=== PATIENT | male | born 1930 | race Caucasian/White ===

== ENCOUNTER 2017-07-27 12:38 | Inpatient (IN) | payer MEDICARE, OTHER ==
[~2017-07-27] VITALS: Ht 175.3 cm; Wt 81.2 kg
[~2017-07-27 12:38] MED LIST: ALLEGRA ALLERG180 MG PO; AMARYL2 MG PO; ASPIR-LOW81 MG PO; CITRATE OF MAG296 ML PO; COLACE100 MG PO; IBUPROFEN 600600 M1 PO; LYRICA 50 MG50 MG; LYRICA 50 MG50 MG PO; METFORMIN HCL500 MG PO; NORCO 5-325 TA1 EACH PO; NORVASC10 MG PO; PROSCAR 5MG TABL5 MG; RAMIPRIL10 MG PO; RELISTOR12 MG/0.2 IM; SYNTHROID75 MCG PO; TRAMADOL 50 MG50 MG PO; UROXATRAL10 MG PO
[2017-07-27 12:51] VITALS: BP 132/86
[2017-07-27 13:29] LABS: ABSOLUTE BASOPHILS 0.1 thou/uL (0.0-0.2); ABSOLUTE EOSINOPHILS 0.2 thou/uL (0.0-0.7); ABSOLUTE LYMPHOCYTES 5.7 thou/uL (0.8-5.3); ABSOLUTE MONOCYTES 1.5 thou/uL (0.0-1.2); ABSOLUTE NEUTROPHILS 7.5 thou/uL (1.6-8.1); BASOPHILS 0.4 %; EOSINOPHILS 1.5 %; HEMATOCRIT 38.7 % (42.0-52.0); HEMOGLOBIN 12.4 gm/dL (14.0-18.0); LYMPHOCYTES 37.9 %; MCH 29.1 pg (26.0-34.0); MCHC 32.1 g/dL (28.0-37.0); MCV 90.7 fL (80.0-100.0); MONOCYTES 10.2 %; NUCLEATED RBCS 0 /100WBC; PLATELET COUNT* 251 thou/uL (150-400); RBC 4.27 mil/uL (4.50-6.00); RDW-CV 17.1 % (10.5-14.5); WBC 15.1 thou/uL (4.0-11.0)
--- NOTE | 2017-07-27 13:30 | NUR ---
PT WITH DENUDED AREA TO RIGHT BUTTOCK. BARRIER CREAM APPLIED. SKIN TEARS TO R DORSAL FOOT AND R 3RD TOE. FOOT REDDENED
[2017-07-27 13:34] LABS: ANION GAP 8 mmol/L (7-16); BUN 33 mg/dL (7-18); CALCIUM 9.2 mg/dL (8.5-10.1); CHLORIDE 109 mmol/L (98-107); CO2 26 mmol/L (21-32); CREATININE 1.5 mg/dL (0.6-1.3); GLUCOSE 176 mg/dL (70-99); POTASSIUM 4.2 mmol/L (3.5-5.1); SODIUM 143 mmol/L (136-145)
[2017-07-27 13:41] LABS: ALKALINE PHOSPHATASE 141 U/L (46-116); LIPASE 74 U/L (73-393); SGOT 16 U/L (15-37); SGPT 24 U/L (30-65); TOTAL BILIRUBIN 0.3 mg/dL (<0.1-1.0); TOTAL PROTEIN 6.7 g/dL (6.4-8.2); TROPONIN-I LEVEL <0.06 ng/mL (<0.06)
--- NOTE | 2017-07-27 14:28 | NUR ---
PT SITTING UP IN BED EATING LUNCH. FAMILY AT BS
--- NOTE | 2017-07-27 15:23 | EKG ---
[place] [address] ELECTROCARDIOGRAM REPORT Name: DARIEL CARNEY Room: [facility]#: [id number] Admission: 07/27/17 Attend Phys: Discharge: Date of : 34 Report #: [id number] THIS REPORT FOR: //name// 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
[2017-07-27 15:55] LABS: URINE BILIRUBIN NEGATIVE (Negative); URINE BLOOD 3+ (Negative); URINE CLARITY CLOUDY; URINE COLOR YELLOW; URINE GLUCOSE-RANDOM 3+ (Negative); URINE KETONES NEGATIVE (Negative); URINE LEUKOCYTES-REFLEX 1+ (Negative); URINE NITRITE-REFLEX NEGATIVE (Negative); URINE PROTEIN 2+ (Negative); URINE SPECIFIC GRAVITY 1.025 (1.005-1.030); URINE UROBILINOGEN 0.2 E.U./dl (0.2-1.0)
[2017-07-27 16:02] LABS: URINE WBC-REFLEX >25 Many /HPF (0-5)
[2017-07-27 16:04] LABS: SQUAMOUS 0-3 Few /LPF (0-3); URINE RBC 3-10 Few /HPF (0-2)
[2017-07-27 16:05] LABS: BACTERIA-REFLEX 1-9 Few /HPF (None Seen); CRYSTALS None Seen /LPF (None Seen); HYALINE CASTS 0-3 Few /LPF (None Seen); MUCUS None Seen strn/LPF (None Seen); WBC CLUMPS Few (None Seen)
[2017-07-27] MEDS ORDERED: CARVEDILOL12.5 MG PO (16:10)
[2017-07-27] MEDS ORDERED: JANUVIA100 MG PO (16:11)
[2017-07-27] MEDS ORDERED: IBUPROFEN200 M1 PO (16:11)
[2017-07-27] MEDS ORDERED: JARDIANCE25 MG PO (16:11)
[2017-07-27] MEDS ORDERED: METFORMIN HCL500 MG PO (16:12)
[2017-07-27] MEDS ORDERED: OMEGA-31000 M1 PO (16:13)
[2017-07-27] MEDS ORDERED: CENTRUM SILVER1 EAC2 PO (16:13)
[2017-07-27] MEDS ORDERED: SIMETHICON CHEW80 M1 PO (16:14)
[2017-07-27 17:00] VITALS: BP 127/74
--- NOTE | 2017-07-27 17:00 | NUR ---
REPORT TO BK DENTON ON . PT TAKEN TO FLOOR VIA CART
[2017-07-27 17:38] VITALS: BP 134/87
[2017-07-27 20:00] VITALS: BP 152/82
--- NOTE | 2017-07-27 20:01 | NUR ---
PATIENT ADMITTED TO ROOM 305 FROM ER AT 1715. ADMISSION HISTORY AND ASSESSMENT COMPLETED CHARTED. PATIENT NOTED TO HAVE RIGHT FOOT AND TOE WOUND, PICTURE OBTAINED AND DRESSING APPLIED. NOTED TO HAVE ? PRESSURE ULCER TO SACRUM AND ? PRESSURE ULCER TO RIGHT AND LEFT BUTTOCK. INCONTINENT OF URINE AND STOOL, FADIA-CARE COMPLETED AND BARRIER CREAM APPLIED. IV VANCOMYCIN INFUSING. FAMILY AT BEDSIDE. FALL PRECAUTIONS IN PLACE. HOURLY ROUNDING COMPLETED. CALL LIGHT WITHIN REACH. WILL CONTINUE WITH PLAN OF CARE.
[2017-07-28] VITALS: BP 110/70
[2017-07-28 05:26] LABS: HEMATOCRIT 33.3 % (42.0-52.0); HEMOGLOBIN 10.9 gm/dL (14.0-18.0); MCH 29.1 pg (26.0-34.0); MCHC 32.6 g/dL (28.0-37.0); MCV 89.2 fL (80.0-100.0); RBC 3.74 mil/uL (4.50-6.00); RDW-CV 16.6 % (10.5-14.5); WBC 16.2 thou/uL (4.0-11.0)
--- NOTE | 2017-07-28 05:49 | NUR ---
PT INCONTINET BOWEL AND BLADDER SEVERAL TIMES OVERNIGHT, PT UNAWARE IF HE HAS GONE-FREQUENT CHECKS AND INCONTINENCE CARE GIVEN. UP WITH 2 PERSON ASSIST AND WALKER TO BSC X2 OVERNIGHT. L FA IVF SL, ABX GIVEN ORDERED. PT TURNED AND REPOSITIONED Q2 HOURS AND PRN PT WOULD ALLOW AND REQUESTS. FAMILY MEMBER HERE UNTIL 0200 ATTENTIVE TO NEEDS. HS ACCUCHECK 190, PO MEDS GIVEN, REFUSING INSULIN PER . SPOKE WITH SEVERAL MINUTES AT HS REGARDING MEDICATIONS AND CARES. REFUSING LOVENOX, EDUCATION GIVEN. R FOOT DRSG BECAME SOILED AND FOOT CLEANSED WITH WOUND CLEANSER AND REDRESSED. FADIA CARE AND BARRIER CREAM TO BUTTOCK WOUNDS, WOUND CARE TO SEE PT TODAY. AM LABS DRAWN. OCC CONGESTED COUGH HEARD, OCC PROD PT STATES. CALL LITE IN EASY REACH, BED ALARM ON FOR SAFETY.
[2017-07-28 06:04] LABS: CALCIUM 8.7 mg/dL (8.5-10.1); CREATININE 1.4 mg/dL (0.6-1.3); MAGNESIUM 2.1 mg/dL (1.8-2.4); POTASSIUM 4.5 mmol/L (3.5-5.1)
[2017-07-28 07:35] VITALS: BP 161/74
--- NOTE | 2017-07-28 12:30 | NUR ---
WOUND CARE NOTE: MULTIPLE CONSULTS RECEIVED FOR WOUNDS. PATIENT PRESENTS WITH PARTIAL THICKNESS TISSUE LOSS TO THE MEDIAL ASPECT OF THE RIGHT FOOT, NEAR THE 1ST METATARSAL HEAD AND TO THE DORSAL ASPECT OF THE 2ND TOE ON THE RIGHT FOOT. BOTH APPEAR TO BE AN ABRASION. MEDIAL RIGHT FOOT: 0.8X1.4X0.1. DRY, PALE, YELLOW WOUND BED. FADIA-WOUND INTACT. RIGHT 2ND TOE: 1.5X0.8X0.1. DRY, PALE, YELLOW WOUND BED. FADIA-WOUND INTACT. CLEANSED BOTH WOUNDS WITH WOUND CLEANSER, PATTED DRY. APPLIED VASELINE GAUZE AND SECURED WITH ROLL GAUZE. PATIENT HAS MULTPLE SMALL OPENINGS TO HIS SACROCOCCYGEAL AREA. BELIEVE THESE ALL TO BE STAGE 2 PRESSURE ULCERS, POSSIBLY STAGE 3. RIGHT BUTTOCK/SACRUM: 1X1.5X0.1 LEFT BUTTOCK/SACRUM: 2.8X3X0.2 COCCYX: 0.7X0.5X0.1 WOUND BEDS ARE MOIST, RED. FADIA-WOUND MACERATED. APPLIED BARRIER OINTMENT AT THIS TIME. PATIENT HAS MULTIPLE EPISODES OF INCONTINENCE, BOTH STOOL AND URINE. THIS COMPLICATES THE DRESSING SELECTION I FEAR THEY WOULD NOT STICK DUE TO THE MOISTURE. SPOKE WITH PATIENT'S , SHE STATES THAT HE WEARS DEPENDS AT HOME AND DOES NOT CHANGE THEM FREQUENTLY HE SHOULD. HE IS ALMOST CONSTANTLY STOOLING OR WET AND HE GETS FRUSTRATED WHEN HE HAS TO CHANGE THEM A LOT. SHE STATES HE ALSO SITS FREQUENTLY. EDUCATED THE IMPORTANCE TO NOT HAVE THE WET BRIEF ON, COMMUNICATES UNDERSTANDING. EDUCATED ON DRESSING SELECTION FOR FEET. RECOMMEND Z-GUARD BARRIER CREAM TO SACROCOCCYGEAL AREA BID AND PRN INCONTINENCE-HOPE TO PROVIDE A BARRIER FROM THE URINE/STOOL AND THE WOUNDS WAFFLE CUSHION WHEN IN BED TIGHT BLOOD GLUCOSE CONTROL TURN Q2 HOURS-KEEP OFF WOUNDS
--- NOTE | 2017-07-28 13:17 | NUR ---
MET WITH PT.,,DAUGHTER AND SON IN LAW. PT.ANSWERED MOST OF THE QUESTIONS. HE SAID HIS RIGHT FOOT WAS RED AND SWOLLEN AND WAS AFRAID HE MIGHT HAVE PNEUMONIA. PT.LIVES AT HOME WITH HIS . SHE SAID SHE DOES EVERYTHING AT HOME, COOKS,CLEANS, HELPS TAKE CARE OF HIM. PT.SAID HE USES A WALKER AT HOME. HE PLANS TO GO HOME WITH HOME HEALTH AT DISCHARGE. HE WAS RECENTLY RELEASED FROM [facility] AND WANTS TO USE THEM AGAIN. HE NEEDS SOME ASSIST WITH BATHING. HE IS INCONTINENT OF BOWEL AND BLADDER FREQUENTLY BUT CAN CHANGE HIS OWN DEPENDS. THEY ARE TRYING TO FIND OUT WHY HE IS INCONTINENT. HE ALSO HAS A DECUB ON HIS SACCRUM. HE DOESNT DRIVE DUE TO HIS NEUROPATHY . HIS DRIVES. CM WILL FOLLOW FOR DISCHARGE PLANNING. NOTIFIED [facility] HOME THAT PT.WOULD LIKE TO USE THEM AT DISCHARGE. DISCHARGE DATE UNKNOWN AT THIS TIME.
[2017-07-28 14:50] LABS: % SATURATION 15 % (20-39); IRON 35 ug/dL (50-175)
[2017-07-28 17:11] VITALS: BP 172/88
--- NOTE | 2017-07-28 18:45 | NUR ---
PATIENT HAS BEEN A/O X 4, FORGETFUL AT TIMES. HAS DENIED PAIN THIS SHIFT. SEEN BY WOUND CARE, GI, AND ID THIS SHIFT. DRESSING TO RIGHT FOOT CHANGED WITH BEHAVIORIST THIS AM. BARRIER CREAM APPLIED SACROCOCCYGEAL REGION AFTER EACH INCONTINENT EPISODE. UP TO CHAIR THIS SHIFT, WAFFLE CUSHION IN PLACE. PATIENT HAD SHOWER THIS SHIFT. PATIENT CONTINUES ON IV ANTIBIOTICS. SEEN BY PT/OT THIS SHIFT. HAS HAD MULTIPLE FAMILY MEMBERS AT BEDSIDE THIS SHIFT. HOURLY ROUNDING COMPLETED. FALL PRECAUTIONS IN PLACE. CALL LIGHT WITHIN REACH. WILL CONTINUE WITH PLAN OF CARE.
[2017-07-28 20:15] VITALS: BP 161/80
--- NOTE | 2017-07-29 01:03 | NUR ---
PT COMPLAINED OF NEEDING TO URINATE. PT TRIED TO URINATE AND WAS UNABLE, BLADDER SCANNER READ 688ML. DR NOTIFIED, ORDER TO STRAIGHT CATH RECIEVED. WENT TO STRAIGHT CATH PT, PT WAS INCONTINENT, BLADDER SCAN REDONE READING 468, PT TRIED VOIDING AGAIN AND WAS UNABLE. STRAIGHT CATH PERFORMED, 800 ML OUT.
--- NOTE | 2017-07-29 05:37 | NUR ---
PT SLEPT ON AND OFF THIS SHIFT. ASSESSMENT DOCUMENTED. MEDS GIVEN PER E-JUN. IV PATENT, ABX INFUSING. PT HAD FAMILY AND A RECEIVABLE CLERK THAT WORKS FOR THE FAMILY STAYED THROUGH SHIFT. PT INCONTINENT OF BOWEL AND BLADDER THROUGH SHIFT. PT AMBULATED TO BATHROOM A COUPLE TIMES THIS SHIFT. PTS SON, KRISTA CARNEY ASKED IF DR. HAYDEN AND CASE MANAGEMENT WOULD TALK TO PATENT AND SPOUCE ABOUT PLACEMENT. CALLED TO ASK ABOUT PATIENT, STATED SHE WOULD BRING PTS ALFUZOSIN SINCE PT WAS NOT WANTING TO TAKE TAMSULOSIN. WILL CONTINUE WITH PLAN OF CARE.
[2017-07-29 08:00] VITALS: BP 171/86
[2017-07-29 10:45] LABS: ABSOLUTE BASOPHILS 0.1 thou/uL (0.0-0.2); ABSOLUTE EOSINOPHILS 0.2 thou/uL (0.0-0.7); ABSOLUTE LYMPHOCYTES 5.1 thou/uL (0.8-5.3); ABSOLUTE MONOCYTES 1.5 thou/uL (0.0-1.2); ABSOLUTE NEUTROPHILS 6.6 thou/uL (1.6-8.1); BASOPHILS 0.7 %; EOSINOPHILS 1.5 %; HEMATOCRIT 34.6 % (42.0-52.0); HEMOGLOBIN 11.3 gm/dL (14.0-18.0); LYMPHOCYTES 37.8 %; MCH 29.5 pg (26.0-34.0); MCHC 32.7 g/dL (28.0-37.0); MCV 90.2 fL (80.0-100.0); MPV 9.7 fl. (7.2-11.1); NUCLEATED RBCS 0 /100WBC; PLATELET COUNT* 204 thou/uL (150-400); RBC 3.84 mil/uL (4.50-6.00); RDW-CV 16.7 % (10.5-14.5); WBC 13.4 thou/uL (4.0-11.0)
[2017-07-29 10:52] LABS: CALCIUM 8.8 mg/dL (8.5-10.1); CREATININE 1.5 mg/dL (0.6-1.3); POTASSIUM 3.9 mmol/L (3.5-5.1)
--- NOTE | 2017-07-29 12:25 | CON ---
[address] [address] CONSULTATION Name: DARIEL CARNEY Room: [address] IN M.R.#: [id number] Admission: 07/27/17 Attend Phys: Pam Santos MD Discharge: Date of : 32 Report #: [id number] THIS REPORT FOR: //name// CC: Isauro Santos DATE OF SERVICE: 07/28/2017 ATTENDING PHYSICIAN: Dr. Santos. REASON FOR EVALUATION: Right foot skin and soft tissue infection with cellulitis, also has some superficial posterior perineal ulcers and perhaps bronchitis. HISTORY OF PRESENT ILLNESS: Chart reviewed, patient examined. This is an 87-year-old gentleman with diabetes mellitus type 2, spinal stenosis, who may well have early dementia as well, who apparently has been ill for the last few days, noted redness associated with his foot, primarily a superficial abrasive lesion involving the dorsal aspect of the right great toe. It had progressed quite rapidly over the course of 12 hours, becoming red, swollen. He does recall some degree of pain. It is not clear if he had fevers or chills. In addition to that, had noted some cough associated with some congestion. He was evaluated by his primary care physician. There is question of early pneumonitis. Due to the above, he was instructed to be admitted. Cultures of the blood were taken. Urinalysis did show marked pyuria. Urine culture in progress. He is empirically started on combination therapy with azithromycin, ceftriaxone and vancomycin. ALLERGIES: None known. MEDICATIONS: Include, famotidine, azithromycin, linagliptin, multivitamin, fish oil, tamsulosin, levothyroxine, vancomycin, pregabalin, lisinopril, ceftriaxone, enoxaparin, carvedilol, metformin, ibuprofen. PAST MEDICAL HISTORY: Above noted diabetes mellitus type 2, complicated by some peripheral neuropathy. Does have a spinal stenosis and recent incontinence, cataracts, may have some early dementia. SOCIAL HISTORY: Nonsmoker. Occasional ethanol. FAMILY HISTORY: Noncontributory. REVIEW OF SYSTEMS: Denies significant gastrointestinal-related complaints other than frequent soft stools, apparently has good appetite, although has had a [place] [address] CONSULTATION Name: ROMMELDARIEL Yunier Room: [address] IN [facility]#: [id number] Admission: 07/27/17 Attend Phys: Pam Santos MD Discharge: Date of : 32 Report #: [id number] PHYSICAL EXAMINATION: GENERAL: He is pleasant and cooperative, appropriate, does have some mild degree of encephalopathy. VITAL SIGNS: T-max 100.4, more recently 98.3. Pulse 66, respirations 18, blood pressure 161/74. SKIN: Warm, dry, no rashes. HEENT: Unremarkable. LUNGS: Clear to auscultation. HEART: Regular. I do not appreciate murmur. ABDOMEN: Soft, nontender, nondistended. EXTREMITIES: Right lower extremity superficial ulcer involving the dorsal aspect of great toe. There is a second wound over the dorsal aspect of the second toe. There is mild degree of inflammation at this point. GENITOURINARY: Deferred. RECTAL: Deferred. LABORATORY DATA: Blood cultures sterile thus far. Electrolytes: Sodium 142, potassium 4.5, chloride 111, bicarbonate is 21, BUN and creatinine 32 and 1.4. Estimated GFR 48. CBC: White count of 16.2, H and H 10.9 and 33.3, platelets of 216. X-ray of the right foot shows no acute osseous findings or bone destruction. Urinalysis greater than 25 white cells, 1-9 bacteria. Lactic acid 1.6. Chest x-ray, no acute process. Liver function tests: Alkaline phosphatase of 141, otherwise unremarkable. Albumin 3.0, total protein 6.7. ASSESSMENT: Distal right lower extremity inflammatory process. Certainly given the rapidity, it sounds as if cellulitic, it should be responding to treatment. PLAN: Continue the IV antibiotics for at least another day. at this point, he is not evidently hypoxemic. We will plan to transition to antibiotics to cover lower respiratory tract infection as well. Continue wound care as prescribed. He may need a neuro evaluation, possible complications related to spinal stenosis. I would not expect that to resolve without intervention. We will discuss with hospitalist. <ELECTRONICALLY SIGNED> By: Roberto Garrison MD 07/29/17 1225 [id number] Garrison MD /nt
--- NOTE | 2017-07-29 15:05 | NUR ---
FAMILY DECIDING IF THEY WANT TESTING FOR PT.S MEMORY ISSUES. DR'S ADJUSTING MEDS TO SEE IF THEY WILL HELP WITH BOWEL INCONTINENCE. SAID THEY WANT TO WAIT ANOTEHR DAY BEFORE DISCUSSING SNF. CM WILL FOLLOW.
[2017-07-29 17:16] VITALS: BP 141/79
--- NOTE | 2017-07-29 19:46 | NUR ---
ASSUMED CARE THIS AM. PATIENT AND REQUIRE EXT. EDUCATION AND REAFFIRMATION FROM STAFF FREQUENTLY THROUGHOUT THE DAY. SON REQUESTING THAT DOCTOR AND CASE MANAGEMENT CONVINCE TO HAVE PATIENT TRANSFER TO ASSIST LIVING VS. LTC., PREFERS THAT PATIENT RETURN TO HOME. DENIES DISCOMFORT, EXT ASSIST OF FTWO STAFF WITH GAIT BELT AND WALKER FOR TRANSFERS/AMBULATION TO/FROM TOILET IN PT. ROOM. DRESSINGS C/D/I TO FOOT, UP TO CHAIR FOR MEALS, CALL LIGHT IN REACH, CONT POC.
[2017-07-29 20:05] VITALS: BP 155/75
[2017-07-30] VITALS: BP 141/81; BP 83/42
--- NOTE | 2017-07-30 05:19 | NUR ---
FAMILY HERE UNTIL LATE LAST NIGHT, MANY CONCERNS AND QUESTIONS REGARDING PATIENT. PT AND FAMILY PLEASANT. PT ALERT AND ORIENTED, FORGETFULNESS, INCONTINENT OF BOWEL AND BLADDER, FLUIDS AND ANTIBIOTICS INFUSED, PT BLADDER SCANNED LAST NIGHT AND 970 RESULTED, PHYSICIAN CALLED AND NOTIFIED, ELLIS ORDERED AND INSERTED. FAMILY CONCERNED ABOUT COUGH, DISCUSSED WITH PHYSICIAN AND NO NEW ORDERS RECEIVED BUT TO HAVE FAMILY DISCUSS WITH DOCTOR TODAY. PT TURNED AND REPOSITIONED FREQUENTLY. BARRIED CREAM APPLIED WITH ALL INCONTINENT EPISODES. WOUNDS HEALING ON BUTTOCKS AND SACRUM. DRESSINGS REMAIN C/D/I ON LEGS. CALL LIGHT IN REACH, BED ALARM ON FOR SAFETY, WILL CONTINUE TO MONITOR
[2017-07-30 07:45] VITALS: BP 147/82
[2017-07-30 14:59] VITALS: BP 147/82
[2017-07-30] MEDS ORDERED: COLESTID1 GM PO (15:06)
[2017-07-30] MEDS ORDERED: GLUCOTROL5 MG PO (15:07)
[2017-07-30] MEDS ORDERED: CEFUROXIME250 MG PO (15:46)
[2017-07-30] MEDS ORDERED: MINOCIN100 MG PO (15:47)
[2017-07-30] MEDS ORDERED: FLOMAX0.4 MG PO (16:05)
--- NOTE | 2017-07-30 16:30 | NUR ---
PATIENT DISCHARGED TO INPATIENT REHAB. REPORT GIVEN ROCIO. COPY OF ORDERS GIVEN TO ROCIO. IV IN PLACE. PATIENT BELONGINGS MOVED TO ROOM 333. PATIENT LEFT FOR CT AND IS GOING TO ROOM [address] COMPLETED.
[2017-07-30] MEDS ORDERED: CENTRUM SILVER1 EAC2 PO (17:36)
--- NOTE | 2017-08-04 17:26 | CON ---
[address] [address] CONSULTATION Name: DARIEL CARNEY Room: [address] IN M.R.#: [id number] Admission: 07/27/17 Attend Phys: Pam Santos MD Discharge: 07/30/17 Date of : 32 Report #: [id number] THIS REPORT FOR: //name// CC: Isauro Santos DATE OF SERVICE: 07/28/2017 HISTORY OF PRESENT ILLNESS: This is an 87-year-old male patient who was evaluated by me for memory disturbances. The history is not very clear. I talked to the patient's family and I talked to the nurses looking after this patient. This patient had some memory problems, but he was functioning reasonably well. Then, he was given some medication for his incontinence. He became confused and then, he had what looks like an infection in his feet and sacrococcygeal pressure ulcer. He was running some temperature. He became even more confused and subsequently, he has become better. There is nothing which made this memory problem better or worse. It came spontaneously without any trauma. They were moderately severe, but they are better now. REVIEW OF SYSTEMS: Pretty extensive in this patient, looks like he has cellulitis of the foot. He has decubitus ulcer. He had a prior fracture of L2. He has history of diabetes. In fact, he has neuropathy involving both lower extremities. He had previous cataract surgery. He has a history of spinal stenosis. He has a history of hypertension, hypothyroidism, diabetes and looks like he also has some chronic kidney disease. He has not been able to drive because of his neuropathy. Neuropathy has been secondary to diabetes. I carried out his 14-point review of system and this was his relevant 14-point review of system. PAST MEDICAL HISTORY: Positive for neuropathy and some memory disturbances. FAMILY HISTORY: Negative for any early age strokes. SOCIAL HISTORY: He drinks alcohol only on special occasions. PHYSICAL EXAMINATION: Indicate that he is alert. He is responsive. He knows what month it is. He did not get the date exactly right. He knows what hospital he is in and he knew the president. His cranial nerve examination 2-12 is unremarkable. His strength, sensation, reflexes and tones are symmetrical, but on both sides, he is not able to appreciate the position sense and his sensation is impaired. His reflexes could not be elicited in the lower extremities. He has no cerebellar sign. I could not look at the fundus well as pulses are difficult to feel in the lower extremities. He does not have any pronounced edema. He is a reasonably well-developed individual. His hearing and vision looks adequate. His cardiac examination was mostly unremarkable. No respiratory difficulty or rhonchi was noted. Blood pressure was 161/74, pulse [facility] [address] [place] [address] CONSULTATION Name: DARIEL CARNEY Room: [address] IN [facility]#: [id number] Admission: 07/27/17 Attend Phys: Pam Santos MD Discharge: 07/30/17 Date of : 32 Report #: [id number] is 66, temperature is 98.3, respiration is 18. LABORATORY DATA: Indicate a white count of 16.2. His GFR is 48. He does not have any imaging study of the brain. He is a moderately built individual who does not have any thyroid mass or carotid bruit. IMPRESSION: 1. It would appear the patient probably has encephalopathy from which he is becoming better. 2. He was going to see me for memory disturbances and it is possible he is getting minimum cognitive impairment or early dementia. That will require some workup, but only when the patient is stabilized. 3. Neuropathy, which is probably secondary to diabetes, but again, we will require the workup as an outpatient since it is a longstanding problem. RECOMMENDATION: I had a long talk with the patient's family. I discussed with them that if he is having memory problem, we need to do the further testing starting with mini mental status and maybe formal neuropsychological testing. The best thing to do for those testing is an as outpatient once the patient stabilizes because presently the test may not be accurate. They understood that. I did recommend doing some blood workup, an MRI of the brain and an EEG. The patient has incontinence. They are scared because the patient may not be able to have the test done. I told them that we can try CT, but ultimately they are not sure they want to have any tests done at all. I asked them to think about it and if they want to proceed with this testing, then they can let the nurse know and I will be happy to arrange those testing. I did discuss the patient with Dr. May and talked to the nurses looking after this patient. More than 50 minutes of time was spent taking care of this patient today and majority of that time was spent counseling the family and coordinating his care. Thank you very much for this referral. <ELECTRONICALLY SIGNED> By: Mtat Good MD 08/04/17 1726 1424 [id number] Good MD /nt
--- NOTE | 2017-08-10 15:01 | CON ---
[address] [address] CONSULTATION Name: DARIEL CARNEY Room: [address] IN M.R.#: [id number] Admission: 07/27/17 Attend Phys: Pam Santos MD Discharge: 07/30/17 Date of : 32 Report #: [id number] THIS REPORT FOR: //name// CC: Isauro Santos DICTATED BY: Chacha Victor [facility] DATE OF SERVICE: 07/28/2017 Please note at the time of this dictation, the patient was seen and physically examined by myself. REASON FOR CONSULTATION: Incontinent of stool and very loose, numerous times a day. HISTORY OF PRESENT ILLNESS: This is an 87-year-old male who presented to the emergency room mainly for redness and infection in the right foot that has been ongoing for a while. He has also been noted to have a decubitus ulcer, which is getting worse on his buttocks. He also recently saw his PCP for getting antibiotics for worsening of his infections and his mentioned that she has concerns that over the last 6 months he is becoming more and more incontinent of urine and stool and noticing that he is progressively weaker. In talking with the patient, he has never had a colonoscopy nor does he wish to have a colonoscopy at this time. He states if he goes to the bathroom, he may sit on the toilet for 45 minutes to an hour because he is unable to get up that he is constantly going to the bathroom and cleaning himself up. However, since he has been here in the hospital, the nursing staff has noted that every time they go to move him around that he has been incontinent of stool and he has been unaware of soiling in his bed. , in talking to her, he has numerous bowel movements, probably 10 plus if not more daily, some are formed and some are very loose. Denies any evidence of any bright red blood or any melena is noted and there is some concern for weight loss as well. The patient denies any fever, chills, or any abdominal pain at this time. Family is also concerned that because of his decubitus ulcer and his incontinent stool is making that worse on his buttocks. When his metformin dose was decreased from 2000 mg to 1000 mg, his stooling decreased. ALLERGIES: No known drug allergies. MEDICATIONS: From home, Synthroid, carvedilol, Jardiance, Januvia, ibuprofen, metformin, omega-3, simethicone, ramipril, Mariposa, Uroxatral, Lyrica, and Centrum. PAST MEDICAL HISTORY: Hypertension, neuropathy in his feet for the past [address] [place] [address] CONSULTATION Name: DARIEL CARNEY Room: [address] IN M.R.#: [id number] Admission: 07/27/17 Attend Phys: Pam Santso MD Discharge: 07/30/17 Date of : 34 Report #: [id number] years, spinal stenosis in his lower back as well as a compression fracture, type 2 diabetes, and hypothyroidism. PAST SURGICAL HISTORY: Cataracts, tip of his right toe removed secondary to infection. FAMILY HISTORY: Positive for colon cancer in his son at age 58 and daughter breast cancer. SOCIAL HISTORY: He is . Alcohol, 1-2 glasses of wine on special occasions. Denies any tobacco use and no illegal drug use. REVIEW OF SYSTEMS: Twelve-point review of systems is essentially negative except what is mentioned in the HPI. PHYSICAL EXAMINATION: VITAL SIGNS: Temperature 36.8, pulse 66, respirations 18, and blood pressure 161/74. HEART: Regular rate and rhythm. LUNGS: Clear, slightly diminished. ABDOMEN: Soft, positive bowel sounds in all 4 quadrants with no masses or tenderness noted. EXTREMITIES: Stage II decubitus ulcer noted in the gluteal cleft. LABS: Hemoglobin on admission was 12.4, he is 10.9; white count was 15.1, he is 16.2 now; hematocrit 33.3, and platelets 216. Sodium 142, potassium 4.5, chloride 111, CO2 of 21, BUN is 32, creatinine is 1.4, GFR is 48 and glucose is 185. Total bili is 0.3, alk phos 141, ALT 24, AST is 16. The patient is positive significantly for a urinary tract infection as well. IMPRESSION: 1. Stool and urine incontinence. 2. Loose bowels. 3. Decubitus ulcer at the gluteal cleft. 4. Anemia. 5. Leukocytosis. 6. Bronchitis and urinary tract infection. 7. Spinal stenosis. 8. 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 9. Family history, son colon cancer and daughter breast cancer. PLAN: 1. Stop his metformin completely and see if there is any improvement in his bowels. 2. We will add Colestid 2 grams b.i.d., again reiterated that this needs to be taken an hour before medications or 4 hours after other medications to prevent [facility] [address] [place] [address] CONSULTATION Name: DARIEL CARNEY Room: [address] IN M.R.#: [id number] Admission: 07/27/17 Attend Phys: Pam Santos MD Discharge: 07/30/17 Date of : 32 Report #: [id number] binding issues. 3. Consider nerve conduction studies regarding his spinal stenosis as being a cause for his incontinence, worsening. 4. Labs, ferritin, B12, iron and TIBC to check for his anemia. 5. Greater than 45 minutes was spent with the patient and family in consultation on one-on-one time. Thank you for allowing us to participate in this patient's care. Please do not hesitate to call with any questions in regard to this consult. <ELECTRONICALLY SIGNED> By: Merlyn Patel MD 08/10/17 1501 1409 [id number] Patel MD /nt
--- NOTE | 2017-08-11 13:30 | CON ---
[address] [address] CONSULTATION Name: DARIEL CARNEY Room: [address] IN M.R.#: [id number] Admission: 07/27/17 Attend Phys: Pam Santos MD Discharge: 07/30/17 Date of : 32 Report #: [id number] THIS REPORT FOR: //name// CC: Isauro Santos REASON FOR CONSULTATION: Evaluation and recommendations regarding post-acute rehabilitation in an 87-year-old male who presented to [facility] with right foot and ankle swelling for at least 2 weeks. Coccyx pressure ulcer, persistent cough, congestion and fecal incontinence with ongoing debility, sounds like his previous level of function has been modified independent in the home setting where he has 2-3 steps to enter from the garage. He has been using a front-wheeled walker for the last 2 years. He was previously ambulating without any issues. He now has minimum to maximum assistance with physical therapy needs and minimum to moderate assistance with occupational therapy needs. He also has ongoing wound care as well as multiple medical comorbidities including diabetes, spinal stenosis, peripheral neuropathy. Currently, he is undergoing IV antibiotics and he is being followed closely. He has also been diagnosed with urinary tract infection. Laboratories, x-rays and medications have been reviewed and are available in the EMR and MAR. PAST MEDICAL HISTORY: Hypertension, bilateral peripheral neuropathy, cataracts with implants, spinal stenosis, non-insulin dependent diabetic, left leg weakness and pain. SOCIAL HISTORY: No tobacco or illicit drug use. He does use alcohol 1-2 glasses of wine on special occasions. FAMILY HISTORY: Diabetes and heart disease. REVIEW OF SYSTEMS: A 14-point review of systems is done and is negative except as mentioned in the HPI. PHYSICAL EXAMINATION: GENERAL: Alert and oriented, in no apparent distress. VITAL SIGNS: Reviewed and are stable. HEENT: Head atraumatic, normocephalic. Pupils equal, round, reactive. ABDOMEN: Soft, nontender, nondistended. NEUROLOGIC: Cranial nerves 2-12 are grossly intact with no focal neuro deficits, 5/5 strength, moving all extremities. SKIN: Warm and dry. PSYCHIATRIC: Normal mood and affect. ASSESSMENT: 1. Wound issues including coccyx pressure ulcer stage 2, [place] [address] CONSULTATION Name: DARIEL CARNEY Room: [address] IN [facility]#: [id number] Admission: 07/27/17 Attend Phys: Pam Santos MD Discharge: 07/30/17 Date of : 32 Report #: [id number] right foot and ankle on IV antibiotics. 2. Pneumonitis versus acute bronchitis and urinary tract infection. 3. Ongoing debility with changes in activities of daily living. 4. Documented peripheral neuropathy with a history of diabetes. 5. Hypothyroid, spinal stenosis, essential hypertension. 6. Urinary and fecal incontinence. PLAN: 1. Recommended acute inpatient rehabilitation to facilitate safe discharge to the home setting. 2. PT and OT will also do a cognitive screening based on his age and multiple recent changes. 3. Continue with antibiotics. 4. Continue with internal medicine support. 5. Wound care. <ELECTRONICALLY SIGNED> By: Elinor Mojica DO 08/11/17 1330 1408 [id number] Mojica DO /nt
== END 2017-07-30 16:31 | DRG 871 ==
LOC: M.ERS 12:38 → M.3W 15:20 → M.TBA-ER 15:20 → M.3W 17:00
PROVIDERS: Nurse Practitioner Adult Health; Physician Assistant; ADMIT Internal Medicine
DX: A41.9 Sepsis, unspecified organism (principal); J18.9 Pneumonia, unspecified organism; L03.115 Cellulitis of right lower limb; N39.0 Urinary tract infection, site not specified; E11.42 Type 2 diabetes mellitus with diabetic polyneuropathy; E03.9 Hypothyroidism, unspecified; D64.9 Anemia, unspecified; D72.829 Elevated white blood cell count, unspecified; M48.00 Spinal stenosis, site unspecified; J20.9 Acute bronchitis, unspecified; L89.302 Pressure ulcer of unspecified buttock, stage 2; E11.65 Type 2 diabetes mellitus with hyperglycemia; I12.9 Hypertensive chronic kidney disease with stage 1 through stage 4 chronic kidney disease, or unspecified chronic kidney disease; N18.2 Chronic kidney disease, stage 2 (mild); L89.152 Pressure ulcer of sacral region, stage 2; E11.22 Type 2 diabetes mellitus with diabetic chronic kidney disease; R33.9 Retention of urine, unspecified; Z98.49 Cataract extraction status, unspecified eye; Z80.0 Family history of malignant neoplasm of digestive organs; Z80.3 Family history of malignant neoplasm of breast; Z83.3 Family history of diabetes mellitus; Z82.49 Family history of ischemic heart disease and other diseases of the circulatory system

== ENCOUNTER 2017-07-30 14:36 | Inpatient (IN) | payer MEDICARE, OTHER ==
[~2017-07-30] VITALS: Ht 177.8 cm; Wt 84.4 kg
[~2017-07-30 14:36] MED LIST changes: +CARVEDILOL12.5 MG PO; +CENTRUM SILVER1 EAC2 PO; +IBUPROFEN200 M1 PO; +JANUVIA100 MG PO; +JARDIANCE25 MG PO; +OMEGA-31000 M1 PO; +SIMETHICON CHEW80 M1 PO
[2017-07-30] MEDS ORDERED: COLESTID1 GM PO (15:06)
[2017-07-30] MEDS ORDERED: GLUCOTROL5 MG PO (15:07)
[2017-07-30] MEDS ORDERED: CEFUROXIME250 MG PO (15:46)
[2017-07-30] MEDS ORDERED: MINOCIN100 MG PO (15:47)
[2017-07-30] MEDS ORDERED: FLOMAX0.4 MG PO (16:05)
[2017-07-30 17:30] VITALS: BP 159/82
[2017-07-30] MEDS ORDERED: CENTRUM SILVER1 EAC2 PO (17:36)
[2017-07-30 20:37] VITALS: BP 149/58
[2017-07-31 07:30] VITALS: BP 121/80
[2017-07-31 09:06] LABS: MCHC 32.5 g/dL (28.0-37.0); MCV 89.3 fL (80.0-100.0); MPV 9.9 fl. (7.2-11.1); RBC 4.14 mil/uL (4.50-6.00); RDW-CV 16.4 % (10.5-14.5); WBC 15.3 thou/uL (4.0-11.0)
[2017-07-31 09:10] LABS: CALCIUM 9.1 mg/dL (8.5-10.1); CREATININE 1.3 mg/dL (0.6-1.3)
[2017-07-31 20:46] VITALS: BP 175/92
[2017-08-01 08:00] VITALS: BP 148/80
[2017-08-01 20:47] VITALS: BP 178/88
[2017-08-02 08:00] VITALS: BP 123/62
[2017-08-02 19:30] VITALS: BP 122/70
[2017-08-03 08:00] VITALS: BP 154/89
[2017-08-03 20:05] VITALS: BP 135/77
[2017-08-04 08:21] VITALS: BP 185/89
[2017-08-04 20:00] VITALS: BP 165/81
[2017-08-05 08:00] VITALS: BP 154/77
[2017-08-05 14:38] LABS: ABSOLUTE BASOPHILS 0.1 thou/uL (0.0-0.2); ABSOLUTE EOSINOPHILS 0.2 thou/uL (0.0-0.7); ABSOLUTE LYMPHOCYTES 6.6 thou/uL (0.8-5.3); ABSOLUTE MONOCYTES 1.3 thou/uL (0.0-1.2); BASOPHILS 0.9 %; EOSINOPHILS 1.9 %; HEMATOCRIT 35.1 % (42.0-52.0); HEMOGLOBIN 11.4 gm/dL (14.0-18.0); MCH 29.2 pg (26.0-34.0); MCHC 32.4 g/dL (28.0-37.0); MCV 90.3 fL (80.0-100.0); MONOCYTES 9.8 %; NUCLEATED RBCS 0 /100WBC; PLATELET COUNT* 244 thou/uL (150-400); POLYS 37.4 %; RBC 3.89 mil/uL (4.50-6.00); RDW-CV 16.7 % (10.5-14.5); WBC 13.3 thou/uL (4.0-11.0)
[2017-08-05 14:49] LABS: ALBUMIN 2.6 g/dL (3.4-5.0); CALCIUM 8.9 mg/dL (8.5-10.1); CREATININE 1.4 mg/dL (0.6-1.3); MAGNESIUM 2.3 mg/dL (1.8-2.4); POTASSIUM 4.3 mmol/L (3.5-5.1); TOTAL BILIRUBIN 0.2 mg/dL (<0.1-1.0); TOTAL PROTEIN 6.2 g/dL (6.4-8.2)
[2017-08-05 16:48] LABS: URINE BILIRUBIN NEGATIVE (Negative); URINE BLOOD 2+ (Negative); URINE CLARITY CLEAR; URINE COLOR YELLOW; URINE GLUCOSE-RANDOM 3+ (Negative); URINE KETONES NEGATIVE (Negative); URINE LEUKOCYTES-REFLEX NEGATIVE (Negative); URINE NITRITE-REFLEX NEGATIVE (Negative); URINE PROTEIN TRACE (Negative); URINE SPECIFIC GRAVITY 1.015 (1.005-1.030); URINE UROBILINOGEN 0.2 E.U./dl (0.2-1.0)
[2017-08-05 16:55] LABS: SQUAMOUS NONE SEEN /LPF (0-3); URINE RBC 3-10 Few /HPF (0-2); URINE WBC-REFLEX 0-5 Rare /HPF (0-5)
[2017-08-05 16:56] LABS: BACTERIA-REFLEX None Seen /HPF (None Seen); CASTS None Seen /LPF (None Seen); CRYSTALS None Seen /LPF (None Seen); MUCUS None Seen strn/LPF (None Seen)
[2017-08-05 20:12] VITALS: BP 184/85
[2017-08-06 08:00] VITALS: BP 159/72
[2017-08-06 08:03] VITALS: BP 159/72
[2017-08-06 20:32] VITALS: BP 156/75
[2017-08-07 08:00] VITALS: BP 145/87
[2017-08-07 16:13] LABS: ABSOLUTE BASOPHILS 0.1 thou/uL (0.0-0.2); ABSOLUTE EOSINOPHILS 0.4 thou/uL (0.0-0.7); ABSOLUTE LYMPHOCYTES 7.7 thou/uL (0.8-5.3); ABSOLUTE MONOCYTES 1.4 thou/uL (0.0-1.2); ABSOLUTE NEUTROPHILS 6.5 thou/uL (1.6-8.1); BASOPHILS 0.5 %; EOSINOPHILS 2.3 %; HEMATOCRIT 34.9 % (42.0-52.0); HEMOGLOBIN 11.3 gm/dL (14.0-18.0); LYMPHOCYTES 48.1 %; MCH 29.2 pg (26.0-34.0); MCHC 32.3 g/dL (28.0-37.0); MCV 90.3 fL (80.0-100.0); MONOCYTES 8.5 %; MPV 9.6 fl. (7.2-11.1); NUCLEATED RBCS 0 /100WBC; PLATELET COUNT* 240 thou/uL (150-400); POLYS 40.6 %; RBC 3.86 mil/uL (4.50-6.00); RDW-CV 16.7 % (10.5-14.5)
[2017-08-07 16:20] LABS: CALCIUM 8.7 mg/dL (8.5-10.1); CREATININE 1.4 mg/dL (0.6-1.3); POTASSIUM 4.3 mmol/L (3.5-5.1)
[2017-08-07 20:33] VITALS: BP 122/59
[2017-08-08 07:38] VITALS: BP 169/74
[2017-08-08 20:31] VITALS: BP 117/70
[2017-08-09 07:28] VITALS: BP 166/81
[2017-08-09 20:28] VITALS: BP 129/65
[2017-08-10 08:00] VITALS: BP 153/76
[2017-08-10 09:15] VITALS: BP 98/72
[2017-08-10 19:59] VITALS: BP 143/76
[2017-08-11 08:00] VITALS: BP 134/77
[2017-08-11 21:06] VITALS: BP 125/75
[2017-08-12 08:11] VITALS: BP 177/83
[2017-08-12 08:20] VITALS: BP 177/83
[2017-08-12 20:37] VITALS: BP 165/92
[2017-08-13 07:43] VITALS: BP 146/72
[2017-08-13 11:38] VITALS: BP 146/72
[2017-08-13 15:19] LABS: URINE BILIRUBIN NEGATIVE (Negative); URINE BLOOD 1+ (Negative); URINE CLARITY CLEAR; URINE COLOR YELLOW; URINE GLUCOSE-RANDOM 3+ (Negative); URINE KETONES NEGATIVE (Negative); URINE LEUKOCYTES NEGATIVE (Negative); URINE NITRITE NEGATIVE (Negative); URINE PROTEIN 1+ (Negative); URINE UROBILINOGEN 0.2 E.U./dl (0.2-1.0)
[2017-08-13 15:53] LABS: SQUAMOUS 0-3 Few /LPF (0-3); URINE RBC >20 Many /HPF (0-2); URINE WBC 6-15 Few /HPF (0-5)
[2017-08-13 15:54] LABS: BACTERIA None Seen /HPF (None Seen); CASTS None Seen /LPF (None Seen); CRYSTALS None Seen /LPF (None Seen); MUCUS 0-3 Light strn/LPF (None Seen)
[2017-08-13 20:49] VITALS: BP 122/67
[2017-08-14 08:12] VITALS: BP 109/84
[2017-08-14] MEDS ORDERED: PROSCAR 5MG TABL5 MG PO (09:25)
[2017-08-14] MEDS ORDERED: COREG6.25 MG PO (09:28)
[2017-08-14 11:34] VITALS: BP 146/72
[2017-08-14 14:53] VITALS: BP 146/72
--- NOTE | 2017-08-18 20:30 | H ---
[place] [address] HISTORY AND PHYSICAL Name: DARIEL CARNEY Room: [address] IN M.R.#: [id number] Admission: 07/30/17 Attend Phys: Elinor Mojica DO Discharge: 08/14/17 Date of : 32 Report #: [id number] THIS REPORT FOR: //name// CC: Isauro Mojica HISTORY OF PRESENT ILLNESS: This is an 87-year-old male admitted to inpatient rehabilitation to facilitate safe discharge home, status post acute hospitalization at [facility] for acute bronchitis, cellulitis of the right foot compression fracture of L2, history of alternating constipation with loose bowels, decubitus sacral ulcer stage 2, urinary tract infection and he is currently on antibiotics. He has had alterations and has activities of daily living from a previous level of function of modified independent to current level of [id number] assistance of 1-2 depending on therapy, activity and time of day. He has needed physical and occupational therapy and is undergoing a cognitive evaluation as well. There have been no significant changes since the preadmission screening. Estimated length of stay is 5-7 days with discharge disposition to the home setting with supportive family. He lives in a house that is accessible. He does have family that can help with supervision and assistance as needed PAST MEDICAL HISTORY: Hypertension, bilateral lower extremity neuropathy, bilateral cataract, spinal stenosis, non-insulin dependent diabetes, left leg weakness and pain, and a recent cellulitis. SOCIAL HISTORY: Unchanged from previous. FAMILY HISTORY: Unchanged from previous. MEDICATIONS: Reviewed and are available in the MAR. ALLERGIES: No known drug allergies. REVIEW OF SYSTEMS: A 14-point review of systems is done and is negative except as mentioned in HPI, specifically no fever, chest pain, shortness of breath, abdominal pain or distention. PHYSICAL EXAMINATION: GENERAL: Alert, oriented, in no apparent distress. VITAL SIGNS: Reviewed and are stable. HEENT: Atraumatic, normocephalic. Pupils equal, round, reactive. ABDOMEN: Soft, nontender, nondistended. NEUROLOGIC: Cranial nerves 2-12 are grossly intact with no focal neuro deficits, 5/5 strength in the bilateral upper and lower extremities. SKIN: Warm and dry. Sacral ulcer is stable and lower extremity wounds are stable as well. PSYCHIATRIC: Normal [place] [address] HISTORY AND PHYSICAL Name: DARIEL CARNEY Room: [address]#: [id number] Admission: 07/30/17 Attend Phys: Elinor Mojica DO Discharge: 08/14/17 Date of : 32 Report #: [id number] ASSESSMENT: 1. Debility with alterations in activities of daily living from previous level of function of modified independence. 2. Multiple medical comorbidities requiring acute medical care. 3. Ongoing IV antibiotics. 4. Ongoing bowel program. PLAN: 1. Admission to inpatient rehabilitation. 2. PT, OT, speech, language, case management, nursing and HIMS to make evaluations and recommendations. 3. We will give him a regular diet as he and his family do his own carbon control. 4. Routine labs after admission. 5. Plan of care is pending and we will team him weekly. <ELECTRONICALLY SIGNED> By: Elinor Mojica DO 08/18/17 2030 1449 1513Knelda Mojica DO /nt
--- NOTE | 2017-08-18 20:30 | PLAN ---
[address] [address] REHAB UNIT PLAN OF CARE Name: DARIEL CARNEY Room: [address] IN ..#: [id number] Admission: 07/30/17 Attend Phys: Elinor Mojica DO Discharge: 08/14/17 Date of : 32 Report #: [id number] THIS REPORT FOR: //name// CC: Isauro Mojica DATE OF SERVICE: 07/31/2017 OVERALL PLAN OF CARE This is an 87-year-old male admitted to inpatient rehabilitation to facilitate safe discharge home status post acute hospitalization for multiple medical comorbidities including acute bronchitis, cellulitis, compression fracture, constipation alternating with loose stools, recent urinary tract infection and lower extremity wound as well as a sacral wound. His previous level of function was modified independent with the use of a front-wheeled walker for the last 2 years. His current level of function is minimum to moderate assistance depending on therapy, activity and time of day. Estimated length of stay is 5-7 days with discharge disposition to the home setting where he has supportive family. MEDICAL PROGNOSIS: Good. REHABILITATION PROGNOSIS: Good. Physical therapy will see the patient 60-90 minutes per day, 5 days per week, working on upper and lower body strength, balance, coordination, navigation. Occupational therapy will work with the patient 60-90 minutes per day, 5 days per week, working on upper and lower body strength, balance, coordination, navigation, bathing, dressing and toileting. This is an overall plan of care, may change from time to time, we will team him weekly and make changes to the plan of care as needed. <ELECTRONICALLY SIGNED> By: Elinor Mojica DO 08/18/17 2030 1451 [id number] Mojica DO /nt
--- NOTE | 2017-09-16 12:42 | D ---
[address] [address] DISCHARGE SUMMARY Name: DARIEL CARNEY Room: [address] IN M.R.#: [id number] Admission: 07/30/17 Attend Phys: Elinor Mojica DO Discharge: 08/14/17 Date of : 32 Report #: [id number] THIS REPORT FOR: //name// CC: Isauro Mojica DATE OF SERVICE: 08/14/2017 DISCHARGE DIAGNOSES: Debility and cellulitis. DISCHARGE DISPOSITION: To the home setting with home health PT, OT, nursing and speech language pathology. The patient progressed well with his activities of daily living and overall function. Family training was completed. MEDICATIONS: Reviewed and reconciled by myself and are available in the MAR. DISCHARGE PHYSICAL EXAMINATION: GENERAL: Alert, oriented, in no apparent distress. VITAL SIGNS: Reviewed and are stable. HEENT: Head atraumatic, normocephalic. Pupils equal, round, reactive. ABDOMEN: Soft, nontender, nondistended. NEUROLOGIC: Cranial nerves 2-12 are grossly intact. No focal neuro deficits, 5/5 strength in the bilateral upper and lower extremities. SKIN: Warm and dry. No rashes or lesions noted. <ELECTRONICALLY SIGNED> By: Elinor Mojica DO 09/16/17 1242 1516 [id number] Mojica DO /nt
== END 2017-08-14 13:30 | disposition home health service (06) | DRG 947 ==
LOC: M.REH 14:36
PROVIDERS: Internal Medicine; Physician Assistant; ADMIT Physical Medicine & Rehabilitation
DX: R53.81 Other malaise (principal); A41.9 Sepsis, unspecified organism; L03.115 Cellulitis of right lower limb; N39.0 Urinary tract infection, site not specified; N17.9 Acute kidney failure, unspecified; L89.152 Pressure ulcer of sacral region, stage 2; I12.9 Hypertensive chronic kidney disease with stage 1 through stage 4 chronic kidney disease, or unspecified chronic kidney disease; E11.42 Type 2 diabetes mellitus with diabetic polyneuropathy; E03.9 Hypothyroidism, unspecified; I77.1 Stricture of artery; R31.0 Gross hematuria; K59.00 Constipation, unspecified; J20.9 Acute bronchitis, unspecified; E11.22 Type 2 diabetes mellitus with diabetic chronic kidney disease; M48.062 Spinal stenosis, lumbar region with neurogenic claudication; N40.1 Benign prostatic hyperplasia with lower urinary tract symptoms; R15.9 Full incontinence of feces; R32 Unspecified urinary incontinence; N18.3 Chronic kidney disease, stage 3 (moderate); R33.9 Retention of urine, unspecified; Z96.1 Presence of intraocular lens; Z98.42 Cataract extraction status, left eye; Z98.41 Cataract extraction status, right eye; Z79.899 Other long term (current) drug therapy

== ENCOUNTER 2017-11-07 10:16 | Inpatient (IN) | payer MEDICARE, OTHER ==
[~2017-11-07] VITALS: Ht 175.3 cm; Wt 88.0 kg
[~2017-11-07 10:16] MED LIST changes: +CEFUROXIME250 MG PO; +COLESTID1 GM PO; +COREG6.25 MG PO; +FLOMAX0.4 MG PO; +GLUCOTROL5 MG PO; +MINOCIN100 MG PO; +PROSCAR 5MG TABL5 MG PO
[2017-11-07 10:18] VITALS: BP 83/46
[2017-11-07] MEDS ORDERED: GLUCOTROL5 MG PO (10:26)
[2017-11-07] MEDS ORDERED: MACROBID 100 M100 MG PO (10:27)
[2017-11-07] MEDS ORDERED: PROSCAR 5MG TABL5 MG PO (10:27)
[2017-11-07] MEDS ORDERED: SYNTHROID75 MCG PO (10:28)
[2017-11-07 11:20] LABS: HEMATOCRIT 28.4 % (42.0-52.0); HEMOGLOBIN 8.9 gm/dL (14.0-18.0); MCH 26.8 pg (26.0-34.0); MCHC 31.5 g/dL (28.0-37.0); MCV 85.2 fL (80.0-100.0); MPV 9.9 fl. (7.2-11.1); NUCLEATED RBCS 0 /100WBC; PLATELET COUNT* 194 thou/uL (150-400); RBC 3.33 mil/uL (4.50-6.00); RDW-CV 16.6 % (10.5-14.5)
[2017-11-07 11:33] LABS: CALCIUM 8.1 mg/dL (8.5-10.1); CREATININE 3.3 mg/dL (0.6-1.3); POTASSIUM 3.7 mmol/L (3.5-5.1)
[2017-11-07 11:37] LABS: ALBUMIN 2.4 g/dL (3.4-5.0); MAGNESIUM 2.4 mg/dL (1.8-2.4); TOTAL BILIRUBIN 0.4 mg/dL (<0.1-1.0); TOTAL PROTEIN 5.8 g/dL (6.4-8.2)
[2017-11-07 11:37] LABS: BE -9.9 mmol/L (-2 to +3); HCO3 13.8 mmol/L (22.0-26.0); PCO2 24.1 mmHg (35.0-45.0); PO2 88.5 mmHg (75.0-100.0); pH 7.376 (7.340-7.450)
[2017-11-07 12:10] LABS: URINE BILIRUBIN NEGATIVE (Negative); URINE BLOOD 3+ (Negative); URINE CLARITY CLOUDY; URINE COLOR YELLOW; URINE GLUCOSE-RANDOM 2+ (Negative); URINE KETONES TRACE (Negative); URINE NITRITE-REFLEX NEGATIVE (Negative); URINE PROTEIN 2+ (Negative); URINE SPECIFIC GRAVITY 1.025 (1.005-1.030); URINE UROBILINOGEN 0.2 E.U./dl (0.2-1.0)
[2017-11-07 12:11] LABS: URINE LEUKOCYTES-REFLEX 3+ (Negative)
[2017-11-07 12:19] LABS: ABSOLUTE EOSINOPHILS 0.2 thou/uL (0.0-0.7); ABSOLUTE LYMPHOCYTES 3.7 thou/uL (0.8-5.3); ABSOLUTE MONOCYTES 5.1 thou/uL (0.0-1.2)
[2017-11-07 12:20] LABS: CLUMPED PLTS RARE; PLATELET ESTIMATE ADEQUATE; POLYCHROMASIA 1+
[2017-11-07 12:30] LABS: BACTERIA-REFLEX >30 Many /HPF (None Seen); CASTS None Seen /LPF (None Seen); CRYSTALS None Seen /LPF (None Seen); SQUAMOUS NONE SEEN /LPF (0-3); URINE RBC 3-10 Few /HPF (0-2); URINE WBC-REFLEX >25 Many /HPF (0-5)
[2017-11-07 14:07] VITALS: BP 112/64
[2017-11-07 14:55] VITALS: BP 99/65
[2017-11-07 18:34] LABS: ABSOLUTE BASOPHILS 0.1 thou/uL (0.0-0.2); ABSOLUTE EOSINOPHILS 0.1 thou/uL (0.0-0.7); ABSOLUTE LYMPHOCYTES 2.8 thou/uL (0.8-5.3); ABSOLUTE MONOCYTES 1.4 thou/uL (0.0-1.2); ABSOLUTE NEUTROPHILS 14.1 thou/uL (1.6-8.1); BASOPHILS 0.4 %; EOSINOPHILS 0.3 %; HEMATOCRIT 33.9 % (42.0-52.0); HEMOGLOBIN 10.7 gm/dL (14.0-18.0); MCHC 31.4 g/dL (28.0-37.0); MCV 85.9 fL (80.0-100.0); MONOCYTES 7.5 %; NUCLEATED RBCS 0 /100WBC; PLATELET COUNT* 195 thou/uL (150-400); POLYS 76.8 %; RBC 3.95 mil/uL (4.50-6.00); RDW-CV 16.8 % (10.5-14.5); WBC 18.4 thou/uL (4.0-11.0)
[2017-11-07 18:41] LABS: CALCIUM 8.5 mg/dL (8.5-10.1); POTASSIUM 4.4 mmol/L (3.5-5.1)
[2017-11-07 19:30] VITALS: BP 108/63
[2017-11-07 20:33] LABS: BE -11.7 mmol/L (-2 to +3); PO2 68.6 mmHg (75.0-100.0); pH 7.408 (7.340-7.450)
[2017-11-07 20:37] LABS: HCO3 10.9 mmol/L (22.0-26.0); PCO2 17.7 mmHg (35.0-45.0)
[2017-11-08] VITALS (17 sets, daily range): BP systolic 90–144; BP diastolic 51–74
[2017-11-08 04:05] LABS: HEMATOCRIT 30.3 % (42.0-52.0); HEMOGLOBIN 9.4 gm/dL (14.0-18.0); MCH 26.5 pg (26.0-34.0); MCHC 30.9 g/dL (28.0-37.0); MPV 10.1 fl. (7.2-11.1); RBC 3.53 mil/uL (4.50-6.00); RDW-CV 16.6 % (10.5-14.5); WBC 15.9 thou/uL (4.0-11.0)
[2017-11-08 04:11] LABS: CREATININE 3.2 mg/dL (0.6-1.3); POTASSIUM 4.8 mmol/L (3.5-5.1)
[2017-11-08 08:22] LABS: BE -13.1 mmol/L (-2 to +3); PCO2 20.6 mmHg (35.0-45.0); pH 7.342 (7.340-7.450)
[2017-11-08 08:25] LABS: HCO3 10.9 mmol/L (22.0-26.0)
[2017-11-08 08:39] LABS: MAGNESIUM 2.4 mg/dL (1.8-2.4); PHOSPHORUS* 5.7 mg/dL (2.5-4.9)
[2017-11-09 03:47] LABS: HEMATOCRIT 30.2 % (42.0-52.0); HEMOGLOBIN 9.4 gm/dL (14.0-18.0); MCHC 31.1 g/dL (28.0-37.0); MCV 83.7 fL (80.0-100.0); MPV 10.7 fl. (7.2-11.1); NUCLEATED RBCS 0 /100WBC; PLATELET COUNT* 198 thou/uL (150-400); RBC 3.61 mil/uL (4.50-6.00); RDW-CV 16.6 % (10.5-14.5); WBC 25.9 thou/uL (4.0-11.0)
[2017-11-09 04:06] LABS: CALCIUM 8.1 mg/dL (8.5-10.1); CREATININE 2.8 mg/dL (0.6-1.3); MAGNESIUM 2.4 mg/dL (1.8-2.4)
[2017-11-09 04:07] LABS: POTASSIUM 3.5 mmol/L (3.5-5.1)
[2017-11-09 05:43] LABS: ABSOLUTE LYMPHOCYTES 2.1 thou/uL (0.8-5.3); ABSOLUTE NEUTROPHILS 22.8 thou/uL (1.6-8.1); ANISOCYTOSIS 1+; PLATELET ESTIMATE ADEQUATE; POIKILOCYTOSIS 1+
[2017-11-09 07:30] VITALS: BP 151/82
[2017-11-09 08:30] VITALS: BP 154/80
--- NOTE | 2017-11-09 09:14 | CON ---
[address] [address] CONSULTATION Name: DARIEL CARNEY Room: [address] IN M.R.#: [id number] Admission: 11/07/17 Attend Phys: Phani Salcedo Discharge: Date of : 32 Report #: [id number] THIS REPORT FOR: //name// CC: Isauro May DATE OF SERVICE: 11/08/2017 REQUESTING PHYSICIAN: Edward May DO. REASON FOR CONSULTATION: Respiratory failure, urinary tract infection with sepsis. DISCUSSION: The patient is a very pleasant nonsmoking 87-year-old man who presented to the Emergency Department yesterday with increasing weakness. He was having more hypotension at home. He had been started on nitrofurantoin prior to coming in the ER for urinary tract infection. He was seen in the ED, noted to have acute renal failure. Arterial blood gases revealed a metabolic acidosis. He was oxygenating well. Cultures and urine culture were sent. After he was admitted, noted overall to have increased respirations. During this time, he had been receiving a large amount of fluid. He was more tachypneic, though his O2 saturations remained greater than 90. Subsequently, he was transferred to the Intensive Care Unit. Nursing and RT noted during some of this time, he did sound more congested, some intermittent wheezing and crackles. He was placed on BiPAP, which was kept on overnight. He has been oxygenating well. He has not required any pressors. Orr catheter was replaced after it was also noted that he had a large amount of retained urine with a lot of sludge and debris in his bladder. Apparently, it looked very thick fluid and sludge was noted yesterday evening in the Orr catheter and bag that has improved this morning. At the time I saw him this morning, he is feeling much better, and the BiPAP was taken off during my exam. He was able to get some sleep. Denies any shortness of breath. Though he may have had some cough, perhaps some mild vomiting yesterday, that is all resolved. Generally feeling fairly good this morning. Denies any pain. He is on room air. Remainder of my interview and exam, his O2 saturations remained in the 90s. He was given Levaquin and vancomycin initially when seen in the Emergency Department. At this time, it does appear that at least 1/2 of the blood cultures sent yesterday are growing gram-negative rods. Urine culture is pending. PAST MEDICAL HISTORY: Remarkable for issues with fecal incontinence, spinal stenosis, diabetes mellitus, recurrent urinary tract infections, cataracts. Known to have large prostate gland. HOME MEDICATIONS: At the time of admission yesterday, [place] [id number] CONSULTATION Name: DARIEL CARNEY Room: [address] IN .R.#: [id number] Admission: 11/07/17 Attend Phys: Phani Salcedo Discharge: Date of : 32 Report #: [id number] levothyroxine, Lyrica, Januvia, omega 3 fish oil, glipizide, Flomax, Coreg, nitrofurantoin which has just been started, ramipril, Mariposa, Jardiance, Colestid, multivitamins and Proscar. ALLERGIES: No known drug allergies. SOCIAL HISTORY: He is . Lifelong nonsmoker. He is retired. He did serve 22 years in the [employer]. 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 FAMILY HISTORY: Positive for breast and colon cancer. REVIEW OF SYSTEMS: A 12-point ROS was done. Note positives above. Currently, his is not here to provide any additional history. Apparently had been getting weaker at home. He did have an appetite, falling off recently. He is not having any nausea, vomiting this morning. He has had issues with diarrhea and attempts to control that. Both Dr. May with his prior hospitalizations and GI and his family doctor worked on that. No syncopal episodes. Did have some increased lower extremity weakness prior to coming back in the hospital. He has had a Orr catheter. Denies any abdominal pain. He denies shortness of breath. PHYSICAL EXAMINATION: GENERAL APPEARANCE: Elderly man who looks stated age, if not younger. He is sitting up in bed, alert, conversant. He is in no acute distress. He is on room air and able to speak in full sentences. HEENT: Head is normocephalic. Sclerae nonicteric. Mucous membranes are moist this morning. NECK: Negative for adenopathy. No JVD is noted. HEART: Regular. No murmur or gallop is heard. LUNGS: Sounds are clear with good air exchange. No wheezing or crackles are heard. ABDOMEN: Soft, without hepatosplenomegaly. No guarding. Orr catheter in place. LOWER EXTREMITIES: Negative for any significant edema. SKIN: Warm and dry. NEUROLOGIC: He is alert and oriented x 3 this morning. LABORATORY AND X-RAY FINDINGS: Chest x-rays done yesterday as well as this morning are clear of infiltrates. No acute findings are noted. On admission yesterday morning, he had a BUN of 77, creatinine of 3.3, potassium 3.7, serum bicarbonate was 18. White blood cell count at that time was 22,000, with a left shift. Also, increased monocytes. Hemoglobin 8.9, hematocrit 28.4. This morning, white count 15,900, hemoglobin 9.4, hematocrit of 30.3, platelets 175,000. No differential was done. Prealbumin 12.5. UA showed trace ketones, positive for blood, many bacteria, white blood cells. [place] [address] CONSULTATION Name: DARIEL CARNEY Room: [address] IN [facility]#: [id number] Admission: 11/07/17 Attend Phys: Phani Salcedo Discharge: Date of : 32 Report #: [id number] yesterday morning had a pH of 7.38, pCO2 of 24, pO2 of 89, bicarbonate of 14, with saturation 96%. That was on room air. Blood gases done last night on the BiPAP, pH 7.41, pCO2 of 18, pO2 of 69, bicarbonate was 11, with a saturation of 93%. This morning on his chemistry, BUN 79, creatinine of 3.2, serum bicarbonate of 15, sodium 135, with a potassium of 4.8. One out of two blood cultures positive for gram-negative rods. Urine culture is pending. Chest x-rays done yesterday as well as this morning are negative for any acute findings. They were portable studies. Ultrasound of his kidneys yesterday did show large amount of debris within the urinary bladder. Also appeared to have 730 mL estimate of urine in his bladder, despite having urinary catheter in place. IMPRESSION: 1. Acute respiratory failure, improved. He was oxygenating adequately. However, with his profound metabolic acidosis as well as the large amount of fluid he received as part of his sepsis fluid bolus, he did have increased work of breathing. It is improved this morning. Currently, he is able to compensate. Fortunately, he does not appear that he has developed any acute pulmonary edema. 2. Urinary tract infection with bacteremia. Appears to be gram-negative antonio. Identification and sensitivity are pending. 3. Anemia. 4. History of diabetes, which will contribute immunosuppressive. 5. Leukocytosis, better. 6. Acute kidney injury, superimposed on chronic kidney disease. Hopefully, will improve if his volume status improves as well as the sepsis. RECOMMENDATIONS: 1. Leave off BiPAP at this time. Return to BiPAP p.r.n. increased work of breathing. 2. He has already been dosed with vancomycin and Levaquin. Further adjustments per culture results. 3. Should be able to decrease his steroid dose as his sepsis is improving. <ELECTRONICALLY SIGNED> By: Mingo Delgado MD 11/09/17 0914 0828 [id number] Sheridan MD /nt
[2017-11-09 17:10] VITALS: BP 149/80
[2017-11-09 20:00] VITALS: BP 158/70
[2017-11-10 04:35] LABS: ABSOLUTE LYMPHOCYTES 1.7 thou/uL (0.8-5.3); ABSOLUTE MONOCYTES 0.6 thou/uL (0.0-1.2); ABSOLUTE NEUTROPHILS 15.8 thou/uL (1.6-8.1); BASOPHILS 0.1 %; HEMATOCRIT 28.8 % (42.0-52.0); HEMOGLOBIN 9.2 gm/dL (14.0-18.0); LYMPHOCYTES 9.4 %; MCH 26.6 pg (26.0-34.0); MCV 82.9 fL (80.0-100.0); MONOCYTES 3.4 %; MPV 10.8 fl. (7.2-11.1); NUCLEATED RBCS 0 /100WBC; PLATELET COUNT* 197 thou/uL (150-400); POLYS 87.1 %; RBC 3.47 mil/uL (4.50-6.00); RDW-CV 16.6 % (10.5-14.5); WBC 18.1 thou/uL (4.0-11.0)
[2017-11-10 04:58] LABS: CALCIUM 7.9 mg/dL (8.5-10.1); CREATININE 2.2 mg/dL (0.6-1.3)
[2017-11-10 07:40] VITALS: BP 155/80
[2017-11-10 09:10] LABS: IgA 139 mg/dL (61-437); IgG 831 mg/dL (700-1600); IgM 54 mg/dL (15-143)
[2017-11-10 14:16] LABS: KAPPA FREE LIGHT CHAINS 30.7 mg/L (3.3-19.4); LAMBDA FREE LIGHT CHAINS 24.9 mg/L (5.7-26.3)
[2017-11-10 16:04] VITALS: BP 167/80
[2017-11-10 23:40] VITALS: BP 170/85
[2017-11-11 05:03] LABS: CALCIUM 7.9 mg/dL (8.5-10.1); CREATININE 1.6 mg/dL (0.6-1.3); POTASSIUM 4.5 mmol/L (3.5-5.1)
[2017-11-11 07:55] VITALS: BP 131/74
[2017-11-11 16:41] VITALS: BP 105/56
[2017-11-12 05:17] LABS: CALCIUM 7.7 mg/dL (8.5-10.1); CREATININE 1.4 mg/dL (0.6-1.3); POTASSIUM 3.9 mmol/L (3.5-5.1)
[2017-11-12 08:00] VITALS: BP 168/89
--- NOTE | 2017-11-12 08:40 | CON ---
[address] [address] CONSULTATION Name: DARIEL CARNEY Room: [address] IN M.R.#: [id number] Admission: 11/07/17 Attend Phys: Phani Salcedo Discharge: Date of : 32 Report #: [id number] THIS REPORT FOR: //name// CC: Isauro May DATE OF SERVICE: 11/08/2017 CONSULTING PHYSICIAN: Dr. May REASON FOR NEPHROLOGY CONSULTATION: Acute kidney injury on chronic kidney disease stage 3. REASON FOR ADMISSION: Weakness as reported by the patient's . HISTORY OF PRESENT ILLNESS: This is an 87-year-old male who has a past medical history of benign prostatic hypertrophy, has a chronic Orr, which was placed in July of this year while he was hospitalized here at [place], history of diabetes mellitus type 2, history of hypertension, history of chronic kidney disease stage 3 with baseline creatinine of 1.3-1.5 who lives at home with his , was brought in by his yesterday because the patient started having chills on Thursday and then was feeling weak all throughout this last week. In the ER, he was found to have UTI and started on treatment for that along with IV fluids. His creatinine was found to be 3.3, which is elevated from his baseline and he also had metabolic acidosis. He did become tachypneic yesterday because of his metabolic acidosis and he required BiPAP, but then that also got better. His renal ultrasound showed 730 mL of urine in his bladder and his catheter was changed and milky urine came out and his urine output has been good since then. He has had about 2 liters of urine output overnight. His creatinine is slightly better today at 3.2. The patient is awake, alert and oriented, but is not very aware of all his medical conditions. At home in addition to the medications, the patient also takes ramipril, ibuprofen and Jardiance. REVIEW OF SYSTEMS: The patient was feeling weak and was having chills and was having extreme lower extremity weakness all throughout this week and was having fevers at home and other review of systems was done and they were negative. ALLERGIES: No known drug allergies. PAST MEDICAL AND SURGICAL HISTORY: Include hypertension, the patient has a history of neuropathy, bilateral cataracts and he has had surgery for that, diabetes type 2, chronic kidney disease stage 3, baseline creatinine of 1.3-1.5, history of benign prostatic hypertrophy, has a chronic Orr since July and gets changed every month and he follows with Urology, Dr. Flores [place] [address] CONSULTATION Name: DARIEL CARNEY Room: [address] IN M.R.#: [id number] Admission: 11/07/17 Attend Phys: Phani Salcedo Discharge: Date of : 32 Report #: [id number] FAMILY HISTORY: No history of any kidney disease in the family. SOCIAL HISTORY: Lives at home with his and does not smoke or drink alcohol or use illicit drugs. HOME MEDICATIONS: Which include levothyroxine, ibuprofen, pregabalin, sitagliptin, omega 3 fatty acid, ____, tamsulosin, carvedilol, glipizide, nitrofurantoin, ramipril, fexofenadine, Jardiance, colestipol, multivitamin and finasteride. PHYSICAL EXAMINATION: VITAL SIGNS: Blood pressure is 108/63 reported, temperature 35.6, pulse is 64, respiratory rate is 18 and pulse ox was 100% and he is on room air. GENERAL: He is awake and alert and he is oriented to time, place and person. HEAD, EYES, EARS, NOSE AND THROAT: Mucous membranes are dry. NECK: There is no JVD. CHEST: Clear to auscultation bilaterally and there were no crackles heard. No wheezing heard. CARDIOVASCULAR: S1, S2 normal. No murmurs heard. ABDOMEN: Soft, obese, nondistended and nontender. Bowel sounds are diminished. EXTREMITIES: There is no lower extremity edema, symmetrical extremities. NEUROLOGICAL FUNCTION: Gross neurological function seems to be intact. PSYCHIATRIC: Mood and affect seem to be normal. GENITOURINARY: He has a Orr in place draining clear urine now. LABORATORY DATA: From today, WBC is 15.9, hemoglobin is 9.4 and platelet count is 175. His bicarbonate is 15, potassium is 4.8, creatinine is 3.2, BUN is 79 and other labs were reviewed. IMAGING: Renal ultrasound and chest x-ray were reviewed. ASSESSMENT AND PLAN: 1. Acute kidney injury on chronic kidney disease stage 3 because of MARIAH inhibitor, dehydration, hypotension, NSAID and urinary retention: The patient was retaining about 730 mL of urine and also has evidence of UTI and dehydration, was also taking NSAIDs and ramipril at home. Avoid all MARIAH inhibitors, ARBs and NSAIDs and continue to give him IV fluids. I have changed his IV fluids to bicarbonate drip, D5 water with 3 amps of sodium bicarbonate to run at 100 mL an hour. His urine output has been good and there is no acute need for dialysis and kidney function is slowly getting better. Likely has chronic kidney disease stage 3 because of diabetes and hypertension. Try to keep his mean arterial pressure more than 65. Renal ultrasound showed mild left pelviectasis and bladder was distended with 730 mL of urine after which Orr catheter was placed. 2. Hypotension: This is because of infection and cultures are still pending. The patient is getting treated for the UTI. Blood pressures are better and [facility] [address] [place] [address] CONSULTATION Name: DARIEL CARNEY Room: [address] IN [facility].#: [id number] Admission: 11/07/17 Attend Phys: Phani Salcedo Discharge: Date of : 32 Report #: [id number] continue with IV fluids as well. 3. We will also check serum immunofixation studies and serum globulins on the light chain ratio to evaluate further his chronic kidney disease. 4. Anion gap and non-anion gap metabolic acidosis: Bicarbonate drip as above. This is because of renal insufficiency. 5. Retention of urine. The patient has history of retention of urine, has history of BPH, this time was also having a UTI. Urology has been consulted for urinary retention. 6. Follow vancomycin level daily and if vancomycin level is more than 20, then hold vancomycin. Thank you for this consultation. I will continue to follow along with you. I spent more than 45 minutes in the patient's critical care, in reviewing the patient's orders his medications, placing orders, discussion with the family, examining the patient, discussion with nurse and we will continue to follow along with you. <ELECTRONICALLY SIGNED> By: Ana Mooney MD 11/12/17 0840 0849 [id number] Mooney MD /nt
[2017-11-12 16:23] VITALS: BP 150/86
[2017-11-13 00:15] VITALS: BP 158/82
[2017-11-13 08:00] VITALS: BP 155/70
[2017-11-13] MEDS ORDERED: ALBUTEROL2.5 MG/31 INH (12:00)
[2017-11-13] MEDS ORDERED: IPRAT-ALBUT 0.5-3 ML INH (12:05)
[2017-11-13] MEDS ORDERED: HUMALOG100 UNIT/1 SUBQ (12:22)
[2017-11-13] MEDS ORDERED: LANTUS SUBQ (12:24)
[2017-11-13] MEDS ORDERED: ATIVAN0.5 MG PO (12:27)
[2017-11-13] MEDS ORDERED: ACETAMINOPHEN500 M1 PO (12:35)
[2017-11-13] MEDS ORDERED: ULTRAM 50MG TAB50 MG PO (12:36)
[2017-11-13] MEDS ORDERED: BACTRIM DS TAB1 EACH PO (12:40)
[2017-11-13 12:42] VITALS: BP 155/70
--- NOTE | 2017-11-19 19:09 | CON ---
[address] [address] CONSULTATION Name: DARIEL RENTERIA Room: [address] IN M.R.#: [id number] Admission: 11/07/17 Attend Phys: Phani Salcedo Discharge: 11/13/17 Date of : 32 Report #: [id number] THIS REPORT FOR: //name// CC: Isauro May DATE OF SERVICE: 11/08/2017 CONSULTATION: Infectious diseases. HISTORY OF PRESENT ILLNESS: Mr Renteria is an 87-year-old gentleman who presents via ambulance to the ER complaining of weakness for about 1 week. He was noted to have evidence of urinary tract infection and sepsis. Infectious Disease consultation was requested to assist with antibiotic management. The patient has a chronic Orr catheter for prostatic obstruction. The patient believes this is changed by home health once a month, but is not sure when the last change was done. He thinks he has not felt well for about a month, but particularly in the last 7 days he became progressively weak to the point where it was difficult to ambulate. He also has numbness in his feet, but he does have diabetic neuropathy. In this setting, the patient comes to the hospital. Workup demonstrates gram-negative rods in one of the blood cultures as well as pyuria. PAST MEDICAL HISTORY: The patient has a history of diabetes with hypertension. He is on Januvia, glipizide and Jardiance for that. He has a history of chronic low back pain, hypothyroidism, prostatic hypertrophy with bladder outlet obstruction , peripheral artery disease and gout. ALLERGIES: The patient has no drug allergies. MEDICATION RECONCILIATION: Current medications include Levaquin 750 mg IV q. 48h., methylprednisolone 40 mg q. 8 hours, vancomycin 500 mg q. 24 hours., colestipol 3 grams b.i.d., insulin glucagon p.r.n., lorazepam 0.25 mg q. 4 IV p.r.n., pregabalin 100 mg at bedtime, albuterol 2.5 by aerosol, ipratropium 3 mL aerosol q.i.d., tramadol 50 mg q. 4 p.r.n., Tylenol 1000 mg t.i.d., carvedilol 3.125 b.i.d., finasteride 5 mg daily, tamsulosin 0.4 mg daily, glipizide 2.5 mg b.i.d., fish oil 2000 mg daily, linagliptin 5 mg daily, levothyroxine 75 mcg daily, loratadine 10 mg daily. FAMILY HISTORY: Noncontributory. SOCIAL HISTORY: The patient is , lives with his of 60 years. 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 He denies use of tobacco, alcohol or drugs. REVIEW OF SYSTEMS: At this time, the patient says he feels a bit weaker, [place] [address] CONSULTATION Name: DARIEL RENTERIA Room: [address] IN [facility].#: [id number] Admission: 11/07/17 Attend Phys: Phani Salcedo Discharge: 11/13/17 Date of : 34 Report #: [id number] otherwise pretty much back to normal. Denies any pain. No headache, sinus congestion, sore throat, trouble swallowing. No cough, chest pain, shortness of breath. No angina, syncope, palpitations. No nausea, vomiting, diarrhea, constipation. He has a Orr catheter without any complaints. He has weaknesses and numbness in his extremities particularly lower extremity. PHYSICAL EXAMINATION: GENERAL: The patient appears his stated age, pleasant, conversant, comfortable, not in any distress. He clearly has memory deficits, but was able to carry on pleasant conversation and has insight but refers questions on his past history to his . SKIN: Shows no rash, lesion or exanthem. ENT: Negative. NECK: Supple. HEART: Sounds S1 and S2. LUNGS: Clear. ABDOMEN: Belly soft and not tender. GENITALIA: Show swelling of the penis. He has hypospadias from chronic catheter trauma. A Orr catheter is present with clear urine. EXTREMITIES: Unremarkable. LABORATORY DATA: White count was 22,000 in the ER down to 15.9 today, hemoglobin 9.4, hematocrit 30% and platelet 178,000. The electrolytes are normal. BUN 79, creatinine is 3.2 and it was 1.3 in July when he was admitted. Blood gas on room air shows pH 7.34, pCO2 of 20.6, pO2 of 73. The CRP is elevated at 211. Vancomycin trough level was 6. Prealbumin is 12.5. Urinalysis showed greater than 25 white cells per high powered field with positive nitrite, leukocyte esterase and bacteria. The urine culture is pending. 1/2 blood cultures has gram-negative antonio. Sonogram of the bladder showed that in spite of the catheter there was 750 mL of urine with sediment. IMPRESSION: The patient has urosepsis with gram negatives probably related to debris plugging the catheter. He has hypothermia and leukocytosis as well as renal insufficiency, probably from obstruction. PLAN: I would like to discontinue the vancomycin and Levaquin started by the ER. We will treat the patient with cefepime 2 g x 1, then 500 mg IV q. 12 hours. We may need to increase the dose if the creatinine improves. I hope we will have results of microbiology in the next 24-48 hours, which might allow us to pick more specific therapy. I hesitate to depend on Levaquin for empiric therapy of gram-negative sepsis because of widespread resistance in the community Urology will assist with bladder management. [place] [address] CONSULTATION Name: DARIEL RENTERIA Room: [address]#: [id number] Admission: 11/07/17 Attend Phys: Phani Salcedo Discharge: 11/13/17 Date of : 34 Report #: [id number] candidate for a suprapubic catheter if he has repeated trouble with Orr catheter in the penis. <ELECTRONICALLY SIGNED> By: Jack Anglin MD 11/19/17 [id number] Anglin MD /nt
== END 2017-11-13 16:37 | DRG 698 ==
LOC: M.ERS 10:16 → M.TBA-ER 12:33 → M.3W 12:33 → M.ICU 12:33 → M.ORTHSURG 12:33 → M.ICU 20:56 → M.3W 11-09 11:37
PROVIDERS: Internal Medicine; Internal Medicine Pulmonary Disease; Personal Emergency Response Attendant; ADMIT Internal Medicine
PROC: 5A09357 Assistance with Respiratory Ventilation, Less than 24 Consecutive Hours, Continuous Positive Airway Pressure (ICD-10-PCS; principal; 2017-11-08)
DX: T83.098A Other mechanical complication of other urinary catheter, initial encounter (principal); A41.9 Sepsis, unspecified organism; J96.00 Acute respiratory failure, unspecified whether with hypoxia or hypercapnia; N39.0 Urinary tract infection, site not specified; N17.9 Acute kidney failure, unspecified; I12.9 Hypertensive chronic kidney disease with stage 1 through stage 4 chronic kidney disease, or unspecified chronic kidney disease; N18.3 Chronic kidney disease, stage 3 (moderate); E11.22 Type 2 diabetes mellitus with diabetic chronic kidney disease; N13.9 Obstructive and reflux uropathy, unspecified; R33.9 Retention of urine, unspecified; Y83.8 Other surgical procedures as the cause of abnormal reaction of the patient, or of later complication, without mention of misadventure at the time of the procedure; N40.1 Benign prostatic hyperplasia with lower urinary tract symptoms; E03.9 Hypothyroidism, unspecified; B96.20 Unspecified Escherichia coli [E. coli] as the cause of diseases classified elsewhere; Z96.1 Presence of intraocular lens; E86.0 Dehydration; E11.40 Type 2 diabetes mellitus with diabetic neuropathy, unspecified; Z98.41 Cataract extraction status, right eye; Z98.42 Cataract extraction status, left eye; Z79.84 Long term (current) use of oral hypoglycemic drugs; Z79.899 Other long term (current) drug therapy; Y92.89 Other specified places as the place of occurrence of the external cause

== ENCOUNTER 2017-11-13 13:30 | Inpatient (IN) | payer MEDICARE, OTHER ==
[~2017-11-13] VITALS: Ht 75 cm; Wt 89.8 kg
--- NOTE | ~2017-11-13 | H ---
[address] [address] HISTORY AND PHYSICAL Name: DARIEL CARNEY Room: [address]#: [id number] Admission: 11/13/17 Attend Phys: Elinor Mojica DO Discharge: 11/18/17 Date of : 32 Report #: [id number] THIS REPORT FOR: //name// For History and Physical please refer to the handwritten note in the patient's medical record. By: [address] [place], [place] [address]cal Records Staff STEPHANIE /WINNIE
--- NOTE | ~2017-11-13 | EKG ---
[place] [address] ELECTROCARDIOGRAM REPORT Name: DARIEL CARNEY Room: [address] ADM IN M.R.#: [id number] Admission: 11/13/17 Attend Phys: Elinor Mojica DO Discharge: Date of : 32 Report #: [id number] THIS REPORT FOR: //name// [facility] Test Date: 2017-11-17 Test Time: 23:04:11 Pat Name: DARIEL CARNEY Department: Room: [address] Gender: M Authorization Coordinator: LUISA : 1930 Requested By: Elinor Mojica Order Number: [id number] Reading MD: Measurements Intervals [place] Rate: 145 P: -66 KS: 67 QRS: 71 QRSD: 125 T: 41 QT: 327 QTc: 508 Interpretive Statements Wide-QRS tachycardia Ventricular premature complex IVCD, consider atypical RBBB Compared to ECG 07/27/2017 13:34:42 Ventricular premature complex(es) now present Sinus rhythm no longer present Atrial premature complex(es) no longer present [email or web address] By: 2304 [id number] Epiphany Epiphany, [place] /EPI
--- NOTE | ~2017-11-13 | EKG ---
[place] [address] ELECTROCARDIOGRAM REPORT Name: DARIEL CARNEY Room: [address] ADM IN M.R.#: [id number] Admission: 11/13/17 Attend Phys: Elinor Mojica DO Discharge: Date of : 32 Report #: [id number] THIS REPORT FOR: //name// [facility] Test Date: 2017-11-17 Test Time: 23:14:12 Pat Name: DARIEL CARNEY Department: Room: [address] Gender: M Features Reporter: LUISA : 1930 Requested By: Elinor Mojica Order Number: [id number] Reading MD: Measurements Intervals [place] Rate: 143 P: 116 MS: 108 QRS: 82 QRSD: 93 T: QT: 281 QTc: 434 Interpretive Statements Supraventricular tachycardia Ventricular premature complex Consider right ventricular hypertrophy Artifact in lead(s) I,aVF,V1,V2,V3,V4,V5,V6 and baseline wander in lead(s) II,aVR Compared to ECG 07/27/2017 13:34:42 Ventricular premature complex(es) now present Sinus rhythm no longer present Atrial premature complex(es) no longer present [email or web address] By: [id number] 2314 Epiphany EpiphanyMD /ZOYA
[~2017-11-13 13:30] MED LIST changes: +ACETAMINOPHEN500 M1 PO; +ALBUTEROL2.5 MG/31 INH; +ATIVAN0.5 MG PO; +BACTRIM DS TAB1 EACH PO; +HUMALOG100 UNIT/1 SUBQ; +IPRAT-ALBUT 0.5-3 ML INH; +LANTUS SUBQ; +MACROBID 100 M100 MG PO; +ULTRAM 50MG TAB50 MG PO
[2017-11-13 16:00] VITALS: BP 165/83
--- NOTE | 2017-11-13 18:53 | NUR ---
PT. ARRIVED AT 1640 PER BED. ALERT ORIENTED, PLEASANT COOPERATIVE. HX OF DEBILITY. ABLE TO ANSWER MOST OF ASSESSMENT QUESTIONS AND ANSWERED THE ONES THAT PT. DIDNT. PT. EXPERIENCING CHRONIC BACK PAIN DUE TO HX OF SPINAL STENOSIS. PT. HASNT BEEN AMBULATORY FOR THE TIME HES BEEN IN HOSPITAL 11/07/17. CAN ASSIST WITH TURNS. HAS AN AREA ON L BUTTOCK SEE PICTURE AND ALSO SCAB RT. KNEE. APPETITE FAIR DOES HAVE EDEMA PRESENT BLES ELLIS PATENT WITH LEONA URINE TO DD BAG HX OF RETENTION. ORIENTED TO ROOM REHAB ROUTINE AND CALL LIGHT USE.
[2017-11-13 20:00] VITALS: BP 160/80
--- NOTE | 2017-11-13 23:56 | NUR ---
ASSUMED CARE AT 1930. PATIENT RESTING IN BED. ELLIS DRAINING LT YELLOW URINE. SON HERE UNTIL AROUND 2100, AND HER FRIENDS CAME AT 2100 AND STAYED UNTIL AROUND 2215. PATIENT TAKES PILLS WHOLE ONE AT A TIME WITH WATER WITHOUT DIFF. NEEDS ASSIST WITH TURNS, BUT IS ABLE TO PULL HIMSELF TO THE SIDE AND ATTEMPTS TO MOVE HIMSELF UP IN BED. HAS OPEN AREA TO LT BUTTOCK, ZINC MOISURE BARRIER APPLIED AFTER SKIN CARE. INCONTINENT OF LIQUID STOOL. HAD TO DELAY THE GIVING OF COLESTID UNTIL MIDNIGHT BECAUSE THE OTHER MEDICINES WERE DELIVERED LATE. AWARE AND AGREES. ALSO HELD PM INSULIN PER REQUEST DUE TO BLOOD SUBAR OF 102 AND POOR APPETITE. TOOK HS SNACK OF VANILLA ICE CREAM. BILAT HEELS OK, ELEVATED ON PILLOWS TO OFFLOAD. NO OPEN AREAS NOTED. HAS SCAB TO KNEE, GILSON. ELLIS CARE GIVEN AT HS, DRAINS LEONA URINE. HOURLY ROUNDS CONTINUE. BED ALARM ON. CALL LITE IN REACH.
[2017-11-14 04:15] LABS: HEMATOCRIT 28.6 % (42.0-52.0); HEMOGLOBIN 9.1 gm/dL (14.0-18.0); MCH 26.7 pg (26.0-34.0); MCHC 31.7 g/dL (28.0-37.0); MCV 84.3 fL (80.0-100.0); MPV 9.9 fl. (7.2-11.1); RBC 3.4 mil/uL (4.50-6.00); RDW-CV 17.1 % (10.5-14.5); WBC 17.9 thou/uL (4.0-11.0)
[2017-11-14 04:37] LABS: CREATININE 1.5 mg/dL (0.6-1.3)
--- NOTE | 2017-11-14 04:53 | NUR ---
VENOUS SAMPLE OF GLUCOSE WAS 48. PATIENT ALERT, ORIENTED AND AWAKENED EASILY. GIVEN 4 OZ OF VANILLA ICE CREAM. TOLERATED WELL. WILL RECHECK BLOOD SUGAR IN A WHILE.
--- NOTE | 2017-11-14 05:37 | NUR ---
FINGERSTICK GLUCOSE NOW 86. REMAINS ASYMPTOMATIC. WILL CONTINUE TO MONITOR.
--- NOTE | 2017-11-14 05:46 | NUR ---
SLEPT MUCH OF THE NIGHT. AWAKENED FOR TURNS. VENOUS GLUCOSE LOW PER LAB DRAW, CORRRECTED WITH ICE CREAM. SEE RESULTS. LATEST FINGERSTICK BLOOD SUGAR WAS 86. PATIENT DID NOT HAVE ANY INSULIN OR DIABETIC MEDS LAST NIGHT AFTER HE ARRIVED ON THIS FLOOR. DID HAVE ICE CREAM FOR HS SNACK. WILL CONTINUE TO MONITOR.
[2017-11-14 08:11] VITALS: BP 161/98
--- NOTE | 2017-11-14 16:27 | NUR ---
ASSUMMED CARE OF PT AT 0730, PT ALERT AND ORIENTED, PT TRANSFERS WITH MAX ASSIST OF 2, GB WALKER, TRANSFERS WELL WITH 2 ONE TIME AND WITH THE NEXT TRANSFERS HE IS HEAVY TRANSFER OF 2, THE DIFFICULTY OF THE TRANSFERS CHANGES WITH EACH TRANSFER AND IT DOES NOT SEEM TO BE DEPEND ON IF HE IS TIRED OR HAS RESTED PRIOR TO THE TRANSFER. PT REPOSITIONED IN CHAIR FREQUENTLY, WAFFLE CUSHION IN PLACE, PARTICIPATED IN ALL THERAPIES, CONCERNED THAT PT IS TAKING SULFA WAS TOLD HER SHOULD NEVER TAKE SULFA, SHE IS REQUESTING THAT DR CONSTANTINO BE CONSULTED TO ADDRESS THE APPROPRIATE ANTIBIOTIC, ALSO REQUESTING TEDS FOR EDEMA IN LEGS, MESSAGE SENT TO PHYSICIAN, NO FURTHER ORDERS AT THIS TIME. OINTMENT APPLIED TO BUTTOCKS SEVERAL TIMES THIS SHIFT, PT HAD MUCOUSY BM X 1 ON COMMODE, INCONTINENT OF SMALL AMOUNT OF BM, ELLIS PATENT AND DRAINING DARK LEONA URINE, SCHEDULED INSULIN DC'D PER ORDER DUE TO LOW BLOOD GLUCOSE THIS AM, EXPLAINED TO THAT SLIDING SCALE STILL ORDERED, REFUSED TO LET SLIDING SCALE INSULIN BE GIVEN AT NOON FOR BS OF 196. HOURLY ROUNDING COMPLETED, ASSESSMENT COMPLETE, WILL CONTINUE TO MONITOR.
[2017-11-14 20:01] VITALS: BP 163/95
--- NOTE | 2017-11-14 23:04 | NUR ---
ASSUMED CARE AT 1930. PATIENT RESTING IN RECLINER UNTIL AROUND 2199 DESPITE EDUCATION THAT HE NEEDED TO CHANGE POSITIONS TO ALLOW SKIN HEALING. LEFT AROUND 1999, SON HERE FROM ABOUT 2100 TO 2200. STATED THAT SHE IS REFUSING TO ALLOW PATIENT TO HAVE ANY INSULIN INCLUDING SLIDING SCALE (NOT NEEDED TONIGHT) AND REFUSING ANY BREATHING TREATMENTS. BLOOD SUGAR AT 2036 WAS 138. UP WITH TWO FOR SAFETY, MINIMAL LIFTING NEEDED, GAIT BELT, AND WALKER. DID HAVE SOME TROUBLE MOVING BACKWARDS WITH LEFT LEG TO GET INTO BED. NEEDS CUEING TO STAND TALL AND FOR SAFETY. INCONTINENT OF SOFT BROWN STOOL. SKIN CARE GIVEN, CATHETER CARE GIVEN, ZINC MOISTURE BARRIER APPLIED. NEW BOTTLE OF CLEANSER GIVEN TO PATIENT. OPEN AREA TO LT BUTTOCK UNCHANGED. ELLIS DRAINING LEONA URINE. STATLOCK MISSING, NEW ONE REAPPLIED. [facility] OBTAINED FOR APPLICATION TOMORROW MORNING. ID CONSULT, PER REQUEST, CALLED TO DR. CONSTANTINO'S EXCHANGE. TAKES PILLS WHOLE ONE AT A TIME. DRINKING WATER WITH PILLS. ONCE IN BED, REFUSED TO LIE ON SIDE, DESPITE EDUCATION ABOUT SKIN HEALING, BECAUSE HE WANTED TO WATCH TV. PATIENT WAS ABLE TO PULL HIMSELF UP IN BED WITH ASSIST OF BED BEING IN SLIGHT TRENDELENBERG POSITION. HOURLY ROUNDS CONTINUE, BED ALARM ON. CALL LITE IN REACH.
--- NOTE | 2017-11-15 06:03 | NUR ---
SLEPT ALL NIGHT. REFUSED ASSIST WITH TURNS AT TIMES, PREFERRING TO LIE ON BACK DESPITE EDUCATION ABOUT WOUND HEALING. ELLIS DRAINING LEONA URINE. CATHETER STATLOCK INTACT. DECLINED HS SNACK LAST NOC. VENOUS BLOOD SUGAR RESULTED AT 0555 (DRAWN EARLIER) AT 61. AM MEDS GIVEN, MORE ALERT THAN YESTERDAY MORNING. EATING VANILLA ICE CREAM AT PRESENT. DID NOT RECEIVE ANY INSULIN LAST NOC, IT WAS NOT INDICATED PER SLIDING SCALE. HOURLY ROUNDS CONTINUE. BED ALARM ON. CALL LITE IN REACH.
[2017-11-15 08:18] VITALS: BP 150/83
--- NOTE | 2017-11-15 16:50 | NUR ---
ASSUMMED CARE OF PT AT 0730, PT ALERT, TRANSFERS WITH ASSIST OF 2 ,GB WALKER CUEING, PT NEEDS ENCOURAGEMENT TO DO MUCH HE CAN, PT WASHED FACE AND HANDS, BRUSHED TEETH BUT HAD NO INTEREST IN DOING MORE SO REMAINDER OF BATH GIVEN TO PT, PT ASISTED VERY LITTLE WITH PUTTING CLOTHES ON, BUT LATER NOTED THAT PT HAD TAKEN OFF HIS SHIRT BY HIMSELF BECAUSE HE WAS HOT, PT TAKING FOOD AND FLUIDS WELL, NANCY HOSE APPLIED TO BILATERAL LEGS BUT PT INSISTED THEY BE REMOVED AFTER 1 HOUR HE COULD NOT TOLERATE THEM, PT'S UPSET THE TEDS DID NOT REMAIN ON PT, LEGS HAVE SLIGHT, EDEMA ELEVATED WHEN IN RECLINER, PT REPOSTIONED EVERY 2 HOURS, OINTMENT APPLIED TO BUTTOCKS WITH BRIEF CHANGE, INCONTINENT OF LARGE AMOUNT OF LOOSE BROWN STOOL, LARGE STOOL ON COMMODE X 1 ALSO, ELLIS PATENT AND DRAINING LARGE AMOUNT OF URINE, PT STATES HAS MINIMAL BACK PAIN, MEDICATED PER ORDER, DOES NOT WANT ANY SLIDING SCALE INSULIN GIVEN, EDUCATED HER ON IMPORTANCE OF BLOOD SUGAR CONTROL BUT SHE FEELS IT CAN BE CONTROLLED WITH HIS FOOD CHOICES, WILL INFORM PHYSICIAN ON ROUNDS IN AM, HOURLY ROUNDING COMPLETED, ASSESSMENT COMPLETE, WILL CONTINUE TO MONITOR.
[2017-11-15 19:30] VITALS: BP 147/72
--- NOTE | 2017-11-15 23:44 | NUR ---
ASSUMED CARE AT 1930. PATIENT RESTING IN RECLINER UNTIL AROUND 2199 DESPITE EDUCATION THAT HE NEEDED TO BE OFF HIS BUTTOCKS TO ALLOW WOUND HEALING. LEFT AROUND 1999, SON CAME A LITTLE LATER AND LEFT AROUND 2199. UP WITH TWO, STEADYING ASSIST, ASSIST WITH MOVING LT LEG AT TIMES, GAIT BELT, WALKER. PATIENT DOES PULL SELF UP IN BED USING HOB AND SIDE RAIL HANDLES. INCONTINENT OF STOOL, TOTAL SKIN CARE PERFORMED BY NURSING AND ZINC MOISTURE BARRIER APPLIED. BRIEF WHILE IN CLOTHING, BRIEF REMOVED AT HS TO ALLOW WOUND HEALING. ELLIS DRAINING LEONA URINE, STATLOCK IN PLACE. LEGS ELEVATED WHILE IN RECLINER AND WHILE IN BED. TAKES PILLS WHOLE ONE AT A TIME WITH WATER. C/O FEELING LIKE HE HAD A TEMP. HAD PATIENT TCDB, EXPECTORATED PHLEGM. TEMP TAKEN AFTER COUGHING, 99.1. HAD SCHEDULED APAP AT HS. REFUSED NANCY HOSE. REFUSED ALL INSULINS, BLOOD SUGAR WAS 237 AT HS. ICE CREAM GIVEN HS SNACK. TO BED WITH TWO ASSIST, GAIT BELT WALKER. POSITIONED ON SIDE. PATIENT VERBALIZES NEED TO LIE ON SIDE AND MORE COMPLIANT WITH IT TONIGHT. HOURLY ROUNDS CONTINUE. BED ALARM ON. CALL LITE IN REACH. WATCHING TV.
--- NOTE | 2017-11-16 05:35 | NUR ---
SLEPT WELL THROUGH THE NIGHT. ASSISTED WITH TURNS. ATE ICE CREAM ABOUT 0300. ELLIS DRAINING LEONA URINE. NO C/O PAIN. HOURLY ROUNDS CONTINUE. BED ALARM ON. CALL LITE IN REACH.
[2017-11-16 07:35] VITALS: BP 156/76
--- NOTE | 2017-11-16 13:49 | NUR ---
Nutrition: Consult recevied for "pt and family request RD." had many questions about DM, as well as protein supplements. Pt admitted to Rehab w/ debility. H/o DM, HTN, pressure lcers, UTI. Wt: 198#. Regular diet ordered. +BM. BG 156, alb 2, prealb 14.2. eating 100%. stated that htey got him off of insulin (which he had been on for steroid use 2/2 infection) by controlling BG with diet. has been ordering meals for pt and his BG is being controlled. Pt also has pressure ulcers on bottom. Pt likes Arginaid tid. buys it at home. RD provided several packets of Arginaid to pt to take home. RD ordered Chu packets t.i.d. for wound healing. Mild risk. Will follow weekly.
--- NOTE | 2017-11-16 15:49 | NUR ---
ASSUMED CARE AT 0730. ALERT ORIENTED PLEASANT COOPERATIVE. HX OF DEBILITY UROSEPSIS. SITTING UP IN RECLINER AT BEDSIDE WHEN NOT PARTICIPATING IN THERAPIES. TAKES MEDS WITHOUT DIFFICULTY WITH WATER. NEEDS SET UP FOR MEALS.
--- NOTE | 2017-11-16 15:56 | NUR ---
SW met with pt and pt to complete initial assessment, introduce self, and SW role on rehab unit. Pt lives at home with his and has private duty care services; pt looking into receiving more services and through he [facility] benefits to assist financially with care in the home. [facility] pm to establish care and begin process of approval for in home services. SW to discuss with rehab team. Pt has preference for [facility] as he has history with them. Pt has needed DME. SW to continue to follow to assist with safe dc planning.
--- NOTE | 2017-11-16 16:45 | NUR ---
PT. HAS PARTICIPATED IN THERAPIES THROUGHOUT THE DAY. PT. SITTING UP IN RECLINER C/O BACK PAIN AND CHILLING TEMP 97.5 PT. TRANSFERRED INTO BED. HOB ELEVATED. REASSURANCE GIVEN ENCOURAGED TO DEEP BREATHE AND COUGH. HE HAS BEEN ACTING LIKE BACK SPASMS HE HAS HX OF CHRONIC SPINAL STENOSIS AND BACK PAIN.
--- NOTE | 2017-11-16 17:31 | NUR ---
PT. WAS TURNED TO LEFT SIDE BY STAFF AND HIS FAMILY PER HIS REQUEST BP WAS 175/88 P 70 ENCOURAGED TO TAKE DEEP BREATH LET IT OUT SLOWLY. ULTRAM 50 MG. PO GIVEN FOR BACK PAIN AND PT. AND FAMILY DECIDED TO TAKE BREATHING TX WHICH NURSE RECOMMENDED. PT. HAS BEEN COUGHING AND C/O NAUSEA COUGHING UP PHLEGM. HOB ELEVATED FAMILY AT BEDSIDE. DR. NIXON NOTIFIED OF PTS. STATUS AND FAMILY CONCERNS.
--- NOTE | 2017-11-16 18:58 | NUR ---
PT. SLEPT BRIEFLY AFTER EPISODE AT BEDSIDE. REFUSED SUPPER OFFERED SUPPLEMENT OR SNACK BUT DECLINED DIDNT GIVE SUPPER GLIPIZIDE. ELLIS PATENT WITH LEONA URINE TO DD BAG. CONTINUE TO MONITOR CLOSELY. HOB ELEVATED.
[2017-11-16 19:30] VITALS: BP 123/62
--- NOTE | 2017-11-16 22:48 | NUR ---
ASSUMED CARE AT 1920. PT ALERT AND ORIENTED. PLEASANT. WAS SITTING UP IN BED COMFORTABLY DENYING ANY PAIN. AT BEDSIDE. PT TOOK PILLS WHOLE WITHOUT ISSUES. ATE CRACKERS AND PEANUT BUTTER AND HALF CHEESEBURGER. AT 0 NURSING ASSISTED WITH LAYING PT BACK IN BED AND TO TURN ONTO SIDE. PT STARTED TO SHAKE, BREATHE HEAVILY, WHEEZING AND WAS C/O BACK SPASMS. TRAMADOL GIVEN. FAMILY REQUESTED NEB TX AND SO THIS WAS GIVEN. FEELS THAT PT OVER DID THERAPIES TODAY AND SO HE IS HAVING THESE BACK SPASMS. WANTS PT TO TAKE TRAMADOL THROUGHOUT THE NIGHT FOR PAIN. RECHECK AFTER 1 HR, PT RESTING COMFORTABLY WITH NO FURTHER SHAKING. BACK SPASMS LESSENED. WILL CONTINUE TO MONITOR.
[2017-11-17] VITALS (7 sets, daily range): BP systolic 93–215; BP diastolic 48–138
--- NOTE | 2017-11-17 01:03 | NUR ---
AT 1999 PT NOTED TO HAVE BLOODY DISCHARGE AND HEMATURIA. SAID THAT THIS MOST LIKELY DUE TO LELIS CATHETER BEING PULLED EARLIER. URINE NOW LEONA COLORED AND NO FURTHER BLEEDING NOTED. PT TACHYCARDIC RUNNING 100-107 HR. DENIES ANY CHEST PAIN, COLON, DIZZINESS. OFF AND ON WILL BE SWEATING AND THEN COLD. OCCASIONALLY COUGHING UP PHLEGM. SPOKE WITH DR HAYDEN EARLIER AND INFORMED OF ABOVE. AND FAMILY INFORMED OF NEW ORDERS. PT REFUSED TO BE TURNED AT THIS TIME. RESTING EYES CLOSED.
[2017-11-17 03:48] LABS: HEMATOCRIT 29.4 % (42.0-52.0); HEMOGLOBIN 9.2 gm/dL (14.0-18.0); MCH 26.2 pg (26.0-34.0); MCHC 31.4 g/dL (28.0-37.0); MCV 83.4 fL (80.0-100.0); MPV 9.8 fl. (7.2-11.1); NUCLEATED RBCS 0 /100WBC; PLATELET COUNT* 173 thou/uL (150-400); RBC 3.53 mil/uL (4.50-6.00); RDW-CV 16.9 % (10.5-14.5)
[2017-11-17 03:55] LABS: WBC 30.4 thou/uL (4.0-11.0)
[2017-11-17 04:00] LABS: CALCIUM 8.2 mg/dL (8.5-10.1); CREATININE 2.2 mg/dL (0.6-1.3); MAGNESIUM 1.9 mg/dL (1.8-2.4); PHOSPHORUS* 3.2 mg/dL (2.5-4.9); POTASSIUM 4.6 mmol/L (3.5-5.1)
[2017-11-17 04:31] LABS: URINE BILIRUBIN NEGATIVE (Negative); URINE BLOOD 3+ (Negative); URINE CLARITY CLEAR; URINE COLOR YELLOW; URINE GLUCOSE-RANDOM 3+ (Negative); URINE KETONES NEGATIVE (Negative); URINE LEUKOCYTES-REFLEX NEGATIVE (Negative); URINE NITRITE-REFLEX NEGATIVE (Negative); URINE PROTEIN TRACE (Negative); URINE UROBILINOGEN 0.2 E.U./dl (0.2-1.0)
[2017-11-17 05:09] LABS: ABSOLUTE LYMPHOCYTES 1.2 thou/uL (0.8-5.3); ABSOLUTE NEUTROPHILS 26.1 thou/uL (1.6-8.1); LARGE PLATELETS OCCASIONAL; PLATELET ESTIMATE ADEQUATE
[2017-11-17 05:10] LABS: ANISOCYTOSIS 1+; HYPOCHROMASIA 1+
[2017-11-17 05:23] LABS: BACTERIA-REFLEX 1-9 Few /HPF (None Seen); MUCUS 0-3 Light strn/LPF (None Seen); SQUAMOUS 0-3 Few /LPF (0-3); URINE WBC-REFLEX 0-5 Rare /HPF (0-5)
[2017-11-17 05:24] LABS: CASTS None Seen /LPF (None Seen); CRYSTALS None Seen /LPF (None Seen)
--- NOTE | 2017-11-17 07:00 | NUR ---
PT SLEPT OFF AND ON REMAINDER OF NIGHT. NO FURTHER "EPISODES" SHAKINESS. TRAMADOL WAS GIVEN FOR SLIGHT BACK PAIN. ELLIS CATHETER DD LEONA URINE. PAGED DR NIXON AT 0640 REGARDING LABWORK AND VITALS. ADDITIONAL ORDERS GIVEN. O2 2L NC APPLIED THIS AM DUE TO SATS 88-91%. PT RESTING QUIETLY. DAUGHTER AT BEDSIDE.
[2017-11-17 07:12] LABS: BE -2.8 mmol/L (-2 to +3); HCO3 20.3 mmol/L (22.0-26.0); PCO2 29.2 mmHg (35.0-45.0); pH 7.459 (7.340-7.450)
[2017-11-17 07:18] LABS: PO2 49.6 mmHg (75.0-100.0)
--- NOTE | 2017-11-17 14:50 | NUR ---
SW met with pt and pt and other family and friends visiting pt. SW follow up regarding pt possible PCP appt on Thursday and that team discussed pt could reschedule appt. Pt family plan to speak with Dr Mojica regarding the decision. Pt and pt family did not have any other questions or comments to present to team in team conference tomorrow except curious about when pt may be ready to dc home. SW to continue to follow to assist with safe dc planning.
--- NOTE | 2017-11-17 17:07 | NUR ---
LISA DENTON HAS REVIEWED AND AGREES WITH STUDENT NURSES CHARTING THROUGHOUT SHIFT.
--- NOTE | 2017-11-17 18:21 | NUR ---
ALERT AND ORIENTED X4, VERY DROWZY THROUGHOUT SHIFT. IV IS PATENT AND SALINE LOCKED. PAIN BEING MANAGED WITH PO MEDICATION AND LIDOCAINE PATCH. DENIES NAUSEA. UP WITH MAX ASSIST OF 2-3 WITH WALKER AND GAIT BELT. ELLIS IN PLACE AND DRAINING. FAMILY AT BEDSIDE. ATTENDED AFTERNOON THERAPIES AND REFUSED MORNING THERAPIES. VSS ON ROOM AIR. HOURLY ROUNDS HAVE BEEN MAINTAINED THROUGHOUT SHIFT. CALL LIGHT IS WITHIN REACH. NURSING WILL CONTINUE TO MONITOR.
--- NOTE | 2017-11-18 00:17 | NUR ---
ASSUMED CARES AT 1920. PT ALERT AND ORIENTED, UP IN RECLINER. MAX ASSIST X 2 PERSON GAIT BELT AND WALKER BACK TO BED. PT RESTING QUIETLY WITH DAUGHTER AT BEDSIDE. AT 2215 PT STARTED HAVING SEVERE BACK SPASMS. PT WAS BREATHING HEAVILY WITH TREMORS AND WAS EXTREMELY TENSED UP. TRAMADOL GIVEN WITH LITTLE RELIEF. BP: 215/138, HR:140, R:24, T: 98.6. O2 SAT 94% ON 2L NC. SPOKE WITH AND ASKED IF ATIVAN CAN BE GIVEN. REFUSED ATIVAN. SHE ASKED THAT DOCTOR BE CALLED. PT FINALLY DID START TO CALM DOWN ON HIS OWN AND BP CAME DOWN BUT STILL TACHY 130'S. NOT MUCH TREMORS BUT STILL C/O BACK SPASMS. PAGED DR FRANCO, ORDER FOR FLEXERIL AND VOLTAREN GEL. FINALLY IN AGREEMENT TO GIVE FLEXERIL AT 2400. PT SITTING UP IN BED MUCH CALMER. WILL CONTINUE TO MONITOR.
[2017-11-18 03:28] VITALS: BP 103/55
[2017-11-18 06:55] LABS: ABSOLUTE BASOPHILS 0.2 thou/uL (0.0-0.2); ABSOLUTE MONOCYTES 2.9 thou/uL (0.0-1.2); ABSOLUTE NEUTROPHILS 33.4 thou/uL (1.6-8.1); BASOPHILS 0.6 %; HEMOGLOBIN 8.2 gm/dL (14.0-18.0); LYMPHOCYTES 7.6 %; MCH 26.2 pg (26.0-34.0); MCHC 31.5 g/dL (28.0-37.0); MCV 83.2 fL (80.0-100.0); MONOCYTES 7.3 %; MPV 10.3 fl. (7.2-11.1); NUCLEATED RBCS 0 /100WBC; PLATELET COUNT* 148 thou/uL (150-400); POLYS 84.5 %; RBC 3.13 mil/uL (4.50-6.00); RDW-CV 17.2 % (10.5-14.5); WBC 39.5 thou/uL (4.0-11.0)
[2017-11-18 07:02] LABS: CALCIUM 8.1 mg/dL (8.5-10.1); CREATININE 2.6 mg/dL (0.6-1.3); POTASSIUM 4.8 mmol/L (3.5-5.1)
[2017-11-18 08:24] LABS: URINE POTASSIUM-RANDOM 56.1 mmol/L
--- NOTE | 2017-11-18 09:43 | NUR ---
DURING AM REPORT QUILL PICKING MACHINE OPERATOR REPORTED PT HAD A BLOOD PRESSURE OF 65/36 AND HE WAS DIFFICULT TO AROUSE. DR NIXON PRESENT ON REHAB, NEW ORDERS RECEIVED TO START A FLUID BOLUS AND READMIT PT TO TELEMETRY. IV FLUID STARTED AND AM DOSE OF CEFEPIME GIVEN. PT'S AND DAUGHTER AT THE BEDSIDE AND THEY HAVE BEEN UPDATED ON PLAN OF CARE.
--- NOTE | 2017-11-18 09:56 | NUR ---
REPORT GIVEN TO THE ACCEPTING NURSE. REPEAT BP WAS 94/49 AND PT IS EASILY AROUSED. PT DISCHARGED TO TELEMETRY UNIT FOR FURTHER CARE.
[2017-11-18 11:49] LABS: SMEAR FOR EOSINOPHILS Rare per HPF
--- NOTE | 2017-11-21 20:22 | CON ---
[address] [address] CONSULTATION Name: DARIEL RENTERIA Room: [address] IN M.R.#: [id number] Admission: 11/13/17 Attend Phys: Elinor Mojica, Discharge: 11/18/17 Date of : 32 Report #: [id number] THIS REPORT FOR: //name// CC: Isauro Mojica DATE OF SERVICE: 11/17/2017 CONSULTATION: Infectious diseases. HISTORY OF PRESENT ILLNESS: Dariel Renteria is an 87-year-old gentleman who was admitted to acute care on 11/07 with obstructed Orr catheter and urosepsis. The patient grew E. coli from blood in urine. The organism was resistant to ampicillin, Cipro, Levaquin, and tobramycin. The blood isolate was also resistant to Zosyn, although the urine isolate was found to be susceptible. The patient was treated with cefepime for 7 days and then transferred to rehab on 11/13 on Bactrim, to which the organism was susceptible. When the [place] [address]. His creatinine was down to 1.4. Today, the patient was found to have a creatinine of 2.2 [place] [address] with a shift to the left. The patient denies any symptoms. Infectious disease consultation was requested to assist with evaluation. PAST MEDICAL HISTORY, FAMILY HISTORY, SOCIAL HISTORY: Well described in my previous consultation note of 11/07. 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 He has history of diabetes, hypertension, spinal stenosis, compression fractures, and hypothyroidism. MEDICATION RECONCILIATION: The patient's current medication regimen consists of cefepime 1 gram daily, Lidoderm patch, metronidazole 500 mg p.o. t.i.d., guaifenesin 1200 mg b.i.d., vitamin C daily, fish oil 2000 mg daily, linagliptin 5 mg daily, tamsulosin 0.4 mg daily, finasteride 5 mg daily, loratadine 10 mg daily, carvedilol 3.125 mg b.i.d., levothyroxine 0.075 mg daily, Tylenol 1000 mg t.i.d. p.r.n., pregabalin 1000 mg at bedtime, docusate 100 mg b.i.d., lorazepam 0.25 mg q. 4 hours p.r.n., colestipol 5 grams p.o. daily, tramadol 50 mg q. 4 hours p.r.n., DuoNeb 3 mL inhalation q.i.d., albuterol 2.5 mg p.r.n., zolpidem 5 to 10 mg at bedtime p.r.n., bisacodyl 10 mg daily per rectum, magnesium hydroxide 10 mL p.o. daily, magnesium aluminum hydroxide with simethicone (Mylanta) 1530 mL q. 4 hours p.r.n., glipizide 2.5 mg b.i.d. REVIEW OF SYSTEMS: Really unremarkable. The patient is unaware of fevers, chills, sweats. The patient is not complaining of any weakness or lack of strength. He feels his mental status is doing well. The patient denies any headache, sinus congestion, confusion, sore throat, trouble swallowing. The patient denies cough, chest pain or shortness of breath. The patient denies angina, syncope, palpitations. The patient denies nausea, vomiting, diarrhea, [facility] [address] [place] [address] CONSULTATION Name: DARIEL RENTERIA Room: [address]#: [id number] Admission: 11/13/17 Attend Phys: Elinor Mojica, DO Discharge: 11/18/17 Date of : 32 Report #: [id number] constipation. The patient denies any pain from his catheter. He is not sure when the catheter was last changed. The patient denies any pain in his extremities. He does have back pain. PHYSICAL EXAMINATION: GENERAL: The patient appears his stated age, alert, oriented, comfortable, not in any distress. VITAL SIGNS: Normal. Maximum measured temperature was 99.4. Blood pressure 101/47. SKIN: Shows a small fairly benign appearing decubitus ulcer on the left butt cheek approximately 3 x 1 x 0.3 cm. The skin is irritated, but is not really cellulitic. ENT: Negative. CARDIOVASCULAR: Heart sounds normal. LUNGS: Clear. ABDOMEN: Belly soft, not tender. GENITALIA: Normal with Orr catheter of the penis. The urine in the tubing appears clear. EXTREMITIES: Unremarkable. LABORATORY [place]: [place] [address] with 22% bands, hemoglobin 9.2. Electrolytes are normal. BUN 41, creatinine 2.2, up from 1.4. Lactate is slightly elevated at 2.2. CRP is very high at 89. IMAGING DATA: The chest x-ray is clear. Blood and urine cultures are pending. ASSESSMENT AND PLAN: In summary, this is a patient who seems to be deteriorating in rehabilitation. He has a white count elevation and rising creatinine. There is no obvious source of infection. He does have a Orr catheter, which is always at risk. There is a small wound. This does not appear to be something that would cause sepsis. Most likely, this is recurrence of his urinary tract infection. For now, we will await results of cultures. We will continue the cefepime and Flagyl as has been started by Dr. May. We will want to follow the abnormal parameters and see if they normalize with antibiotic therapy. We want to do aggressive offloading. If wound care has not been seeing the patient, we may want to consult them. The patient may benefit from an offloading mattress as he tries reestablish his strength. <ELECTRONICALLY SIGNED> By: Jack Anglin MD 11/21/172021 [id number] [id number] Anglin MD /nt
--- NOTE | 2017-12-23 14:10 | D ---
[facility] [address] [place] [address] DISCHARGE SUMMARY Name: DARIEL CARNEY Room: [address] IN M.R.#: [id number] Admission: 11/13/17 Attend Phys: Elinor Mojica DO Discharge: 11/18/17 Date of : 32 Report #: [id number] THIS REPORT FOR: //name// CC: Isauro Mojica DATE OF SERVICE: 11/18/2017 DISCHARGE DIAGNOSIS: Debility. DISCHARGE DISPOSITION: To acute medical floor for further workup and evaluation. MEDICATIONS: Reviewed and reconciled. Due to the acuity of his discharge, physical examination was not completed. <ELECTRONICALLY SIGNED> By: Elinor Mojica DO 12/23/17 1410 1230 [id number] Mojica DO /nt
== END 2017-11-18 09:58 | disposition short-term general hospital (02) | DRG 947 ==
LOC: M.REH 13:30
PROVIDERS: Internal Medicine; Internal Medicine Infectious Disease; ADMIT Physical Medicine & Rehabilitation
DX: R53.81 Other malaise (principal); A41.9 Sepsis, unspecified organism; N17.9 Acute kidney failure, unspecified; N39.0 Urinary tract infection, site not specified; E11.65 Type 2 diabetes mellitus with hyperglycemia; E11.22 Type 2 diabetes mellitus with diabetic chronic kidney disease; N18.3 Chronic kidney disease, stage 3 (moderate); I12.9 Hypertensive chronic kidney disease with stage 1 through stage 4 chronic kidney disease, or unspecified chronic kidney disease; R33.8 Other retention of urine; B96.20 Unspecified Escherichia coli [E. coli] as the cause of diseases classified elsewhere; M48.00 Spinal stenosis, site unspecified

== ENCOUNTER 2017-11-18 07:32 | Inpatient (IN) | payer MEDICARE, OTHER ==
[~2017-11-18] VITALS: Ht 175.3 cm; Wt 90.7 kg
[2017-11-18] VITALS (32 sets, daily range): BP systolic 83–137; BP diastolic 47–76
--- NOTE | 2017-11-18 11:17 | EKG ---
[place] [address] ELECTROCARDIOGRAM REPORT Name: DARIEL CARNEY Room: [address] ADM IN [facility].#: [id number] Admission: 11/18/17 Attend Phys: Eric Powell MD Discharge: Date of : 32 Report #: [id number] THIS REPORT FOR: //name// [facility] Test Date: 2017-11-18 Test Time: 03:21:21 Pat Name: DARIEL CARNEY Department: Room: [address] Gender: M Collision Mechanic: SJEFF : 1930 Requested By: Elinor Mojica Order Number: [id number] Brigitte MD: Isauro Fiore Measurements Intervals [place] Rate: 128 P: 25 [place]: 148 QRS: 58 QRSD: 83 T: 2 QT: 326 QTc: 476 Interpretive Statements Sinus tachycardia PAC's Borderline T abnormalities, inferior leads Baseline wander in lead(s) II,III,aVF,V1,V3 Electronically Signed On 11-18-2017 11:17:15 CDT by Isauro Fiore [email or web address] <ELECTRONICALLY SIGNED> By: Isauro Fiore MD, [facility] 11/18/17 1117 [id number] Isauro Fiore MD, [facility] /EPI
[2017-11-18 14:20] LABS: HEMATOCRIT 30.6 % (42.0-52.0); HEMOGLOBIN 9.6 gm/dL (14.0-18.0); MCH 26.1 pg (26.0-34.0); MCHC 31.4 g/dL (28.0-37.0); MCV 83.4 fL (80.0-100.0); MPV 10.4 fl. (7.2-11.1); NUCLEATED RBCS 0 /100WBC; PLATELET COUNT* 141 thou/uL (150-400); RBC 3.67 mil/uL (4.50-6.00); RDW-CV 17.9 % (10.5-14.5)
[2017-11-18 14:21] LABS: WBC 22.8 thou/uL (4.0-11.0)
[2017-11-18 14:30] LABS: CALCIUM 8.6 mg/dL (8.5-10.1); CREATININE 2.5 mg/dL (0.6-1.3); MAGNESIUM 2.1 mg/dL (1.8-2.4)
[2017-11-18 14:42] LABS: ABSOLUTE LYMPHOCYTES 0.7 thou/uL (0.8-5.3); ABSOLUTE MONOCYTES 0.5 thou/uL (0.0-1.2); ABSOLUTE NEUTROPHILS 21.7 thou/uL (1.6-8.1)
[2017-11-18 14:44] LABS: ANISOCYTOSIS 2+; POIKILOCYTOSIS Occasional
[2017-11-18 14:45] LABS: PLATELET ESTIMATE DECREASED
[2017-11-18 14:46] LABS: HYPOCHROMASIA Occasional
[2017-11-18 19:50] LABS: HCO3 17.5 mmol/L (22.0-26.0); PCO2 26.8 mmHg (35.0-45.0); PO2 80.9 mmHg (75.0-100.0); pH 7.432 (7.340-7.450)
[2017-11-18 20:25] LABS: HEMATOCRIT 23.9 % (42.0-52.0); MCH 26.2 pg (26.0-34.0); MCHC 31.5 g/dL (28.0-37.0); MCV 83.1 fL (80.0-100.0); MPV 10.7 fl. (7.2-11.1); RBC 2.87 mil/uL (4.50-6.00); RDW-CV 17.3 % (10.5-14.5); WBC 36.6 thou/uL (4.0-11.0)
[2017-11-18 20:30] LABS: CALCIUM 7.5 mg/dL (8.5-10.1); CREATININE 2.6 mg/dL (0.6-1.3); POTASSIUM 4.6 mmol/L (3.5-5.1)
[2017-11-18 20:41] LABS: ALBUMIN 1.7 g/dL (3.4-5.0); TOTAL BILIRUBIN 0.5 mg/dL (<0.1-1.0); TOTAL PROTEIN 4.9 g/dL (6.4-8.2)
[2017-11-18 20:52] LABS: HEMOGLOBIN 7.5 gm/dL (14.0-18.0)
[2017-11-19] VITALS (39 sets, daily range): BP systolic 105–181; BP diastolic 65–122
[2017-11-19 03:57] LABS: HEMATOCRIT 24.2 % (42.0-52.0); HEMOGLOBIN 7.6 gm/dL (14.0-18.0); MCH 26.2 pg (26.0-34.0); MCHC 31.4 g/dL (28.0-37.0); MCV 83.5 fL (80.0-100.0); MPV 10.6 fl. (7.2-11.1); RBC 2.9 mil/uL (4.50-6.00); RDW-CV 17.3 % (10.5-14.5); WBC 32.8 thou/uL (4.0-11.0)
[2017-11-19 04:44] LABS: CALCIUM 7.6 mg/dL (8.5-10.1); CREATININE 2.5 mg/dL (0.6-1.3); MAGNESIUM 2.1 mg/dL (1.8-2.4); POTASSIUM 4.6 mmol/L (3.5-5.1)
[2017-11-19 05:11] LABS: URINE BILIRUBIN NEGATIVE (Negative); URINE BLOOD 3+ (Negative); URINE CLARITY SL CLOUDY; URINE COLOR BROWN; URINE GLUCOSE-RANDOM 2+ (Negative); URINE KETONES 1+ (Negative); URINE LEUKOCYTES 1+ (Negative); URINE NITRITE NEGATIVE (Negative); URINE PROTEIN 2+ (Negative); URINE UROBILINOGEN 0.2 E.U./dl (0.2-1.0)
[2017-11-19 05:16] LABS: BACTERIA 1-9 Few /HPF (None Seen); MUCUS 0-3 Light strn/LPF (None Seen); SQUAMOUS 0-3 Few /LPF (0-3); URINE RBC >20 Many /HPF (0-2); URINE WBC 6-15 Few /HPF (0-5)
[2017-11-19 05:17] LABS: CASTS None Seen /LPF (None Seen); CRYSTALS None Seen /LPF (None Seen)
[2017-11-19 05:19] LABS: CALCIUM 7.6 mg/dL (8.5-10.1); CREATININE 2.5 mg/dL (0.6-1.3); MAGNESIUM 2.1 mg/dL (1.8-2.4); POTASSIUM 4.6 mmol/L (3.5-5.1)
[2017-11-19 05:34] LABS: ALBUMIN 1.8 g/dL (3.4-5.0); PHOSPHORUS* 3.8 mg/dL (2.5-4.9)
[2017-11-19 09:51] LABS: URINE BILIRUBIN NEGATIVE (Negative); URINE BLOOD 3+ (Negative); URINE CLARITY SL CLOUDY; URINE COLOR YELLOW; URINE GLUCOSE-RANDOM 2+ (Negative); URINE KETONES TRACE (Negative); URINE LEUKOCYTES-REFLEX TRACE (Negative); URINE NITRITE-REFLEX NEGATIVE (Negative); URINE PROTEIN TRACE (Negative); URINE UROBILINOGEN 0.2 E.U./dl (0.2-1.0)
[2017-11-19 09:59] LABS: AMORPHOUS URATES Many /LPF (None Seen); BACTERIA-REFLEX None Seen /HPF (None Seen); FINE GRANULAR CASTS 0-3 Few /LPF (None Seen); HYALINE CASTS 0-3 Few /LPF (None Seen); SQUAMOUS 0-3 Few /LPF (0-3); URINE RBC >20 Many /HPF (0-2); URINE WBC-REFLEX 0-5 Rare /HPF (0-5)
[2017-11-19 13:21] LABS: HEMATOCRIT 24.6 % (42.0-52.0); HEMOGLOBIN 7.7 gm/dL (14.0-18.0)
[2017-11-19 20:36] LABS: HEMATOCRIT 24.1 % (42.0-52.0); HEMOGLOBIN 7.6 gm/dL (14.0-18.0)
[2017-11-20] VITALS (11 sets, daily range): BP systolic 148–185; BP diastolic 74–113
[2017-11-20 04:42] LABS: HEMATOCRIT 22.9 % (42.0-52.0); HEMOGLOBIN 7.2 gm/dL (14.0-18.0); MCHC 31.4 g/dL (28.0-37.0); MCV 82.6 fL (80.0-100.0); MPV 10.9 fl. (7.2-11.1); RBC 2.77 mil/uL (4.50-6.00); RDW-CV 17.6 % (10.5-14.5)
[2017-11-20 04:58] LABS: CALCIUM 8.2 mg/dL (8.5-10.1); CREATININE 1.8 mg/dL (0.6-1.3); MAGNESIUM 2.2 mg/dL (1.8-2.4); POTASSIUM 4.1 mmol/L (3.5-5.1)
[2017-11-20 05:05] LABS: WBC 15.5 thou/uL (4.0-11.0)
[2017-11-20 15:30] LABS: URINE BILIRUBIN NEGATIVE (Negative); URINE BLOOD TRACE (Negative); URINE CLARITY CLEAR; URINE COLOR YELLOW; URINE GLUCOSE-RANDOM 2+ (Negative); URINE KETONES NEGATIVE (Negative); URINE LEUKOCYTES-REFLEX NEGATIVE (Negative); URINE NITRITE-REFLEX NEGATIVE (Negative); URINE PROTEIN 1+ (Negative); URINE UROBILINOGEN 0.2 E.U./dl (0.2-1.0)
[2017-11-21 08:00] VITALS: BP 159/76
[2017-11-21 10:45] LABS: CALCIUM 8.5 mg/dL (8.5-10.1); CREATININE 1.5 mg/dL (0.6-1.3); POTASSIUM 4.6 mmol/L (3.5-5.1)
[2017-11-22 05:10] LABS: ABSOLUTE BASOPHILS 0.1 thou/uL (0.0-0.2); ABSOLUTE EOSINOPHILS 0.1 thou/uL (0.0-0.7); ABSOLUTE LYMPHOCYTES 5.1 thou/uL (0.8-5.3); ABSOLUTE NEUTROPHILS 5.2 thou/uL (1.6-8.1); BASOPHILS 0.6 %; EOSINOPHILS 1.2 %; HEMATOCRIT 23.3 % (42.0-52.0); HEMOGLOBIN 7.3 gm/dL (14.0-18.0); MCH 26.1 pg (26.0-34.0); MCHC 31.2 g/dL (28.0-37.0); MCV 83.8 fL (80.0-100.0); MONOCYTES 8.8 %; MPV 10.2 fl. (7.2-11.1); NUCLEATED RBCS 0 /100WBC; PLATELET COUNT* 179 thou/uL (150-400); POLYS 45.4 %; RBC 2.79 mil/uL (4.50-6.00); RDW-CV 17.6 % (10.5-14.5); WBC 11.6 thou/uL (4.0-11.0)
[2017-11-22 05:32] LABS: ALBUMIN 1.7 g/dL (3.4-5.0); CALCIUM 8.6 mg/dL (8.5-10.1); CREATININE 1.3 mg/dL (0.6-1.3); POTASSIUM 3.9 mmol/L (3.5-5.1); TOTAL BILIRUBIN 0.4 mg/dL (<0.1-1.0); TOTAL PROTEIN 5.1 g/dL (6.4-8.2)
[2017-11-22 08:00] VITALS: BP 144/70
[2017-11-22 17:08] VITALS: BP 162/81
[2017-11-22 19:03] VITALS: BP 186/93
[2017-11-22 19:45] VITALS: BP 148/88
[2017-11-22 20:24] LABS: URINE BILIRUBIN NEGATIVE (Negative); URINE BLOOD 2+ (Negative); URINE CLARITY CLEAR; URINE COLOR YELLOW; URINE GLUCOSE-RANDOM 2+ (Negative); URINE KETONES TRACE (Negative); URINE LEUKOCYTES-REFLEX 1+ (Negative); URINE NITRITE-REFLEX NEGATIVE (Negative); URINE PROTEIN 1+ (Negative); URINE UROBILINOGEN 0.2 E.U./dl (0.2-1.0)
[2017-11-22 20:39] LABS: BACTERIA-REFLEX 1-9 Few /HPF (None Seen); CASTS None Seen /LPF (None Seen); SQUAMOUS NONE SEEN /LPF (0-3); URINE WBC-REFLEX >25 Many /HPF (0-5)
[2017-11-22 20:40] LABS: CRYSTALS None Seen /LPF (None Seen)
[2017-11-23] VITALS: BP 136/72
[2017-11-23 04:00] VITALS: BP 131/86
[2017-11-23 05:18] LABS: ABSOLUTE BASOPHILS 0.1 thou/uL (0.0-0.2); ABSOLUTE EOSINOPHILS 0.1 thou/uL (0.0-0.7); ABSOLUTE LYMPHOCYTES 5.6 thou/uL (0.8-5.3); ABSOLUTE MONOCYTES 1.3 thou/uL (0.0-1.2); BASOPHILS 0.7 %; EOSINOPHILS 0.6 %; HEMOGLOBIN 7.8 gm/dL (14.0-18.0); LYMPHOCYTES 36.8 %; MCH 26.1 pg (26.0-34.0); MCHC 31.3 g/dL (28.0-37.0); MCV 83.3 fL (80.0-100.0); MONOCYTES 8.8 %; NUCLEATED RBCS 0 /100WBC; PLATELET COUNT* 192 thou/uL (150-400); POLYS 53.1 %; RDW-CV 17.7 % (10.5-14.5); WBC 15.1 thou/uL (4.0-11.0)
[2017-11-23 05:35] LABS: CREATININE 1.4 mg/dL (0.6-1.3); POTASSIUM 3.7 mmol/L (3.5-5.1)
[2017-11-23 08:00] VITALS: BP 148/88
[2017-11-23 23:40] VITALS: BP 159/88
[2017-11-24 06:57] LABS: CALCIUM 8.7 mg/dL (8.5-10.1); CREATININE 1.3 mg/dL (0.6-1.3); POTASSIUM 3.7 mmol/L (3.5-5.1)
[2017-11-24 08:00] VITALS: BP 146/86
[2017-11-24 17:37] VITALS: BP 179/92
[2017-11-25 00:15] VITALS: BP 155/88
[2017-11-25 08:00] VITALS: BP 155/82
[2017-11-25 10:49] LABS: ABSOLUTE BASOPHILS 0.1 thou/uL (0.0-0.2); ABSOLUTE EOSINOPHILS 0.1 thou/uL (0.0-0.7); ABSOLUTE LYMPHOCYTES 4.2 thou/uL (0.8-5.3); ABSOLUTE MONOCYTES 1.1 thou/uL (0.0-1.2); ABSOLUTE NEUTROPHILS 3.7 thou/uL (1.6-8.1); BASOPHILS 0.8 %; EOSINOPHILS 0.9 %; HEMATOCRIT 23.9 % (42.0-52.0); HEMOGLOBIN 7.6 gm/dL (14.0-18.0); LYMPHOCYTES 45.6 %; MCH 26.4 pg (26.0-34.0); MCHC 31.8 g/dL (28.0-37.0); MCV 82.9 fL (80.0-100.0); MONOCYTES 12.3 %; MPV 9.3 fl. (7.2-11.1); NUCLEATED RBCS 0 /100WBC; PLATELET COUNT* 207 thou/uL (150-400); POLYS 40.4 %; RBC 2.88 mil/uL (4.50-6.00); RDW-CV 18.2 % (10.5-14.5); WBC 9.2 thou/uL (4.0-11.0)
--- NOTE | 2017-11-25 15:52 | CON ---
[address] [address] CONSULTATION Name: DARIEL CARNEY Room: [address] IN .R.#: [id number] Admission: 11/18/17 Attend Phys: Eric Powell MD Discharge: Date of : 32 Report #: [id number] THIS REPORT FOR: //name// CC: Isauro Powell DATE OF SERVICE: 11/18/2017 Nephrology Consultation CONSULTING PHYSICIAN: Eric Powell MD HISTORY OF PRESENT ILLNESS: An 87-year-old gentleman with recent hospital stay for E. coli sepsis and urinary retention with enlarged prostate. He was sent home with Bactrim and comes in with a rising serum creatinine and low blood pressures. He has a creatinine up to 2.5. Today's creatinine was around 1.4 to 1.6 when he was discharged and that appears to be his baseline. He has received fluid boluses, but blood pressure is still running bit on the low side. He did receive some morphine earlier and now is somnolent. His is present at the bedside and helps provide some of the history. REVIEW OF SYSTEMS: Constitutional, psych, heme, eyes, ENT, respiratory, cardiac, GI, , and endocrine, all negative except as documented above. PAST MEDICAL HISTORY: Noninsulin dependent diabetes type 2, history of urinary retention, history of L2 compression fracture and spinal stenosis, history of chronic kidney disease stage 3, history of hypertension, neuropathy, cataracts. FAMILY HISTORY: Nonpertinent for this 87-year-old gentleman. SOCIAL HISTORY: No tobacco. MEDICATIONS: Reviewed. PHYSICAL EXAMINATION: VITAL SIGNS: Blood pressure is 97/54, pulse 84, temperature 36.5. GENERAL: No acute distress, somnolent. EYES: Closed. EARS: Externally normal. CARDIOVASCULAR: Regular rate. LUNGS: Diminished breath sounds. ABDOMEN: Soft. LYMPHATICS: No pitting edema. NEUROLOGIC: Somnolent. LABORATORY DATA: White cell count 23, hemoglobin 9.6, platelets [place] [address] CONSULTATION Name: DARIEL CARNEY Room: [address] IN [facility]#: [id number] Admission: 11/18/17 Attend Phys: Eric Powell MD Discharge: Date of : 32 Report #: [id number] 136, potassium 5, chloride 104, bicarbonate 20, BUN 37, creatinine 2.5, glucose 166, calcium 8.6, magnesium 2.1. ASSESSMENT: 1. Acute kidney injury with creatinine of 2.5. Ultrasound showed kidneys to be okay. Urinalysis is noted. Serum immunofixation, free light chain assay from prior admission was okay. This is likely acute kidney injury in the setting of sepsis and volume depletion. 2. History of urinary retention with Orr catheter in place. 3. Chronic kidney disease stage 3, baseline creatinine probably around 1.4 to 1.6. 4. Hypoalbuminemia. 5. Anemia. 6. Proteinuria with a previous urine protein creatinine ratio of 0.6. 7. History of hypertension, now with hypotension. PLAN: 1. Avoid Bactrim. This has been stopped. 2. Kidney ultrasound showed the Orr catheter may be malpositioned. I will speak with nursing about ensuring this is properly positioned. 3. We will order IV fluids. 4. Renally dose Ultram. 5. He may need transfer to ICU for possible vasopressor. 6. Check labs again in a.m. Thank you for requesting my opinion in the care and management of this patient. <ELECTRONICALLY SIGNED> By: Melissa Dawson MD 11/25/17 1552 [id number] [id number] Dawson MD /nt
[2017-11-25 18:56] VITALS: BP 143/76
[2017-11-25 20:10] VITALS: BP 171/87
[2017-11-26 00:31] VITALS: BP 174/84
[2017-11-26 08:00] VITALS: BP 171/92
[2017-11-26 16:31] VITALS: BP 160/88
[2017-11-26 19:55] VITALS: BP 171/88
[2017-11-27 10:25] VITALS: BP 118/41
[2017-11-27 16:35] VITALS: BP 148/75
[2017-11-28] VITALS: BP 146/77
[2017-11-28 08:05] VITALS: BP 153/84
[2017-11-28] MEDS ORDERED: LIDOPATCH1 EACH TOP (08:39)
[2017-11-28 11:45] VITALS: BP 153/84
[2017-11-28] MEDS ORDERED: PROTONIX40 M1 PO (11:59)
[2017-11-29] VITALS: BP 149/73
[2017-11-29 07:30] VITALS: BP 166/89
[2017-11-29 16:48] VITALS: BP 150/71
[2017-11-30 00:28] VITALS: BP 144/72
[2017-11-30 08:05] VITALS: BP 146/69
[2017-11-30] MEDS ORDERED: CORTISPORIN OTI10 M2 IRRIG (11:19)
[2017-11-30] MEDS ORDERED: XARELTO20 MG PO (11:21)
[2017-11-30 16:00] VITALS: BP 164/81
[2017-11-30 20:35] VITALS: BP 150/82
[2017-12-01 07:55] VITALS: BP 172/88
[2017-12-01 14:36] VITALS: BP 153/84
--- NOTE | 2017-12-13 08:16 | CON ---
[address] [address] CONSULTATION Name: DARIEL CARNEY Room: [address] IN .R.#: [id number] Admission: 11/18/17 Attend Phys: Eric Powell MD Discharge: 12/01/17 Date of : 32 Report #: [id number] THIS REPORT FOR: //name// CC: Isauro Powell DATE OF SERVICE: 11/21/2017 REASON FOR CONSULTATION: Evaluation and recommendations regarding post-acute rehabilitation in an 87-year-old male known to this service who was discharged acutely from rehab to medical unit after E. coli sepsis and septic urinary tract infection. He does have history of urinary retention with enlarged prostate status post Orr placement. He has been followed by urology at this time. He had worsening back pain and radiculopathy as known stenosis. He also had decreased intake with hypotensive episodes. PAST MEDICAL HISTORY: Unchanged from previous. ALLERGIES: No known drug allergies. PAST MEDICAL HISTORY: Reviewed and unchanged from previous consultation and history and physical. FAMILY HISTORY: Reviewed. SOCIAL HISTORY: No tobacco, alcohol or illicit drug use. REVIEW OF SYSTEMS: A 14-point review of systems is done and is negative except as mentioned in HPI. Specifically, no fever, chest pain, shortness of breath, abdominal pain or distention. PHYSICAL EXAMINATION: VITAL SIGNS: Reviewed. GENERAL: Alert. Resting quietly. HEENT: Head: Atraumatic, normocephalic. Pupils equal, round, and reactive. ABDOMEN: Soft. LUNGS: Symmetric expansion. EXTREMITIES: No clubbing, cyanosis or edema. SKIN: Warm and dry. PSYCHIATRIC: Normal mood and affect. NEUROLOGIC: 5/5 strengths in the bilateral upper and lower extremities. ASSESSMENT: 1. Worsening severe sepsis. 2. Worsening back pain, intractable. 3. Acute tubular necrosis on chronic kidney disease stage 3. [place] [id number] CONSULTATION Name: DARIEL CARNEY Room: [address]#: [id number] Admission: 11/18/17 Attend Phys: Eric Powell MD Discharge: 12/01/17 Date of : 32 Report #: [id number] 4. Known spinal stenosis with peripheral neuropathy. 5. Diabetes. 6. Debility with alterations in activities of daily living. 7. Moderate protein calorie malnutrition. PLAN: I had a long conversation with both the patient and his at the bedside. I discussed ongoing rehabilitation at this point is likely not a sustainable goal. I discussed in detail consideration for palliative care and hospice care. The patient and his were both interested in discussing more. I did offer to do a family meeting on Wednesday 11/22 to discuss with the family and asked for both Mik and his to discuss this in privacy today, as there are no visitors currently at the bedside. I will follow along with the patient and will update primary care and internal medicine physicians during this hospitalization. <ELECTRONICALLY SIGNED> By: Elinor Mojica DO 12/13/17 0816 1137 [id number] Aaron Mojica DO /nt
== END 2017-12-01 14:44 | disposition home health service (06) | DRG 871 ==
LOC: M.2W 07:32 → M.ICU 10:05 → M.2W 10:05 → M.3W 10:05 → M.2W 10:08 → M.ICU 18:57 → M.3W 11-20 17:43
PROVIDERS: Internal Medicine; Internal Medicine Infectious Disease; Internal Medicine Nephrology; Urology; ADMIT Internal Medicine
PROC: 02HV33Z Insertion of Infusion Device into Superior Vena Cava, Percutaneous Approach (ICD-10-PCS; principal; 2017-11-18)
DX: A41.51 Sepsis due to Escherichia coli [E. coli] (principal); N17.0 Acute kidney failure with tubular necrosis; E44.0 Moderate protein-calorie malnutrition; L03.115 Cellulitis of right lower limb; N39.0 Urinary tract infection, site not specified; I82.622 Acute embolism and thrombosis of deep veins of left upper extremity; R65.20 Severe sepsis without septic shock; N40.1 Benign prostatic hyperplasia with lower urinary tract symptoms; R33.8 Other retention of urine; I12.9 Hypertensive chronic kidney disease with stage 1 through stage 4 chronic kidney disease, or unspecified chronic kidney disease; M48.061 Spinal stenosis, lumbar region without neurogenic claudication; K59.00 Constipation, unspecified; E86.0 Dehydration; E11.65 Type 2 diabetes mellitus with hyperglycemia; N41.9 Inflammatory disease of prostate, unspecified; N13.9 Obstructive and reflux uropathy, unspecified; J20.9 Acute bronchitis, unspecified; E11.42 Type 2 diabetes mellitus with diabetic polyneuropathy; E11.22 Type 2 diabetes mellitus with diabetic chronic kidney disease; D64.9 Anemia, unspecified; N18.3 Chronic kidney disease, stage 3 (moderate); Z98.42 Cataract extraction status, left eye; Z98.41 Cataract extraction status, right eye; Z68.29 Body mass index [BMI] 29.0-29.9, adult; Z79.4 Long term (current) use of insulin; Z79.899 Other long term (current) drug therapy

== ENCOUNTER 2017-12-03 21:31 | Inpatient (IN) | payer MEDICARE, OTHER ==
[~2017-12-03] VITALS: Ht 175.3 cm; Wt 78.7 kg
[~2017-12-03 21:31] MED LIST changes: +CORTISPORIN OTI10 M2 IRRIG; +LIDOPATCH1 EACH TOP; +PROTONIX40 M1 PO; +XARELTO20 MG PO
[2017-12-03 21:38] VITALS: BP 117/60
[2017-12-03 22:11] LABS: ABSOLUTE EOSINOPHILS 0.1 thou/uL (0.0-0.7); ABSOLUTE LYMPHOCYTES 6.3 thou/uL (0.8-5.3); ABSOLUTE MONOCYTES 1.6 thou/uL (0.0-1.2); ABSOLUTE NEUTROPHILS 4.7 thou/uL (1.6-8.1); BASOPHILS 0.2 %; HEMATOCRIT 24.7 % (42.0-52.0); HEMOGLOBIN 7.6 gm/dL (14.0-18.0); LYMPHOCYTES 49.1 %; MCHC 30.8 g/dL (28.0-37.0); MCV 81.2 fL (80.0-100.0); MONOCYTES 12.6 %; MPV 9.1 fl. (7.2-11.1); NUCLEATED RBCS 0 /100WBC; PLATELET COUNT* 354 thou/uL (150-400); POLYS 37.1 %; RBC 3.04 mil/uL (4.50-6.00); RDW-CV 17.9 % (10.5-14.5); WBC 12.8 thou/uL (4.0-11.0)
[2017-12-03 22:16] LABS: ANION GAP 6 mmol/L (7-16); BUN 39 mg/dL (7-18); CHLORIDE 108 mmol/L (98-107); CO2 25 mmol/L (21-32); CREATININE 1.5 mg/dL (0.6-1.3); GLUCOSE 223 mg/dL (70-99); SODIUM 139 mmol/L (136-145)
[2017-12-03 22:18] LABS: APTT 33.1 Seconds (25.0-31.3); INR 1.4; PROTIME 13.7 Seconds (9.20-11.50)
[2017-12-03 22:23] LABS: ALBUMIN 2.3 g/dL (3.4-5.0); ALKALINE PHOSPHATASE 130 U/L (46-116); SGOT 15 U/L (15-37); SGPT 15 U/L (30-65); TOTAL BILIRUBIN 0.3 mg/dL (<0.1-1.0); TOTAL PROTEIN 5.9 g/dL (6.4-8.2); TROPONIN-I LEVEL <0.06 ng/mL (<0.06)
[2017-12-03 22:52] LABS: URINE BILIRUBIN NEGATIVE (Negative); URINE BLOOD NEGATIVE (Negative); URINE CLARITY CLEAR; URINE COLOR YELLOW; URINE GLUCOSE-RANDOM 3+ (Negative); URINE KETONES NEGATIVE (Negative); URINE LEUKOCYTES-REFLEX NEGATIVE (Negative); URINE NITRITE-REFLEX NEGATIVE (Negative); URINE PROTEIN NEGATIVE (Negative); URINE UROBILINOGEN 0.2 E.U./dl (0.2-1.0)
[2017-12-04] VITALS (12 sets, daily range): BP systolic 101–149; BP diastolic 54–96
--- NOTE | 2017-12-04 00:50 | NUR ---
PT'S SPOUSE HAS CONVEYED HER WISHES DPOA THAT PT IS NOT TO RECEIVE IV FLUIDS, AND NO BLOOD TRANSFUSION. INFORMATION FORWARDED TO CASH CONTROL SPECIALIST BAILEE.
--- NOTE | 2017-12-04 01:45 | NUR ---
ADMITTED TO ICU BED 5, SEE ASSESSMENT. PT IS A/0X4 AND ABLE TO MAKE OWN DECISIONS. AND DAUGHTER AT BEDSIDE. DOES NOT SEEM OPEN TO EDUCATION PERTAINING TO THE FACT THAT DPOA ONLY TAKES AFFECT WHEN PT IS UNABLE TO MAKE OWN DECISIONS. PT ORIENTED TO ROOM AND PLAN OF CARE EXPLAINED. CALL LIGHT WITHIN REACH.
--- NOTE | 2017-12-04 03:00 | NUR ---
INCONTINENT OF MULTIPLE LIQUID MAROON COLORED BM'S. FLEXISEAL PLACED DUE TO BILATERAL BUTTOCKS WOUNDS, PRESENT ON ADMIT AND PHOTOS TAKEN FOR RECORD. EXPLAINED FLEXISEAL RATIONALE TO PT, VERBALIZED UNDERSTANDING AND CONSENT.
[2017-12-04 05:54] LABS: HEMATOCRIT 21.5 % (42.0-52.0); MCHC 30.5 g/dL (28.0-37.0); MCV 81.8 fL (80.0-100.0); MPV 8.6 fl. (7.2-11.1); RBC 2.63 mil/uL (4.50-6.00); RDW-CV 17.8 % (10.5-14.5); WBC 12.4 thou/uL (4.0-11.0)
[2017-12-04 06:12] LABS: HEMOGLOBIN 6.6 gm/dL (14.0-18.0)
--- NOTE | 2017-12-04 06:48 | NUR ---
PT IS ALERT AND ORIENTED X4. DROP IN HGB RESULT OF RECTAL BLEEDING EXPLAINED TO PT, VERBALIZED UNDERSTANDING. EXPLAINED TO PT DR MAIER ORDER FOR ONE UNIT PRBC'S, QUESTIONS ANSWERED AND PT SIGNED CONSENT. TRANSFUSION STARTED AT THIS TIME.
--- NOTE | 2017-12-04 10:37 | NUR ---
Nutrition: RD familiar with pt. He has been on Rehab unit. He was on [facility] previously. His buys Arginaid for him, for wound healing. H/o: DM II, pressure ulcers on buttocks, CKD III. RX: glipizide, linagliptin, MVI. Labs: BG 200s, BUN 39, cr 1.5, alb 2.3, prealb 15.1, Hgb 6.6. GI bleed likely d/t blood thinner RX at home. Wt: 173#. Low protein stores likely d/t GIB. High BG. GOALS: tight BG control for wound healing, continue MVI, good po intake once diet advances today. Mild nutrition risk at this time. Will continue to follow per protocol.
--- NOTE | 2017-12-04 11:09 | EKG ---
[place] [address] ELECTROCARDIOGRAM REPORT Name: DARIEL CARNEY Room: [address] ADM IN .R.#: [id number] Admission: 12/03/17 Attend Phys: Phani Salcedo Discharge: Date of : 32 Report #: [id number] THIS REPORT FOR: //name// [facility] ED Test Date: 2017-12-03 Test Time: 22:01:16 Pat Name: DARIEL CARNEY Department: Room: [facility] Gender: M Wire Fence Erector: DIETER : 1930 Requested By: Emi Grimes Order Number: [id number] MD: Isauro Fiore Measurements Intervals [place] Rate: 95 P: 63 AL: 169 QRS: 57 QRSD: 88 T: 31 QT: 390 QTc: 491 Interpretive Statements Sinus rhythm nonspecific st changes Borderline prolonged QT interval Baseline wander in lead(s) V4 Compared to ECG 11/18/2017 03:21:21 Sinus tachycardia no longer present Electronically Signed On 12-04-2017 11:08:43 CDT by Isauro Fiore [email or web address] <ELECTRONICALLY SIGNED> By: Isauro Fiore MD, FAC 12/04/17 1108 00 00 Isauro Fiore MD, [facility] /EPI
[2017-12-04 11:57] LABS: HEMATOCRIT 24.6 % (42.0-52.0); HEMOGLOBIN 7.7 gm/dL (14.0-18.0); MCH 25.9 pg (26.0-34.0); MCHC 31.3 g/dL (28.0-37.0); MCV 82.9 fL (80.0-100.0); MPV 9.3 fl. (7.2-11.1); NUCLEATED RBCS 0 /100WBC; PLATELET COUNT* 292 thou/uL (150-400); RBC 2.96 mil/uL (4.50-6.00); RDW-CV 17.4 % (10.5-14.5); WBC 11.2 thou/uL (4.0-11.0)
[2017-12-04 12:49] LABS: ABSOLUTE EOSINOPHILS 0.2 thou/uL (0.0-0.7); ABSOLUTE LYMPHOCYTES 4.7 thou/uL (0.8-5.3); ABSOLUTE MONOCYTES 1.6 thou/uL (0.0-1.2); ABSOLUTE NEUTROPHILS 4.7 thou/uL (1.6-8.1); ANISOCYTOSIS 2+; PLATELET ESTIMATE ADEQUATE
--- NOTE | 2017-12-04 14:45 | NUR ---
WOUND CARE NOTE: CONSULT RECEIVED FOR BILATERAL BUTTOCK WOUNDS. PATIENT KNOWN TO ME FROM PREVIOUS HOSPITAL STAY. LEFT SIDE OF HIS SACRUM WITH A HEALING STAGE 2 PRESSURE ULCER. WOUND BED IS MOIST, PINK. FADIA-WOUND IS PINK. WOUND IS HEALING, MEASURES 2X1.5X0.1. RIGHT SIDE OF BUTTOCK: BELIEVE TO BE AN ABRASION. WOUND MEASURES 0.5X0.5X0.1 WOUND BED IS MOIST, RED. CLEANSED BOTH WOUNDS WITH WOUND CLEANSER, PATTED DRY. SKIN PREPPED. APPLIED OPTIFOAM AG AND SECURED WITH TEGADERM. PATIENT TOLERATED DRESSING CHANGE WELL. EDUCATED PATIENT AND ON IMPORTANCE OF KEEPING OFF THE WOUNDS. APPLIED WEDGES UNDER PATIENT AND TURNED TO LEFT SIDE. PATIENT ATTEMPTED TO SCOOT OFF, REINFORCED THE NEED TO STAY OFF OF HIS BOTTOM TO HELP HEAL THE WOUNDS. COMMUNICATED UNDERSTANDING AND STAYED ON LEFT SIDE. RECOMMEND TURN Q2 HOURS-KEEP OFF WOUND WAFFLE CUSHION WHEN IN CHAIR ENCOURAGE GOOD NUTRTION/HYDRATION
--- NOTE | 2017-12-04 15:31 | NUR ---
PT KNOWN TO [facility] FROM PREVIOUS ADMISSIONS. PT LIVES AT HOME WITH HIS , HE HAS [facility]. HE HAS A HOSPITAL BED, MATTRESS, LIFT, AND BEDSIDE COMMODE FROM [facility]. SPOKE WITH IN ROOM. SHE SAID THINGS HAD BEEN GOING OK AT HOME THE FEW DAYS THEY WERE HOME. SHE HAS SOME PARACHUTE/COMBATANT DIVER OFFICER THAT COMES IN THRU OUT THE DAY TO HELP HER OUT, SHE SAID HER FAMILY IS ALSO HELPING. SHE SAID [facility] HAS BEEN WONDERFUL AND SHE WANTS THEM TO CONTINUE AT DISCHARGE. SHE IS HOPING PT CAN GO HOME TOMORROW, 'HE HAS BEEN HERE FOR SO LONG, HE JUST NEEDS TO GET HOME.' ASKING IF SHE COULD TAKE THE [facility] HOME WITH HER, DAMARI JI WOUND CARE NURSE TOLD HER NO. GAVE THE NAME AND PHONE NUMBER OF [facility], SHE SAID SHE WOULD GIVE THEM A CALL. ASKED ME THE SAME QUESTIONS SEVERAL TIMES WHEN WE WERE TALKING, THE NURSE WOULD WALK IN AND SHE WOULD ASK HIM THE SAME QUESTION SHE HAD JUST ASKED ME. ASKED IF THERE WAS ANYTHING ELSE SHE NEEDED FROM ME, SHE SAID NO. [facility] CANTU WILL CONTINUE TO FOLLOW.
--- NOTE | 2017-12-05 04:38 | NUR ---
ASSUMED PATIENT CARE AT 1900. PATIENT ALERT AND ORIENTED TIMES FOUR, CAN BE FORGETFUL. MINOR COMPLAINTS OF DISCOMFORT, REPOSITIONED SEVERAL TIMES. PATIENT ABLE TO GET REST. SPOUSE CAME BY TO SEE AND INDICATED THAT THEY WOULD NEED SOME OTHER ORM OF TRANSPORTATION TO GET HOME THE PATIENT "HE CAN'T WALK SO WE WILL NEED AN AMBULANCE TO GET HOME" CASE MANAGEMENT NOTIFIED. SPOUSE ALSO REQUESTED THAT LABWORK BE DONE IN THE AM BEFORE HE GOES HOME. ELLIS CATHETER IN PLACE AND PATENT TO FLUSHES AND DRAINAGE. NO CONCERNS NO OTHER CONCERNS NOTED BY PATIENT.
[2017-12-05 07:12] LABS: ABSOLUTE EOSINOPHILS 0.1 thou/uL (0.0-0.7); ABSOLUTE LYMPHOCYTES 5.8 thou/uL (0.8-5.3); ABSOLUTE MONOCYTES 1.4 thou/uL (0.0-1.2); ABSOLUTE NEUTROPHILS 3.4 thou/uL (1.6-8.1); BASOPHILS 0.4 %; EOSINOPHILS 1.2 %; HEMATOCRIT 24.1 % (42.0-52.0); HEMOGLOBIN 7.6 gm/dL (14.0-18.0); LYMPHOCYTES 53.8 %; MCH 25.8 pg (26.0-34.0); MCHC 31.4 g/dL (28.0-37.0); MCV 82.1 fL (80.0-100.0); MPV 8.6 fl. (7.2-11.1); NUCLEATED RBCS 0 /100WBC; PLATELET COUNT* 324 thou/uL (150-400); POLYS 31.6 %; RBC 2.93 mil/uL (4.50-6.00); RDW-CV 17.4 % (10.5-14.5); WBC 10.8 thou/uL (4.0-11.0)
[2017-12-05 07:18] LABS: CALCIUM 8.5 mg/dL (8.5-10.1); CREATININE 1.2 mg/dL (0.6-1.3); POTASSIUM 3.9 mmol/L (3.5-5.1)
--- NOTE | 2017-12-05 13:46 | NUR ---
PT REFUSES BP. PT AND EDUCATED. PT CONTINUES TO REFUSE.
--- NOTE | 2017-12-05 13:48 | NUR ---
PT TRANSFERED TO ROOM 101. REPORT TO MUNIR.
--- NOTE | 2017-12-05 15:50 | NUR ---
PT LEAVING AMA. ASKED FOR AMBULANCE TRANSPORT HOME. OK'D WITH TERENCE/CASE MGMT DIRECTOR. SET UP AMBULANCE. DISCUSSED WITH JOEL/URBAN PLANNING PROFESSOR AND DR TALLEY, HE DID GIVE ORDER TO RESUME HH. CALLED AND FAXED ORDERS TO [facility]. PT IN AGREEMENT AND REQUESTING TO GO HOME.
--- NOTE | 2017-12-05 16:33 | NUR ---
PT LEFT AMA. RECTAL TUBE AND IV ACCESS REMOVED. PT SENT HOME WITH ELLIS CATHETER IN PLACE PER CHRONIC ELLIS PRIOR TO ADMISSION.DR TALLYE NOTIFIED OF PT WISH TO LEAVE AMA. PT, SPOUSE, AND SON EDUCATED ON RISKS OF LEAVING AMA. SON ATTEMPTED TO DISCOURAGE PT FROM LEAVING BUT HIS FATHER AND MOTHER WERE ADAMENT ABOUT GOING HOME. PT, , AND SON VERBALIZED UNDERSTANDING OF RISKS. PT TRANSPORTED PER EMS.
== END 2017-12-05 16:35 | disposition left against medical advice (07) | DRG 374 ==
LOC: M.ERS 21:31 → M.TBA-ER 23:11 → M.ICU 23:11
PROVIDERS: Personal Emergency Response Attendant; ADMIT Internal Medicine
PROC: 30233N1 Transfusion of Nonautologous Red Blood Cells into Peripheral Vein, Percutaneous Approach (ICD-10-PCS; principal; 2017-12-03)
DX: C18.9 Malignant neoplasm of colon, unspecified (principal); N17.0 Acute kidney failure with tubular necrosis; E43 Unspecified severe protein-calorie malnutrition; R65.11 Systemic inflammatory response syndrome (SIRS) of non-infectious origin with acute organ dysfunction; K92.2 Gastrointestinal hemorrhage, unspecified; D62 Acute posthemorrhagic anemia; E11.40 Type 2 diabetes mellitus with diabetic neuropathy, unspecified; N18.3 Chronic kidney disease, stage 3 (moderate); E11.22 Type 2 diabetes mellitus with diabetic chronic kidney disease; I12.9 Hypertensive chronic kidney disease with stage 1 through stage 4 chronic kidney disease, or unspecified chronic kidney disease; Z87.81 Personal history of (healed) traumatic fracture; Z98.42 Cataract extraction status, left eye; Z98.41 Cataract extraction status, right eye; Z79.01 Long term (current) use of anticoagulants; Z79.899 Other long term (current) drug therapy; Z86.718 Personal history of other venous thrombosis and embolism

== ENCOUNTER 2017-12-11 15:35 | Inpatient (IN) | payer MEDICARE, OTHER ==
--- NOTE | ~2017-12-11 | PROC ---
[address] [address] PROCEDURE REPORT Name: DARIEL CARNEY Room: [address] IN M.R.#: [id number] Admission: 12/11/17 Attend Phys: Pam Santos MD Discharge: 12/13/17 Date of : 32 Report #: [id number] THIS REPORT FOR: //name// For GI report, please see the Provation report in Perceptive 7 content. By: [id number] Records Staff STEPHANIE /WINNIE
[2017-12-11 17:45] VITALS: BP 176/83
--- NOTE | 2017-12-11 17:45 | NUR ---
PATIENT ARRIVED TO FLOOR VIA EMS. PATIENT SETTLED TO ROOM. HISTORY, ASSESSMENT AND VITALS COMPLETED AND DOCUMENTED. WOUND TO BUTTOCKS, PICTURE IN CHART. PATIENT DENIES ANY PAIN. IV STARTED TO LEFT AC. ORDERS FOR LABS AND BLOOD TRANSFUSION RECEIVED. FAMILY AT BEDSIDE. WILL CONTINUE TO MONITOR.
[2017-12-11 19:20] LABS: ABSOLUTE BASOPHILS 0.1 thou/uL (0.0-0.2); ABSOLUTE EOSINOPHILS 0.2 thou/uL (0.0-0.7); ABSOLUTE LYMPHOCYTES 7.4 thou/uL (0.8-5.3); ABSOLUTE NEUTROPHILS 6.3 thou/uL (1.6-8.1); BASOPHILS 0.4 %; EOSINOPHILS 1.1 %; LYMPHOCYTES 46.5 %; MCH 25.4 pg (26.0-34.0); MCV 81.8 fL (80.0-100.0); MONOCYTES 12.7 %; MPV 8.6 fl. (7.2-11.1); NUCLEATED RBCS 0 /100WBC; PLATELET COUNT* 350 thou/uL (150-400); POLYS 39.3 %; RBC 2.57 mil/uL (4.50-6.00); RDW-CV 17.6 % (10.5-14.5)
[2017-12-11 19:23] LABS: HEMOGLOBIN 6.5 gm/dL (14.0-18.0)
[2017-12-11 19:26] LABS: CALCIUM 8.2 mg/dL (8.5-10.1); CREATININE 1.2 mg/dL (0.6-1.3); INR 1.1; PROTIME 10.9 Seconds (9.20-11.50)
[2017-12-11 19:31] LABS: ALBUMIN 2.3 g/dL (3.4-5.0); TOTAL BILIRUBIN 0.2 mg/dL (<0.1-1.0); TOTAL PROTEIN 5.9 g/dL (6.4-8.2)
[2017-12-11 20:00] VITALS: BP 134/64
[2017-12-11 21:01] VITALS: BP 109/58; BP 140/68; BP 145/73; BP 149/80
[2017-12-12] VITALS (8 sets, daily range): BP systolic 107–158; BP diastolic 47–87
[2017-12-12 00:34] LABS: HEMATOCRIT 20.7 % (42.0-52.0)
[2017-12-12 00:38] LABS: HEMOGLOBIN 6.4 gm/dL (14.0-18.0)
--- NOTE | 2017-12-12 06:48 | NUR ---
ASSUMED PATIENT CARE AT 1900. FAMILY AT BEDSIDE. CRIT HGB RESULTS. 2 UNITS OF BLOOD GIVEN THROUGH THE NIGHT. PATIENT ALERT AND ORIENTED TIMES FOUR. IV PATENT TO IV FLUIDS. PATIENT AND FAMILY AWARE OF PROCEDURE THAT IS TO BE DONE THIS AM, NO QUESTIONS AT THIS TIME. MINOR COMPLAINTS OF DISCOMFORT NOTED, CONTROLLED WITH ORAL PAIN MEDICATION. OINTMENT REQUESTED BY ACQUIRED FOR BUTTOCKS PRESSURE AREAS. CHRONIC ELLSI CATH IN PLACE AND DRAINING CLR, YELLOW URINE. SPOUSE REQUESTING ABT FLUSH FOR CATH THAT THEY HAD ON PREVIOUS VISIT. SUPERVISOR BOATBUILDERS WOOD AND HOURLY ROUNDING COMPLETED DOCUMENTED.
[2017-12-12 06:59] LABS: HEMATOCRIT 23.3 % (42.0-52.0); HEMOGLOBIN 7.4 gm/dL (14.0-18.0); MCH 26.5 pg (26.0-34.0); MCHC 31.6 g/dL (28.0-37.0); MCV 83.8 fL (80.0-100.0); MPV 8.4 fl. (7.2-11.1); RBC 2.78 mil/uL (4.50-6.00); RDW-CV 17.4 % (10.5-14.5); WBC 16.1 thou/uL (4.0-11.0)
[2017-12-12 07:07] LABS: CALCIUM 8.2 mg/dL (8.5-10.1); CREATININE 1.3 mg/dL (0.6-1.3); POTASSIUM 4.1 mmol/L (3.5-5.1)
--- NOTE | 2017-12-12 10:46 | NUR ---
0730 ASSUMED CARE OF PATIENT. PLEASE SEE DOCUMENTED ASSESSMENT. PT TO RECEIVE THIRD UNIT OF PRBC'S AND ENEMAS X 2 FOR GI PROCEDURE
--- NOTE | 2017-12-12 10:59 | NUR ---
1000 PATIENT TO OR PER BED. ENEMA RETURNS HAVE BEEN MAROON
--- NOTE | 2017-12-12 11:21 | NUR ---
SW attempted to meet with pt and pt family, pt preparing and going to surgery at the time. Pt known to SW/DAVIAN from previous admissions and inpt rehab stays in the past. Pt lives at home with his and private duty in home assistance. Pt has DME: hospital bed, lift, wc, bsc through [facility] and referral/resource for wedges and other supplies. Pt is current with HH services through [facility]. SW to continue to follow to assist with safe dc planning.
--- NOTE | 2017-12-12 13:40 | NUR ---
1330 RECEIVED BACK FROM SURGERY. NO CHANGE IN ASSESSMENT. PLACED PULSE OXIMETRY. TRAY GIVEN. FAMILY PRESENT
--- NOTE | 2017-12-12 17:19 | NUR ---
PATIENT WITH PROGRESS TOWARDS GOALS. TRANSFUSED ANOTHER UNIT OF BLOOD AND WENT TO OR FOR COLONIC STENT AND FLEX SIG. RESUMED DIET. VSS. PLAN IS FOR POSSIBLE DISCHARGE TOMORROW DEPENDING ON FAMILY PLANS ABOUT SURGERY. REPEAT HEMOGLOBIN IS FOR 1800. MULTIPLE VISITORS
[2017-12-12 18:39] LABS: HEMATOCRIT 26.2 % (42.0-52.0); HEMOGLOBIN 8.3 gm/dL (14.0-18.0)
--- NOTE | 2017-12-12 18:55 | NUR ---
HEMOGLOBIN RESULT NOTED
[2017-12-13 03:48] LABS: HEMATOCRIT 25.2 % (42.0-52.0); MCH 26.7 pg (26.0-34.0); MCHC 31.8 g/dL (28.0-37.0); MCV 84.1 fL (80.0-100.0); MPV 8.8 fl. (7.2-11.1); RDW-CV 17.1 % (10.5-14.5); WBC 17.7 thou/uL (4.0-11.0)
[2017-12-13 04:06] LABS: CALCIUM 8.1 mg/dL (8.5-10.1); CREATININE 1.3 mg/dL (0.6-1.3); MAGNESIUM 1.8 mg/dL (1.8-2.4); POTASSIUM 3.9 mmol/L (3.5-5.1); TOTAL BILIRUBIN 0.4 mg/dL (<0.1-1.0); TOTAL PROTEIN 5.3 g/dL (6.4-8.2)
--- NOTE | 2017-12-13 04:58 | NUR ---
PATIENT HAS SLEPT OFF AND ON DURING THE NIGHT, BUT RESTLESS AT TIMES. VSS ON RA. MEDICATIONS GIVEN ORDERED AND CHARTED. PATIENT TURNED EVERY 2 HRS. NO C/O PAIN. IV IN LEFT AC-NS W/20K @ 50ML/HR. DAUGHTER AT BEDSIDE DURING THE NIGHT. FALL PRECAUTIONS IN PLACE AND HOURLY ROUNDS MADE. WILL CONTINUE WITH PLAN OF CARE AND NURSING TO MONITOR.
[2017-12-13 08:30] VITALS: BP 146/79
[2017-12-13 10:05] LABS: URINE BILIRUBIN NEGATIVE (Negative); URINE BLOOD 2+ (Negative); URINE CLARITY CLEAR; URINE COLOR YELLOW; URINE GLUCOSE-RANDOM 2+ (Negative); URINE KETONES NEGATIVE (Negative); URINE LEUKOCYTES-REFLEX NEGATIVE (Negative); URINE NITRITE-REFLEX NEGATIVE (Negative); URINE PROTEIN 1+ (Negative); URINE SPECIFIC GRAVITY 1.025 (1.005-1.030); URINE UROBILINOGEN 0.2 E.U./dl (0.2-1.0)
--- NOTE | 2017-12-13 10:31 | EKG ---
[place] [address] ELECTROCARDIOGRAM REPORT Name: DARIEL CARNEY Room: [address] ADM IN .R.#: [id number] Admission: 12/11/17 Attend Phys: Pam Santos MD Discharge: Date of : 32 Report #: [id number] THIS REPORT FOR: //name// [facility] Test Date: 2017-12-13 Test Time: 10:12:18 Pat Name: DARIEL CARNEY Department: Room: [address] Gender: M Milking System Installer: SARA : 1930 Requested By: Isauro Fiore Order Number: [id number] Brigitte MD: Isauro Fiore Measurements Intervals [place] Rate: 81 P: 0 DE: 195 QRS: 23 QRSD: 92 T: 45 QT: 399 QTc: 464 Interpretive Statements Sinus rhythm Compared to ECG 12/03/2017 22:01:16 ST (T wave) deviation no longer present Electronically Signed On 12-13-2017 10:31:08 CDT by Isauro Fiore [email or web address] <ELECTRONICALLY SIGNED> By: Isauro Fiore MD, [facility] 12/13/17 1031 1012 1012 Isauro Fiore MD, [facility] /EPI
[2017-12-13 10:47] LABS: HYALINE CASTS 0-3 Few /LPF (None Seen); MUCUS 4-6 Moderate strn/LPF (None Seen); SQUAMOUS 0-3 Few /LPF (0-3)
[2017-12-13 10:48] LABS: BACTERIA-REFLEX 1-9 Few /HPF (None Seen); CRYSTALS None Seen /LPF (None Seen); URINE RBC 3-10 Few /HPF (0-2); URINE WBC-REFLEX 0-5 Rare /HPF (0-5)
[2017-12-13 11:56] VITALS: BP 146/79
[2017-12-13] MEDS ORDERED: ASPIRIN325 PO (12:42)
--- NOTE | 2017-12-13 15:31 | NUR ---
SW received calls regarding pt dc home with and arranging [facility] as well as possible Palliative HH PT. SW spoke with pt multiple times to finalize safe dc plan in place. SW spoke with [facility] and referral and orders were provided for [facility] who agreed to begin services on Thursday 12/14. (Pt no longer on services with [facility].) .
--- NOTE | 2017-12-13 16:10 | NUR ---
PATIENT HAD KUB ABD THIS AM, DOPPLER OF LEFT UPPER ARM REGARDING PREVIOUS CLOT, AND CHEST XRAY. ALL RESULTS CALLED TO DR. FRANCO. UA SENT AND CALLED TO DR. FRANCO. PATIENT AND STATED TO DR. FRANCO THEY REALLY WANTED FOR PATIENT TO GO HOME TODAY. OK FOR PATIENT TO DISCHARGE HOME PER DR. FRANCO. DR. POWELL HERE THIS AFTERNOON AND OK FOR PATIENT TO DISCHARGE. DR. FRANCO NOTIFIED THAT GI OK WITH PATIENT TAKING FULL DOSE ASPIRIN DAILY, ORDERS RECEIVED FOR HOME. IV DC'D. ELLIS FLUSHED WITH ABX FLUSH THIS AM ORDERED. SPOKE WITH CM AND ORDERS FOR HOME HEALTH IN PLACE, ORDER FAXED TO HOME HEALTH FOR PATIENT TO HAVE CBC DRAWN TOMORROW. VERBALIZES UNDERSTANDING OF PAPERWORK, NO SCRIPT NOTED. PATIENT AWARE OF NEW OTC ASPIRIN AND FULL DOSE OF CARVEDILOL. PATIENT LEFT VIA EMS WITH ALL BELONGINGS.
--- NOTE | 2017-12-15 21:13 | CON ---
[address] [address] CONSULTATION Name: DARIEL CARNEY Room: [address] IN M.R.#: [id number] Admission: 12/11/17 Attend Phys: Pam Santos MD Discharge: 12/13/17 Date of : 32 Report #: [id number] THIS REPORT FOR: //name// CC: Isauro Santos DATE OF SERVICE: 12/13/2017 TYPE OF REPORT: Cardiology consultation. HISTORY OF THE PRESENT ILLNESS: The patient is an 87-year-old white male who I was asked to see in the hospital today because of high blood pressure. The patient has no history of heart disease. He does have a history of hypertension and he has been followed by my partner, Dr. Wilfred Lubin. He presented in July with bronchitis. He was found to have a compression fracture and cellulitis of the foot. He was transferred to long term. He then presented in October with urinary retention. He was found to have a urinary tract infection. He had a catheter placed. He developed a thrombosis of a PICC line. On evaluation, the patient was found to have a mass in his colon. He has had blood in his stool. The patient was brought to the hospital 2 days ago for a transfusion because of anemia. The patient is scheduled for flexible sigmoidoscopy with a stent in his colon to prevent obstruction from an apple core lesion. Cardiology consultation was requested for preop evaluation. The patient is not very active but denies a history of myocardial infarction, chest pain, shortness of breath, palpitations or syncope. He has been followed by my partner, Dr. Lubin for hypertension. He apparently had a recent echocardiogram was unremarkable, but the patient actually refused a pharmacologic stress test. He did have a treadmill test years ago. PAST MEDICAL HISTORY: Otherwise, significant for no other major surgical procedures. He does have spinal stenosis. He has a history of hypertension and diabetes. MEDICATIONS: Include Synthroid, Lyrica, Januvia, Colestid, glipizide, Flomax, Xarelto, carvedilol and Proscar. FAMILY HISTORY: Negative for heart disease. SOCIAL HISTORY: He is . He and his live in [facility]. No smoking or alcohol abuse. He is retired from the . He also talked college courses. PHYSICAL EXAMINATION: GENERAL: Revealed an elderly, frail-appearing male, sitting in a chair. VITAL SIGNS: He has a blood pressure of 140/80, pulse 80 and [place] [address] CONSULTATION Name: LOGAN CARNEYONY Yunier Room: [address]#: [id number] Admission: 12/11/17 Attend Phys: Pam Santos MD Discharge: 12/13/17 Date of : 32 Report #: [id number] HEENT: He is anicteric. Conjunctivae pink. Mucous membranes moist. NECK: Veins nondistended. No carotid bruits. Neck supple. CHEST: Clear to auscultation. CARDIOVASCULAR: Regular rate and rhythm. ABDOMEN: Soft and nontender. EXTREMITIES: Had no edema. Dorsalis pedis pulse cannot be palpated. SKIN: Cool and dry. PSYCHIATRIC: Mood is appropriate. RADIOLOGICAL DATA: No ECG available. He had a chest x-ray done on November 22 that showed normal heart size and clear lung barron. LABORATORY DATA: Sodium 139, BUN 22 and creatinine 1.3. Liver function studies are normal. Recent TSH 1.3. His white blood cell count 17.7. His hemoglobin 2 days ago was only 6.5 and it is now 8.0. IMPRESSION AND RECOMMENDATIONS: 1. Hypertension. The patient has been on beta sue. 2. Spinal stenosis. 3. Urinary retention. The patient has a catheter in place. 4. History of thrombosis with a peripherally inserted central catheter line. The patient is anticoagulated. 5. Colon obstruction. The patient might require surgery. The patient appears to have no cardiac contraindication to surgery but he will be at risk for cardiac complications because of his advanced age and poor activity status. 6. Anemia with history of gastrointestinal bleeding. 7. Diabetes. <ELECTRONICALLY SIGNED> By: Isauro Fiore MD, FACC 12/15/17 2113 0908 [id number] Fiore MD, FACC /nt
--- NOTE | 2017-12-16 11:09 | PATH ---
[address] [address] PATHOLOGY RPT PROCEDURE Name: DARIEL RENTERIA Room: [address] IN M.R.#: [id number] Admission: 12/11/17 Date of : 32 Discharge: 12/13/17 Report #: [id number] Path Case #: [id number] [facility] Accession Number: [id number] . 01 Material submitted: . PART A: ULCERATIVE SIGMOID MASS DISTAL SIGMOID COLON BIOPSY PART B: UPPER RECTAL PEDUNCULATED POLYP . 01 Clinical history: . None provided . 02 Diagnosis: A. Large intestine, ulcerative sigmoid mass distal sigmoid colon, endoscopic biopsy: - INVASIVE MODERATELY DIFFERENTIATED ADENOCARCINOMA. . B. Polyp, upper rectal pedunculated polyp, endoscopic biopsy: - Tubulovillous adenoma. - Negative for high-grade dysplasia. - Cauterized foci showing unremarkable mucosa as well as focal adenomatous mucosa. (IUV:kishore; 12/15/2017) QMS/12/15/2017 . 02 Comment: This case is co-reviewed with Dr. Mady Miranda, who concurs with my diagnosis. . Focal adenomatous changes are identified with cautery adjacent to the unremarkable mucosa at cauterized margins. Please correlate with intraoperative/endoscopic findings for complete removal of this large polyp. . Findings of this case were discussed with Dr. Duncan at 2:14 p.m. on 12/15/2017. . (IUV:kishore; 12/15/2017) . 02 Electronically signed: . Betty Diggs MD, Pathologist NPI- [id number] . 01 Gross description: . A. Received in formalin labeled "Dariel Renteria, ulcerative sigmoid mass biopsy," and additionally labeled on the requisition as, "ulcerative sigmoid mass distal sigmoid colon biopsy," are eight segments of buckley soft tissue measuring 1.2 x 0.8 x 0.3 cm in aggregate dimensions and ranging from 0.3 to 0.5 cm in maximum dimension. [place] [address] PATHOLOGY RPT PROCEDURE Name: DARIEL RENTERIA Room: [address] IN M.R.#: [id number] Admission: 12/11/17 Date of : 32 Discharge: 12/13/17 Report #: [id number] Path Case #: [id number] entirely in cassette A1. . B. Received in formalin labeled "Dariel Renteria, upper rectal proximal pedunculated polyp," is a polypoid segment of buckley-brown soft tissue measuring 2.3 x 1.8 x 1.5 cm in greatest dimensions. The surgical margin is inked. Sectioning reveals firm to friable, pale buckley to pink-buckley cut surfaces. The specimen is serially sectioned and submitted entirely in cassettes B1 through B3. Unavoidable fragmentation occurred upon sectioning. ([facility]; 12/14/2017) XDC/XDC . 02 Pathologist provided ICD-10: C18.7, D12.8 . 02 CPT . 802376, 091796 Performed at: [address], [place], [place] [id number] MD Ahsan Dial MD Phone: [phone] Performed at: [address] [id number] MD Betty Diggs MD Phone: [phone]
--- NOTE | 2017-12-19 10:30 | CON ---
[address] [address] CONSULTATION Name: DARIEL CARNEY Room: [address] IN M.R.#: [id number] Admission: 12/11/17 Attend Phys: Pam aSntos MD Discharge: 12/13/17 Date of : 32 Report #: [id number] THIS REPORT FOR: //name// CC: Isauro Santos DATE OF SERVICE: 12/11/2017 REFERRING PHYSICIAN: Pam Santos MD REASON FOR CONSULTATION: Abnormal CT scan. IMPRESSION: 1. Symptomatic anemia secondary to chronic gastrointestinal blood loss. 2. Rectosigmoid thickening with associated stricture likely related to undiagnosed colon cancer. 3. Spinal stenosis, which is symptomatic. 4. Left upper extremity deep venous thrombosis due to previous PICC line infection - the patient had gastrointestinal bleeding when on anticoagulation, so he is not a candidate for the same. 5. Recurrent urinary tract infections with catheter changes to be done only by Dr. Randy Flores -the patient due next week for the same. 6. Hypertension. RECOMMENDATIONS: 1. At the present time because of the patient's symptomatic anemia, we will proceed with transfusion of at least 1-2 or even 3 units of packed red cells tonight and tomorrow. 2. We will proceed with flexible sigmoidoscopy with biopsy followed by colonic stent placement to palliate impending colon obstruction. Both he and his do not seem interested in surgical intervention for his cancer, but they may change their minds if he continues to have problems with continued blood loss, transfusions, etc. 3. Depending on how he is doing, he can probably go home on Thursday if doing well. This is the patient's and his 's preference. I have discussed all these plans with the patient as well as all of his family and everyone is in agreement of the same. HISTORY OF PRESENT ILLNESS: The patient is a pleasant 87-year-old Jordanian male who has been admitted on at least three or four occasions this year with issues related to his lower GI tract especially with fecal incontinence. He has had CT scans and has had some problem with rectal bleeding, which suggested there may be some thickening of his rectosigmoid colon with possible apple core lesion within the distal sigmoid colon. He has refused endoscopic evaluation of his lower GI tract on multiple occasions as well as his . [place] [address] CONSULTATION Name: ADRIEL CARNEY Room: [address]#: [id number] Admission: 12/11/17 Attend Phys: Pam Santos MD Discharge: 12/13/17 Date of : 32 Report #: [id number] was hospitalized and had a PICC line placed for some antibiotics and developed a left upper extremity DVT for which he was placed on Xarelto and shortly after going on the same he had symptomatic anemia with associated hematochezia. He continues to have problems with being anemic and in talking with his , we had him get blood work drawn, which revealed his hemoglobin was down to 6.6. He is admitted to the hospital now for transfusion and a flexible sigmoidoscopy with possible stent placement. This has all been addressed with the patient as well as his over the phone as well as multiple family members. He is admitted to the hospital for further evaluation. ALLERGIES: None. MEDICATIONS: Include Synthroid, carvedilol, Jardiance, Januvia, ibuprofen, metformin, omega 3, simethicone, ramipril, Mariposa, Uroxatral, Lyrica and Centrum. PAST MEDICAL HISTORY: Remarkable for hypertension with no history of cardiomyopathy, hyperlipidemia, diabetes, problems with chronic low back pain and spinal stenosis. He has had previous cataract surgeries and tip of his right toe removed secondary to infection. SOCIAL HISTORY: The patient is . He drinks 1-2 glasses of wine on special occasions. He does not smoke. FAMILY HISTORY: Remarkable for colon cancer in his son at age 58 and daughter with breast cancer. PHYSICAL EXAMINATION: GENERAL: Pleasant 87-year-old gentleman who appears in no distress. CARDIOPULMONARY: Revealed a regular rate and rhythm. He does have a systolic ejection murmur compatible with a flow murmur. LUNGS: Clear. ABDOMEN: Soft and not tender. No rebound or guarding noted. DISCUSSION: At the present time, the patient appears to have symptomatic anemia secondary to gastrointestinal blood loss. We will proceed with transfusion and proceed with flexible sigmoidoscopy, possible stent placement tomorrow and make further recommendations thereafter. <ELECTRONICALLY SIGNED> By: Brian Duncan DO 12/19/17 1030 1527 [id number] Duncan DO /nt
== END 2017-12-13 16:17 | disposition home health service (06) | DRG 813 ==
LOC: M.ORTHSURG 15:35
PROVIDERS: Internal Medicine Gastroenterology; ADMIT Internal Medicine
PROC: 30233N1 Transfusion of Nonautologous Red Blood Cells into Peripheral Vein, Percutaneous Approach (ICD-10-PCS; principal; 2017-12-12)
PROC: 0DBN8ZX Excision of Sigmoid Colon, Via Natural or Artificial Opening Endoscopic, Diagnostic (ICD-10-PCS; principal; 2017-12-12)
PROC: 0DBP8ZZ Excision of Rectum, Via Natural or Artificial Opening Endoscopic (ICD-10-PCS; principal; 2017-12-12)
PROC: 0D7P8DZ Dilation of Rectum with Intraluminal Device, Via Natural or Artificial Opening Endoscopic (ICD-10-PCS; 2017-12-12)
DX: D68.32 Hemorrhagic disorder due to extrinsic circulating anticoagulants (principal); K92.2 Gastrointestinal hemorrhage, unspecified; K56.609 Unspecified intestinal obstruction, unspecified as to partial versus complete obstruction; N39.0 Urinary tract infection, site not specified; I10 Essential (primary) hypertension; D72.829 Elevated white blood cell count, unspecified; K64.9 Unspecified hemorrhoids; E11.9 Type 2 diabetes mellitus without complications; K62.1 Rectal polyp; D50.0 Iron deficiency anemia secondary to blood loss (chronic); E11.40 Type 2 diabetes mellitus with diabetic neuropathy, unspecified; M48.00 Spinal stenosis, site unspecified; R33.9 Retention of urine, unspecified; N18.3 Chronic kidney disease, stage 3 (moderate); Z87.81 Personal history of (healed) traumatic fracture; Z98.42 Cataract extraction status, left eye; Z98.41 Cataract extraction status, right eye

== ENCOUNTER 2018-01-02 19:38 | Inpatient (IN) | payer MEDICARE, OTHER ==
[~2018-01-02] VITALS: Ht 175.3 cm; Wt 78.9 kg
--- NOTE | ~2018-01-02 | CON ---
[address] [address] CONSULTATION Name: DARIEL CARNEY Room: [address] IN .R.#: [id number] Admission: 01/02/18 Attend Phys: Twan Steele, Discharge: Date of : 32 Report #: [id number] THIS REPORT FOR: //name// CC: Isauro Steele DATE OF SERVICE: 01/03/2018 REASON FOR CONSULTATION: Rectal bleeding, anemia and fever. HISTORY OF PRESENT ILLNESS: This is an 87-year-old male with recent diagnosis of sigmoid cancer, which was obstructing. The stent has been placed by my partner, Dr. Duncan. Per the patient's 's report, he had one bloody stool yesterday and since he was weak and had fever. This prompted his admission to hospital. The patient has been scheduled for a segmental resection of his sigmoid colon and was supposed to see a surgeon this . Since hospitalization, he also found to be anemic. His baseline hemoglobin was closer to 10 and is 7.5. He also is acidotic and appears to have metabolic acidosis. PAST MEDICAL HISTORY: Significant for diabetes; hypothyroidism; hypertension; cataract surgery; recent diagnosis of colon cancer, which has been obstructive status post placement of a colonic stent; chronic kidney disease; spinal stenosis; urinary retention and cellulitis. ALLERGIES: No known drug allergy. MEDICATIONS: Please refer to hospital MAR. SOCIAL HISTORY: The patient is . Denies tobacco or alcohol use. FAMILY HISTORY: Noncontributory. PHYSICAL EXAMINATION: VITAL SIGNS: Reveals blood pressure of 112/57, respirations 38, pulse 109 and temperature 98.7. LUNGS: Decreased breath sounds at the bases. CARDIOVASCULAR: Regular. ABDOMEN: Soft, nontender and nondistended. Bowel sounds are positive. NEUROLOGICAL: The patient is alert, oriented and able to answer questions. LABORATORY DATA: Labs reveal sodium of 141, potassium 3.7, BUN is , creatinine 1.9 and glucose is 172. Liver function test is within normal limit. Alkaline phosphatase is 162. Total protein 4.9. BNP is 2989. WBC is 49.5 and hemoglobin is 7.6 with [place] [address] [address] CONSULTATION Name: DARIEL CARNEY Room: [address] IN [facility]#: [id number] Admission: 01/02/18 Attend Phys: Twan Steele, Discharge: Date of : 32 Report #: [id number] IMAGING DATA: CT of abdomen and pelvis was obtained, which showed evidence of previously placed stent. There is a question if the stent is partially obstructed due to its location. Chest x-ray: Mild left lower lobe infiltrate, concerning for pneumonia. ASSESSMENT AND PLAN: The patient with a recent diagnosis of colon carcinoma, status post stenting, who presents with weakness, rectal bleeding x 1, anemia, pneumonia and metabolic acidosis and renal failure. We will consult Surgery as the patient's would like a surgeon to see him here in reference to his colon resection. Meanwhile, we will monitor his hemoglobin and if his hemoglobin drops below 7, we will transfuse him with 1 unit of packed red blood cell. His other issues such as metabolic acidosis, pneumonia are being addressed as both Pulmonary and Renal are on board. We will make further recommendation based on the patient's hospital course. The patient's also reports to me that he has been having dysphagia, mainly to solids and pills. If he has difficulty swallowing, we may consider upper endoscopy to further evaluate his upper gastrointestinal. I will wait until he is medically stable prior to performing this. By: 1106 [id number] Patel MD /nt
[~2018-01-02 19:38] MED LIST changes: +ASPIRIN325 PO
[2018-01-02 19:40] VITALS: BP 139/105
[2018-01-02 20:05] LABS: HEMOGLOBIN 9.6 gm/dL (14.0-18.0); MCV 81.3 fL (80.0-100.0); NUCLEATED RBCS 0 /100WBC
[2018-01-02 20:06] LABS: MCH 25.3 pg (26.0-34.0); MCHC 31.1 g/dL (28.0-37.0); MPV 8.6 fl. (7.2-11.1); PLATELET COUNT* 224 thou/uL (150-400); RBC 3.81 mil/uL (4.50-6.00); RDW-CV 17.7 % (10.5-14.5)
--- NOTE | 2018-01-02 20:15 | NUR ---
PATIENT AND FAMILY REFUSED ZOFRAN
[2018-01-02 20:21] LABS: INR 1.2
[2018-01-02 20:26] LABS: ANION GAP 14 mmol/L (7-16); BUN 25 mg/dL (7-18); CALCIUM 8.5 mg/dL (8.5-10.1); CHLORIDE 108 mmol/L (98-107); CO2 19 mmol/L (21-32); CREATININE 1.4 mg/dL (0.6-1.3); GLUCOSE 165 mg/dL (70-99); POTASSIUM 4.5 mmol/L (3.5-5.1); SODIUM 141 mmol/L (136-145)
[2018-01-02 20:28] LABS: URINE BILIRUBIN NEGATIVE (Negative); URINE BLOOD TRACE (Negative); URINE CLARITY CLEAR; URINE COLOR YELLOW; URINE GLUCOSE-RANDOM NEGATIVE (Negative); URINE KETONES NEGATIVE (Negative); URINE PROTEIN 1+ (Negative); URINE SPECIFIC GRAVITY 1.015 (1.005-1.030); URINE UROBILINOGEN 0.2 E.U./dl (0.2-1.0)
[2018-01-02 20:32] LABS: URINE LEUKOCYTES-REFLEX 3+ (Negative); URINE NITRITE-REFLEX POSITIVE (Negative)
[2018-01-02 20:34] LABS: CASTS None Seen /LPF (None Seen); CRYSTALS None Seen /LPF (None Seen); SQUAMOUS NONE SEEN /LPF (0-3); URINE RBC 3-10 Few /HPF (0-2); URINE WBC-REFLEX >25 Many /HPF (0-5)
[2018-01-02 20:38] LABS: ALBUMIN 2.3 g/dL (3.4-5.0); ALKALINE PHOSPHATASE 225 U/L (46-116); NT-PRO BRAIN NAT PEPTIDE 2989 pg/mL (<300); SGOT 32 U/L (15-37); SGPT 24 U/L (30-65); TOTAL BILIRUBIN 0.6 mg/dL (<0.1-1.0); TOTAL PROTEIN 6.4 g/dL (6.4-8.2); TROPONIN-I LEVEL <0.06 ng/mL (<0.06)
[2018-01-02 20:57] LABS: ABSOLUTE LYMPHOCYTES 3.8 thou/uL (0.8-5.3); ABSOLUTE NEUTROPHILS 9.2 thou/uL (1.6-8.1); ANISOCYTOSIS 1+; METAMYELOCYTES 3 %; MYELOCYTES 1 %; PLATELET ESTIMATE ADEQUATE
[2018-01-02 20:58] LABS: HYPOCHROMASIA Occasional; POIKILOCYTOSIS Occasional; POLYCHROMASIA Occasional
--- NOTE | 2018-01-02 21:25 | NUR ---
RT HERE AND PLACING PATIENT ON BIPAP
[2018-01-02 22:26] VITALS: BP 105/58
[2018-01-02 23:00] VITALS: BP 112/57
[2018-01-02 23:20] LABS: MAGNESIUM 1.8 mg/dL (1.8-2.4); PHOSPHORUS* 2.8 mg/dL (2.5-4.9)
[2018-01-03] VITALS (17 sets, daily range): BP systolic 73–113; BP diastolic 38–66
--- NOTE | 2018-01-03 03:41 | NUR ---
ASSUMED CARE OF PATIENT FROM ER AT 2240. PATIENT TACHYPNIC, TACHYCARDIAC AND CONFUSED. AGREEABLE TO TRY BIPAP INITIALLY, THEN REFUSED, CONSTANTLY TRYING TO REMOVE. TAKEN OFF OF BIPAP, REMAINS ON 2L NC. O2 SATS ABOVE 97%. AFEBRILE ON ADMISSION, LATER DEVELOPED FEVER. BLOOD PRESSURE ALSO LOW. APPARENT EKG CHANGES NOTED. DR TALLEY NOTIFIED. ORDERS RECEIVED FOR CARDIO CONSULT. DR WEINBERG CONSULTED. ORDERS RECEIVED FOR DIGOXIN, 500 ML FLUID BOLUS AND TYLENOL. WATCHING TEMP AND BP CLOSELY. FAMILY GIVEN EXTENSIVE EDUCATION ABOUT POC. REFUSES VQ SCAN PATIENT WOULD LIKELY NOT TOLERATE IT. AGREEABLE TO FLUIDS, ABX, AND LABS. CRITICAL VALUES CALLED TO DR TALLEY. NOT PROGRESSING TOWARDS POC GOALS.
[2018-01-03 04:24] LABS: HEMATOCRIT 25.5 % (42.0-52.0); MCH 24.4 pg (26.0-34.0); MCHC 29.9 g/dL (28.0-37.0); MCV 81.7 fL (80.0-100.0); MPV 9.4 fl. (7.2-11.1); RBC 3.12 mil/uL (4.50-6.00); RDW-CV 17.8 % (10.5-14.5)
[2018-01-03 05:12] LABS: HEMOGLOBIN 7.6 gm/dL (14.0-18.0)
[2018-01-03 05:13] LABS: WBC 49.5 thou/uL (4.0-11.0)
[2018-01-03 05:17] LABS: BE -9.4 mmol/L (-2 to +3); HCO3 12.3 mmol/L (22.0-26.0); PO2 102.2 mmHg (75.0-100.0); pH 7.506 (7.340-7.450)
[2018-01-03 05:20] LABS: PCO2 < 17.0 mmHg (35.0-45.0)
[2018-01-03 06:52] LABS: ALBUMIN 1.7 g/dL (3.4-5.0); CALCIUM 7.7 mg/dL (8.5-10.1); CREATININE 1.9 mg/dL (0.6-1.3); MAGNESIUM 1.6 mg/dL (1.8-2.4); POTASSIUM 3.7 mmol/L (3.5-5.1); TOTAL BILIRUBIN 0.5 mg/dL (<0.1-1.0); TOTAL PROTEIN 4.9 g/dL (6.4-8.2)
[2018-01-03 11:58] LABS: ANION GAP 16 mmol/L (7-16); BUN 37 mg/dL (7-18); CALCIUM 7.8 mg/dL (8.5-10.1); CHLORIDE 111 mmol/L (98-107); CO2 14 mmol/L (21-32); CREATININE 2.1 mg/dL (0.6-1.3); GLUCOSE 290 mg/dL (70-99); POTASSIUM 4.3 mmol/L (3.5-5.1); SODIUM 141 mmol/L (136-145)
[2018-01-03 12:05] LABS: MAGNESIUM 1.8 mg/dL (1.8-2.4); TROPONIN-I LEVEL <0.06 ng/mL (<0.06)
[2018-01-03 14:11] LABS: BE -7.7 mmol/L (-2 to +3); HCO3 13.9 mmol/L (22.0-26.0); PO2 82.5 mmHg (75.0-100.0); pH 7.503 (7.340-7.450)
[2018-01-03 14:12] LABS: PCO2 18.1 mmHg (35.0-45.0)
--- NOTE | 2018-01-03 17:04 | EKG ---
[place] [address] ELECTROCARDIOGRAM REPORT Name: DARIEL CARNEY Room: [address] ADM IN .R.#: [id number] Admission: 01/02/18 Attend Phys: Twan Steele, Discharge: Date of : 32 Report #: [id number] THIS REPORT FOR: //name// [facility] ED Test Date: 2018-01-02 Test Time: 19:43:38 Pat Name: DARIEL CARNEY Department: Room: [facility] Gender: M Park Activities Coordinator: Mildred SANDOVAL : 1930 Requested By: Marcos Richards Order Number: [id number] MD: Wilfred Lubin Measurements Intervals [place] Rate: 157 P: 0 GA: 96 QRS: 63 QRSD: 81 T: 40 QT: 331 QTc: 536 Interpretive Statements Supraventricular tachycardia Low voltage, precordial leads Repolarization abnormality, prob rate related Artifact in lead(s) I,II,III,aVR,aVL,aVF,V1,V2,V4,V5 and baseline wander in lead (s) V6 Compared to ECG 12/13/2017 10:12:18 Low QRS voltage now present Electronically Signed On 01-03-2018 17:04:31 CDT by Wilfred Lubin [email or web address] <ELECTRONICALLY SIGNED> By: Wilfred Lubin MD, [facility] 01/03/18 1704 42 42 Wilfred Lubin MD, FAC /EPI
--- NOTE | 2018-01-03 20:14 | NUR ---
PATIENT FAMILY VERY NEEDY. ALERT NPO FOR NOW HAVING DIFFICULTY WITH SWALLOWING. HAD ONE LG LIQUID BM. FREQUENTLY REPOSITIONED.
--- NOTE | 2018-01-03 23:19 | NUR ---
SPOKE WITH PT DAUGHTER AND REGARDING PT STATUS AND IF THE MELATONIN WORKED. I LET THEM KNOW IT HASN'T AND I HAVE A CALL OUT TO THE MD FOR ADDITIONAL MEDS TO TRY.
--- NOTE | 2018-01-03 23:22 | NUR ---
SPOKE WITH DR. HAYDEN REGARDING THE MELATONIN NOT WORKING. HE WILL PUT IN ORDERS FOR SOME HALDOL. ALSO D/C NS IVF THAT HAD BEEN ORDERED ON ADMIT SINCE PT ON PPN NOW. DISCUSSED WITH DR. HAYDEN REGARDING PT BLOOD GLUCOSE TONIGHT 256 AND NO NEW ORDERS REGARDING.
--- NOTE | 2018-01-03 23:37 | CON ---
[address] [address] CONSULTATION Name: DARIEL CARNEY Room: [address] IN .R.#: [id number] Admission: 01/02/18 Attend Phys: Twan Steele, Discharge: Date of : 32 Report #: [id number] THIS REPORT FOR: //name// CC: Isauro Steele DATE OF SERVICE: 01/03/2018 CONSULTATION: Infectious diseases. HISTORY OF PRESENT ILLNESS: Mr Carney is an 87-year-old white male who comes to the hospital with fever and weakness. He was noted to have temperature of 103.4. Blood cultures show Gram-positive cocci in one set and Gram-negative rods in the other. The patient has been recently diagnosed with colon cancer. He had a sigmoid stent placed to prevent obstruction. The family is considering surgical options. The patient has history of chronic Orr catheter because of prostatic hypertrophy and obstruction. He was hospitalized about a month ago with urosepsis. Other diagnoses include diabetes, hypertension, hypothyroidism, spinal stenosis. MEDICATION RECONCILIATION: Current medications include magnesium, potassium, electrolytes, pantoprazole 40 mg b.i.d., Levaquin every other day, Zosyn 3.375 q. 12 hours, Tylenol. SOCIAL HISTORY: The patient is . Family is supportive. He is retired [employer]. He does not use tobacco, alcohol or drugs. He has been increasingly debilitated over the last year or so with repeated hospitalizations. REVIEW OF SYSTEMS: At this time, the patient says he feels just fine and denies any clinical problems. The patient denies any fever, chills, sweats. Denies any headache, sinus problems. Denies any cough, chest pain, shortness of breath. Denies any nausea, vomiting, diarrhea, constipation. Denies any urinary problems. Denies pain in his extremities. PHYSICAL EXAMINATION: GENERAL: The patient appears elderly debilitated, but awake, alert, comfortable, not in any distress. The patient is awake, alert, oriented, conversant. VITAL SIGNS: Show temperature was measured at 103.4 in the ER, temperature is 98.7 at the time of my examination. SKIN: Shows no rash, lesion or exanthem. Color somewhat sallow. ENT: Negative. NECK: Supple. HEART: Heart sounds S1, [place] [address] CONSULTATION Name: DARIEL CARNEY Room: [address] IN [facility]#: [id number] Admission: 01/02/18 Attend Phys: Twan Steele, Discharge: Date of : 32 Report #: [id number] LUNGS: Clear to anterior auscultation. ABDOMEN: Belly is soft, somewhat distended, I suspect due to constipation. Bowel sounds present. EXTREMITIES: Unremarkable. LABORATORY DATA: The white count here in the ER was 13,000 and today is 49.5 thousand, hemoglobin has gone from 9.6-7.6, hematocrit 25%, platelets 160,000. Electrolytes are normal, BUN 37, creatinine 2.1; it was 1.4 when he was discharged a few weeks ago, glucose 290, alkaline phosphatase is elevated at 225. SGOT, SGPT are normal. BNP is elevated at 2989. The blood cultures x 2 show Gram-negative rods in one and Gram-positive cocci in the other. CT of the chest without contrast was unremarkable. CT of the abdomen showed steatosis and evidence of early tumor. There was increased stool behind the tumor. A report from the pathology lab shows that the biopsy of the sigmoid mass confirmed adenocarcinoma. IMPRESSION: In summary, an 87-year-old gentleman with diabetes, lung disease and known sigmoid cancer. He presents with fever, positive blood cultures, leukocytosis. The patient could very well have another episode of urosepsis associated with his long-term catheterization. There may be enteric sepsis from his colon cancer. There is no obvious source of Gram-positive sepsis. The patient is currently on Zosyn plus Levaquin, which would be appropriate for some new sepsis just after recent hospitalization. I would like to add a single dose of vancomycin for the gram positive in the culture. We will want to repeat blood cultures x 2. We will continue to follow up CBC, BMP and chest x-rays. I appreciate the opportunity of input in the care of this complex gentleman. Dr. Garrison will return tomorrow for additional followup. <ELECTRONICALLY SIGNED> By: Jack Anglin MD 01/03/18 2337 1500 [id number] Anglin MD /nt
[2018-01-04] VITALS (19 sets, daily range): BP systolic 84–148; BP diastolic 49–102
--- NOTE | 2018-01-04 04:29 | NUR ---
PT RESTING COMFORTABLE IN BED. FREQUENTLY FORGETFUL/CONFUSED AT SITUATION. PT AFEBRILE. PT AFIB ON MONITOR. PT CONTINUES WITH PPN. PT TO BE EVALUATED BY PT/OT/ST. PT AM LABS TO BE REVIEWED. PT TOLERATING FREQUENTLY BEING REPOSITIONED. PT CONTINUES ON RA.
[2018-01-04 05:01] LABS: HEMATOCRIT 27.3 % (42.0-52.0); HEMOGLOBIN 8.5 gm/dL (14.0-18.0); MCH 25.2 pg (26.0-34.0); MCHC 31.2 g/dL (28.0-37.0); MCV 80.9 fL (80.0-100.0); MPV 9.9 fl. (7.2-11.1); RBC 3.37 mil/uL (4.50-6.00); RDW-CV 17.6 % (10.5-14.5)
[2018-01-04 05:37] LABS: ALBUMIN 1.8 g/dL (3.4-5.0); ALKALINE PHOSPHATASE 138 U/L (46-116); ANION GAP 16 mmol/L (7-16); BUN 47 mg/dL (7-18); CALCIUM 7.5 mg/dL (8.5-10.1); CHLORIDE 110 mmol/L (98-107); CO2 17 mmol/L (21-32); CREATININE 2.2 mg/dL (0.6-1.3); GLUCOSE 227 mg/dL (70-99); MAGNESIUM 1.9 mg/dL (1.8-2.4); SGOT 32 U/L (15-37); SGPT 23 U/L (30-65); SODIUM 143 mmol/L (136-145); TOTAL BILIRUBIN 0.4 mg/dL (<0.1-1.0); TOTAL PROTEIN 5.1 g/dL (6.4-8.2); TROPONIN-I LEVEL <0.06 ng/mL (<0.06)
[2018-01-04 09:13] LABS: BE -8.8 mmol/L (-2 to +3); PO2 85.9 mmHg (75.0-100.0); pH 7.478 (7.340-7.450)
--- NOTE | 2018-01-04 09:13 | CON ---
[address] [address] CONSULTATION Name: DARIEL CARNEY Room: [address] IN .R.#: [id number] Admission: 01/02/18 Attend Phys: Twan Steele, Discharge: Date of : 32 Report #: [id number] THIS REPORT FOR: //name// CC: Isauro Steele DATE OF SERVICE: 01/03/2018 REFERRING PHYSICIAN: Twan Steele MD Information is taken mostly from the patient's . HISTORY OF PRESENT ILLNESS: The patient is an 87-year-old male who is a lifelong nonsmoker with no history of respiratory disorder. According to the , the patient had developed chills and fever at home. He became confused. His level of consciousness became altered. As a result, he was brought to the Emergency Room. In addition, he began to experience bleeding in his stool. According to the family, the patient was diagnosed about 3 weeks or so ago with a colon carcinoma. He had a stent placed due to the large size of that lesion. He had been seen and evaluated by the GI service. A flexible sigmoidoscopy was completed on 12/12/[address] Rai. There is an ulcerative malignant-appearing stricture at the distal sigmoid colon. Biopsies were obtained. An appointment had been scheduled with a colorectal surgeon. 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 Yesterday, the patient as mentioned above, developed altered mental status, confused, brought to the Emergency Room, had rectal bleeding. The patient is denying shortness of breath, chest pain, nausea, or vomiting. This morning, he is awake and alert. He is oriented to person and place. He is aware of his surroundings, identifies the fact that he is in the hospital. 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 He has had sacral skin breakdown in the past. He has a history of recently diagnosed carcinoma of the sigmoid colon. He has history of compression fractures of his lumbar spine, chronic kidney disease, noninsulin dependent diabetes. 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 Spinal stenosis. REVIEW OF SYSTEMS: System review negative other than what is outlined above. ALLERGIES: [place] [address] CONSULTATION Name: DARIEL CARNEY Room: [address]#: [id number] Admission: 01/02/18 Attend Phys: Twan Steele, Discharge: Date of : 32 Report #: [id number] FAMILY HISTORY: Noncontributory for his age. CURRENT MEDICATIONS: IV Levaquin and IV Zosyn. He has gotten blood transfusion. His anticoagulation therapy has been held at this time. Morphine for pain control. PHYSICAL EXAMINATION: GENERAL APPEARANCE: He is awake, he is alert, he is responsive. He answers questions and is oriented to person and place. VITAL SIGNS: His blood pressure is 112/57, respiratory rate 25, temperature 98.7, pulse rate 90 and regular. HEENT: Head is atraumatic. Eyes: Pupils are round, equal and reactive. Oral cavity is moist. NECK: No adenopathy. CHEST: Crackles in the left lower lung field. He has some crackles in the left base as well. There are no audible wheezes or rhonchi. He has breath sounds that are equal bilaterally. There are no rhonchi or wheezes. CARDIOVASCULAR: Reveals regular rhythm. EXTREMITIES: There is no evidence of edema. He does have decreased sensation from a light touch standpoint. SKIN: Without rash. NEUROLOGIC: He is able to move his extremities, although his lower extremities are sluggishly movable. GENITOURINARY: His bottom was not evaluated. RECTAL: Not performed. LABORATORY DATA: Sodium 141, potassium 3.7, chloride 110, CO2 of 13, BUN of 31, creatinine 1.9. His EGFR is 34. His creatinine is slightly elevated compared to his prior studies. Back in early November, he did have a creatinine at 2.5. Hemoglobin and hematocrit are 7.6 and 25.5, white count initially was 13,000, this morning is 49,500, platelet count is adequate. Immunoglobulin studies from his last hospitalization are in the normal range. Arterial blood gases obtained this morning at about 5 o'clock revealed a pH of 7.5, pCO2 of less than 17, pO2 of 102, bicarbonate of 12 while on 2 liters of O2 nasal cannula. Blood cultures are showing no growth in less than 24 hours. ASSESSMENT: 1. Acute respiratory insufficiency. 2. Altered mental status. 3. Sepsis syndrome. 4. Colorectal carcinoma. 5. Gastrointestinal bleeding secondary to the colorectal carcinoma. 6. Chronic kidney disease superimposed on acute kidney disease. 7. Severe metabolic acidosis. 8[place] [address] CONSULTATION Name: DARIEL CARNEY Room: 006-P [facility] IN M.R.#: [id number] Admission: 01/02/18 Attend Phys: Twan AnshuJerry Ivette, Discharge: Date of : 32 Report #: [id number] 9. Polyneuropathy. RECOMMENDATIONS: Aspiration precautions. Follow up arterial blood gases. We would recommend a renal input if not already consulted. We will go ahead and initiate initial bicarbonate therapy for the time being until Renal can reassess the patient. The patient presents in a septic state with GI bleeding as a result of colorectal carcinoma. He has already been placed on antibiotic therapy. Cultures are remaining negative less than 24 hours. Continue antibiotic coverage and therapy for now. We will initiate aerosol treatments and discontinue BiPAP therapy since the patient is refusing and actually at this time because he is adequately oxygenating, we do not see a need for that at this time. Imperatively, it would be important to go ahead and correct his underlying acid base status. <ELECTRONICALLY SIGNED> By: Mingo Delgado MD 01/04/18 0913 1012 [id number] Delgado MD /nt
--- NOTE | 2018-01-04 10:32 | NUR ---
CALLED UNIT IN AM AND ASKED THAT PT BE PUT IN RECLINER TODAY. CAME IN AROUND 0830 AND ASKED NURSE 2ND TIME TO PUT PT IN RECLINER. PULMONARY AT NURSES STATION AND WENT TO TALK TO PT AND SPOUSE AND SAID HE DID NOT WANT PT IN RECLINER. AFTER AWHILE THIS RN WENT INTO PT'S ROOM AND SPOUSE ASKED TO TALK TO DR. BALL. THIS RN EXPLAINED DR BALL IS NOT PT'S PHYSICIAN TODAY. SPOUSE STATED "I WANT MY TO BE IN A RECLINER. THAT DOCTOR DOESN'T KNOW ANYTHING. HE EVEN SAID HE JUST KNOWS ABOUT HIS LUNGS. HE DOESN' KNOW WHAT'S BEST FOR HIM. IN THE PAST I HAVE SAID NOTHING AND THEN I GO HOME WITH ALL THESE PROBLEMS. HE NEEDS TO GO IN A RECLINER. 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 THIS RN SAID THEY WOULD CALL INTERNAL MEDICINE AND ASK RECOMMENDATIONS REGARDING BED OR CHAIR. STATED "WELL, HE WILL SAY HE NEEDS TO STAY IN BED BECAUSE OF WHAT THE OTHER DOCTOR SAID". THIS RN ASKED , "IF THE DOCTOR RECOMMENDS PT STAY IN BED, WHAT WOULD YOUR RESONSE BE". REPORTED, " I WOULD STILL SAY HE NEEDS TO BE IN A RECLINER" THIS RN ASKED A SECOND TIME," EVEN IF DOCTOR RECOMMENDS PT STAY IN RECLINER, YOUR RESONSE IS THAT YOU WANT HIM IN A RECLINER". STATES, "YES, I WANT HIM IN THE RECLINER EVEN IF THE DOCTOR SAYS HE NEEDS TO STAY IN BED". PT AND OT IN ROOM. THIS RN WORKED WITH THERAPY AND PT PUT IN RECLINER WITH WAFFLE CUSHION. PT HAS BEEN INCONTINENT OF STOOL 3 TIMES. PT CLEANED WITH WOUND CLEANSER AND BARRIER CREAM APPLIED TO COCCYX.
--- NOTE | 2018-01-04 11:20 | NUR ---
SPOKE WITH CHRISTI FROM [facility], WHO WAS HERE TO SEE PT. SHE SAID THAT THE HAS BEEN IN AGREEMENT WITH PT GOING TO SNF THE LAST SEVERAL ADMISSIONS BUT IT IS THE PATIENT WHO HAS BEEN REFUSING TO GO AND THE GOES ALONG WITH WHAT HE SAYS. CHRISTI AND Lindy SPOKE WITH MYLA, OUTSIDE OF PT'S ROOM AND DISCUSSED SNF WITH HER. SHE SAID THAT PT NEEDS TO HAVE SURGERY AND SHE KNOWS THAT SHE CAN'T TAKE CARE OF HIM AFTER THAT, 'HE WILL HAVE TO GO TO SNF THEN.' DISCUSSED WITH HER THE OPTION OF GOING TO SNF AFTER THIS STAY TO BUILD HIS STRENGTH UP PRIOR TO ANY SURGERY, SHE WAS IN AGREEMENT WITH THAT. SHE DID ASK ABOUT INPT REHAB, TOLD HER PT WOULD HAVE TO BE ABLE TO TOLERATE 3 HOURS OF THERAPY, SHE SAID THAT HE COULDN'T DO THAT. GAVE HER LIST OF SKILLED FACILITIES, ENCOURAGED HER TO DISCUSS WITH HER FAMILY AND TO GO TOUR FACILITIES. SHE DOESN'T WANT TO DISCUSS SNF AN OPTION WITH THE PT UNTIL SHE HAS TOURED SOME FACILITIES BUT AT THIS POINT SHE IS SAYING SHE WANTS HIM TO GO TO SNF AT DISCHARGE. CASE ALONDRA WILL CONTINUE TO FOLLOW.
--- NOTE | 2018-01-04 12:33 | NUR ---
BEDSIDE SWALLOW PREFORMED. PT APPEARS TO HAVE DYSPHAGIA. ST CONSULTED. RECEIVED ORDERS FOR NECTAR THICKENED AND MECHANICAL CHOPPED DIET.
--- NOTE | 2018-01-04 13:30 | NUR ---
UROLOGY IRRIGATED CATHETER. DEFLATED BALLOON AND RE-INFLATED. WHEN THIS WAS DONE PT EMPTIED 850ML OR URINE FROM CATHETER. PRIOR TO THIS PT HAD 0ML URINE OUTPUT. PT HAS BEEN REPORTING FEELING "UNCOMFORTABLE" ALL SHIFT. PT CALLING OUT VERY FREQUENTLY FOR REPOSITIONING. PT NOW SLEEPING AND APPEARS COMFORTABLE.
--- NOTE | 2018-01-04 14:12 | NUR ---
ASKED DR TO RESTART HOME MEDICATIONS. RECEIVED CALL BACK AND DR TO SEE PT. AWAITING ORDERS. ST RECOMMENED NECTAR THICKENED LIQUIDS AND A MECHANICAL CHOPPED DIET. SPOUSE ASKING IF PT CAN HAVE A "FEW SIPS" WITHOUT THICKNER. THIS RN STATED NO AND GAVE EDUCATION FOR ASPIRATION AND RE-ITERATED SPEECH'S RECOMMENDATIONS. SPOUSE ASKED 3 TIMES. THIS RN SAID NO 3 TIMES. SPOUSE SAID "OKAY WE WON'T DO ANYTHING NOW, I NEED TO THINK ABOU THIS". SPOUSE CONCERNED ABOUT BLOOD SUGAR GOING UP.
--- NOTE | 2018-01-04 14:54 | NUR ---
RECEIVED ORDER PT OKAY TO GO TO VIDEO SWALLOW WITHOUT RN PER DR JOHNSON.
--- NOTE | 2018-01-04 15:41 | NUR ---
ASKED DR TO RESUME HOME MEDICATIONS. AWAITING ORDERS.
--- NOTE | 2018-01-04 16:19 | NUR ---
REFUSED LANTUS FOR PT. EDUCATION GIVEN TO AND DTR ABOUT LANTUS AND SHORT ACTING INSULIN.
--- NOTE | 2018-01-04 16:38 | NUR ---
RECEIVED CALL FROM SANDRA FROM [facility]. PT ON PALLIATIVE CARE AT HOME. CALLED FOR UPDATE WITH PT. IF WE NEED TO COMMUNICATE INFORMATION HER NUMBER IS [phone]
[2018-01-04 17:09] LABS: HEMOGLOBIN 8.4 g/dL (13.0-17.7)
--- NOTE | 2018-01-04 18:45 | NUR ---
URINE SAMPLE SENT TO LAB
--- NOTE | 2018-01-04 19:31 | NUR ---
PT HAS POOR APPETITE. ATE 5-10% OF MEALS. SPOUSE ORDERING MEALS. PT REPORTS FOOD "TASTES FUNNY". PT ASKED FOR CHOCOLATE PUDDING, PUDDING GIVEN, AFTER 3 BITES PT REPORTED HE DID NOT WANT ANY MORE. PT REPOSITIONED. Z-GUARD OBTAINED AND APPLIED TO COCCYX 4 TIMES THIS SHIFT.
[2018-01-04 20:14] LABS: URINE POTASSIUM-RANDOM 51.1 mmol/L
[2018-01-05] VITALS (26 sets, daily range): BP systolic 114–200; BP diastolic 51–120
[2018-01-05 06:42] LABS: ALBUMIN 1.6 g/dL (3.4-5.0); CALCIUM 7.6 mg/dL (8.5-10.1); CREATININE 1.9 mg/dL (0.6-1.3); POTASSIUM 4.1 mmol/L (3.5-5.1); TOTAL BILIRUBIN 0.4 mg/dL (<0.1-1.0); TOTAL PROTEIN 4.5 g/dL (6.4-8.2)
--- NOTE | 2018-01-05 06:43 | NUR ---
PT PROGRESSING TOWARD GOALS. VSS, O2 SAT REMAINS >92% ON RA. TOLERATING NECTAR THICK LIQUIDS. INCONTINENT OF BM X2. COCCYX WOUND CLEANED, Z-GUARD APPLIED X2. ELLIS DRAINING APPROPRIATELY. PT HAS BEEN TURNED Q2HR THROUGHOUT THE NIGHT. CALL LIGHT WITHIN REACH.
[2018-01-05 06:54] LABS: HEMATOCRIT 25.4 % (42.0-52.0); MCH 25.2 pg (26.0-34.0); MCHC 31.4 g/dL (28.0-37.0); MCV 80.3 fL (80.0-100.0); MPV 9.7 fl. (7.2-11.1); RBC 3.16 mil/uL (4.50-6.00); RDW-CV 17.5 % (10.5-14.5); WBC 23.8 thou/uL (4.0-11.0)
--- NOTE | 2018-01-05 08:00 | NUR ---
3590 ASSUMED CARE OF PATIENT. PLEAASE SEE DOCUMENTED ASSESSMENT. A FIB PERSISTS. BATHED. DENIES PAIN. COUGH PRODUCTIVE OF CLEAR SPUTUM
--- NOTE | 2018-01-05 09:55 | NUR ---
DR GOMEZ TO SEE PATIENT AND DISCUSSED SURGERY AND PLAN OF CARE WITH SPOUSE AND PATIENT
--- NOTE | 2018-01-05 11:38 | NUR ---
UP TO CHAIR. SEEN BY DR JOHNSON WHO SPOKE WITH SPOUSE. IV RESTARTED
--- NOTE | 2018-01-05 13:23 | NUR ---
WOUND CARE NOTE: CONSULT RECEIVED FOR BUTTOCK WOUNDS. PATIENT PRESENTS WITH A STAGE 3 PRESSURE ULCER TO THE RIGHT SIDE OF HIS SACRUM. WOUND MEASURES 0.5X1.5X0.2. FADIA-WOUND IS MACERATED. WOUND BED IS MOIST, RED. PATIENT'S STATED IT LOOKED BETTER WHEN HE FIRST CAME IN. EDUCATED PATIENT AND ON IMPORTANCE OF TURNING AND KEEPING OFF WOUND. ALSO EDUCATED THAT THE STOOL INCONTINENCE IS COMPLICATING THE HEALING PROCESS TOO. PATIENT'S COMMUNICATED UNDERSTANDING. PATIENT ALLOWED HIS RN AND I TO TURN ON LEFT SIDE. ZGUARD PASTE APPLIED TO WOUND AREA. RECOMMEND CONTINUE WITH DEJAN MATTRESS FREQUENT CHECKS FOR INCONTINENCE LIMIT LAYERS OF LINEN UNDER PATIENT WAFFLE CUSHION WHEN IN BED-AT BEDSIDE
--- NOTE | 2018-01-05 15:19 | NUR ---
PATIENT PULLED OUOT IV. PT STATES THAT IT WAS LOOSE. RESTARTED. INSTRUCTED ON LEAVING LINES ALONE. SPOUSE NOT IN ROOM WHEN PT PULLED OUT IV. PROTECTIVE WRAP APPLIED
--- NOTE | 2018-01-05 18:18 | NUR ---
PATIENT PROGRESSING TOWARDS GOALS. INCREASING ORAL INTAKE AND OFF OF PROCALAMINE. DOES NOT LIKE THCK LIQUIDS. UP TO RECLINER AND WORKED WITH PHYSICAL THERAPY. MANY VISITORS. ALL NEW IV'S TODAY. PLAN IS TO WORK TOWARDS SURGERY
[2018-01-06] VITALS (12 sets, daily range): BP systolic 116–158; BP diastolic 65–82
[2018-01-06 05:52] LABS: ALBUMIN 1.8 g/dL (3.4-5.0); CALCIUM 7.9 mg/dL (8.5-10.1); CREATININE 1.8 mg/dL (0.6-1.3); POTASSIUM 3.9 mmol/L (3.5-5.1); TOTAL BILIRUBIN 0.4 mg/dL (<0.1-1.0); TOTAL PROTEIN 4.7 g/dL (6.4-8.2)
[2018-01-06 06:41] LABS: HEMATOCRIT 24.7 % (42.0-52.0); HEMOGLOBIN 7.7 gm/dL (14.0-18.0); MCH 25.2 pg (26.0-34.0); MCHC 31.1 g/dL (28.0-37.0); MCV 81.1 fL (80.0-100.0); MPV 10.2 fl. (7.2-11.1); RBC 3.04 mil/uL (4.50-6.00); RDW-CV 17.9 % (10.5-14.5)
[2018-01-06 06:48] LABS: MAGNESIUM 2.2 mg/dL (1.8-2.4)
--- NOTE | 2018-01-06 07:14 | NUR ---
PT REMAINS STABLE, DENIES SOA AND PAIN. VSS, O2 SAT >95%. TOLERATING NECTAR THICK LIQUID WITH IMPROVED PO INTAKE COMPARED TO 01/04/18 BENCH MACHINE OPERATOR. INCONTINENT OF BM X2. L COCCYX WOUND CLEANED WITH WOUND CLEANSER AND Z-GUARD APPLIED. CALL LIGHT WITHIN REACH.
[2018-01-06 08:30] LABS: HCO3 16.5 mmol/L (22.0-26.0); PO2 85.4 mmHg (75.0-100.0); pH 7.405 (7.340-7.450)
--- NOTE | 2018-01-06 11:36 | CON ---
[address] [address] CONSULTATION Name: DARIEL CARNEY Room: [address] IN ..#: [id number] Admission: 01/02/18 Attend Phys: Twan Steele, Discharge: Date of : 32 Report #: [id number] THIS REPORT FOR: //name// CC: Isauro Steele DATE OF SERVICE: 01/04/2018 REQUESTING PHYSICIAN: Twan Steele MD REASON FOR CONSULTATION: Acute kidney injury. 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 He has been followed by Urologist, Dr. Flores. He also has chronic kidney disease stage 3. He is admitted with fever and chills, was found to be bacteremic with gram-positive cocci in the blood. Also diagnosed with pneumonia and UTI, started on IV fluids and antibiotics. His creatinine on admission was 1.4, today's 2.2. His abdominal and pelvis CT without contrast revealed a large amount of stool throughout the colon. His kidney is were unremarkable. PAST MEDICAL HISTORY: As I mentioned earlier. SOCIAL HISTORY: No current tobacco or alcohol abuse. MEDICATIONS: Reviewed. He is currently on vancomycin IV and Zosyn. REVIEW OF SYSTEMS: Positive for mild weakness, poor appetite, fever and chills. Chills actually resolved now. No nausea, no vomiting, no chest pain. PHYSICAL EXAMINATION: GENERAL: Awake, alert, no acute distress. VITAL SIGNS: Blood pressure 144/102, heart rate is 113, temperature 36.9, maximum temperature 39.7. HEENT: Pupils are round. NECK: Supple. LUNGS: Decreased air movements at the bases. CARDIOVASCULAR: Regular rate. ABDOMEN: Soft. LOWER EXTREMITIES: Trace edema. ASSESSMENT: 1. An 87-year-old gentleman with acute kidney injury due to sepsis. He has positive cocci in his blood. Also has a urinary tract infection, started on IV vancomycin [place] [id number] CONSULTATION Name: DARIEL CARNEY Room: [address] IN [facility]#: [id number] Admission: 01/02/18 Attend Phys: Twan Steele, Discharge: Date of : 32 Report #: [id number] 2. Chronic kidney disease stage 3. 3. Chronic urinary retention. 4. Colon cancer. PLAN: 1. Continue with IV fluids. 2. Swallow evaluation. 3. Following vancomycin level. Discussed with his nurse and his . Thank you very much for asking my assistance in this case. I will follow with you. <ELECTRONICALLY SIGNED> By: Saul Marcos MD 01/06/18 1136 1211 [id number] Bj Marcos MD /nt
--- NOTE | 2018-01-06 16:26 | NUR ---
REFERRAL MADE TO OSTOMY NURSE TO VISIT WITH PT/FAMILY AND MAKE SITE FOR OSTOMY PRIOR TO SCHEDULED SURGERY NEXT WEEK. SPOKE WITH LEVI ALMAZAN/FLOOR SPACE ALLOCATOR, SHE WILL PLAN TO SEE PT TOMORROW OR NEXT DAY.
--- NOTE | 2018-01-06 17:00 | NUR ---
PATIENT UP TO CHAIR TOLERATED WELL. FMALILY AT BEDSIDE PT TAKING NECTAR HICK FLUIDS WELL TRANSFERED TO RM 305. REPORT GIVEN TO PEARL.
--- NOTE | 2018-01-06 17:03 | NUR ---
ASSUMED CARE OF PATIENT AT THIS TIME. REPORT RECEIVED FROM EKATERINA DENTON.
--- NOTE | 2018-01-06 17:14 | EKG ---
[place] [address] ELECTROCARDIOGRAM REPORT Name: DARIEL CARNEY Room: [address] ADM IN M.R.#: [id number] Admission: 01/02/18 Attend Phys: Twan Steele, Discharge: Date of : 32 Report #: [id number] THIS REPORT FOR: //name// [facility] Test Date: 2018-01-03 Test Time: 02:21:05 Pat Name: DARIEL ROMMEL Department: Room: [facility] Gender: M Advertising Assistant Manager: Mildred WEBSTER RN : [id number] Requested By: Twan Steele Order Number: [id number] Brigitte MD: Jack Claudio Measurements Intervals [place] Rate: 115 P: TN: QRS: 68 QRSD: 82 T: 44 QT: 352 QTc: 487 Interpretive Statements sinus tachycardia Borderline low voltage, extremity leads Minor nonspecific [facility] Borderline prolonged QT interval Baseline wander in lead(s) V3 Compared to ECG 01/02/2018 19:43:38 Supraventricular tachycardia no longer present Electronically Signed On 01-06-2018 17:14:34 CDT by Jack Claudio [email or web address] <ELECTRONICALLY SIGNED> By: Jack Claudio MD, [facility] 01/06/18 1714 0 0 Jack Claudio MD, [facility] /EPI
--- NOTE | 2018-01-06 18:28 | NUR ---
PATIENT RESTING IN BED. PATIENT DENIES ANY PAIN. PATIENT HAD GOOD APPETITE FOR DINNER. THICKENED LIQUIDS, LIKE ARGINAID THICKENED. PATIENT HAS ELLIS IN PLACE. PATIENT DENIES ANY NEEDS AT THIS TIME. DAUGHTER AT BEDSIDE. WILL CONTINUE TO MONITOR.
[2018-01-07 00:28] VITALS: BP 150/94
[2018-01-07 04:11] LABS: ABSOLUTE EOSINOPHILS 0.1 thou/uL (0.0-0.7); ABSOLUTE LYMPHOCYTES 7.6 thou/uL (0.8-5.3); ABSOLUTE MONOCYTES 1.1 thou/uL (0.0-1.2); ABSOLUTE NEUTROPHILS 6.2 thou/uL (1.6-8.1); BASOPHILS 0.3 %; EOSINOPHILS 0.8 %; HEMATOCRIT 24.3 % (42.0-52.0); HEMOGLOBIN 7.7 gm/dL (14.0-18.0); LYMPHOCYTES 50.8 %; MCH 25.2 pg (26.0-34.0); MCHC 31.5 g/dL (28.0-37.0); MONOCYTES 7.1 %; MPV 9.9 fl. (7.2-11.1); NUCLEATED RBCS 0 /100WBC; PLATELET COUNT* 135 thou/uL (150-400); RBC 3.04 mil/uL (4.50-6.00); RDW-CV 17.7 % (10.5-14.5)
[2018-01-07 04:13] VITALS: BP 146/80
[2018-01-07 04:25] LABS: ALBUMIN 1.8 g/dL (3.4-5.0); CALCIUM 7.8 mg/dL (8.5-10.1); CREATININE 1.5 mg/dL (0.6-1.3); MAGNESIUM 1.9 mg/dL (1.8-2.4); PHOSPHORUS* 2.2 mg/dL (2.5-4.9); POTASSIUM 3.8 mmol/L (3.5-5.1); TOTAL BILIRUBIN 0.6 mg/dL (<0.1-1.0); TOTAL PROTEIN 5.2 g/dL (6.4-8.2)
[2018-01-07 04:26] LABS: PREALBUMIN 12.5 mg/dL (18.0-35.7)
--- NOTE | 2018-01-07 05:34 | NUR ---
PATIENT SLEPT PART OF THE NIGHT. PATIENT WAS TURNED ABOUT EVERY TWO HOURS. IV ANTIBIOTCS WERE GIVEN ORDERED. PATIENT CONTINUES TO RUN A LOW GRADE TEMP. WILL CONTINUE TO MONITOR.
--- NOTE | 2018-01-07 07:10 | NUR ---
I have reviewed the documentation by LEONA TURNER from to 01/06/18 and I concur with it. CARRINGTON HEDRICK
[2018-01-07 07:55] VITALS: BP 135/79
[2018-01-07 12:00] VITALS: BP 123/60
[2018-01-07 16:42] VITALS: BP 157/87
--- NOTE | 2018-01-07 19:40 | NUR ---
PATIENT RESTING IN BED. FAMILY AT BEDSIDE. GALO WORKIED WITH PHYSICAL THERAPY THIS AFTERNOON AND SAT UP IN RECLINER. LIFT USED TO RETURN PATIENT TO BED. PATIENT HAS EDEMA TO SCROTAL AREA AND LEFT LEG, DR AWARE AND LASIX GIVEN ORDERED. ELLIS CATH IN PLACE AND APPEARED OCCLUDED THIS AFTERNOON, CATHETER FLUSHED WITH BLOOD CLOTS RETURNED. ELLIS IS DRAINING WELL AT THIS TIME. PATIENT DENIES NEED FOR PAIN MEDIATION. PATIENT HAS BEEN INCONTINENT OF STOOL X 5. BARRIER CREAM APPLIED TO BUTTOCK WOUND. PATIENT DENIES ANY NEEDS AT THIS TIME. WILL CONTINUE TO MONITOR.
[2018-01-07 20:10] VITALS: BP 169/94
--- NOTE | 2018-01-07 20:30 | NUR ---
PTS ASKED WE NOT TURN PATIENT Q2H THIS SHIFT SINCE PT DID NOT SLEEP WELL THE NIGHT BEFORE. PTS ALSO ASKED THAT WE LAYER THE Z-GUARD ON THE COCCYX WOUND AND PLACE A FOAM BANDAGE ON IT.
[2018-01-08] VITALS: BP 103/52
[2018-01-08 04:00] VITALS: BP 111/61
[2018-01-08 04:55] LABS: HEMATOCRIT 25.4 % (42.0-52.0); HEMOGLOBIN 7.8 gm/dL (14.0-18.0); MCH 24.9 pg (26.0-34.0); MCHC 30.7 g/dL (28.0-37.0); MCV 81.1 fL (80.0-100.0); NUCLEATED RBCS 0 /100WBC; PLATELET COUNT* 137 thou/uL (150-400); RBC 3.13 mil/uL (4.50-6.00); RDW-CV 18.2 % (10.5-14.5); WBC 21.6 thou/uL (4.0-11.0)
[2018-01-08 05:20] LABS: ALBUMIN 1.8 g/dL (3.4-5.0); CALCIUM 7.8 mg/dL (8.5-10.1); CREATININE 1.8 mg/dL (0.6-1.3); POTASSIUM 3.5 mmol/L (3.5-5.1); TOTAL BILIRUBIN 0.6 mg/dL (<0.1-1.0); TOTAL PROTEIN 5.3 g/dL (6.4-8.2)
--- NOTE | 2018-01-08 06:28 | NUR ---
PT AWAKE ON AND OFF THROUGH NIGHT. ASSESSMENT DOCUMENTED. MEDS GIVEN PER E-JUN. IV PATENT. EDEMA IN SCROTAL AREA, REMAINED ELEVATED. PT UNCOMFORTABLE, BLADDER SCANNER READING GREATER THAN 999ML, ELLIS BALLON DEFLATED AND BLADDER EMPTIED, BALLON REINFLATED. DR NOTIFIED OF SWELLING INCREASE. LUNGS SOUNDING MORE COARSE THROUGH NIGHT, DR NOTIFED. PT CONFUSED THIS AM. WILL CONTINUE WITH PLAN OF CARE.
[2018-01-08 06:39] LABS: ABSOLUTE EOSINOPHILS 0.2 thou/uL (0.0-0.7); ABSOLUTE LYMPHOCYTES 15.3 thou/uL (0.8-5.3); ABSOLUTE MONOCYTES 0.9 thou/uL (0.0-1.2); ABSOLUTE NEUTROPHILS 5.2 thou/uL (1.6-8.1); ATYPICAL LYMPHS 1 %
[2018-01-08 06:40] LABS: ANISOCYTOSIS 1+; PLATELET ESTIMATE ADEQUATE; POLYCHROMASIA 1+
[2018-01-08 07:55] VITALS: BP 97/64
--- NOTE | 2018-01-08 11:01 | NUR ---
OSTOMY NURSE- PREOP VISIT TO PROVIDE TEACHING & JUMA STOMA SITE. ATTEMPTED TO SEE PATIENT YESTERDAY, BUT WAS NOT HERE DUE TO NOT FEELING WELL. MET WITH AND [id number], PATIENT WAS RESTING AND DID NOT WANT HIM DISTURBED. HE HAS ALSO BEEN SOMEWHAT CONFUSED. HAS FAIRLY GOOD UNDERSTANDING OF THE SURGERY, SO REINFORCED AND DISCUSSED MANAGEMENT OF COLOSTOMY, DEMONSTRATING POUCHES AND BRIEFLY REVIEWING POUCH EMPTYING, POUCH CHANGE & DIETARY IMPLICATIONS. ANSWERED SEVERAL QUESTIONS, AND LEFT WRITTEN TEACHING PACKET - WHICH PLANS TO TAKE HOME FOR SAFE KEEPING. NO PRIOR ABDOMINAL SURGERIES, BUT ABDOMEN SOMEWHAT DISTENDED WITH GENERALIZED EDEMA. HE REPORTS CLOTHING WAISTLINE AT LOWER ABDOMEN, SO NOT ABLE TO PLACE BELOW WAISTLINE. MARKED STOMA SITE ON LEFT ABDOMEN JUST ABOVE UMBILICAL LINE - PATIENT AND AGREEABLE. WILL FOLLOW-UP WITH PATIENT POST-OPERATIVE.
[2018-01-08 14:26] LABS: ABSOLUTE EOSINOPHILS 0.1 thou/uL (0.0-0.7); ABSOLUTE LYMPHOCYTES 9.6 thou/uL (0.8-5.3); ABSOLUTE MONOCYTES 1.6 thou/uL (0.0-1.2); ABSOLUTE NEUTROPHILS 8.7 thou/uL (1.6-8.1); BASOPHILS 0.2 %; EOSINOPHILS 0.6 %; HEMATOCRIT 24.7 % (42.0-52.0); HEMOGLOBIN 7.5 gm/dL (14.0-18.0); LYMPHOCYTES 47.7 %; MCH 24.9 pg (26.0-34.0); MCHC 30.3 g/dL (28.0-37.0); MPV 9.7 fl. (7.2-11.1); NUCLEATED RBCS 0 /100WBC; PLATELET COUNT* 126 thou/uL (150-400); POLYS 43.5 %; RBC 3.02 mil/uL (4.50-6.00); RDW-CV 18.2 % (10.5-14.5); WBC 20.1 thou/uL (4.0-11.0)
[2018-01-08 14:43] LABS: ALBUMIN 1.7 g/dL (3.4-5.0); CALCIUM 7.8 mg/dL (8.5-10.1); POTASSIUM 3.1 mmol/L (3.5-5.1); TOTAL BILIRUBIN 0.4 mg/dL (<0.1-1.0)
--- NOTE | 2018-01-08 15:12 | NUR ---
SW met with pt and pt at request of pt to notarize documents. Pt wanted to sign and revoke previous DPOA and sign a newly formatted DPOA to be able to add their dtr Vangie as another DPOA. All documents were signed by pt and signed and notarized by SW. SW to continue to follow to assist with safe dc planning.
--- NOTE | 2018-01-08 16:23 | NUR ---
PATIENT A&OX4, FORGETFUL, LETHARGIC. ROOM AIR, IV RIGHT UPPER ARM SALINE LOCK, ABX. BEDREST, UP WITH MAX ASSISTX3 WITH MALENA LIFT. NO C/O PAIN/N/V. C/O DISCOMFORT, RELIEF WITH REPOSITION. DRESSING TO COCYX CHANGED. BM TODAYX2. ELLIS, DRAINING WELL. SIGNIFICANT EDEMA TO LEFT ARM AND LEG ALONG WITH SCROTUM, PHYSICIAN AWARE. ON 1500ML FLUID RESTRICTION, NECTAR THICKENED LIQUIDS. NO OTHER CONCERNS AT THIS TIME. APPROPRIATE AND COOPORATIVE WITH CARE.
[2018-01-08 20:05] VITALS: BP 128/66
[2018-01-09 04:00] VITALS: BP 113/62
--- NOTE | 2018-01-09 04:48 | NUR ---
Assumed care of patient at 1930. Full assessment performed and documented; hourly rounding completed for patient safety. All VSS. Patient forgetful and lethargic at beginning of shift, but more alert this morning. Patient's scrotum, left leg, and left arm very edematous. Patient turned Q2H throughout the night to relieve pressure. Patient incontinent of stool several times throughout shift. Dressing on coccyx clean, dry, and intact. Orr catheter intact and patent. SR noted on telemetry. O2 saturation 96% on room air. Right AC IVL intact and patent. No c/o pain. 1500 ml fluid restriction enforced. Fall precautions in place; call light within patient's reach. Will continue to monitor.
[2018-01-09 05:32] LABS: ABSOLUTE EOSINOPHILS 0.2 thou/uL (0.0-0.7); ABSOLUTE LYMPHOCYTES 8.7 thou/uL (0.8-5.3); ABSOLUTE MONOCYTES 1.4 thou/uL (0.0-1.2); ABSOLUTE NEUTROPHILS 5.6 thou/uL (1.6-8.1); BASOPHILS 0.3 %; EOSINOPHILS 1.1 %; HEMATOCRIT 22.8 % (42.0-52.0); HEMOGLOBIN 7.2 gm/dL (14.0-18.0); LYMPHOCYTES 54.8 %; MCH 25.3 pg (26.0-34.0); MCHC 31.7 g/dL (28.0-37.0); MCV 79.7 fL (80.0-100.0); MONOCYTES 8.9 %; MPV 9.9 fl. (7.2-11.1); NUCLEATED RBCS 0 /100WBC; PLATELET COUNT* 142 thou/uL (150-400); POLYS 34.9 %; RBC 2.86 mil/uL (4.50-6.00); RDW-CV 18.1 % (10.5-14.5); WBC 15.9 thou/uL (4.0-11.0)
[2018-01-09 05:42] LABS: PREALBUMIN 11.8 mg/dL (18.0-35.7)
[2018-01-09 05:51] LABS: ALBUMIN 1.7 g/dL (3.4-5.0); CALCIUM 7.7 mg/dL (8.5-10.1); CREATININE 1.8 mg/dL (0.6-1.3); POTASSIUM 3.3 mmol/L (3.5-5.1); TOTAL BILIRUBIN 0.4 mg/dL (<0.1-1.0)
[2018-01-09 06:02] LABS: MAGNESIUM 1.8 mg/dL (1.8-2.4); PHOSPHORUS* 3.1 mg/dL (2.5-4.9)
[2018-01-09 07:50] VITALS: BP 100/59
[2018-01-09 12:00] VITALS: BP 130/70
[2018-01-09 15:03] LABS: URINE BILIRUBIN NEGATIVE (Negative); URINE BLOOD NEGATIVE (Negative); URINE CLARITY CLEAR; URINE COLOR YELLOW; URINE GLUCOSE-RANDOM 1+ (Negative); URINE KETONES NEGATIVE (Negative); URINE LEUKOCYTES-REFLEX NEGATIVE (Negative); URINE NITRITE-REFLEX NEGATIVE (Negative); URINE PROTEIN NEGATIVE (Negative); URINE UROBILINOGEN 0.2 E.U./dl (0.2-1.0)
--- NOTE | 2018-01-09 16:07 | NUR ---
PATIENT RESTING IN BED. AT BEDSIDE. PATIENT DENIES PAIN EXCEPT TO BUTTOCKS WITH CHANGES. PATIENT IS INCONTINENT OF BOWELS, MULTIPLE LOOSE BOWEL MOVEMENTS TODAY. PATIENT IS EDEMATOUS TO EXTREMITIES AND SCROTUM. IV LASIX GIVEN X 1 ORDERED, SWELLING HAS IMPROVED SLIGHTLY. PATIENT HAS BEEN TURNED IN BED. PATIENT REFUSED THERAPY TODAY. PATIENT HAS GOOD APPETITE, MAINTAINS FLUID RESTRICTION. BED ALARM ON. WILL CONTINUE TO MONITOR.
[2018-01-09 19:20] VITALS: BP 114/46
[2018-01-10] VITALS: BP 94/44
[2018-01-10 04:00] VITALS: BP 114/53
--- NOTE | 2018-01-10 04:35 | NUR ---
AT ASSESSMET PT AAOX3. RESP REG AND UNALBORED SKIN W/D NO ACUTE DISTRESS NOTED AT THIS TIME. TELEMETRY PACK INTACT WITH ALARMS SET. FAMILY AT BEDSIDE. PT IS NOTED TO HAVE SKIN TEAR ON LEFT HAND AND OPEN AREAS TO BUTTOCKS X2. SCROTUM IS REDDENED AND SWOLLEN. WATER FILLED BLISTERS NOTED ONUPPER LEFT THIGH. FOLWY INTACT AND PATENT DRAINING YELLOW URINE TOBEDSIDE BAG. PT HAD A TEMP OF 100.8 AT BEGINNINGOF SHIFT, TYLENOL GIVEN. INSISTS THAT THE FEVER IS MAKING HIM DELERIOUS HOWEVER THIS WAS SUGGESTED AFTER FEVER HAD RETURNED TO NL AT 98.3. THEN SHE WAS INSISTANT THAT THE ELLIS WAS NOT WORKING AND THIS WAS CAUSING IT. ELLIS IS INTACT AND PATENT, BLADDER SCAN PERFORMED AND 25CC URINE NOTED. INSISTED THAT DR BE CALLED FOR MEDICATION. DR TALLEY NOTIFIED AND NEW ORDER OBTAINED. FAMILY AT THAT POINT DECIDED HE WAS ACTING NORMAL AND REQUESTED TO NOT GIVE MED AT THIS TIME. MEDICATION HELD. HAS REPEATEDLY BEEN SQUEEZING AND POKING SCROTUM AND MESSIGN WITH CATHETER. INSTRUCTED THAT THIS WAS CAUSING HER PAIN AND THAT HE COULD DEVELPP TEARS WHERE SHE IS POKING AND PUSHING AND THAT SHE NEED TO LEAVE CATHER ALONE MANIPULATING IT COULD CREATE ISSUES. PT STATED OK BUT HAD TO BE REENFORCED TO LEAVE ALONE A COUPLE MORE TIMES, VSS AND NO ACUTE CHANGES DURING SHIFT
[2018-01-10 04:44] LABS: ABSOLUTE BASOPHILS 0.1 thou/uL (0.0-0.2); ABSOLUTE EOSINOPHILS 0.1 thou/uL (0.0-0.7); ABSOLUTE LYMPHOCYTES 9.8 thou/uL (0.8-5.3); ABSOLUTE MONOCYTES 1.6 thou/uL (0.0-1.2); ABSOLUTE NEUTROPHILS 4.4 thou/uL (1.6-8.1); BASOPHILS 0.6 %; EOSINOPHILS 0.6 %; HEMATOCRIT 22.9 % (42.0-52.0); HEMOGLOBIN 7.2 gm/dL (14.0-18.0); LYMPHOCYTES 61.6 %; MCH 25.1 pg (26.0-34.0); MCHC 31.4 g/dL (28.0-37.0); MONOCYTES 9.8 %; MPV 9.7 fl. (7.2-11.1); NUCLEATED RBCS 0 /100WBC; PLATELET COUNT* 152 thou/uL (150-400); POLYS 27.4 %; RBC 2.86 mil/uL (4.50-6.00); RDW-CV 18.5 % (10.5-14.5); WBC 15.9 thou/uL (4.0-11.0)
[2018-01-10 05:01] LABS: ALBUMIN 1.7 g/dL (3.4-5.0); CALCIUM 7.8 mg/dL (8.5-10.1); CREATININE 1.8 mg/dL (0.6-1.3); MAGNESIUM 1.7 mg/dL (1.8-2.4); POTASSIUM 3.2 mmol/L (3.5-5.1); TOTAL BILIRUBIN 0.4 mg/dL (<0.1-1.0); TOTAL PROTEIN 5.1 g/dL (6.4-8.2)
[2018-01-10 12:04] VITALS: BP 111/46
--- NOTE | 2018-01-10 12:14 | NUR ---
ASSUMED PT CARE AT 0730, FULL ASSESMENT DONE CHARTED. PT ORIENTED X3, DROWSY, SLEEPING ON AND OFF THIS AM. DID EAT SOME BREAKFAST. VSS, ST/PVC'S ON THE MONITOR. PT HAS HAD MULTIPLE LOOSE STOOLS THIS AM, IS INCONTINANT. WOUND TO BUTTOCK OPEN, CREAM APPLIED, THURSDAY WOUND PICTURES TAKEN. PTS LEFT HAND HAS A SKIN TEAR, THIS WAS CLEANED WITH WOUND CLEANSER, COVER WITH PATROLLEUM KENRICK AND WRAPPED WITH GAUZE. PT TURNED Q2 HRS, BED BATH GIVEN. LE US THIS AM SHOW LARGE DVT, DRS DISCUSSED WITH . VASCULAR CONSULT PLACED. AT BEDSIDE AT THIS TIME. WILL CONTINUE WITH PLAN OF CARE.
[2018-01-10 15:57] VITALS: BP 125/66
[2018-01-10 20:00] VITALS: BP 125/65
[2018-01-10 21:23] LABS: MAGNESIUM 1.8 mg/dL (1.8-2.4); POTASSIUM 3.9 mmol/L (3.5-5.1)
[2018-01-11] VITALS (7 sets, daily range): BP systolic 121–156; BP diastolic 58–79
[2018-01-11 04:45] LABS: ABSOLUTE BASOPHILS 0.1 thou/uL (0.0-0.2); ABSOLUTE EOSINOPHILS 0.1 thou/uL (0.0-0.7); ABSOLUTE LYMPHOCYTES 7.6 thou/uL (0.8-5.3); ABSOLUTE MONOCYTES 1.2 thou/uL (0.0-1.2); ABSOLUTE NEUTROPHILS 3.5 thou/uL (1.6-8.1); BASOPHILS 0.6 %; HEMATOCRIT 21.4 % (42.0-52.0); LYMPHOCYTES 60.8 %; MCH 24.9 pg (26.0-34.0); MCV 80.4 fL (80.0-100.0); MONOCYTES 9.5 %; MPV 9.6 fl. (7.2-11.1); NUCLEATED RBCS 0 /100WBC; PLATELET COUNT* 167 thou/uL (150-400); POLYS 28.1 %; RBC 2.67 mil/uL (4.50-6.00); RDW-CV 18.4 % (10.5-14.5); WBC 12.5 thou/uL (4.0-11.0)
[2018-01-11 05:01] LABS: ALBUMIN 2.5 g/dL (3.4-5.0); CALCIUM 8.1 mg/dL (8.5-10.1); CREATININE 1.7 mg/dL (0.6-1.3); POTASSIUM 3.7 mmol/L (3.5-5.1); TOTAL BILIRUBIN 0.3 mg/dL (<0.1-1.0); TOTAL PROTEIN 5.4 g/dL (6.4-8.2)
[2018-01-11 05:05] LABS: HEMOGLOBIN 6.6 gm/dL (14.0-18.0)
--- NOTE | 2018-01-11 08:35 | NUR ---
PATIENT RESTED WELL THROUGH THE NIGHT WITH FAMILY AT SIDE. PATIENT TURNED AND REPOSITIONED IN BED Q2H. INCONTINENT OF STOOL THROUGH THE NIGHT, FADIA-CARE GIVEN. DENIES PAIN OR NEEDS. BED ALARM ON. WILL MONITOR. REPORT GIVEN TO ONCOMING NURSE.
--- NOTE | 2018-01-11 12:28 | CON ---
[address] [address] CONSULTATION Name: DARIEL CARNEY Room: [address] IN .R.#: [id number] Admission: 01/02/18 Attend Phys: Twan Steele, Discharge: Date of : 32 Report #: [id number] THIS REPORT FOR: //name// CC: Isauro Steele REFERRING PHYSICIAN: Dr. Steele. INDICATION: Tachycardia. HISTORY OF PRESENT ILLNESS: The patient is a very pleasant 87-year-old gentleman well known to myself. He does not have any significant cardiac issues with the exception of hypertension. He was recently diagnosed with colon carcinoma, status post stent placement for obstructing lesion. Surgical consult is ongoing. The patient was admitted with apparent sepsis. In this setting, he has been noted to be mildly hypotensive and tachycardic. He denies chest pain. He is not having shortness of breath. He is presently in the hospital with fevers and chills and acidosis consistent with sepsis. He has sources including bacteremia as well as colon stent. He is on broad spectrum antibiotics. With fluid resuscitation and antibiotics, his vital signs have stabilized. PAST MEDICAL HISTORY: 1. Hypertension. 2. Colon cancer as outlined above. 3. Spinal stenosis. 4. Type 2 diabetes mellitus. 5. Neuropathy. 6. Stage 3 renal insufficiency. 7. Anemia. PAST SURGICAL HISTORY: Gastrointestinal bleeding due to colon cancer. FAMILY HISTORY: Noncontributory. SOCIAL HISTORY: No tobacco or alcohol use. The patient has a who is in attendance. PHYSICAL EXAMINATION: VITAL SIGNS: Stable. Blood pressure 94/48, pulse 87. GENERAL: This is an elderly gentleman who does not appear to be in distress. HEENT: Normocephalic, atraumatic. Extraocular muscles intact. Mucous membranes moist. NECK: Shows no jugular venous distention. CHEST: Reveals clear lung barron anteriorly. CARDIAC: Reveals a regular rhythm, slightly [place]card[place] [address] CONSULTATION Name: DARIEL CARNEY Room: [address] IN [facility]#: [id number] Admission: 01/02/18 Attend Phys: Twan Steele, Discharge: Date of : 32 Report #: [id number] murmur. ABDOMEN: Reveals normal bowel sounds. EXTREMITIES: Show trace edema, left greater than right. SKIN: Warm and dry. LABORATORY DATA: Reviewed. Sodium 141, potassium 4.3, chloride 111, bicarbonate 14, BUN 37, creatinine 2.1, serum glucose 290. LFTs within normal limits with the exception of a mildly elevated alkaline phosphatase. Albumin 1.7. White blood cell count 49.5, hemoglobin 7.6, platelet count 160,000. Chest x-ray shows some atelectasis without pulmonary vascular congestion. IMPRESSION AND RECOMMENDATIONS: 1. Tachycardia related to sepsis. Continue antibiotics and fluid resuscitation. 2. Hypertension. The patient actually hypotensive at present from sepsis. Holding antihypertensive medication at this time. 3. Colon mass with possible surgery in the near future. 4. Gastrointestinal bleeding, being followed by Gastroenterology. Hemoglobin 7.5. Plan is to transfuse with hemoglobin of 7 or less. 5. Chronic renal insufficiency. Stable from a cardiac standpoint, we will follow as needed. <ELECTRONICALLY SIGNED> By: Wilfred Lubin MD, FACC 01/11/18 1228 [id number] Lubin MD, FACC /nt
[2018-01-11 13:26] LABS: HEMATOCRIT 26.5 % (42.0-52.0); HEMOGLOBIN 8.4 gm/dL (14.0-18.0)
--- NOTE | 2018-01-11 13:52 | NUR ---
MOBILE CRANE OPERATOR SPOKE TO PATIENT AND SPOUSE TO DISCUSS DISCHARGE PLANNING NEEDS. PATIENT'S SPOUSE INFORMS THAT THE PLAN IS FOR THE PATIENT TO GO TO INPATIENT REHAB HERE IN THE HOSPITAL AT D/C. CM WILL REMAIN AVIALABLE TO ASSIST AND FOLLOW NEED.
--- NOTE | 2018-01-11 14:25 | CON ---
[address] [address] CONSULTATION Name: DARIEL CARNEY Room: [address] IN .R.#: [id number] Admission: 01/02/18 Attend Phys: Twan Steele, Discharge: Date of : 32 Report #: [id number] THIS REPORT FOR: //name// CC: Isauro Steele DATE OF SERVICE: 01/08/2018 DIAGNOSIS: Distal sigmoid colon. SUBJECTIVE: An 87-year-old male who recently underwent a flex sigmoidoscopy, which showed ulcerated malignant-appearing stricture noted in the distal sigmoid colon. 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 The patient at this point is admitted to the hospital after he had a stent. He had episodes of confusion. He is currently treated with antibiotics due to UTI. His urine culture came back for E. coli. Blood cultures came back positive. I had a lengthy discussion with the daughter about the management including surgery, which I totally agree with. Per the daughter, the patient, before this, was not ambulating. He was bed bound. He had a suprapubic catheter. However, he was more awake and alert. REVIEW OF SYSTEMS: Unable to be obtained. PAST MEDICAL HISTORY: Neuropathy, sacral skin breakdown, recent diagnosis of adenocarcinoma of the sigmoid, compression fracture, chronic kidney disease, diabetes mellitus. He also had DVT in the left upper extremity, he was on anticoagulation. MEDICATIONS: Per admission list. ALLERGIES: No known allergies. SOCIAL HISTORY: No smoking or alcohol abuse. FAMILY HISTORY: Noncontributory. PHYSICAL EXAMINATION: VITAL SIGNS: Temperature is 37.1, pulse is 105, respirations 28, blood pressure is 97/64. GENERAL: The patient was lying in bed. He was sleepy. He was in and out during the discussion today. LUNGS: Decreased breathing sounds bilaterally. ABDOMEN: Soft, nontender, nondistended. EXTREMITIES: +1 edema bilaterally. LABORATORY DATA: WBC 20.1, hemoglobin 7.5, platelets 126. Creatinine is 1.8. [place] [address] CONSULTATION Name: DARIEL CARNEY Room: [address] IN [facility]#: [id number] Admission: 01/02/18 Attend Phys: Twan Steele, Discharge: Date of : 32 Report #: [id number] Ferritin is 15. IMAGING: Chest x-ray showed improvement in the left lung infiltrates. CT abdomen on 01/03/2018 showed a large amount of formed stool throughout the colon. The patient underwent a stent placement for the lesion of the distal sigmoid colon. ASSESSMENT AND PLAN: An 87-year-old male who is bedbound. ECOG performance status of 4, was found to have obstructing ulcerated mass in the sigmoid colon, status post stenting. Per the records, the patient is scheduled for surgery next week, which I totally agree with. In terms of adjuvant treatment even if the patient had nodes positive, I think he had a poor performance status. I believe that any sort of adjuvant chemotherapy will be very challenging in his case. I discussed the side effects of chemotherapy with the daughter and she is in agreement not to proceed with any adjuvant treatment after his surgery. To complete staging, I would like to obtain a CT chest without contrast in a.m. We will follow the patient during hospitalization. <ELECTRONICALLY SIGNED> By: Chi Flynn MD 01/11/18 1425 [id number] 1918Chi Flynn MD /nt
--- NOTE | 2018-01-11 20:13 | NUR ---
ASSUMED PT CARE AT 0730, FULL ASSEMENT DONE CHARTED. PT ORIENTED X3, DOES NOT C/O PAIN UNLESS ON BUTTOCK. PT HAS EXCORIATION TO BUTTOCK IN ADDITION TO LEFT PRESSURE SORE. PT TURED ON Q2 HR SCHEDULE, ZGUARD CREAM APPLIED, PT HAS FREQUENT LOOSE STOOLS. HE SPOKE TO DRS TODAY ABOUT SURGERY PLANS. PT OK WITH COLON RESECETION SURGURY WED AFTER DR GOMEZ SPOKE TO HIM AND HIS , THIS AFTERNOON PT EXPRESSED TO STAFF MEMEBER HE DID NOT WANT TO HAVE THE SURGERY. TELE PSYC WAS CONSULTED, SPOKE WITH PT AND AT LENGTH TO ASSESS PT FOR COMPETENCE. REPORT TO BE FAXED FROM THE DR. PTS SCROTUM STILL SWOLLEN BUT HAS GONE DOWN, LEFT LEG SWOLLEN, NANCY HOSE PLACED ON PT TODAY PER VASCULAR. PTS FAMILY HERE THIS EVENING WITH PT. FALL PRECAUTIONS IN PLACE, REPORT GIVEN TO KULWANT DENTON.
[2018-01-12] VITALS: BP 95/77
[2018-01-12 04:00] VITALS: BP 130/96
--- NOTE | 2018-01-12 04:41 | NUR ---
ASSUMED CARE OF PT AT 1930. ASSESSMENT AND VITALS COMPLETED CHARTED, VSS ON ROOM AIR. PATIENT HAS HAD MULTIPLE INCONTINENT EPISODES OF LOOSE BOWEL. FADIA AND WOUND CARE PROVIDED WITH INCONTINENCE CHECKS, ALONG WITH REPOSITIONING. PATIENT HAS REMAINED NPO SINCE MIDNIGHT FOR IVC FILTER PLACEMENT TODAY. CONSENT IN CHART BUT NOT SIGNED DUE TO PENDING DETERMINATION OF ABILITY TO MAKE INFORMED DECISIONS. FAMILY ACTIVE IN CARE WHILE VISITING. FAMILY LEFT BEDSIDE AT APPROXIMATELY 2300. PATIENTS PAIN RELIEVED WITH PO MEDS AND REPOSITIONING. HOURLY ROUNDING OBSERVED. CALL LIGHT WITHIN REACH.
[2018-01-12 05:47] LABS: HEMATOCRIT 23.8 % (42.0-52.0); HEMOGLOBIN 7.5 gm/dL (14.0-18.0); MCH 25.4 pg (26.0-34.0); MCHC 31.5 g/dL (28.0-37.0); MCV 80.8 fL (80.0-100.0); MPV 9.4 fl. (7.2-11.1); NUCLEATED RBCS 0 /100WBC; PLATELET COUNT* 165 thou/uL (150-400); RBC 2.94 mil/uL (4.50-6.00); RDW-CV 18.2 % (10.5-14.5); WBC 11.8 thou/uL (4.0-11.0)
[2018-01-12 06:00] LABS: CALCIUM 8.3 mg/dL (8.5-10.1); CREATININE 1.4 mg/dL (0.6-1.3); MAGNESIUM 1.9 mg/dL (1.8-2.4); PHOSPHORUS* 2.9 mg/dL (2.5-4.9); POTASSIUM 3.4 mmol/L (3.5-5.1)
[2018-01-12 06:26] LABS: ABSOLUTE EOSINOPHILS 0.1 thou/uL (0.0-0.7); ABSOLUTE MONOCYTES 0.4 thou/uL (0.0-1.2); ABSOLUTE NEUTROPHILS 4.4 thou/uL (1.6-8.1); ATYPICAL LYMPHS 1 %; PLATELET ESTIMATE ADEQUATE
[2018-01-12 06:28] LABS: ANISOCYTOSIS 1+; POIKILOCYTOSIS 1+
[2018-01-12 08:50] VITALS: BP 162/81
[2018-01-12 10:39] VITALS: BP 140/70; BP 142/72; BP 143/65; BP 144/70; BP 145/69
[2018-01-12 13:03] VITALS: BP 162/81
--- NOTE | 2018-01-12 15:16 | NUR ---
PT LEFT FOR IR AT THIS TIME
--- NOTE | 2018-01-12 15:36 | NUR ---
WOUND CARE NOTE: REASSESSMENT OF BUTTOCK WOUND. PATIENT NOW HAS TWO OPENINGSTHE ONE ON THE RIGHT MEASURES 1X0.5X0.1, PARTIAL THICKNESS, PALE MOIST WOUND BED. FADIA-WOUND MACERATED. THE ORIGINAL WOUND TO THE LEFT NOW MEASURES 1X0.5X1. WOUND IS HEALING, BUT FADIA-WOUND IS MACERATED. BELIEVE THE WOUND IS HEALING. BELIEVE THE WOUNDS ARE NOW COMPLICATED BY THE FREQUENT STOOLING THAT THE PATIENT IS HAVING, STATES THEY WERE IN OVER 20 TIMES YESTERDAY CLEANING HIM UP. DURING MY ASSESSMENT PATIENT HAD A SMALL LOOSE STOOL. ASSISTED SHIPSMITH IN CHANGING AND PLACING NEW CHUX. EDUCATED PATIENT AND ON KEEPING OFF BUTTOCKS, ENCOURAGED USING WEDGES FOR APPROPRIATE OFFLOADING. STATED THAT WITH HIS STENOSIS IT IS DIFFICULT FOR HIM TO USE THE WEDGES. PATIENT WAS APPROPRIATELY OFFLOADED USING PILLOWS. APPLIED Z-GUARD PASTE TO BOTH WOUNDS. RECOMMEND CONTINUE WITH CURRENT PLAN OF CARE BELIEVE ONCE PATIENT RECEIVES OSTOMY WOUNDS WILL BE EASIER TO HEAL
[2018-01-12 16:35] LABS: HEMATOCRIT 27.7 % (42.0-52.0); HEMOGLOBIN 8.9 gm/dL (14.0-18.0)
[2018-01-12 20:00] VITALS: BP 153/79
[2018-01-13] VITALS (17 sets, daily range): BP systolic 105–175; BP diastolic 60–95
[2018-01-13 05:04] LABS: ABSOLUTE BASOPHILS 0.1 thou/uL (0.0-0.2); ABSOLUTE EOSINOPHILS 0.1 thou/uL (0.0-0.7); ABSOLUTE LYMPHOCYTES 8.2 thou/uL (0.8-5.3); ABSOLUTE MONOCYTES 1.2 thou/uL (0.0-1.2); ABSOLUTE NEUTROPHILS 3.6 thou/uL (1.6-8.1); BASOPHILS 0.9 %; EOSINOPHILS 0.8 %; HEMATOCRIT 29.1 % (42.0-52.0); HEMOGLOBIN 9.5 gm/dL (14.0-18.0); LYMPHOCYTES 61.5 %; MCH 26.4 pg (26.0-34.0); MCHC 32.5 g/dL (28.0-37.0); MCV 81.3 fL (80.0-100.0); MONOCYTES 9.4 %; MPV 9.5 fl. (7.2-11.1); NUCLEATED RBCS 0 /100WBC; PLATELET COUNT* 196 thou/uL (150-400); POLYS 27.4 %; RBC 3.58 mil/uL (4.50-6.00); WBC 13.2 thou/uL (4.0-11.0)
[2018-01-13 05:40] LABS: CALCIUM 8.5 mg/dL (8.5-10.1); CREATININE 1.3 mg/dL (0.6-1.3); MAGNESIUM 1.9 mg/dL (1.8-2.4); PHOSPHORUS* 2.9 mg/dL (2.5-4.9); TOTAL BILIRUBIN 0.5 mg/dL (<0.1-1.0); TOTAL PROTEIN 5.8 g/dL (6.4-8.2)
--- NOTE | 2018-01-13 06:33 | NUR ---
PT ALERT ORIENTED FORGETFUL. TURN Q 2 HRS. PT ON CLEAR LIQUIDS FOR SURGERY 01/12 THEN NPO AT MA. CONSENTS ON CHART. NEED SIGNED. TELEMETRY SHOWS SR TWO SMALL LIQUID STOOLS. DENIES PAIN.
--- NOTE | 2018-01-13 19:51 | NUR ---
RECEVIED REPORT FROM LUZ DENTON. ASSUMED CARE OF PT AROUND 0730. PT A&O X4, VSS, O2 SAT 94% ON RA. APPEALS MANAGER IN PLACE TRACING SR. AM ASSESSMENT AND VITALS COMPLETED CHARTED. PT WENT TO PACU AROUND 1205 FOR PROCEDURE - RETURNED TO TELE FLOOR AROUND 1715. VSS. POST PROCEDURE VITALS CHARTED. PT DROWSY AND CONFUSED POST SURGERY, BUT EASY TO WAKE AND ORIENT. IV PAIN MEDICATION GIVEN FOR COMPLAINT OF GENERALIZED ABDOMINAL PAIN. ELLIS IN PLACE TO DD, URINE YELLOW. NEW COLOSTOMY INTACT, STOMA BEEFY RED, VERY SCANT SEROSANGUINOUS DRAINAGE IN BAG. SORES TO BUTTOCKS CLEANED AND Z-GUARD APPLIED. PT BEING TURNED Q2HRS FOR COMFORT BUT HAS REFUSED SOME TURNS - EDUCATED ON NEED TO TURN TO FACILITATE WOUND HEALING AND OFF-LOAD PRESSURE. PT COMMUNICATES UNDERSTANDING BUT STILL PREFERS TO BE ON HIS BACK. CAPNO O2 MONITOR IN PLACE. IV'S INTACT AND INFUSING IVF. FAMILY AT BEDSIDE. PT TO TRANSFER TO ICU PER FAMILY REQUEST. REPORT CALLED TO WEI DENTON. PT CURRENTLY RESTING IN BED. CALL LIGHT IS WITHIN REACH, FALL PRECAUTIONS IN PLACE. HOURLY ROUNDING PERFORMED.
--- NOTE | 2018-01-13 20:18 | NUR ---
pt transferred to icu room #2 at 1999. pt's family in waiting room. pt alert to person and situation, vital signs stable.
[2018-01-14] VITALS (15 sets, daily range): BP systolic 86–145; BP diastolic 48–77
[2018-01-14 04:23] LABS: ABSOLUTE BASOPHILS 0.1 thou/uL (0.0-0.2); ABSOLUTE MONOCYTES 1.3 thou/uL (0.0-1.2); ABSOLUTE NEUTROPHILS 5.1 thou/uL (1.6-8.1); BASOPHILS 0.6 %; EOSINOPHILS 0.3 %; HEMATOCRIT 28.3 % (42.0-52.0); HEMOGLOBIN 8.9 gm/dL (14.0-18.0); LYMPHOCYTES 51.5 %; MCH 25.7 pg (26.0-34.0); MCHC 31.4 g/dL (28.0-37.0); MCV 81.7 fL (80.0-100.0); MONOCYTES 9.6 %; NUCLEATED RBCS 0 /100WBC; PLATELET COUNT* 219 thou/uL (150-400); RBC 3.47 mil/uL (4.50-6.00); RDW-CV 18.9 % (10.5-14.5); WBC 13.5 thou/uL (4.0-11.0)
[2018-01-14 05:19] LABS: CALCIUM 8.9 mg/dL (8.5-10.1); CREATININE 1.5 mg/dL (0.6-1.3); POTASSIUM 4.4 mmol/L (3.5-5.1)
--- NOTE | 2018-01-14 11:00 | NUR ---
SPOKE WITH AT BEDSIDE, SHE SAID SHE IS SO PLEASED WITH HOW WELL PT IS DOING TODAY. SHE IS HAPPY THAT HE IS MOVING TO 3W TODAY. PT SITTING UP IN THE CHAIR. SAID SHE DOES HAVE THE SNF LIST THAT I GAVE HER EARLIER, SHE SAID SHE WANTS TO GET OUT AND TOUR FACILITIES, BUT SAID SHE IS JUST TOO TIRED. SHE ASKED ABOUT PT GOING TO REHAB, DISCUSSED WITH HER THAT PT WOULD NEED TO BE ABLE TO TOLERATE 3 HOURS OF THERAPY. CASE ALONDRA WILL CONTINUE TO FOLLOW.
--- NOTE | 2018-01-14 13:29 | NUR ---
PATIENT TRANSFERED TO RM 305 REPORTR GIVEN TO
--- NOTE | 2018-01-14 18:48 | NUR ---
PT VSS THIS SHIFT. PT TRANSFERED FROM ICU THIS AFTERNOON. PT AND FAMILY VERY INVOLVED IN PT CARE. PT TOLERATING CLD NECTAR THICK DIET AT THIS TIME. PT IS A MAX ASSIST OF 2 FOR AMBULATORY NEEDS AT THIS TIME. PT HAS CREAM THAT HE HAS ON HIS BOTTOM FOR WOUND IT WAS PUT ON TWO TIMES THIS SHIFT. PT HAS INDWELLING ELLIS AND NEW COLOSTOMY BAG IN PLACE. PT STOMA LOOKS GOOD AND IS DRAINING SS FLUID. PT OUTPUT APPROPRIATE THIS SHIFT. PT ALERT AND ORIENTED TO SELF AND PLACE AT THIS TIME. LUNGS CTA ON RA BUT LUNG RUSS ARE DIMINISHED PT HAS 4 SI SITES THAT ARE CDI WITH STERISTRIPS IN PLACE. PT ABLE TO TAKE PILLS WITH JELLO THIS SHIFT. PT HAS BEEN SLEEPING THE MAJORITY OF THE SHIFT SINCE HE ARRIVED ON THE UNIT AND HAS BEEN ALLOWED TO SLEEP DUE TO EXHAUSTION FROM BEING IN ICU. PT WAS ON BEDREST AT THE BEGINNING OF THE SHIFT AND PT REFUSED TO WORK WITH PT DUE TO EXHAUSTION THIS SHIFT.
[2018-01-15] VITALS: BP 143/83
[2018-01-15 04:33] LABS: ABSOLUTE BASOPHILS 0.1 thou/uL (0.0-0.2); ABSOLUTE EOSINOPHILS 0.1 thou/uL (0.0-0.7); ABSOLUTE LYMPHOCYTES 7.6 thou/uL (0.8-5.3); ABSOLUTE MONOCYTES 1.4 thou/uL (0.0-1.2); ABSOLUTE NEUTROPHILS 3.7 thou/uL (1.6-8.1); BASOPHILS 0.4 %; EOSINOPHILS 0.4 %; HEMATOCRIT 27.1 % (42.0-52.0); HEMOGLOBIN 8.8 gm/dL (14.0-18.0); LYMPHOCYTES 59.3 %; MCH 26.8 pg (26.0-34.0); MCHC 32.5 g/dL (28.0-37.0); MCV 82.5 fL (80.0-100.0); MONOCYTES 11.1 %; MPV 9.3 fl. (7.2-11.1); NUCLEATED RBCS 0 /100WBC; PLATELET COUNT* 216 thou/uL (150-400); POLYS 28.8 %; RBC 3.29 mil/uL (4.50-6.00); RDW-CV 19.1 % (10.5-14.5); WBC 12.9 thou/uL (4.0-11.0)
[2018-01-15 05:15] LABS: ALBUMIN 2.6 g/dL (3.4-5.0); CALCIUM 7.9 mg/dL (8.5-10.1); CREATININE 1.4 mg/dL (0.6-1.3); MAGNESIUM 1.9 mg/dL (1.8-2.4); POTASSIUM 3.9 mmol/L (3.5-5.1); TOTAL BILIRUBIN 0.3 mg/dL (<0.1-1.0); TOTAL PROTEIN 5.3 g/dL (6.4-8.2)
[2018-01-15 08:00] VITALS: BP 146/74; BP 147/78
[2018-01-15 12:10] VITALS: BP 147/78
[2018-01-15 15:00] VITALS: BP 161/86
--- NOTE | 2018-01-15 17:42 | NUR ---
OSTOMY NURSE- PATIENT NOW 2ND DAY POST-OP FOLLOWING LAPAROSCOPIC SIGMOID COLECTOMY WITH END COLOSTOMY. ABDOMEN MODERATELY DISTENDED, SOFT. TEGADERM AND STERISTRIPS INTACT OVER LAP INCISIONS, NO DRAINAGE OR ERYTHEMA. COLOSTOMY STOMA APPROXIMATELY 1 1/2 INCHES BY 1 3/4 INCHES, BEEFY RED, MOIST, MODERATELY EDEMATOUS, PROTRUDES WELL (APPROXIMATELY 1 INCH). MUCOCUTANEOUS INCISION WELL APPROXIMATED, PERISTOMAL SKIN INTACT EXCEPT FOR SMALL PATCH OF SUPERFICIALLY DENUDED SKIN ALONG LEFT LOWER EDGE OF POUCH BARRIER. AREA CLEANSED, COVERED WITH TEGADERM TO PROTECT. OSTOMY POUCH WITH FLATUS, NO STOOL YET. PATIENT MORE ALERT TODAY, BUT STILL NEEDED FREQUENT REMINDERS TO STAY FOCUSED, WHILE PROVIDING EDUCATION. STRESSED REPEATEDLY TO PATIENT AND HIS THAT HE WILL ULTIMATELY BE RESPONSIBLE FOR ALL COLOSTOMY CARE (EMPTYING POUCH, POUCH CHANGE, ETC.) AND THAT NOW THAT HE IS TAKING FULL LIQUID DIET, HE WILL NEED TO MONITOR POUCH REGULARLY & CALL NURSES TO ASSIST HIM WITH EMPTYING WHEN 1/3 TO 1/2 FULL. WILL LIKELY NEED TO ASSIST INITIALLY AT HOME. DISCHARGE PLANS STILL PENDING. ENROLLED IN [employer] START[employer] PROGRAM. HE IS CURRENTLY USING [facility] BARRIER #[id number] AND POUCH #[id number]. HE HAS INITIAL SUPPLIES AT BEDSIDE, AND TOOK COLOSTOMY TEACHING PACKET HOME LAST WEEK. SHE WANTED TO TAKE SUPPLIES HOME FROM BEDSIDE, BUT ENCOURAGED TO LEAVE FOR USE WHILE IN HOSPITAL - REASSURED THAT HE WILL HAVE [employer] START[employer] PACK AND HOME HEALTH WILL PROVIDE SUPPLIES INITIALLY (AFTER ANTICIPATED SNF STAY). ATTEMPTED TO APPLY ABDOMINAL BINDER, WITH OPENING CUT FOR POUCH, BUT PATIENT INSISTED ON REMOVAL ALMOST IMMEDIATELY. INSTRUCTED PATIENT AND ON IMPORTANCE FOR SPLINT ABDOMEN, ESPECIALLY WITH HIS FREQUENT COUGH ASSOCIATED WITH NON-ADHERENCE TO THICKENED LIQUIDS. ENCOURAGED TO ALLOW PATIENT TO FEED HIMSELF, TO IMPROVE UPPER BODY STRENGTH, ENDURANCE AND COORDINATION. WILL PLAN TO FOLLOW-UP WITH PATIENT ON 01/18 AFTERNOON, UNLESS DISCHARGED BEFORE.
--- NOTE | 2018-01-15 19:55 | NUR ---
PATIENT HAS BEEN A/O THIS SHIFT, FORGETFUL AT TIMES. PATIENT CONTINUES ON DATA CENTER MANAGER TRACING NSR. PATIENT'S IV SALINE LOCKED, IV ANTIBIOTICS CONTIINUE TO INFUSE. PATIENT UP TO CHAIR FOR ABOUT 4 HOURS THIS SHIFT, ASSISTED BACK TO BED WITH MALENA LIFT. WORKED WITH PT/OT THIS SHIFT. PATIENT GIVEN ABDOMINAL BINDER FOR COMFORT, REFUSED AND DID NOT TOLERATE. PATIENT SEEN BY OSTOMY NURSE THIS SHIFT, BAG CHANGED, PASSING GAS BUT NO STOOL NOTED. DIET ADVANCED TO FULL LIQUIDS, TOLERATING, EDUCATION PROVIDED REGARDING THICKENED LIQUIDS. PATIENT TO HAVE REPEAT VIDEO SWALLOW ON THURSDAY. LAP SITES CLEAN, DRY AND INTACT TO ABDOMEN. Z GUARD APPLIED TO BILATERAL BUTTOCKS WOUNDS THIS SHIFT, AND PATIENT TURNED EVERY 2 HOURS. HEELS ELEVATED, NANCY HOSE REMOVED BY OT AND WILL BE PLACED BACK ON BY SILK BRUSHER. ELLIS CATHETER PATENT AND DRAINING, BLADDER SCANNED X 2 THIS SHIFT PER PHYSICIAN REQUEST, SHOWING 41 OR 43 MLS IN BLADDER. AT BEDSIDE THROUGHOUT THE SHIFT. HOURLY ROUNDING COMPLETED. FALL PRECAUTIONS IN PLACE. WILL CONTINUE WITH PLAN OF CARE.
[2018-01-15 20:00] VITALS: BP 128/71
--- NOTE | 2018-01-15 23:52 | NUR ---
PATIENT WAS GIVEN TYLENOL BY DAY SHIFT AT 1844. PT'S RHETTUGHER ARRIVED AND RAN TO NURSES STATION STATING PT WAS IN HORRIBLE PAIN AND NEEDED MEDICATION. THIS WAS AROUND 2014. AT THIS TIME IT WAS TOO SOON FOR PAIN MEDICATION. NIGHT TIME MEDS TAKEN TO PT'S ROOM AND PT WAS OFFERED ONE HYDDROCODONE. DAUGHTER QUICKLY CALLED HER MOTHER TO MAKE SURE IT WAS OK FOR PT TO TAKE THIS; PT'S REFUSED AND WANTED FENTANYL GIVEN. PT'S ALSO DECIDED PT SHOULD HAVE LANTUS 5UNITS AND LISPRO 5UNITS INSTEAD OF WHAT WAS SCHEDULED. PT DID NOT WANT PAIN MEDICATION AT THIS TIME BUT WANTED TO WAIT TO SEE IF HALDOL WORKED. DAUGHTER CONTINUED TO ASK PT IF HE WANTED PAIN MEDS REPEATEDLY AND PT SNAPPED AND YELLED AT DTR SAYING HE DID NOT WANT PAIN MEDS PAIN WAS 2/10 ON PAIN SCALE AND HE WANTED TO SEE IF HALDOL WOULD WORK. HE ALSO ASKED HER TO PLEASE SIT DOWN AND BE QUIET OF WHICH SHE DID NOT DO. DTR CONTINUED TO ASK PT IF HE WANTED TO TURN, EAT OR IF HE WAS IN PAIN. PT ANXIOUS AND ANGRY AT THIS TIME. PT WAS REPOSITIONED FOUR TIMES IN 30 MINUTES. DTR CONTINUOUSLY AT NURSES STATION REQUESTING SOMETHING APPROX EVERY 2-3 MIN. PT'S NEEDS WERE MET AND HE ASKED TO BE LEFT ALONE. PT'S REQUESTS GRANTED AND FOCUS WAS PLACED ON OTHER PATIENTS WAITING TO BE SEEN. SIDERAILS UP PER PT REQUEST AND BED ALARM ON. DAUGHTER PUT SIDERAILS DOWN ON ONE SIDE AND TURNED OFF BED ALARM. DAUGHTER HAD PT SITTING ON SIDE OF BED. DAUGHTER TOLD SHE WAS NOT TO DO THIS PT WOULD FALL. BED ALARM TURNED BACK ON AND SIDERAILS BACK UP. DAUGHTER THEN HAD PT'S BED IN THE AIR SAYING IT WAS EASIER TO SPEAK TO HIM IF THEY WERE ON EYE LEVEL. CALL LIGHT WITHIN REACH. WILL CONTINUE TO MONITOR.
[2018-01-16 01:00] VITALS: BP 144/75
--- NOTE | 2018-01-16 01:30 | NUR ---
DAUGHTER ASKED IF IT MADE PT WORSE WITH HER BEING HERE OVERNIGHT. EXPLAINED TO PT THAT PT WAS CALM THE PREVIOUS NIGHT THAT PERHAPS HE FEELS HE NEEDS TO STAY AWAKE BECAUSE SHE IS THERE. TALKED TO PT AND HE SAID HE WAS COMFORTABLE. ENCOURAGED PT TO TURN OFF TV, CLOSE BLINDS, DIM LIGHTS AND GO TO SLEEP. PT IN AGREEMENT TO THIS. DAUGHTER TOLD PT HE DID NOT HAVE TO CLOSE BLINDS IF HE DID NOT WANT THEM CLOSED. PT SAID TO CLOSE THEM. DTR SAID ITS HIS CHOICE. PT REPEATED AGAIN THAT HE WANTED THEM CLOSED. DTR CONTINUED TO REMIND HIM IT'S HIS CHOICE. PT SAID 'FINE LEAVE THEM OPEN'. HE WAS IN AGREEMENT HE WAS READY FOR SLEEP AND TV WAS TURNED OFF, LIGHTS DIMMED, DOOR CLOSED. CHECKED ON PT HALF AN HR LATER AND PT WAS SLEEPING. WILL CONTINUE TO MONITOR.
[2018-01-16 06:03] LABS: CALCIUM 8.4 mg/dL (8.5-10.1); CREATININE 1.3 mg/dL (0.6-1.3); HEMATOCRIT 27.4 % (42.0-52.0); HEMOGLOBIN 8.6 gm/dL (14.0-18.0); MCH 25.9 pg (26.0-34.0); MCHC 31.4 g/dL (28.0-37.0); MCV 82.4 fL (80.0-100.0); MPV 9.3 fl. (7.2-11.1); NUCLEATED RBCS 0 /100WBC; PLATELET COUNT* 213 thou/uL (150-400); POTASSIUM 3.5 mmol/L (3.5-5.1); RBC 3.33 mil/uL (4.50-6.00); RDW-CV 19.1 % (10.5-14.5); WBC 11.3 thou/uL (4.0-11.0)
[2018-01-16 06:22] LABS: PREALBUMIN 10.5 mg/dL (18.0-35.7)
--- NOTE | 2018-01-16 06:45 | NUR ---
PATIENT SITTING IN SEMI-FOWLERS POSITION WATCHING TV. PT DENIES NEEDS AT THIS TIME. PT TOOK PO PAIN MEDICATIONS IN APPLESAUCE AND TOLERATED WELL. DTR IN RECLINER SLEEPING. CALLED THIS AM FOR REPORT ON 'S NIGHT. SAID SHE WAS PLEASED WITH REPORT AND WAS PLEASED WITH HIS CARE. PT DENIES NEEDS AT THIS TIME. WILL CONTINUE TO MONITOR.
[2018-01-16 07:57] LABS: ABSOLUTE EOSINOPHILS 0.2 thou/uL (0.0-0.7); ABSOLUTE LYMPHOCYTES 6.1 thou/uL (0.8-5.3); ABSOLUTE MONOCYTES 1.4 thou/uL (0.0-1.2); ABSOLUTE NEUTROPHILS 3.6 thou/uL (1.6-8.1)
[2018-01-16 07:58] LABS: ANISOCYTOSIS 1+; HYPOCHROMASIA 1+; PLATELET ESTIMATE ADEQUATE
[2018-01-16 08:00] VITALS: BP 130/82
[2018-01-16 08:00] LABS: MICROCYTES Occasional
[2018-01-16 16:42] VITALS: BP 161/93
--- NOTE | 2018-01-16 18:57 | NUR ---
PATIENT RESTING IN BED. PATIENT UP TO RECLINER WITH MAX ASSIST THIS AFTERNOON. PATIENT HAS DANGLED AT SIDE OF BED MULTIPLE TIMES TODAY. PATIENT HAS BEEN CONFUSED AT TIMES AND RESTLESS. PATIENT HAS HAD COMPLAINTS OF PAIN TO BACK AND BUTTOCKS, TREATED PARTIALLY WITH MEDICATION. PATIENT HAS GOOD APPETITE. PATIENT HAS COLOSTOMY WITH MINIMAL LIQUID BROWN/RED STOOL. PATIENT DENIES ANY NEEDS AT THIS TIME. CALL LIGHT WITHIN REACH. FAMILY AT BEDSIDE. WILL CONTINUE TO MONITOR.
[2018-01-16 20:10] VITALS: BP 173/90
[2018-01-17] VITALS (7 sets, daily range): BP systolic 130–173; BP diastolic 68–91
--- NOTE | 2018-01-17 05:36 | NUR ---
PT SLEPT ON AND OFF THIS SHIFT. ASSESSMENT DOCUMENTED. MEDS GIVEN PER E-JUN. NO IV ACCESS AT THIS TIME, WILL RESTART IV THIS AM. PT REPORTED MILD PAIN, BUT STATED HE DID NOT WANT ANY PAIN MEDICATION. PT REPOSITIONED THROUGH NIGHT. SMALL LIQUID DRAINAGE OUT OF COLOSTOMY. WILL CONTINUE WITH PLAN OF CARE.
--- NOTE | 2018-01-17 19:35 | NUR ---
PATIENT HAS BEEN A/O X 4, SLIGHTLY FORGETFUL AT TIMES THIS SHIFT. PATIENT GIVEN TYLENOL FOR GENERALIZED DISCOMFORT WITH RELIEF. PATIENT CONTINUES ON TRAVEL PT TRACING NSR. PATIENT'S FAMILY REFUSING TRAMADOL FOR PAIN. PATIENT CONTINUES ON NECTAR THICK LIQUIDS, TO HAVE REPEAT VIDEO SWALLOW ON THURSDAY. PATIENT TAKES PILLS WHOLE IN APPLESAUCE. PATIENT UP TO CHAIR THIS SHIFT, MAX ASSIST OF 2 WITH GAITBELT AND WALKER. PATIENT'S KNEES BUCKLE WITH ACTIVITY. PATIENT ASSISTED WITH IS AND FLUTTER MULTIPLE TIMES THIS SHIFT. PATIENT LAP SITES INTACT. ELLIS PATENT AND DRAINING. COLOSTOMY WITH LIQUID STOOL PRESENT. PATIENT REPOSITIONED EVERY 2 HOURS AND HEELS ELEVATED. WEEKLY PICTURES OBTAINED THIS SHIFT OF BILATERAL BUTTOCKS, LEFT HAND SKIN TEAR, AND BLISTERS TO LEFT UPPER THIGH. PATIENT'S NANCY HOSE REMOVED, SKIN INSPECTED, AND LOTION APPLIED. NANCY HOSE REAPPLIED BILATERALLY TO LEGS. PATIENT'S /FAMILY AT BEDSIDE THROUGHOUT THE SHIFT. FALL PRECAUTIONS IN PLACE. HOURLY ROUNDING COMPLETED. CALL LIGHT WITHIN REACH. WILL CONTINUE WITH PLAN OF CARE.
[2018-01-18] VITALS: BP 165/86
--- NOTE | 2018-01-18 04:50 | NUR ---
PT SLEPT PART OF SHIFT. PT CONFUSED AND YELLING OUT FOR ASSISTANCE FOR FIRST COUPLE HOURS OF THIS SHIFT. ASSESSMENT DOCUMENTED. MEDS GIVEN PER E-MAR. IV PATENT. PAIN MEDS GIVEN PER E-MAR FOR PAIN WITH RELIEF. PT REPOSITIONED THROUGH NIGHT. ELLIS DRAINING. COLOSTOMY HAS LIGHT BROWN LIQUID OUTPUT. ASKING FOR PT TO TRY TO WALK PATIENT TODAY. WILL CONTINUE WITH PLAN OF CARE.
[2018-01-18 08:00] VITALS: BP 155/88
[2018-01-18 12:00] VITALS: BP 120/70
--- NOTE | 2018-01-18 15:28 | NUR ---
SW followed up with pt and pt regarding dc plans. Pt was unable to provide SNF preferences at this time stating she did not have time or energy to visit facilities. SW mentioned the possibility of dc soon and the need to plan for dc; pt said that they wanted pt to be considered for inpt rehab still despite the knowledge that pt needs to be able to participate in 3 hours of therapies a day. Pt began to talk about how pt emotionally and mentally would be better to be in inpt rehab but that it is the family's fear that pt would not fair well any way in a SNF. At that point, pt said he did not want to talk and that he was tired and he again did not want to talk about plans. Ostomy care nurse came in to provide teaching and mentioned plan for SNF possibly tomorrow or at least soon and pt expressed some surprise. SW spoke with rehabilitation liaison about pt/family inquiry to be able to discuss for certain the option or non-option with the pt/family. SW received message from pt nurse to discuss with Natividad from [facility] who had called to follow up on pt dc plans. Natividad said that she would follow with family to provide services at dc and expressed that they recommended SNF to the pt/family as well. SW to continue to follow to assist with safe dc planning and SNF placement.
[2018-01-18 16:00] VITALS: BP 169/86
--- NOTE | 2018-01-18 16:09 | NUR ---
OSTOMY NURSE-ABDOMEN REMAINS ROUNDED, SOFT. LAP INCISIONS ALL WELL APPROXIMATED AND HEALING WELL. COLOSTOMY POUCH INTACT WITH MODERATE AMOUNT OF LOOSE BROWN STOOL. COLOSTOMY STOMA REMAINS BEEFY RED, MOIST, EDEMATOUS. MUCOCUTANEOUS INCISION WELL APPROXIMATED. PERISTOMAL SKIN INTACT, EXCEPT FOR SMALL AREA OF MEDICAL ADHESIVE RELATED SKIN INJURY (MARSI) TO PATIENTS LEFT LOWER SIDE OF POUCH, WHICH IS NEARLY EPITHELIALIZED. ATTEMPTED TO ENGAGE PATIENT IN EMPTYING AND CHANGING POUCH, BUT HE HAS MULTIPLE EXCUSES AND DEFERS TO . HE HAS SOME DIFFICULTY FOLLOWING SIMPLE INSTRUCTIONS. ASSISTED WITH EMPTYING AND CHANGING POUCH, BUT BECAME VERY EMOTIONAL. SUPPORT AND REASSURANCE PROVIDED. REINFORCED IMPORTANCE OF ENGAGING IN CARE NOW, TO BE MORE FAMILIAR WHEN HOME. ANTICIPATE DISCHARGE TO SNF SOON, AND THEN EVENTUALLY HOME WITH HOME HEALTH. REASSURED AGAIN THAT HE WILL RECEIVE [facility] SAMPLE PACK, AND HOME HEALTH WILL PROVIDE INITIALLY - NOT TO ORDER WHILE UNDER PART A SERVICES (HOSPITAL, SNF, ) OR CLAIM WILL BE DENIED AND HE WILL BE RESPONSIBLE FOR FULL COST. REINFORCED IN PRINT INFORMATION IN PACKET.
--- NOTE | 2018-01-18 17:14 | NUR ---
SHIFT NOTE - PT PARTICIPATED WITH PT THIS AM. PT OFF UNIT THIS AM FOR VIDEO SWALLOW. PT ABLE TO DRINK THIN LIQUIDS NOW WITH SMALL SIPS (NO STRAWS). AT BEDSIDE FOR MOST OF THIS SHIFT. GENERAL SCIENCE TEACHER CHANGED APPLIANCE THIS AFTERNOON. TOLERATED WELL.
[2018-01-19] VITALS: BP 130/80
[2018-01-19 04:00] VITALS: BP 132/78
--- NOTE | 2018-01-19 06:14 | NUR ---
PATIENT WATCHING TV AT BEGINNING OF SHIFT WITH FAMILY MEMBER. PT SLEPT WELL DURING THIS SHIFT. PT WITH YELLOW URINE IN CATHETER. PT WITH THICK STOOL ALONG WITH LIQUID STOOL IN COLOSTOMY BAG. PT DENIES PAIN ON THIS SHIFT. ULTRAM HELD AT 0200; PT SLEEPING SOUNDLY. PT'S MEDICATION CRUSHED AND PUT IN APPLESAUCE; TOLERATED WELL. PT TURNED Q2H PER PROTOCAL. PT WITH SALINE LOCK IN RT AC; PATENT. PT IN SR, OCCASSIONALLY AFIB. MYLA, PT'S CALLED AT 2119 TO GIVE UPDATE ON PT'S EVENING AND MYLA CALLED THIS AM FOR UPDATE ON THE NIGHT. FREQUENTLY USED ITEMS AND CALL LIGHT WITHIN REACH. SIDERAILS UPX2 AND BED ALARM ON. WILL CONTINUE TO MONITOR.
[2018-01-19 06:41] LABS: HEMATOCRIT 28.2 % (42.0-52.0); HEMOGLOBIN 8.7 gm/dL (14.0-18.0); MCH 25.4 pg (26.0-34.0); MCHC 30.8 g/dL (28.0-37.0); MCV 82.4 fL (80.0-100.0); MPV 9.4 fl. (7.2-11.1); RBC 3.42 mil/uL (4.50-6.00); RDW-CV 19.5 % (10.5-14.5); WBC 12.9 thou/uL (4.0-11.0)
[2018-01-19 06:50] LABS: CALCIUM 8.3 mg/dL (8.5-10.1); CREATININE 1.2 mg/dL (0.6-1.3); MAGNESIUM 1.9 mg/dL (1.8-2.4); PHOSPHORUS* 2.6 mg/dL (2.5-4.9)
[2018-01-19 08:41] VITALS: BP 154/84
--- NOTE | 2018-01-19 10:00 | NUR ---
PT COCCYX CLEANED AND BARRIER CREAM APPLIED. PT TRANSFERRED TO CHAIR MAX ASSIST BY Prosper
--- NOTE | 2018-01-19 11:00 | NUR ---
PT C/O PAIN ON BOTTOM TO O.T. PT THEN DENIED PAIN TO THIS NURSE WHEN ASSESSED AND REFUSED PAIN MED. AND PT TOLD TO LET NURSE KNOW WHEN PT WANTS PAIN MED.
--- NOTE | 2018-01-19 11:37 | NUR ---
Pt and pt family refusing SNF options at this point and pt reportedly telling family that he will not go to SNF and only wants inpt rehab or home. [facility] inpt rehab pending response. SW to continue to follow to assist with safe dc planning and possible SNF placement if needed.
--- NOTE | 2018-01-19 11:39 | NUR ---
PT AGAIN C/O PAIN TO O.T. BUT DENIED TO NURSE AND REFUSED PAIN MED ON ASSESS. PT SITTING UP IN CHAIR WITH WAFFLE CUSHION. CALL LIGHT IN REACH
--- NOTE | 2018-01-19 11:56 | OP ---
[address] [address] OPERATIVE REPORT Name: DARIEL CARNEY Room: [address] IN .R.#: [id number] Admission: 01/02/18 Attend Phys: Twan Steele, Discharge: Date of : 34 Report #: [id number] THIS REPORT FOR: //name// CC: Isauro Steele DATE OF SERVICE: 01/12/2018 PREOPERATIVE DIAGNOSIS: Acute left lower extremity deep venous thrombosis with inability to anticoagulate. POSTOPERATIVE DIAGNOSIS: Acute left lower extremity deep venous thrombosis with inability to anticoagulate. OPERATION: 1. Ultrasound-guided access of the right common femoral vein. 2. Inferior venacavogram. 3. Placement of IVC filter. SURGEON: Santiago Welch DO. BARTENDERS: None. ANESTHESIA: Local anesthetic. ESTIMATED BLOOD LOSS: Less than 10 mL. FLUIDS AND URINE OUTPUT: None. SPECIMENS: None. IMPLANTS: A Bard Dorie inferior vena cava filter. CLINICAL HISTORY: The patient has been diagnosed with an acute left lower extremity DVT. He is suspected of colon cancer and is undergoing major abdominal surgery for a colectomy and intervention and had inability to be anticoagulated. A filter was placed for this reason. DETAILS OF PROCEDURE: After informed consent was obtained, the patient was taken to the angio suite, placed on the angio bed in supine position. His groins were prepped and draped in usual sterile fashion. A full timeout was performed identifying correct patient and procedure. Using ultrasound guidance, the right common femoral vein was identified. The skin and subcutaneous tissues were anesthetized with lidocaine anesthetic. Using an 18-gauge needle, the femoral vein was accessed under ultrasound [address] [address] OPERATIVE REPORT Name: DARIEL CARNEY Room: [address] IN M.R.#: [id number] Admission: 01/02/18 Attend Phys: Twan Steele, Discharge: Date of : 32 Report #: [id number] guidance. His images were preserved. Using Seldinger technique, a Bentson wire was advanced under fluoroscopic guidance into the IVC. A small skin incision was made and the introducer sheath was then passed over the wire into the distal IVC. An inferior venacavogram was then performed through the sheath, which demonstrated patent iliocaval confluence and IVC with no evidence of thrombus. The renal veins were marked. I replaced the wire and then advanced the sheath up to the level of the renal veins and then passed the IVC filter under fluoroscopic guidance to the level just below the renal veins and the filter was deployed in standard fashion. The sheath was then withdrawn slightly and then, a followup cavogram demonstrated good position of the filter below the confluence of the renal veins with no evidence of extravasation of thrombus. Satisfied with the result, the sheath was removed. Manual pressure was held for 5 minutes. Once hemostasis was ensured, sterile dressing was applied. All sponge, sharp instrument counts reported correct x 2. He tolerated the procedure well and was transferred back to his room in stable condition. <ELECTRONICALLY SIGNED> By: Santiago Welch DO 01/19/18 1156 [id number] Welch DO /nt
[2018-01-19 12:00] VITALS: BP 141/72
[2018-01-19 15:00] VITALS: BP 166/78
--- NOTE | 2018-01-19 18:18 | NUR ---
PT C/O BUTTOCKS PAIN, GIVEN TYLENOL PER REQUEST BY . PT REPOSITIONED MULTIPLE TIMES AT REQUEST OF . ELLIS IN PLACE TO DD WITH YELLOW CLEAR URINE. PT DID NOT WANT NANCY HOSE ON BUT MADE COMPROMISE AND WAS ABLE TO KEEP NANCY HOSE ON LLE. PT EDUCATED MANY REPEATEDLY ABOUT DVT'S. AT BEDSIDE, CALL LIGHT IN REACH.
[2018-01-20] VITALS: BP 140/72
[2018-01-20 04:00] VITALS: BP 151/84
--- NOTE | 2018-01-20 05:27 | NUR ---
PATIENT ALERT/ORIENTED AND FORGETFUL AT BEGINNING OF SHIFT. DAUGHTER AT BEDSIDE. PT ASSISTED UP IN CHAIR WITH MALENA LIFT. PT WANTED BACK TO BED WITHIN 10 MINUTES OF SITTING IN RECLINER. PT ABLE TO TAKE MEDICATIONS IN APPLESAUCE. PT TURNED Q2H PER PROTOCAL EXCEPT WHEN REFUSING. PT SR ON BOILER TESTER. PT WITH SALINE LOCK IN RT AC; IV PATENT. PT WITH EDEMA IN LT HAND AND LEFT FOOT. PT WITH ELLIS TO DEPENDENT DRAIN WITH YELLOW URINE. PT HAS COLOSTOMY WITH LIGHT BROWN THICK STOOL. PT DENIES NEEDS AT THIS TIME. FREQUENTLY USED ITEMS AND CALL LIGHT WITHIN REACH. SIDERAILS UPX4 PER FAMILY REQUEST AND BED ALARM ON. WILL CONTINUE TO MONITOR.
[2018-01-20 08:05] VITALS: BP 187/88
[2018-01-20 09:30] LABS: HEMATOCRIT 29.8 % (42.0-52.0); HEMOGLOBIN 9.3 gm/dL (14.0-18.0); MCH 25.7 pg (26.0-34.0); MCHC 31.2 g/dL (28.0-37.0); MCV 82.3 fL (80.0-100.0); MPV 8.9 fl. (7.2-11.1); RBC 3.62 mil/uL (4.50-6.00); RDW-CV 19.7 % (10.5-14.5); WBC 12.1 thou/uL (4.0-11.0)
[2018-01-20 09:46] LABS: CALCIUM 8.7 mg/dL (8.5-10.1); CREATININE 1.1 mg/dL (0.6-1.3); MAGNESIUM 1.8 mg/dL (1.8-2.4); PHOSPHORUS* 2.9 mg/dL (2.5-4.9); POTASSIUM 3.9 mmol/L (3.5-5.1)
--- NOTE | 2018-01-20 10:02 | NUR ---
Pt to dc to [facility] inpt rehab unit today.
[2018-01-20 10:09] VITALS: BP 187/88
[2018-01-20] MEDS ORDERED: ELIQUIS5 MG PO (10:22)
[2018-01-20] MEDS ORDERED: NORCO 5-325 TA1 EACH PO (10:23)
[2018-01-20] MEDS ORDERED: MELATONIN5 M1 PO (10:24)
[2018-01-20] MEDS ORDERED: PROTONIX40 M1 PO (10:26)
[2018-01-20] MEDS ORDERED: TRAZODONE HCL50 MG PO (10:27)
[2018-01-20] MEDS ORDERED: TRAMADOL 50 MG50 MG PO (10:27)
[2018-01-20 10:31] VITALS: BP 187/88
[2018-01-20 11:03] VITALS: BP 187/88
--- NOTE | 2018-01-20 11:10 | NUR ---
PATIENT A&OX4, FORGETFUL AT TIMES. ROOM AIR, IV RIGHT AC SALINE LOCK. UP MAX ASSISTX2 WITH MALENA LIFT. WOUNDS TO COCYX, SKIN TEAR TO LEFT HAND AND LEFT THIGH. NO C/O PIAN/N/V. PATIENT DISCHARGED TO REHAB UNIT THIS MORNING. PATIENT LEFT UNIT AT 1100 VIA BED WITH 2 TRANSPORTERS, ALL BELONGIGNS TAKEN WITH PATIENT. AT BEDSIDE. NOTHING LEFT BEHIND. APPROPRIATE AND COOPORATIVE WITH CARE.
[2018-01-20] MEDS ORDERED: LANTUS100 UNIT/M SUBQ (12:35)
[2018-01-20] MEDS ORDERED: HUMALOG100 UNIT/1 SUBQ (12:36)
--- NOTE | 2018-01-20 16:57 | OP ---
[address] [address] OPERATIVE REPORT Name: DARIEL CARNEY Room: [address] IN M.R.#: [id number] Admission: 01/02/18 Attend Phys: Twan Steele, Discharge: 01/20/18 Date of : 32 Report #: [id number] THIS REPORT FOR: //name// CC: Isauro Evans DATE OF SERVICE: 01/13/2018 PREOPERATIVE DIAGNOSIS: Obstructing sigmoid colon, status post stent placement. POSTOPERATIVE DIAGNOSIS: Obstructing sigmoid colon, status post stent placement with colonic stent that had migrated distally. PROCEDURE: Laparoscopic sigmoid colectomy with laparoscopic Josefa colostomy, rigid sigmoidoscopy, and removal of migrated colonic stent from the rectum. SURGEON: Mohamud Gonzales DO. EVENTS MANAGER: Yao Bryan DO. SECOND CREDIT VERIFIER: Physician fws faculty assistant student, Cee Fu. ANESTHESIA: General endotracheal. ESTIMATED BLOOD LOSS: Less than 30 mL. COMPLICATIONS: None. DESCRIPTION OF PROCEDURE: After obtaining proper consents and discussing risks and complications with the patient and the family, he was taken to the operating room, laid in the supine position, administered general anesthesia. He was then placed in lithotomy position and secured to the bed in the usual fashion. Preoperative antibiotics had been given. SCDs were in place. We then made a small supraumbilical skin incision. This was carried down through the skin into the subcutaneous tissue using electrocautery for hemostasis. Once the fascia was encountered, it was grasped and elevated with [facility] clamps. The peritoneum was then bluntly opened using a hemostat. A finger was placed inside the peritoneal cavity to assure that there were no tim-incisional adhesions. Next, 2-0 Vicryl sutures were placed in a [id number] fashion to secure the Estelle trocar, which was then inserted and insufflation was begun. Once insufflation was complete, full visual inspection of the anterior abdominal organs was performed. This revealed no significant gross abnormalities. Immediately, it appeared that the sigmoid colon was quite dilated and redundant. We did look at the left and right lobes of the liver, [place] [address] OPERATIVE REPORT Name: DARIEL CARNEY Room: [address]#: [id number] Admission: 01/02/18 Attend Phys: Twan Steele, Discharge: 01/20/18 Date of : 32 Report #: [id number] and smooth with no evidence of any metastatic disease. We also inspected the abdominal wall, which all looked completely normal as well. At this point, we elected to place more trocars. A 12 mm trocar was placed in the right lower quadrant. I was then able to elevate the sigmoid colon and we identified tattoos both proximally and distally and then we could see a puckered area in the middle of this, which we suspected was the tumor. I placed two more 5 mm trocars, one suprapubically and one in the right upper quadrant. We were then able to elevate the sigmoid colon. The lateral attachments of the sigmoid colon were taken down along the white line of Toldt using electrocautery. I then scored the medial aspect of the mesentery using electrocautery as well. We then used the LigaSure device to open an avascular window in the mesentery all the way through from medial to lateral. Once we did this and this was in the area of the distal tattoo, we elected to perform a distal resection using Endo-DARRYL 60 mm purple loads. This area was quite soft and there was no evidence of any stent in this area. Once this was done, I took down the mesentery using the LigaSure. We went up above the inferior mesenteric artery and vein, which were taken using the LigaSure device as well. Once there was enough colon proximally resected and there was no evidence of any other disease and we had noted some diverticula in the more distal sigmoid, we elected to then make an incision in the left abdomen where the patient had been previously marked for colostomy. This incision was carried down through the fascia and then through the peritoneum. We then enlarged the incision in order to bring the colon up through this. As we were bringing the colon up through this, I was unable to palpate any stent and once the colon was completely out in the large segment approximately 25 cm long, when we were still unable to palpate the stent, I then resected proximally. We closed the colon using Allis clamps and at this point, we performed digital rectal examination and in doing so, we were able to palpate just at the tip of my finger the stent. I also used a rigid sigmoidoscope to visualize this and then I was able to finally grasp and pull the metallic stent out through the rectum. We then closed the fascia around the colostomy site using interrupted 2-0 Vicryl sutures to prevent any herniation. We then matured the colostomy in a standard fashion using 0 PDS suture to attach it to the fascia and then 2-0 and 3-0 Vicryl suture to alexi the edges of the colostomy. Once this was completed, I then replaced the scope within the peritoneal cavity. We explored the abdomen and copiously irrigated to assure there was no bleeding or any leak. I did check the rectal stump as well while we were doing this and there was no evidence of any more tumor or problems noted. We also prior to removing the stent, I did open the colon specimen and then inspected the area of the tumor just to assure that we had taken out the correct segment of bowel. Following all this, the insufflation was stopped. The air was released. The trocars were removed. The umbilical fascia was closed using the two previously placed 0 Vicryl sutures plus two additional 0 Vicryl sutures. The wounds were injected with 0.5% Marcaine and then closed using 4-0 Monocryl subcuticular stitches. The patient tolerated the procedure well, [place] [address] OPERATIVE REPORT Name: DARIEL CARNEY Room: [address]#: [id number] Admission: 01/02/18 Attend Phys: Twan Steele, Discharge: 01/20/18 Date of : 32 Report #: [id number] room in stable condition. Sponge, needle and instrument counts were all correct x 3. <ELECTRONICALLY SIGNED> By: Mohamud Gonzales DO 01/20/18 1657 1627 [id number] Gonzales DO /nt
--- NOTE | 2018-02-26 14:53 | PATH ---
[address] [address] PATHOLOGY RPT PROCEDURE Name: DARIEL RENTERIA Room: [address] IN .R.#: [id number] Admission: 01/02/18 Date of : 32 Discharge: 01/20/18 Report #: [id number] Path Case #: [id number] [facility] Accession Number: [id number] . 01 Material submitted: . SIGMOID COLON WITH STENT . 01 Clinical history: . Colon cancer . 02 Diagnosis: Sigmoid colon with stent, resection: - Adenocarcinoma, moderately differentiated. - Twenty two lymph nodes negative for carcinoma (0/22). - Diverticulosis. - See comment. (MAP:[facility]; 01/20/2018) . . Surgical Pathology Cancer Case Summary . COLON AND RECTUM: Resection . Procedure ___ Not specified . Tumor Site ___ Sigmoid colon . Tumor Size Greatest dimension (centimeters): 5.3 cm . Macroscopic Tumor Perforation ___ Not identified . Histologic Type ___ Adenocarcinoma . Histologic Grade ___ G2: Moderately differentiated . Tumor Extension ___ Tumor invades through the muscularis propria into pericolorectal tissue . Margins ___ All margins are uninvolved by invasive carcinoma, high-grade dysplasia, intramucosal adenocarcinoma, and adenoma (please see comment regarding stapled resection margin). [place] [address] PATHOLOGY RPT PROCEDURE Name: DARIEL RENTERIA Room: [address] IN .R.#: [id number] Admission: 01/02/18 Date of : 32 Discharge: 01/20/18 Report #: [id number] Path Case #: [id number] . Treatment Effect ___ No known presurgical therapy . Lymphovascular Invasion ___ Not identified . Perineural Invasion ___ Not identified . Tumor Deposits ___ Not identified . Regional Lymph Nodes . Number of Lymph Nodes Involved: 0 . Number of Lymph Nodes Examined: 22 . Primary Tumor (pT) ___ pT3: Tumor invades through the muscularis propria into pericolorectal tissues . Regional Lymph Nodes (pN) ___ pN0: No regional lymph node metastasis . . . . QMS/01/20/2018 . 02 Comment: A small focus of dysplastic cells is present in the lumen of the submitted stapled resection margin. These cells are not communicating with the present colonic mucosa. As a result, this is compatible with a negative margin. The stapled margin in the specimen was grossly uninvolved by tumor, and the mass measured 2.4 cm to the stapled margin. Clinical correlation is recommended. . Co-review: Dr. Dawson . (MAP:[facility]; 01/20/2018) . . . 02 Electronically signed: . Wilfred Hall MD, Pathologist NPI- [id number] [place] [address] PATHOLOGY RPT PROCEDURE Name: DARIEL RENTERIA Room: [address]#: [id number] Admission: 01/02/18 Date of : 32 Discharge: 01/20/18 Report #: [id number] Path Case #: [id number] . 01 Gross description: . The specimen is received in formalin, labeled "Dariel Renteria, sigmoid colon with stent". Received is an unoriented segment of colon measuring 29.8 cm in length and ranges in diameter from 3.2 to 7.8 cm. One margin is stapled closed and the opposite margin is opened. The serosal surface is pale buckley to pink-roach in appearance, with tattooing present near the stapled margin. There is a linear transmural defect measuring 7.8 cm in length near the stapled margin. The attached pericolic fat measures up to 3.9 cm in thickness. The specimen is opened along the antimesenteric line and placed into formalin admixed with a lymph node enhancement solution prior to sectioning. . After overnight fixation, further opening of the specimen reveals a circumferential light buckley to buckley-brown, focally ulcerated mass measuring 5.3 x 4.9 cm, which is 2.4 cm from the stapled margin and 17.2 cm from the opened margin. The mass is causing a 90% occlusion of the colonic lumen. The opposing serosal and fatty surfaces are inked black and the mesenteric margin opposite the mass is inked blue. Sectioning reveals the mass to grossly extend through the muscularis propria into the underlying soft tissue displaying a maximum depth of invasion of 1.4 cm, which is 1.3 cm from the mesenteric margin, and appears to grossly abut the inked fatty surface. The remainder of the colonic mucosa is light buckley in appearance with predominantly flattened mucosa with minimal mucosal folding, as well as a single diverticulum. No additional nodules or lesions are noted grossly. Dissection and palpation of the attached pericolic fat reveals 21 readily identifiable lymph nodes ranging in size from 0.4 to 1.3 cm in maximum dimensions, some of which display the presence of tattoo pigment. . Also received within the specimen container is a wire mesh, consistent with a stent, measuring 9.2 cm in length and ranges in diameter from 2.6 to 3.2 cm. The specimen is submitted representatively as follows: . A1 stapled margin, en face A2 opened margin, en face A3-A4 cross section of mass to show maximum depth of invasion and relationship to mesenteric margin (blue ink), bisected A5-A6 sections of mass to show relationship with inked fatty surface (black ink) A7-A9 additional call center support representative sections of mass A10 diverticulum A11 uninvolved mucosa A12-A13 intact lymph nodes A14-A18 two bisected lymph nodes in each cassette, differentially inked A19-A20 one trisected lymph node in each cassette. . Gross photographs are taken. ([facility]; 01/15/2018) [facility] [address] PATHOLOGY RPT PROCEDURE Name: DARIEL RENTERIA Room: [address] IN M.R.#: [id number] Admission: 01/02/18 Date of : 32 Discharge: 01/20/18 Report #: [id number] Path Case #: [id number] . 02 Pathologist provided ICD-10: C18.7, K57.32 . 02 CPT . 069104 Specimen Comment: [id number] Specimen Comment: Report sent to , , Specimen Comment: and Dr. GOMEZ. Specimen Comment: A duplicate report has been generated due to demographic updates. Performed at: 01 [facility] [address] [facility] [address], [place] [id number] MD Ahsan Dial MD Phone: [phone] Performed at: 02 [facility] [place] [address] [id number] MD Lisa Hernandez MD Phone: [phone]
== END 2018-01-20 11:07 | DRG 853 ==
LOC: M.ERS 19:38 → M.ICU 20:58 → M.TBA-ER 20:58 → M.ICU 22:47 → M.3W 01-06 17:03 → M.2W 01-08 16:55 → M.ICU 01-13 20:18 → M.3W 01-14 12:19
PROVIDERS: Emergency Medicine Emergency Medical Services; Internal Medicine; Internal Medicine Nephrology; Internal Medicine Pulmonary Disease; Surgery; ADMIT Family Medicine
PROC: 30233N1 Transfusion of Nonautologous Red Blood Cells into Peripheral Vein, Percutaneous Approach (ICD-10-PCS; 2018-01-03)
PROC: 06H03DZ Insertion of Intraluminal Device into Inferior Vena Cava, Percutaneous Approach (ICD-10-PCS; principal; 2018-01-12)
PROC: B54BZZZ Ultrasonography of Right Lower Extremity Veins (ICD-10-PCS; 2018-01-12)
PROC: 0DTN4ZZ Resection of Sigmoid Colon, Percutaneous Endoscopic Approach (ICD-10-PCS; 2018-01-13)
PROC: 0DP Gastrointestinal System, Removal (ICD-10-PCS; 2018-01-13)
PROC: 0DSN4ZZ Reposition Sigmoid Colon, Percutaneous Endoscopic Approach (ICD-10-PCS; 2018-01-13)
DX: A41.51 Sepsis due to Escherichia coli [E. coli] (principal); E43 Unspecified severe protein-calorie malnutrition; J69.0 Pneumonitis due to inhalation of food and vomit; C19 Malignant neoplasm of rectosigmoid junction; N39.0 Urinary tract infection, site not specified; I82.402 Acute embolism and thrombosis of unspecified deep veins of left lower extremity; E87.2 Acidosis; I82.622 Acute embolism and thrombosis of deep veins of left upper extremity; N17.9 Acute kidney failure, unspecified; K92.2 Gastrointestinal hemorrhage, unspecified; D62 Acute posthemorrhagic anemia; G93.40 Encephalopathy, unspecified; D68.59 Other primary thrombophilia; J98.11 Atelectasis; N12 Tubulo-interstitial nephritis, not specified as acute or chronic; E11.40 Type 2 diabetes mellitus with diabetic neuropathy, unspecified; I12.9 Hypertensive chronic kidney disease with stage 1 through stage 4 chronic kidney disease, or unspecified chronic kidney disease; N18.3 Chronic kidney disease, stage 3 (moderate); E11.22 Type 2 diabetes mellitus with diabetic chronic kidney disease; Z51.5 Encounter for palliative care; G89.29 Other chronic pain; M48.00 Spinal stenosis, site unspecified; Z66 Do not resuscitate; B96.20 Unspecified Escherichia coli [E. coli] as the cause of diseases classified elsewhere; R33.9 Retention of urine, unspecified; N50.89 Other specified disorders of the male genital organs; L89.90 Pressure ulcer of unspecified site, unspecified stage; E88.09 Other disorders of plasma-protein metabolism, not elsewhere classified; E87.6 Hypokalemia; Z74.01 Bed confinement status; Z79.899 Other long term (current) drug therapy; Z79.82 Long term (current) use of aspirin; Z68.25 Body mass index [BMI] 25.0-25.9, adult

== ENCOUNTER 2018-01-20 09:49 | Inpatient (IN) | payer MEDICARE, OTHER ==
[~2018-01-20] VITALS: Ht 175.3 cm; Wt 86.5 kg
[2018-01-20] MEDS ORDERED: ELIQUIS5 MG PO (10:22)
[2018-01-20] MEDS ORDERED: NORCO 5-325 TA1 EACH PO (10:23)
[2018-01-20] MEDS ORDERED: MELATONIN5 M1 PO (10:24)
[2018-01-20] MEDS ORDERED: PROTONIX40 M1 PO (10:26)
[2018-01-20] MEDS ORDERED: TRAMADOL 50 MG50 MG PO (10:27)
[2018-01-20] MEDS ORDERED: TRAZODONE HCL50 MG PO (10:27)
[2018-01-20 11:05] VITALS: BP 154/73
--- NOTE | 2018-01-20 11:05 | NUR ---
REPORT RECEIVED FROM Paula COLEMAN RN. PATIENT ADMITTED TO ROOM 324 VIA BED FROM [facility] FOR DX OF ENCEPHALOPATHY. PATIENT'S ADMISSION ASSESSMENT, HISTORY, AND VITALS CHARTED. PATIENT DENIES PAIN. ELLIS AND COLOSTOMY PATENT, COLOSTOMY WITH MUSHY BROWN STOOL IN PLACE. LAP SITES INTACT TO ABDOMEN. NOTED TO HAVE BIALTERAL BUTTOCK PRESSURE ULCERS, PICTURES OBTAINED. HEALING BLISTERS NOTED TO LEFT UPPER THIGH AND HEALING SKIN TEAR NOTED TO LEFT HAND. PATIENT WITH EDEMA NOTED TO LEFT LEG FROM PREVIOUS DVT. NANCY HOSE OFF AT PRESENT TIME DUE TO PATIENT REQUEST. PATIENT ORIENTED TO ROOM AND ENVIRONMENT. FALL PRECAUTIONS IN PLACE. CALL LIGHT WITHIN REACH. WILL CONTINUE WITH PLAN OF CARE.
[2018-01-20] MEDS ORDERED: LANTUS100 UNIT/M SUBQ (12:35)
[2018-01-20] MEDS ORDERED: HUMALOG100 UNIT/1 SUBQ (12:36)
--- NOTE | 2018-01-20 14:18 | NUR ---
Pt admitted to in acute rehab from acute care today. Pt and pt family known to this SW and ARU team due to pt previous stay on rehab. Pt and pt family goal for pt to return home with family at a supervision level. Pt is current with [facility]. DAVID and Dr Mojica met with pt and pt to review team conference summary and plan for pt to continue therapies with plan for team to reassess pt length of stay next Saturday 01/27. Pt and pt in agreement with plan. SW to continue to follow to assist with safe dc planning.
[2018-01-20 16:45] VITALS: BP 135/75
--- NOTE | 2018-01-20 18:59 | NUR ---
PATIENT HAS BEEN A/O X 4, SLIGHTLY FORGETFUL AT TIMES, REORIENTS EASILY. PATIENT HAS DENIED PAIN. PATIENT UP TO CHAIR AFTER PHYSICAL THERAPY, ASSISTED TO BED WITH MALENA LIFT THIS EVENING. SEEN BY PT/OT/ST THIS SHIFT AND PATIENT PARTICIPATED. PATIENT TOLERATING DIET, TAKING SIPS OF THIN LIQUIDS INSTRUCTED BY SPEECH THERAPY. PATIENT'S COLOSTOMY INTACT, NURSE PERFORMS CARE. RHONDA CASEY, NURSE MANAGES. PATIENT REPOSITIONED EVERY 2 [address] C[address] PL[address], Z GUARD APPLIED TO BILATERAL BUTTOCKS, WOUNDS APPEAR TO BE HEALING. PATIENT REFUSING NANCY HOSE THIS SHIFT. HEELS ELEVATED. PATIENT TAKING PILLS WHOLE IN APPLESAUCE. AT BEDSIDE, DID STEP OUT DURING THERAPY SESSIONS. FAMILY IN THIS AFTERNOON ONCE THERAPY SESSIONS FINISHED. PATIENT UTILIZING I.S. AND FLUTTER. FALL PRECAUTIONS IN PLACE. HOURLY ROUNDING COMPLETED. CALL LIGHT WITHIN REACH. WILL CONTINUE WITH PLAN OF CARE.
[2018-01-20 20:13] VITALS: BP 168/75
--- NOTE | 2018-01-21 01:37 | NUR ---
ASSUMED CARE @ 1944-01/20-THU.AWAKE IN BED W/ HOB UP.BED ALARM PUT ON @ 1944. ELLIS IN PLACE & PATENT.COLOSTOMY BAG INTACT.REFUSED K PAD @ THIS TIME.HEELS OFF BED @ 1944.WAFFLE CUSHION ON BUTTOCKS. LEFT EARLY @ 1900.HS MEDS GIVEN WHOLE ONE @ A TIME W/ APPLE SAUCE @ 2114.WANTS TV ON ALL NIGHT & LOUD.TX TO BUTTOCKS APPLIED @ 2199.SEE POSITION CHANGE CHARTING BY NCR OPERATOR.ON HOURLY ROUNDS. NCR OPERATOR DOING ODD HOUR ROUNDS.AWAKENED ONLY TO TURN.
[2018-01-21 04:59] LABS: HEMATOCRIT 25.6 % (42.0-52.0); MCH 25.5 pg (26.0-34.0); MCHC 31.3 g/dL (28.0-37.0); MCV 81.5 fL (80.0-100.0); MPV 9.1 fl. (7.2-11.1); RBC 3.15 mil/uL (4.50-6.00); RDW-CV 19.5 % (10.5-14.5)
[2018-01-21 05:04] LABS: CALCIUM 8.7 mg/dL (8.5-10.1); CREATININE 1.1 mg/dL (0.6-1.3); POTASSIUM 4.1 mmol/L (3.5-5.1)
--- NOTE | 2018-01-21 05:21 | NUR ---
OFFERED PAIN MED DURING NIGHT BUT REFUSED BY PATIENT.AIR OUT FROM COLOSTOMY X2.COLOSTOMY BAG EMPTIED 2X.AT 0200 & 0400-REQUESTED ONE PACKAGE SÁNCHEZ CRACKERS & APPLE JUICE EACH TIME & TAKEN ALL.TOOK ALL APPLE JUICE,PEACHES, SÁNCHEZ CRACKERS ,5% TURKEY SANDWICH & 5% CHIPS HS SNACKS.SLEPT GOOD ALL NIGHT & SLEEPING SINCE 2200.AWAKENED ONLY TO TURN.
[2018-01-21 08:00] VITALS: BP 137/69
--- NOTE | 2018-01-21 12:41 | NUR ---
Nutrition: Pt admitted to rehab unit. RD familiar with pt. Wt in SitScape is 80#, in error - should be 84kg. Wt in lbs is 180. Physician indicated severe PCM - defer. Pt has healing wounds. Pt's insists in orange flavored Chu protein packets - RD ordered. BG 194, alb 2.4, prealb 12.5. H/o colorectal cancer, DM, CKD. Low fiber diet ordered. Increased nutrient needs R/T protein AEB labs above, healing wounds. GOALS: tight BG control, Chu b.i.d., >75% of meals consumed. RD will follow carli on Rehab unit.
--- NOTE | 2018-01-21 18:06 | NUR ---
PT IS TOTAL LIFT TO RECLINER PER PT AND MALENA LIFT USED TO PUT PT BACK TO BED. PT TURNED AND REPOSITIONED Q2 HOURS AND PRN AND LARGE WAFFEL CUSHION PLACED IN BED FOR BUTTOX . WAFFEL CUSHION ALSO IN RECLINER. ELLIS CARE GIVEN AND Z CREAM TO BUTTOX. COLOSTOMY INTACT WITH LARGE LOOSE BROWN BM.PT HAS PARTICIPATED WITH THERAPIES. PT IS ALERT BUT FORGETFULL AND PLESANT. PT HAS STAYED IN DINNINGROOM AND PLAYED CARDS WITH AFTER SUPPER TONIGHT.HOURL;Y ROUNDING CONTINUES.
[2018-01-21 20:15] VITALS: BP 155/83
--- NOTE | 2018-01-22 01:27 | NUR ---
ASSUMED CARES AT 1920. PT ALERT AND ORIENTED X 2. PLEASANT BUT EASILY FORGETFUL. NEEDS MUCH REDIRECTING. TAKES PILLS WHOLE IN APPLESAUCE. PT ASKED NUMEROUS TIMES FOR MULTIPLE SNACKS AND SO THESE WERE GIVEN. PT VERY RESTLESS AND DIFFICULT TO SLEEP DESPITE TRAZODONE GIVEN EARLIER. TYLENOL GIVEN JUST NOW FOR BACK PAIN AND TO AID WITH SLEEP. WILL YELL OUT FOR HELP AT TIMES DESPITE CALL LIGHT AT SIDE. PT REEDUCATED ON USE OF CALL LIGHT. WILL CONTINUE TO MONITOR.
--- NOTE | 2018-01-22 03:25 | NUR ---
AT 0200, PT SAT UP ONTO SIDE OF BED AND ATTEMPTED TO GET UP SETTING OFF BED ALARM. PT EDUCATED AGAIN ABOUT NOT GETTING UP AND TO CALL FOR ASSIST. PT C/O BEING "LOCKED IN BED" AND WANTED TO SIT UP FOR FEW MINUTES BEFORE LAYING BACK DOWN. GETS EASILY UNCOMFORTABLE IN BED. ASSISTED WITH REPOSITIONING MULTIPLE TIMES. PT FINALLY ASLEEP AT THIS TIME. CALL LIGHT AT SIDE AND BED ALARM ON. WILL MONITOR.
--- NOTE | 2018-01-22 05:40 | NUR ---
PT SLEPT VERY LITTLE. TRAMADOL GIVEN FOR C/O BACK PAIN. LLE EDEMA. LEGS UP INTO PILLOWS. COLOSTOMY INTACT WITH LARGE AMOUNT SOFT BROWN STOOL. ELLIS CATHETER DD YELLOW URINE. ZGUARD CREAM APPLIED TO BUTTOCKS. PT SLEEPING AT THIS TIME. CALL LIGHT IN REACH AND BED ALARM ON.
[2018-01-22 07:58] VITALS: BP 141/70
--- NOTE | 2018-01-22 17:39 | NUR ---
PT ALERT AND ORIENTED X 2-3. TYLENOL GIVEN FOR GENERALIZED PAIN @ 1404. PARTICIPATION WITH THERAPIES. UP WITH OT FOR SHOWER IN AM. TRANSFER WITH MOD ASSIST X 1-2. TOLERATED DIET WELL. COLOSTOMY IN PLACE WITH SOFT, BROWN STOOL NOTED. ELLIS CATHETER IN PLACE. AT BEDSIDE DURING SHIFT. VS STABLE. ALARM IN PLACE. HOURLY ROUNDS MAINTAINED. CALL LIGHT WITHIN REACH.
[2018-01-22 20:13] VITALS: BP 132/79
--- NOTE | 2018-01-23 01:28 | NUR ---
ASSUMED CARE @ 1939-01/22-THURSDAY.AWAKE IN BED W/ HOB UP WATCHING BALL GAME.LADY FAMILY FRIEND VISITED PATIENT & PRAYED FOR PATIENT.BED ALARM PUT ON @ 1939. WAFFLE CUSHION UNDER BUTTOCKS.REFUSED K PAD @ THIS TIME.COLOSTOMY INTACT. TOOK ALL HS MEDS WHOLE ONE @ A TIME W/ APPLE SAUCE FOLLOWED W/ SIPS OF H20. DAUGHTER VISITED & LEFT @ 2099.GRAND DAUGHTER VISITED & LEFT @ 2299.TOOK ONE PACKAGE SÁNCHEZ CRACKERS W/ PEANUT BUTTER & 50% APPLE JUICE @ 2199 & 2299 W/ RN ASSISTING.Z GUARD OINT.APPLIED TO BUTTOCKS @ 0000.ALREADY SNORING @ 2349. SEE POSITION CHANGE CHARTING BY BUNCHER OPERATOR.ON HOURLY ROUNDS.BUNCHER OPERATOR DOING ODD HOUR ROUNDS.
--- NOTE | 2018-01-23 05:12 | NUR ---
SLEPT GOOD ALL NIGHT & SLEEPING SINCE 2349.COLOSTOMY BAG EMPTIED OF AIR X2.COLOSTOMY BAG EMPTIED X1 W/ MODERATE,LOOSE STOOLS @ 0330.DENIES ANY PAIN DURING NIGHT.TOOK ALL PEACHES,SÁNCHEZ CRACKERS & APPLE JUICE HS SNACKS. CALLED @ 0330-TO CHANGE SHIRT TO HOSP.GOWN & ASSISTED.TO CHANGE ELLIS TUBING W/ BAG @ 0600.
[2018-01-23 07:00] VITALS: BP 173/78
--- NOTE | 2018-01-23 16:35 | NUR ---
PT ALERT AND ORIENTATED BUT CAN BE FORGETFULL. PT OFTEN ASKS FOR ASSIST WITH SMALL TASKS FROM AND IS REMINDED TO TRY FOR SELF. PT HAS BEEN UP TO W/C WITH THERAPY REPORTING NEED OF TOTAL LIFT. PT RESRS IN BED NOW BUT WILL BE UP FOR SUPPER WITH USE OF MALENA LIFT. PRN FOR BACK PAIN GIVEN THIS AM WITH GOOD EFFECT.PT HAS INCREASED BG'S AT LUNCH WITH SC INSULIN COVERAGE GIVEN. PT EATS MEALS WELL WITH GOOD SOFT BROWN STOOL NOTED FROM COLOSTOMY. ELLIS TO DD WITH CLEAR YELLOW URINE PRESENT. PT TURNED OFF BUTTOX IN BED WITH Z-CREAM APPLIED TO OPEN AREAS OF BUTTOX.WAFFEL CUSHION IN CHAIR.PT ALSO REPOSITIONED WHEN IN CHAIR. PT PROGRESSES TOWARDS GOALS ,IS ABLE TO LIFT LEGS FOR REPOSITIONING REQUESTED. HOURLY ROUNDING CONTINUES.
[2018-01-23 20:00] VITALS: BP 159/78
--- NOTE | 2018-01-24 01:36 | NUR ---
ASSUMED CARE @ 1924-01/23-SAT.AWAKE IN BED W/ HOB UP. & DAUGHTER @ BEDSIDE. REFUSED K PAD.COLOSTOMY IN PLACE.EACH LE UP ON A PILLOW ALREADY @ 1924. DAUGHTER RAUL STAYED.PER DAUGHTER -PATIENT COMPLAINS OF ITCHY SCALP @ 2044. NURSE WASHED PT'S HAIR W/ WASHCLOTH @ 2044.LATER RAUL SUGGESTED APPLYING COCONUT OIL TO SCALP & DONE @ 2124.RAUL LEFT @ 2199.AFTER DAUGHTER LEFT, PATIENT BECAME MORE RESTLESS.SHOUTS HELP X4.GEAR TOOTH GRINDING MACHINE OPERATOR LIGHT MANY TIMES TO TURN TV ON,THEN TURN TV OFF & BEING NOT COMFORTABLE.PATIENT CLAIMS."I WANT TO SLEEP BUT I CANNOT SLEEP".PRN MELATONIN 5 MG ORAL GIVEN @ 2313.WANTS PEACHES,SO GIVEN AGAIN 2ND TIME @ 0035 & ATE ALL.SNORING @ 99-01/24-SUN.ON HOURLY ROUNDS.EDEMA-+1 PITTING LEFT LEG,LEFT ANKLE & LEFT FOOT,SCROTUM & PENIS.SEE POSITION CHANGE CHARTING.
--- NOTE | 2018-01-24 05:23 | NUR ---
SNORING @ 0100 & 0300.SLEPT FROM 0100 TO 0400.AWAKE @ 0400 & ASKED FOR SNACKS. ATE ALL SÁNCHEZ CRACKERS ONE PACKAGE W/ PEANUT BUTTER & APPLE JUICE . CALLED @ 0445.COLOSTOMY EMPTIED OF AIR X1.COLOSTOMY EMPTIED X3 W/ MODERATE BM'S X3.TOOK ALL ONE PACKAGE Sánchez crackers w/ PEANUT BUTTER ,PEACHES & APPLE JUICE HS SNACKS.SCANTY BLEEDING FROM URETHRAL MEATUS NOTED @ 0500 FROM PULLING CATHETER W/ RIGHT LEG MOVEMENT.FADIA CARE GIVEN.
[2018-01-24 09:30] VITALS: BP 171/78
--- NOTE | 2018-01-24 16:45 | NUR ---
PT UP TO W/C LATE AM WITH ASSIST OF LIFT AND 2. PT BATHED AND DRESSED,PT ABLE TO WASH FACE AND OVER CHEST WHEN ASKED TO DO SO. COLOSTOMY INTACT WITH SOFT LIGHT BROWN STOOL PRESENT. ELLIS TO DD WITH STAT LOCK CHANGED AND CARE TO PENIS GIVEN. URINE IS CLEAR YELLOW IN LARGE AMOUNT. PT FEEDS SELF AFTER TRAY PREPED AND REQUESTS FREQUENT SNACKS OF GRAMCRACKERS,OR PUDDING. PT IS ALERT BUT CAN BE FORGETFULL AND NEEDS REORIENTATION. HERE AND ASSISTS PT NEEDS.CARE TO BUTTOX AND PICTURE TAKEN THIS AM. OLD SCABS TO LT THIGH RESOLVED AND HEALED. SCAB TO LT HAND DRY AND INTACT. OLD SURGICAL PUNCTURE SITES WITH OPSITE OVER STERISTRIPS INTACT. CALL AND ORDERS PLACED TO HEMATOLOGY PLACED WITH NO RETURN CALL YET.HOURLY ROUNDING CONTINUES.
[2018-01-24 19:45] VITALS: BP 142/66
--- NOTE | 2018-01-25 01:21 | NUR ---
ASSUMED CARE @ 1934-01/24-THURSDAY.AWAKE IN BED W/ HOB UP WATCHING TV.COLOSTOMY IN PLACE.EACH LE UP ON A PILLOW ALREADY @ 1934.BED ALARM PUT ON @ 1934.ALL HS MEDS GIVEN WHOLE ONE @ A TIME W/ APPLE SAUCE @ 2019.C/O RIGHT LEG DISCOMFORT.EXERCISES DONE TO RIGHT LEG,RIGHT ANKLE & RIGHT TOES @ 2329. VERBALIZED WANTING TO SLEEP @ 2329.PRN MELATONIN 5 MG ORAL GIVEN @ 2330. SLEEPING @ 109-01/25-THURSDAY.ON HOURLY ROUNDS.MICA LAYER DOING ODD HOUR ROUNDS. SEE POSITION CHANGE CHARTING BY MICA LAYER Q 2 HOURS-EVEN HOURS.
[2018-01-25 04:27] LABS: CALCIUM 8.2 mg/dL (8.5-10.1); CREATININE 1.2 mg/dL (0.6-1.3); POTASSIUM 3.8 mmol/L (3.5-5.1)
[2018-01-25 04:32] LABS: HEMOGLOBIN 8.2 gm/dL (14.0-18.0); MCH 25.9 pg (26.0-34.0); MCHC 31.6 g/dL (28.0-37.0); MCV 81.9 fL (80.0-100.0); MPV 9.4 fl. (7.2-11.1); NUCLEATED RBCS 0 /100WBC; PLATELET COUNT* 211 thou/uL (150-400); RBC 3.17 mil/uL (4.50-6.00); RDW-CV 20.4 % (10.5-14.5); WBC 14.4 thou/uL (4.0-11.0)
--- NOTE | 2018-01-25 05:40 | NUR ---
STILL SLEEPING @ 0540.COLOSTOMY BAG EMPTIED OF GAS X1.COLOSTOMY EMPTIED OF SMALL AMOUNT STOOLS X1 @ 2200.TOOK ALL PEACHES,APPLE JUICE & ONE PACKAGE SÁNCHEZ CRACKERS W/ PEANUT BUTTER HS SNACKS.GIVEN SÁNCHEZ CRACKERS ONE Package W/ PEANUT BUTTER X3 MORE @ DIFFERENT TIMES DURING NIGHT.VERBAL CUES GIVEN TO TAKE ONLY SIPS LIQUIDS.NO BLEEDING NOTED FROM URETHRAL MEATUS.
[2018-01-25 06:58] LABS: ABSOLUTE EOSINOPHILS 0.3 thou/uL (0.0-0.7); ABSOLUTE LYMPHOCYTES 11.8 thou/uL (0.8-5.3); ABSOLUTE MONOCYTES 0.3 thou/uL (0.0-1.2); ATYPICAL LYMPHS 55 %
[2018-01-25 06:59] LABS: HYPOCHROMASIA 3+
[2018-01-25 07:00] LABS: MICROCYTES 2+
[2018-01-25 07:02] LABS: ANISOCYTOSIS 2+; PLATELET ESTIMATE ADEQUATE; TARGET CELLS Occasional
[2018-01-25 07:03] LABS: SCHISTOCYTES Occasional
[2018-01-25 08:45] VITALS: BP 133/76
--- NOTE | 2018-01-25 14:31 | NUR ---
ASSUMED CARE AT 0730. ALERT ORIENTED PLEASANT COOPERATIVE. HX OF SIGMOID COLECTOMY HAS FUNCTIONAL COLOSTOMY WITH SOFT SEMIFORMED BROWN BM IN POUCH EMPTIED X 2. HAS HAD QUITE A BIT OF GAS IN POUCH. ELLIS PATENT WITH LIGHT LEONA URINE IN DD BAG. CONSULTED DR. COLEMAN UROLOGY TO CHANGE ELLIS # 18 SRI LANKAN INSERTED AT 1250 WITHOUT DIFFICULTY. BUTTOCKS CLEANSED WITH WOUND CLEANSER AND OINTMENT APPLIED TO OPEN AREAS. HAS BEEN PARTICIPATING IN THERAPIES. MEDICATED X 1 WITH TYLENOL FOR C/O BACK PAIN BEFORE THERAPIES. FEEDS SELF AND TAKES MEDS WITH APPLESAUCE WITHOUT DIFFICULTY. TRANSFERS WITH THE MECHANICAL LIFT FROM W/C TO BED.
[2018-01-25 17:15] VITALS: BP 167/76
--- NOTE | 2018-01-25 17:19 | NUR ---
HOURLY ROUNDING COMPLETED. PT. UP IN W/C AND VISITING WITH AFTER 1500.
[2018-01-25 20:08] VITALS: BP 169/84
--- NOTE | 2018-01-26 05:09 | NUR ---
ASSUMED CARES AT 1920. ALERT AND ORIENTED X 2. PLEASANT BUT RESTLESS. CAN BE FORGETFUL AT TIMES. PILLS WHOLE IN APPLESAUCE. COLOSTOMY BAG INTACT WITH SOFT LIQUID STOOL. ELLIS CATHETER DD YELLOW URINE. LEGS UP ONTO PILLOWS. INITIALLY WAS RESTLESS IN BED AND NEEDED REPOSITIONING, ASKING FOR SNACKS. FINALLY ABLE TO SLEEP WELL AFTER 0. NO OTHER ISSUES. CALL LIGHT IN REACH AND BED ALARM ON.
--- NOTE | 2018-01-26 11:02 | NUR ---
SW met with pt in preparation for team conference tomorrow. Pt said she is hopeful for pt progress and she would want pt to be able to continue therapies as long as possible. Pt said she is very pleased with [facility] and also Rene had followed up with pt/pt . SW also discussed pt AD/DPOA and will receive copy of document for pt medical record. SW to continue to follow to assist with safe dc planning.
--- NOTE | 2018-01-26 15:12 | NUR ---
ASSUMED CARE CARE AT 073O. ALERT ORIENTED PLEASANT COOPERATIVE. HX OF SIGMOID COLLECTOMY AND FUNCTIONING COLOSTOMY. PT. IS UP IN W/C AT BEDSIDE WORKING WITH O.T. AND EATING BREAKFAST FEEDS SELF APPETITE GOOD TAKES MEDS WITH APPLESAUCE ONE AT A TIME. PT. IS PARTICIPATING IN THERAPIES TODAY. PT. ELLIS PATENT WITH CLEAR YELLOW URINE TO DD BAG. MEDICATED WITH PO TYLENOL FOR C/O ABDOMINAL DISCOMFORT. AND DAUGHTER IN LAW HAVE BEEN HERE TO VISIT TODAY. TRANSFERS WITH MECHANICAL LIFT DUE TO BACK ISSUES STENOSIS.
[2018-01-26 17:47] VITALS: BP 178/86
[2018-01-26 20:00] VITALS: BP 173/82
--- NOTE | 2018-01-27 05:16 | NUR ---
ASSUMED CARES AT 1920. ALERT AND ORIENTED. PLEASANT. WAS VERY UNCOMFORTABLE IN BED EARLY IN NIGHT. NEEDED MUCH REPOSITIONING. TYLENOL GIVEN AND ALSO OFFERED TRAMADOL FOR BACK PAIN BUT PT REFUSED. TAKES PILLS WHOLE IN PUDDING. SNACKS GIVEN PER REQUEST. THIGH TEDS REMOVED. BLE EDEMA, MORE IN LEFT LEG THAN RIGHT. LEGS UP ONTO PILLOWS. COLOSTOMY INTACT WITH SOFT UNFORMED STOOLS AND GAS. EMPTIED X 2. ELLIS CATHETER DD YELLOW URINE. ZGUARD TO BOTTOM. FINALLY SETTLED DOWN AND SLEPT AFTER 0100. CALL LIGHT IN REACH AND BED ALARM ON.
[2018-01-27 08:00] VITALS: BP 150/70
--- NOTE | 2018-01-27 15:36 | NUR ---
DAVID and Dr Mojica met with pt to review team conference summary. Plan for pt to remain on rehab unit at least another week with plan for pt to continue therapies and for team to reteam next Thursday to reassess pt length of stay. DAVID met with pt Poppy to review team conference summary and planning; pt was emotional about length of time needed for pt to continue rehab and also said she is going to ask Dr Mojica about the possibility for pt to go to his granddtrs wedding a week from Thursday. DAVID to continue to follow to assist with safe dc planning.
--- NOTE | 2018-01-27 15:46 | HEMONC ---
[address] [address] HEMATOLOGY ONCOLOGY NOTE Name: DARIEL CARNEY Room: [address] IN [facility].#: [id number] Admission: 01/20/18 Attend Phys: Elinor Mojica DO Discharge: Date of : 32 Report #: [id number] THIS REPORT FOR: //name// CC: Isauro Mojica DATE OF SERVICE: 01/25/2018 DIAGNOSIS: Invasive adenocarcinoma of the colon. SUBJECTIVE: The patient was admitted to the rehab on 01/21/2018 after he recovered from UTI sepsis, gastrointestinal bleed and a DVT. The patient underwent surgery and he is admitted to rehab for PT and OT. I reviewed his medical records and discussed with the nurse. Pathology is still not available at this point. However, I discussed with the family, including daughter, the patient and the previously due to his poor performance status, most likely the patient is not a candidate of adjuvant chemotherapy. REVIEW OF SYSTEMS: All systems were reviewed. It was negative, except the above. PAST MEDICAL HISTORY: Recent diagnosis of colon cancer, urosepsis, diabetes mellitus and DVT at the left lower extremity, status post IVC filter. PAST SURGICAL HISTORY: As mentioned in the previous consult. ALLERGIES: No known allergies. MEDICATIONS: Per admission list. SOCIAL HISTORY: No smoking, no alcohol abuse, no drug abuse. FAMILY HISTORY: Noncontributory. PHYSICAL EXAMINATION: VITAL SIGNS: Today, temperature is 36.8, pulse 65, respirations 18, blood pressure is 133/73 and SpO2 is 98% on room air. GENERAL: The patient was sitting in a chair, was not in acute distress. LUNGS: Clear to auscultations bilaterally. HEART: Regular rate and rhythm, S1, S2 within normal limits. ABDOMEN: Soft, nontender and nondistended. Bowel sounds positive. LABORATORY DATA: Today, WBC is 14.4, hemoglobin 8.2 and platelets 212,000. Sodium is 142, creatinine 1.2, calcium is 8.2. Previous CEA on 12/12/2017 was 4.[address]. [place] [address] HEMATOLOGY ONCOLOGY NOTE Name: DARIEL CARNEY Room: [address] IN [facility]#: [id number] Admission: 01/20/18 Attend Phys: Elinor Mojica DO Discharge: Date of : 32 Report #: [id number] ASSESSMENT AND PLAN: An 87-year-old male who was diagnosed with adenocarcinoma based on biopsy. The patient underwent surgery; however, pathology is not available at this point. I would like to wait for his pathology. However, I obtained a CT scan of the chest previously, which showed no evidence of metastatic disease in the chest. CT abdomen also did not reveal any liver metastases. We will follow the patient based on his pathology report. <ELECTRONICALLY SIGNED> By: Chi Flynn MD 01/27/18 1546 [id number] Flynn MD /tali
--- NOTE | 2018-01-27 16:37 | NUR ---
AM ASSESSMENT AND VITAL SIGNS COMPLETED DOCUMENTED. PT TRANSFERRED FROM BED TO WHEELCHAIR WITH A MALENA LIFT TODAY. BARIATRIC WAFFLE CUSHION HAS BEEN KEPT UNDER PT AT ALL TIMES PER HIS 'S REQUEST. ZGUARD APPLIED TO COCCYX TWICE THIS SHIFT. PT HAS A VERY GOOD APPETITE AND REQUESTS FREQUENT SNACKS BETWEEN MEALS. MODERATE SOFT BROWN STOOL EMPTIED FROM THE COLOSTOMY, 350 CC'S OF LIGHT YELLOW URINE EMPTIED FROM CATHETER. PRN TRAMADOL GIVEN PRIOR TO THERAPY. FALL PRECAUTIONS, HOURLY ROUNDING AND FREQUENT REPOSITIONING CONTINUE.
[2018-01-27 19:45] VITALS: BP 189/91
--- NOTE | 2018-01-28 00:43 | NUR ---
ASSUMED CARE @ 1914-01/27-THU.FOUND SITTING EDGE OF BED.ASSISTED TO LIE BACK IN BED W/ HOB UP.WAFFLE CUSHION IN BED UNDER BUTTOCKS.ELLIS CATHETER IN PLACE. COLOSTOMY INTACT.BED ALARM PUT ON @ 1914.HEELS OFF BED @ 1914.REFUSED K PAD. HS DOSE DESYREL 50 MG GIVEN EARLY @ 1918.TOOK OFF SHIRT BY SELF.WANTS ONLY HOSP.GOWN ON TOP OF HIS BODY.THIGH HIGH TEDS OFF @ 1949.QUIET & CALM AFTER ONE HOUR OF DESYREL INTAKE @ 2019.HS MEDS TAKEN WHOLE ONE @ A TIME W/ ULISES.PUDDING @ 2099-FOLLOWED W/ SIPS OF H20.ON HOURLY ROUNDS.SEE POSITION CHANGE CHARTING. HALF ASLEEP @ 0000-01/28-THURSDAY.SNORING @ 0040.
--- NOTE | 2018-01-28 05:17 | NUR ---
COLOSTOMY EMPTIED W/ GAS X1.COLOSTOMY EMPTIED W/ STOOLS X2.SLEEPING SINCE 39 & SNORING @ 39.TOOK ALL APPLE JUICE W/ TWO MINI CINNAMON ROLLS HS SNACKS.SLEPT GOOD & SLEEPING/SNORING SINCE 39-01/28-THURSDAY.
[2018-01-28 06:00] VITALS: BP 176/86
--- NOTE | 2018-01-28 06:31 | NUR ---
BP @ 1944-.BP RE-CHECKED @ 599-.COLOSTOMY EMPTIED OF SMALL,SOFT STOOL 3RD TIME @ 0600.
[2018-01-28 08:26] VITALS: BP 189/92
--- NOTE | 2018-01-28 19:01 | NUR ---
PT UP TO W/C PER MALENA LIFT AND IS ABLE TO PUSH SELF TO DINNINGROOM IN W/C WITH ENCOURAGEMENT FROM .. PT ALERT AND GENERALLY ORIENTATED AND ABLE TO VOICE NEEDS. PAIN CONTROLLED WITH USE OF TYLENOL AND TRAMADOL TODAY.ELLIS TO DD WITH CLEAR YELLOW URINE NOTED. COLOSTOMY WITH SOFT FORMED STOOL PRESENT. BILAT NANCY HOSE ON TODAY. PT IS TURNED AND REPOSITIONED WHEN INBED AND REPOSITIONED WHEN IN CHAIR.Z-CREAM TO BUTTOX. PT PROGRESSES TOWARDS GOALS AND HOURLY ROUNDING CONTINUES.
[2018-01-28 20:50] VITALS: BP 167/78
--- NOTE | 2018-01-29 00:28 | NUR ---
ASSUMED CARE @ 1919-01/28-.APPEARS SLEEPING IN BED W/ HOB UP.ELLIS CATHETER-PATENT.COLOSTOMY BAG INTACT.BED ALARM PUT ON @ 1919.DAUGHTER VISITING & LEFT @ 2199.HEELS OFF BED @ 2049.ALL HS MEDS TAKEN WHOLE ONE @ A TIME W/ ULISES.PUDDING @ 2039.WANTS APPLE SAUCE & APPLE JUICE @ 2299 & TAKEN ALL.ON HOURLY ROUNDS.SEE POSITION CHANGE CHARTING.AT 56-[id number]-UELMPDA TURNED OFF TV & READY FOR SLEEP.REFUSED PRN MELATONIN WHEN OFFERED @ 29.
--- NOTE | 2018-01-29 05:34 | NUR ---
SLEEPING ALREADY @ 1919-01/28-.AWAKE FROM 1999 TO 2299.SLEPT SINCE - 01/29-THURSDAY.TOOK ALL ULISES.PUDDING,APPLE JUICE,ALMOND NUTS,CHEESE CUBES, TURKEY CUBES & POPCORN HS SNACKS.COLOSTOMY BAG EMPTIED OF GAS X1.COLOSTOMY BAG EMPTIED OF MOD BM @ 0400.
[2018-01-29 07:56] VITALS: BP 141/66
[2018-01-29 17:30] VITALS: BP 158/83
--- NOTE | 2018-01-29 18:27 | NUR ---
PT IS ALERT AND GENERALLY ORIENTATED, BUT CAN BE FORGETFULL. PT PUSHES SELF TO DINNINGROOM AND BACK TO ROOM TODAY PER W/C USEING ARMS AND FEET.BACK PAIN CONTROLLED TODAY WITH USE OF SCHEDUALED TYLENOL AND TRAMADOL. PT IS REPOSITIONED WHEN UP TO CHAIR. PT DID ASSIST OT WITH EMPTING COLOSTOMY THIS AFTERNOON BY HOLDING GRADUATE UNDER BAG. AND PT REMINDED THEY NEED TO EMPTY COLOSTOMY AND CHANGE BAG NEEDED FOR HOME.ELLIS TO DD WITH CLEAR YELLOW URINE PRESENT. ELLIS CARE AND Z-CREAM APPLIED TO BUTTOX WITH OPEN AREAS APPEAR TO BE HEALING.PT PROGRESSES TOWARDS GOALS AND HOURLY ROUNDING CONTINUES.
[2018-01-29 20:00] VITALS: BP 146/73
--- NOTE | 2018-01-30 05:11 | NUR ---
ASSUMED CARE AT 1930. IN W/C UNTIL AROUND 2199. FAMILY VISITED UNTIL 2144. TRANSFERRED VIA MALENA LIFT, TWO PEOPLE FOR SAFETY. NANCY HOSE REMOVED AT HS. SKIN CARE DONE TO BUTTOCKS AND ZCREAM APPLIED. TAKES PILLS WHOLE IN APPLESAUCE. ASSISTS WITH TURNS BY USING ARMS TO PULL ON SIDE RAILS. TURNED Q2H. RETURNS TO SLEEP IMMEDIATELY AFTER TURNING, AND HAS BEEN OBSERVED SLEEPING WITH SNORING RESPS ALL NIGHT AFTER GOING TO BED. ELLIS DRAINING LEONA URINE. COLOSTOMY HAS SOFT STOOL. DENIES PAIN. HOURLY ROUNDS CONTINUE. BED ALARM ON. CALL LITE IN REACH.
[2018-01-30 08:00] VITALS: BP 132/72
--- NOTE | 2018-01-30 17:55 | NUR ---
SHIFT NOTE - STAYED WITH PT FOR MOST OF THIS SHIFT. PT PARTICIPATED IN ALL THERAPIES TODAY. EMPTYED COLOSTOMY BAG WITH SUPERVISION. MINIMAL INSTRUCTIONS GIVEN. ELLIS TO DD. PT UP IN WC FOR MOST OF SHIFT WITH OFF-LOADING TO SIDE TO SIDE THROUGOUT SHIFT. WILL CONTINUE TO MONITOR.
[2018-01-30 20:30] VITALS: BP 174/88
--- NOTE | 2018-01-31 05:08 | NUR ---
ASSUMED CARES AT 1920. ALERT AND ORIENTED. PLEASANT. DAUGHTER AT BEDSIDE. PT WAS UP IN RECLINER. DENIED ANY NEED FOR PAIN MEDS. TAKES PILLS WHOLE IN APPLESAUCE. ELLIS CATHETER DD YELLOW URINE. COLOSTOMY WITH MODERATE AMOUNT SOFT BROWN STOOL. STAYED UP IN RECLINER UNTIL 0. MAX ASSIST X 2 PERSON WITH MALENA LIFT INTO BED. PT SLEPT WELL WITHOUT ANY ISSUES. CALL LIGHT IN REACH AND BED ALARM ON.
[2018-01-31 08:00] VITALS: BP 166/72
--- NOTE | 2018-01-31 17:07 | NUR ---
OSTOMY NURSE- PATIENT TRANSFERRED FROM ACUTE CARE TO ACUTE INPATIENT REHAB UNIT LAST WEEK. SPOKE TO NURSES EARLIER IN WEEK TO REINFORCE PATIENT AND INVOLVEMENT IN COLOSTOMY CARE AND DETERMINE IF ANY ISSUES (LEAKAGE, ETC.) - WITH NONE NOTED. NURSES ADVISED TO CALL IF QUESTIONS OR ISSUES, OTHERWISE DID NOT PLAN TO FOLLOW-UP. HERE IN HOSPITAL TO SEE ANOTHER PATIENT, SO STOPPED IN TO CHECK ON PATIENT. HE IS UP IN WHEELCHAIR, MUCH MORE ALERT & INTERACTIVE. BARRIER THAT I HAD APPLIED ON 01/[address], APPEARS THAT NURSES MAY HAVE BEEN CHANGING POUCH ONLY IN INTERIM. REINFORCED TO PATIENT, & NURSES THAT BARRIER AND POUCH SHOULD BE CHANGED TWICE A WEEK AND NEEDED. PATIENT AND CHANGED POUCH WITH MINIMAL STANDBY ASSISTANCE. REINFORCED THAT PATIENT SHOULD CALL FOR ASSISTANCE WITH EMPTYING POUCH WHEN 1/3 TO 1/2 FULL, AND CHANGE POUCH WITH ASSISTANCE TWICE A WEEK (INCLUDING REMOVING BARRIER AND CLEANSING SKIN). PATIENT HAS SUPPLIES & INSTRUCTIONS AT BEDSIDE, AND HAD RECEIVED Mine SECURE STARTS KIT AT HOME. WILL NEED HOME HEALTH ON DISCHARGE. COLOSTOMY STOMA LLQ REMAINS PINK, MOIST WITH EDEMA RESOLVING. MUCOCUTANEOUS INCISION WELL APPROXIMATED, HEALING WELL. PERISTOMAL SKIN INTACT, AND SMALL AREA OF MEDICAL ADHESIVE RELATED SKIN INJURY TO LEFT ABDOMEN NOW COMPLETELY HEALED. OSTOMY NURSE WILL FOLLOW-UP PRN, IF PROBLEMS. NURSES TO REINFORCE PATIENT AND INVOLVEMENT IN OSTOMY CARE.
--- NOTE | 2018-01-31 18:53 | NUR ---
SHIFT NOTE - OSTOMY NURSE CHANGED ENTIRE APPLICANCE THIS SHIFT. ELLIS TO DD. LIFT USED FOR TRANSFERS. UP IN WC FOR MOST OF SHIFT. FAMILY AT BEDSIDE. WILL CONTINUE TO MONITOR.
[2018-01-31 19:57] VITALS: BP 179/91
--- NOTE | 2018-02-01 05:29 | NUR ---
SLEPT LATE @ 2255 & SLEEPING GOOD ALL NIGHT.COLOSTOMY EMPTIED 2X W/ LARGE BM'S X2.DID NOT EVEN WAKE UP WHEN TURNED @ 0400.TOOK ALL PEACHES W/ APPLE JUICE HS SNACKS.
--- NOTE | 2018-02-01 05:37 | NUR ---
ASSUMED CARE @ 1947-01/31-THURSDAY.SITS IN W/C @ BEDSIDE WATCHING TV.TOOK ALL HS MEDS W/ ULISES.PUDDING.SON-JB VISITING @ 2099 TO 2144.TRansfered TO BED W/ MALENA LIFT W/ 3 PERSONS ASSISTING @ 2199.Z GUARD CREAM APPLIED TO BUTTOCKS @ 2199.SEE POSITION CHANGE CHARTING Q 2 HOURS-EVEN HOURS.HEELS OFF BED & BED ALARM PUT ON @ 2209.AWAKENED ONLY TO TURN.DID NOT EVEN WAKE UP WHEN TURNED @ 0400.TEMP @ 7-99.2 ORAL.TEMP RE-CHECKED @ 0-97.8 ORAL.
[2018-02-01 08:46] VITALS: BP 162/79
--- NOTE | 2018-02-01 10:19 | CON ---
[address] [address] CONSULTATION Name: DARIEL CARNEY Room: [address] IN [facility]#: [id number] Admission: 01/20/18 Attend Phys: Elinor Mojica DO Discharge: Date of : 32 Report #: [id number] THIS REPORT FOR: //name// CC: Isauro Mojica DATE OF SERVICE: 01/20/2018 REASON FOR CONSULTATION: Evaluation and recommendations regarding post-acute rehabilitation in a male known to this service from multiple previous consultations as well as previous hospitalizations. HISTORY OF PRESENT ILLNESS: The patient is status post acute renal failure, dehydration, urinary tract infection with sepsis. He was admitted on 11/07/2017. Multiple medical comorbidities, left leg weakness and pain. He did undergo surgical evaluation and process. He does have a colostomy at this time. He has been feeling much better and participating with physical and occupational therapies. Both physical and occupational therapy as well as nursing staff feel he has made significant improvement and wanted a second look for the possibility of acute inpatient rehabilitation. He does have multiple medical issues that do need to be followed closely. He also has multiple rehabilitation issues that need to be followed closely. 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 REVIEW OF SYSTEMS: A 14-point is done and is negative except as mentioned in HPI, specifically no fever, chest pain, shortness of breath, abdominal pain or distention. ASSESSMENT: Status post acute hospitalization for sepsis, urinary tract infection, multiple medical comorbidities and alterations in activities of daily living. He is status post surgical intervention for his colon cancer sustaining a colostomy. PLAN: Continue with physical and occupational therapy as well as speech and language pathology. If he continues to look as bright and motivated as he is at this time, recommendations would be to pursue acute inpatient rehabilitation to facilitate safe discharge home. We would put him on a low endurance protocol. We will follow. <ELECTRONICALLY SIGNED> By: Elinor Mojica DO 02/01/18 1019 [id number] Mojica DO /nt
--- NOTE | 2018-02-01 17:50 | NUR ---
ASSUMED CARE OF PATIENT AFTER MORNING REPORT AT APPROX 0720. ALERT AND ORIENTED X4. ASSESSMENT COMPLETED AND CHARTED. VSS ON ROOM AIR. NO COMPLAINTS OF NAUSEA OR SOA. NO COMPLANTS OF PAIN, TRAMADOL GIVEN SCHEDULED ORDERED. PATIENT WORKING WITH THERAPIES TODAY. FREQUENTLY AT THE DESK TODAY WITH MANY QUESTIONS. ELLIS IS LEAKING AT INSERTING, VERY CONCERNING TO PATIENTS . DR BURNETTE OFFICE CALLED AND INFORMED OF LEAKAGE, ORDERED LEVSIN FOR BLADDER SPAPSM BUT THE PATIENTS REFUSED THE MEDICATION. LASIX ORDERED, ALSO REFUSED BY PATIENTS SPOUSE. PATIENTS ELLIS HAD 1000 OUTPUT THROUGHOUT THE DAY. COLOSTOMY HAD APPROX 250 IN MEASURABLE STOOL, SOFT AND BROWN. COLOSTOMY CARE PERFORMED BY NURSE, PATIENTS STATED THAT SHE WAS UNAWARE THAT SHE SHOULD BE LEARNING HOW TO DO THESE CARES SO THAT SHE CAN DO THEM AT HOME WHEN PATIENT DISCHARGES. PATIENT CAME DOWN TO THE DINING ROOM FOR MEALS AND HAD FAMILY VISIT FOR DINNER. HOURLY ROUNDS MAINTAINED, CALL LIGHT IN REACH, NURSING WILL CONTINUE TO MONITOR.
[2018-02-01 20:00] VITALS: BP 173/85
[2018-02-02 04:44] LABS: HEMATOCRIT 26.5 % (42.0-52.0); HEMOGLOBIN 8.2 gm/dL (14.0-18.0); MCH 25.6 pg (26.0-34.0); MCHC 31.1 g/dL (28.0-37.0); MCV 82.3 fL (80.0-100.0); MPV 9.1 fl. (7.2-11.1); NUCLEATED RBCS 0 /100WBC; PLATELET COUNT* 190 thou/uL (150-400); RBC 3.22 mil/uL (4.50-6.00); RDW-CV 19.9 % (10.5-14.5); WBC 12.3 thou/uL (4.0-11.0)
[2018-02-02 05:03] LABS: CALCIUM 8.5 mg/dL (8.5-10.1); CREATININE 1.2 mg/dL (0.6-1.3); POTASSIUM 4.2 mmol/L (3.5-5.1)
--- NOTE | 2018-02-02 06:39 | NUR ---
ASSUMED CARES AT 1920. ALERT AND ORIENTED BUT FORGETFUL. DENIED ANY PAIN. UP INTO TO BED USING MALENA LIFT. PILLS WITH APPLESAUCE. SNACKS GIVEN. BLE EDEMA. THIGH TEDS REMOVED AND LEGS ELEVATED UP ONTO PILLOWS. ELLIS CATHETER DD YELLOW URINE WITH GOOD OUTPUT. PT DID NOT HAVE ANY LEAKAGE ISSUES OVERNIGHT. NO BLADDER SPASMS. CALLED AND SAYS THAT DOES NOT WANT PT TAKING LEVSIN. SHE FEELS THE URINE LEAKAGE IS A "MECHANICAL ISSUE" AND THAT PT SHOULD BE SEEN BY DOCTOR FIRST BEFORE TAKING MEDS. COLOSTOMY BAG HAD BEEN RINSED OUT IN LATE AFTERNOON BY DAYSHIFT RN. SINCE THEN PT HAS NOT HAVE ANY STOOLS OVERNIGHT. VERY SMALL AMOUNT OF WATER NOTED IN BAG AT BEGINNING OF SHIFT AND HAS NOT INCREASED IN AMOUNT SINCE. UNSURE IF THIS CAME FROM WHEN BAG WAS FLUSHED WITH WATER OR FROM STOMA. COLOSTOMY APPLIANCE INTACT AND STOMA IS RED AND MOIST. PT DENIES ANY ABD PAIN/PRESSURE. BOWELS SOUNDS PRESENT AND ABD SOFT. HAD CALLED AND WAS INFORMED OF THIS AND IS VERY CONCERNED. ALSO SAID THAT PT DID NOT EAT MUCH AT SUPPER. PT SLEPT LITTLE OFF AND ON. CALL LIGHT IN REACH AND BED ALARM ON. WILL CONTINUE TO MONITOR.
[2018-02-02 07:20] LABS: ABSOLUTE BASOPHILS 0.1 thou/uL (0.0-0.2); ABSOLUTE LYMPHOCYTES 9.2 thou/uL (0.8-5.3); ABSOLUTE MONOCYTES 0.7 thou/uL (0.0-1.2); ABSOLUTE NEUTROPHILS 2.2 thou/uL (1.6-8.1); ATYPICAL LYMPHS 3 %
[2018-02-02 07:21] LABS: ANISOCYTOSIS 1+; PLATELET ESTIMATE ADEQUATE; POIKILOCYTOSIS 1+
[2018-02-02 08:30] VITALS: BP 150/87
--- NOTE | 2018-02-02 10:09 | NUR ---
PT IS ALERT AND ORIENTATED THIS AM. PT DENIES PAIN OR NAUSEA.PT'S AND NIGHT NURSE REPORT NO BM' AND ARE CONSERNED. PT HAS POSITIVE BOWEL SOUNDS WITH AIR IN COLOSTOMY BAG AND PASSING OF GAS HEARD. 'S OFFICE NOTIFIED WITH CALL RETURNED FROM WHO STATED HE WOULD BE UP TO SEE PT TODAY. ELLIS HAS BEEN LEAKING REPORTED BY NIGHT NURSE AND . BALLOON DEFLATED AND TUBING INSERTED HIGHER WITH BALLOON REINFLATED WITH LARGE AMOUNT OF URINE RETURNED,1350ML CLEAR YELLOW PRESENT. ELLIS HAD BEEN DRAINING LARGE AMOUNT FOR SUPERVISOR EDUCATION WELL. PT NOW WORKING WITH THERAPIES.
--- NOTE | 2018-02-02 18:36 | NUR ---
PT HAS SMALL BROWN LIQUID/LOOSE BM IN COLOSTOMY THIS AFTERNOON AND CONTINUES WITH BOWEL SOUNDS. HAS GIVEN PT PO FLIUDS AND PT HAS HAD LARGE URINARY OUTPUT. HAS BEEN ASKED TO DECREASE PT'S PO INTAKE. NO FURTHER URINARY LEAKING NOTED FROM ELLIS. PT HAS ALSO DRANK PRUNE JUICE THIS AFTERNOON.PT REMAINS UP TO CHAIR AND VISITS WITH .
[2018-02-02 19:40] VITALS: BP 184/84
[2018-02-02 23:07] LABS: HEMOGLOBIN 8.1 g/dL (13.0-17.7)
--- NOTE | 2018-02-03 00:52 | NUR ---
ASSUMED CARE @ 1909-02/02-THURSDAY.SITS IN W/C @ BEDSIDE WATCHING TV. LEFT @ 1916.ELLIS-PATENT.COLOSTOMY IN PLACE W/ SMALL AMOUNT STOOLS IN BAG.TOOK ALL HS MEDS W/ ULISES.PUDDING @ 2042-WHOLE ONE @ A TIME.DAUGHTER MAKAYLA & HER FRIEND VISITED FROM 2099 TO 2129.PASSING GAS PER COLOSTOMY.TRANSFERED TO BED W/ MALENA LIFT W/ 2 PERSONS @ 2129.WAFFLE CUSHION IN BED.HOB UP.HEELS OFF BED & FOOT OF BED ELEVATED DUE TO EDEMA-+1 PITTING LEFT LEG,LEFT ANKLE & LEFT FOOT.BED ALARM PUT ON @ 2199.SEE POSITION CHANGE CHARTING Q 2 HOURS-EVEN HOURS.ON HOURLY ROUNDS.
--- NOTE | 2018-02-03 05:29 | NUR ---
SLEPT LATE @ 2300.AWAKE BRIEFLY @ 0100 & 0200.AWAKENED ONLY TO TURN.BUT GOES RIGHT BACK TO SLEEP.COLOSTOMY BAG EMPTIED ONLY ONCE W/ SMALL,FORMED STOOLS @ 0000-02/03-THU..TOOK TWO PIECES ULISES COOKIES W/ ULISES.CHIPS & H20 ONLY HS SNACKS.
--- NOTE | 2018-02-03 07:26 | NUR ---
BP @ 1940-184/84.BP RE-CHECKED @ 0620-159/73.CATHETER SECUREMENT DEVICE APPLIED @ 0645 TO RIGHT THIGH.
[2018-02-03 08:00] VITALS: BP 145/77
--- NOTE | 2018-02-03 12:56 | NUR ---
WOUND NURSE: ATTEMPTED TO SEE PT FOR FOLLOW UP WOUND ASSESSMENT, BUT HE IS NOT AVAILABLE FOR THIS DUE TO THERAPY SCHEDULE AND UP IN CHAIR. WILL REATTEMPT TO SEE PATIENT TOMORROW.
--- NOTE | 2018-02-03 15:15 | NUR ---
DAVID and Dr Mojica met with pt and pt Poppy to review team conference summary and plan for pt to dc next Thursday. DAVID and Dr Mojica recommended extensive planning for the safest dc home as possible with hired assistance at least 2 people needed at all times during transfers and recommended electrical lift. SW to provide any and all needed resources and referrals. SW to assist with resumption of care of [facility] at time of dc. DAVID to continue to follow to assist with safe dc planning.
--- NOTE | 2018-02-03 15:35 | NUR ---
PT ALERT AND ORIENTATED AND PARTICIPATES WITH THERAPIES. 'S OFFICE NOTIFIED OF VERY SMALL HARD BM'S REPORTED FROM TELEPHONE OPERATOR RECEPTIONIST WITH ORDERS FOR MIRALAX GIVEN. PT HAS HAD MEDIUM FORMED BM THIS AFTERNOON AND COLOSTOMY BAG WAS CHANGED BY WITH STANDBY ASSIST AND PT HOLDING LARGE CUP IN CASE OF ACCIDENT. SNAPED ON BAG EASILY AND WAS GIVEN DIRECTION ON CLOSING UP VELCRO END OF BAG. PT UP TO W/C WITH OT AND NURSING WITH MALENA LIFT.PAIN OF BACK WELL CONTROLLED WITH SCHEDUALED MEDICATIONS. ELLIS DRAINING WELL TODAY WITH NO LEAKAGE NOTED OR REPORTED, CLEAR YELLOW URINE. PT CONTINUES TO PROGRESS TOWARDS GOALS AND HOURLY ROUNDING CONTINUES.
[2018-02-03 20:16] VITALS: BP 145/75
--- NOTE | 2018-02-04 05:24 | NUR ---
ASSUMED PT CARE AT 1930. PT SITTING UP IN BED, WATCHING TELEVISION WITH DAUGHTER. ELLIS PATENT DRAINING YELLOW URINE. COLOSTOMY TO LEFT ABDOMEN, MODERATE AMOUNT OF PASTY STOOL EMPTIED FROM BAG. TOOK MEDS ONE AT A TIME WHOLE WITH CHOCOLATE PUDDING. PT TRANSFERRED TO BED WITH MALENA LIFT AND TWO PERSONS. WAFFLE CUSHION IN BED. HEELS ELEVATED ON PILLOWS AND FOOT OF BED ELEVATED FOR EDEMA TO LLE. PT TURNED Q2, AWAKENED BRIEFLY BUT BACK TO SLEEP EASILY. PT POLITE AND COOPERATIVE WITH CARES. HOURLY ROUNDING IN PROGRESS, WILL CONTINUE TO MONITOR.
[2018-02-04 08:51] VITALS: BP 172/78
--- NOTE | 2018-02-04 15:44 | NUR ---
WOUND NURSE: PATIENT SEEN FOR WOUND ASSESSMENT. MANAGED TO OBTAIN PHOTOGRAPH OF LEFT HAND AND SACRAL WOUNDS. LEFT AND RIGHT SACRUM COVERED WITH THICKENED HYPERKERATOTIC SKIN AND WHICH IS LOOSE AROUND THE EDGES. THERE IS CURRENTLY NO EXPOSED OPEN WOUND IN THIS AREA. RECOMMEND TO CONTINUE TO PROTECT USING Z-[id number]. PATIENT WITH OPEN SKIN TEAR ON THE LEFT HAND MEASURING 1.5 X 1.0 X 0.1 CM. THERE IS RED, NONGRANULATING TISSUE IN THE WOUND BED AND SMALL AMOUNT OF SEROUSANGUINOUS DRAINAGE. THIS WAS CLEANSED WITH WOUND CLEANSER AND COVERED WITH OPTIFOAM AND SECURED WITH SURESITE TRANSPARENT DRESSING. PATIENT WITH FEW THIN DRY SCABS ON THE LEFT UPPER LEG. THERE IS NO ACTIVE DRAINAGE OR PERIWOUND REDNESS. RECOMMEND LEAVING AFFECTED AREA OPEN TO AIR.
--- NOTE | 2018-02-04 18:02 | NUR ---
ASSUMED CARE AT 0730 PATIENT ALERT/ORIENTED, SCHEDULED TRAMADOL GIVEN FOR BACK PAIN WITH GOOD RELIEF, UP WITH MALENA LIFT TO W/C. TO DINING ROOM FOR MEALS, BED/CHAIR ALARMS IN PLACE, CALL LIGHT IN REACH, HOURLY ROUNDING COMPLETED. PARTICIPATED IN ALL THERAPIES TODAY. DID HELP WITH EMPTYING COLOSTOMY THIS SHIFT, BUT DID NOT DO ALL CARES BY SELF.
[2018-02-04 19:43] VITALS: BP 178/75
--- NOTE | 2018-02-05 06:51 | NUR ---
ASSUMED PT CARE AT 1930. PT ALERT AND ORIENTED, POLITE AND COOPERATIVE WITH CARES. SITTING UP WATCHING TELEVISION WITH VISITOR. COLOSTOMY TO LEFT ABDOMEN, MODERATE AMOUNT OF PASTY STOOL EMPTIES FROM BAG. TOOK MEDS WHOLE WITH CHOCOLATE PUDDING. PT TRANSFERRED TO BED WITH MALENA LIFT AND TWO PERSONS. WAFFLE CUSHION IN BED. HEELS ELEVATED ON PILLOWS AND FOOT OF BED ELEVATED FOR EDEMA TO LLE. PT TURNED Q2, AWAKENED BRIEFLY BUT BACK TO SLEEP EASILY. ELLIS DRAINING YELLOW URINE, ONLY 275 OUTPUT THIS SHIFT. (1675 OUT ON DAY SHIFT). IRRIGATED WITH 30 ML STERILE WATER WITH NO RETURN. BLADDER SCAN SHOWED 600ML. PT HAVING NO BLADDER PAIN OR BLADDER SPASMS. DR. HALL CONTACTED, UROLOGY TO CONSULT THIS MORNING. PER DR. HALL CURRENT CATHETER TO BE PULLED AND REPLACED WITH 16 BELARUSIAN CATHETER. WILL CONTINUE TO MONITOR.
[2018-02-05 07:52] VITALS: BP 158/69
--- NOTE | 2018-02-05 11:28 | NUR ---
HERE THIS AM AND HAS CHANGED AND IRRIGATED ELLIS WITH CLEAR YELLOW URINE PRESENT. AND PT HAVE DONE COLOSTOMY CARE OF CHANGING BAG AND CLEANING PT WITH MIN ASSIST OF OT AND GOOD TECHNIQUE THIS AM. PT ALERT AND ORIENTATED AND PARTICIPATES WITH THERAPIES.
--- NOTE | 2018-02-05 16:52 | NUR ---
DAVID called David Christensen at pt/family preference to discuss DME needs for dc planning. David Christensen does not have option to provide electric lift, roho cushion or slideboard. David Christensen suggested [employer] or possibly [employer]. Pt not available today to discuss other options. SW to continue to follow to assist with safe dc planning.
[2018-02-05 20:59] VITALS: BP 159/80
--- NOTE | 2018-02-06 04:51 | NUR ---
PATIENT REMAINS ALERT AND ORIENTED. DENIES PAIN. VSS. SNACK AT HS. WENT TO BED AT 2300. MALENA LIFT USED FOR TRANSFERS. REPOSITIONED EVERY 2 HOURS:PATIENT DOES TRY TO ASSIST WITH TURNING. HEELS ELEVATED. 1-2+PITTING EDEMA LOWER EXTREMITIES. COLOSTOMY EMPTIES. ELLIS IN PLACE WITH YELLOW URINE NOTED. CALLED AROUND 2200 TO CHECK ON PATIENT. BED ALARM SET. CALL LIGHT WITHIN REACH. WILL CONTINUE TO MONITOR.
--- NOTE | 2018-02-06 05:53 | NUR ---
HOURLY ROUNDING COMPLETED
[2018-02-06 07:59] VITALS: BP 146/69
--- NOTE | 2018-02-06 17:51 | NUR ---
ASSUMED CARE AT 0730 PATIENT ALERT/ORIENTED, SCHEDULED TRAMADOL GIVEN THIS AM FOR BACK PAIN RATED AT 3, REFUSED AFTERNOON TRAMADOL, UP WITH MAX OF 2, MALENA LIFT WITH NURSING STAFF, CALL LIGHT IN REACH, HOURLY ROUNDING COMPLETED, BED/CHAIR ALARMS IN PLACE, PARTICIPATED IN ALL THERAPIES TODAY, TO DINING ROOM FOR MEALS. DID PARTICIPATE IN EMPTYING COLOSTOMY THIS AFTERNOON, DID PERFORM APPROXIMATELY 90% OF CARES WITH ENCOURAGEMENT FROM STAFF.
[2018-02-06 20:00] VITALS: BP 169/80
[2018-02-07 04:54] LABS: HEMATOCRIT 25.5 % (42.0-52.0); HEMOGLOBIN 8.3 gm/dL (14.0-18.0); MCH 26.1 pg (26.0-34.0); MCHC 32.3 g/dL (28.0-37.0); MCV 80.8 fL (80.0-100.0); MPV 9.8 fl. (7.2-11.1); RBC 3.16 mil/uL (4.50-6.00); RDW-CV 19.8 % (10.5-14.5); WBC 11.6 thou/uL (4.0-11.0)
[2018-02-07 05:28] LABS: ALBUMIN 2.6 g/dL (3.4-5.0); CALCIUM 8.8 mg/dL (8.5-10.1); CREATININE 1.3 mg/dL (0.6-1.3); MAGNESIUM 1.6 mg/dL (1.8-2.4); POTASSIUM 3.8 mmol/L (3.5-5.1); TOTAL BILIRUBIN 0.3 mg/dL (<0.1-1.0); TOTAL PROTEIN 5.7 g/dL (6.4-8.2)
--- NOTE | 2018-02-07 06:34 | NUR ---
PATIENT HAS SLEPT WELL THROUGHOUT THE NIGHT. VSS ON RA. PATIENT TURNED EVERY 2HRS AND NEEDED. NO C/O PAIN. ELLIS TO DEPENDENT DRAINAGE WITH YELLOW URINE OUTPUT. COLOSTOMY WITH MODERATE AMOUNT OF SOFT BROWN STOOL. PATIENT UP FROM CHAIR TO BED WITH MALENA LIFT WITH 2 PEOPLE. NANCY HOSE REMOVED FROM LEFT LEG DURING THE NIGHT. PATIENT INSTRUCTED TO USE CALL LIGHT WHEN NEEDING ASSISTANCE. FALL PRECAUTIONS IN PLACE AND HOURLY ROUNDS MADE. WILL CONTINUE WITH PLAN OF CARE AND NURSING TO MONITOR.
[2018-02-07 08:23] VITALS: BP 144/75
--- NOTE | 2018-02-07 17:53 | NUR ---
ASSUMED CARE AT 0730 PATIENT ALERT/ORIENTED, NO COMPLAINTS OF PAIN THIS SHIFT, TRAMADOL GIVEN THIS AM ORDERED,REFUSED 1400 DOSE. UP WITH MALENA LIFT, ELLIS CATHETER PATENT DRAINING LIGHT YELLOW URINE, EDEMA NOTED TO BASE OF PENIS AND SCROTUM THIS AM, NO BLOODY DRAINAGE NOTED, WILL CONTINUE TO MONITOR. CALL LIGHT IN REACH, BED/CHAIR ALARMS IN PLACE, HOURLY ROUNDING COMPLETED. DID DO 90% OF COLOSTOMY CARE THIS SHIFT, WAS ABLE TO PROPERLY ATTACH DRAINAGE BAG TO WAFER WITH MINIMAL DIRECTIONS/ENCOURAGMENT. SHE STILL FEELS THAT HE NEEDS ANOTHER WEEK OF THERAPY, THINKS THAT A MALENA WILL NOT WORK IN HOME DUE TO CARPET IN HOURS. SHE WILL SPEAK WITH LAURA TOMORROW
[2018-02-07 20:00] VITALS: BP 183/92
[2018-02-07 20:06] VITALS: BP 183/92
--- NOTE | 2018-02-08 05:32 | NUR ---
USING CALLLIGHT WHEN NEEDING ASSIST. ON SCHEDULED PAIN MEDICATION WHICH IS HELPFUL WITH PAIN. HAS ELLIS CATHETER PATENT WITH CLEAR YELLOW URINE. CALL LIGHT WITHIN REACH. PROGRESSING TOWARD DISCHRGE GOAL.
[2018-02-08 08:30] VITALS: BP 141/66
--- NOTE | 2018-02-08 15:21 | NUR ---
ASSUMED CARE AT 0730. ALERT ORIENTED PLEASANT COOPERATIVE. HX OF COLON RESECTION COLOSTOMY. ELLIS CATHETER PATENT TO DD BAG WITH LEONA URINE. PTS. PENIS IS SWOLLEN BUT NOT PAINFUL REQUESTS. FEEDS SELF AND HAS A GOOD APPETITE TAKES MEDS WITHOUT DIFFICULTY WITH APPLESAUCE. PARTICIPATING IN THERAPIES. TRANSFERS WITH LIFT AND [address] WALTON OFFICE DID RETURN CALL THIS AFTERNOON RE SWELLING OF PENIS REQUESTED I CHECK PT. TO SEE IF HE WAS CIRCUMSIZED WHICH WAS DIFFICULT TO TELL PLACED IN BED AND EDEMA MASSAGE TO PENIS AND FORESKIN WAS ABLE TO BE PULLED DOWN, GOOD OUTPUT LEONA URINE IN DD BAG. EDEMA PRESENT BLES. BUTTOCKS AREAS HEALING. AT BEDSIDE WITH PT.
[2018-02-08 16:00] VITALS: BP 171/83
[2018-02-08 20:00] VITALS: BP 179/80
--- NOTE | 2018-02-09 05:49 | NUR ---
ASSUMED CARE AT 1920. ALERT AND ORIENTED. COOPERATIVE. DENIED ANY PAIN. MAX ASSIST X 2 PERSON. STAND AND PIVOT BUT STILL VERY WEAK. CANNOT STAND FOR VERY LONG. COLOSTOMY BAG INTACT WITH LIQUID STOOL. ELLIS CATHETER DD YELLOW URINE. ZGUARD CREAM APPLIED TO BOTTOM. TURNED EVERY 2 HRS. BLE EDEMA. LEGS UP ONTO PILLOWS. SLEPT SOME OFF AND ON. CALL LIGHT IN REACH AND BED ALARM ON.
[2018-02-09 08:00] VITALS: BP 175/86
--- NOTE | 2018-02-09 13:46 | NUR ---
SW ordered slide transfer board through [facility]; they approved and also have a low air loss mattress to provide for pt at dc. Pt plans to contact [facility] to arrange timing of delivery. SW called and left message with Natividad with [facility] to discuss dc plan. [facility] as [facility]. Pt expressed wanting pt to be able to continue inpt rehab beyond discussed day of dc of Wed; pt to discuss with Dr Mojica as well but SW explained team conference tomorrow and timing recommendation of acute rehab stay to be Wed and SW mentioned possible SNF if needed; pt said she would rather pt not go to SNF. Pt still plans to hire in home assistance/caregivers with Palliative and HH services support at dc. Pt/family participated in family training yesterday. SW to continue to assist with safe dc planning.
--- NOTE | 2018-02-09 16:52 | NUR ---
ASSUMED CARE AT 0730. ALERT ORIENTED PLEASANT COOPERATIVE. HX OF COLON RESECTION WITH COLOSTOMY ALSO ELLIS CATH PATENT TO DD BAG LEONA URINE. NO PENILE SWELLING NOTED FORESKIN IN PROPER PLACE, TRANSFERRING WITH 2 ASSIST SLIDING BOARD FROM BED TO W/C. PARTICIPATING IN THERAPIES THROUGHOUT THE DAY. FEEDS SELF WITH SET UP. TAKES MEDS WHOLE WITH APPLESAUCE WITHOUT DIFFICULTY. APPETITE GOOD. DENIES PAIN OR CONCERNS. ASSISTING WITH CARES. UP IN W/C MOST OF THE DAY TO DR FOR MEALS. PROPELLED SELF TO ROOM IN W/C.
[2018-02-09 20:43] VITALS: BP 135/66
--- NOTE | 2018-02-10 05:37 | NUR ---
ASSUMED CARE AT 1920. ALERT AND ORIENTED. PLEASANT AND COOPERATIVE. DENIED ANY PAIN. MAX ASSIST X 2 PERSON GAIT BELT AND SLIDING BOARD. TAKES PILLS WHOLE WITH APPLESAUCE. BLE EDEMA. COLOSTOMY BAG WITH SOFT/LIQUID STOOL. ELLIS CATHETER DRAINING WELL WITH CLEAR YELLOW URINE. DID HAVE SCANT AMOUNT OF BLOODY DRAINAGE FROM URETHRAL MEATUS ALSO WITH FORESKIN SWELLING. PT DENIES ANY PENIS PAIN. AREA CLEANSED. TURN EVERY 2 HRS. SLEPT OFF AND ON. CALL LIGHT IN REACH AND BED ALARM ON.
[2018-02-10 08:00] VITALS: BP 117/63
[2018-02-10 14:11] LABS: HEMOGLOBIN 9.3 gm/dL (14.0-18.0); MCH 25.6 pg (26.0-34.0); MCHC 31.9 g/dL (28.0-37.0); MCV 80.4 fL (80.0-100.0); MPV 9.7 fl. (7.2-11.1); NUCLEATED RBCS 0 /100WBC; PLATELET COUNT* 194 thou/uL (150-400); RBC 3.61 mil/uL (4.50-6.00); RDW-CV 19.7 % (10.5-14.5); WBC 12.5 thou/uL (4.0-11.0)
[2018-02-10 14:14] LABS: CREATININE 1.2 mg/dL (0.6-1.3)
[2018-02-10 14:44] LABS: ABSOLUTE BASOPHILS 0.4 thou/uL (0.0-0.2); ABSOLUTE EOSINOPHILS 0.1 thou/uL (0.0-0.7); ABSOLUTE LYMPHOCYTES 10.8 thou/uL (0.8-5.3); ABSOLUTE MONOCYTES 0.5 thou/uL (0.0-1.2); ABSOLUTE NEUTROPHILS 0.8 thou/uL (1.6-8.1); ATYPICAL LYMPHS 5 %; PLATELET ESTIMATE ADEQUATE
[2018-02-10 14:45] LABS: MICROCYTES 2+
--- NOTE | 2018-02-10 15:14 | NUR ---
DAVID and Dr Mojica met with pt and pt to review team conference summary and dc plan. Pt expressed need for pt to have more therapies and time for pt to prepare the home and in home assistance. Dr Mojica explained that dc plan for pt needs to be on Thursday; pt and pt agreed for pt to dc on Thursday. SW discussed arranging for ambulance transportation for Thursday. Pt to have [facility] and [facility] at dc. SW to continue to follow to assist with safe dc plan.
--- NOTE | 2018-02-10 17:56 | NUR ---
ASSUMED CARE AT 0730 PATIENT ALERT/ORIENTED, NO COMPLAINTS OF PAIN THIS SHIFT, SCHEDULED TRAMADOL GIVEN. UP WITH SLIDE BOARD TO W/C. HOURLY ROUNDING COMPLETED, BED/CHAIR ALARMS IN PLACE, CALL LIGHT IN REACH, COLOSTOMY INTACT WITH SOFT BROWN STOOL IN BAG, ELLIS PATENT DRAINING LIGHT YELLOW URINE. TO BE DISCHARGED HOME ON THURSDAY.
[2018-02-10 20:13] VITALS: BP 138/73
--- NOTE | 2018-02-11 05:17 | NUR ---
ASSUMED CARES AT 1920. ALERT AND ORIENTED. TAKES PILLS WHOLE IN APPLESAUCE. DENIED ANY PAIN. LOOSE COUGH NOTED. HS SNACK GIVEN. ELLIS CATHETER DD YELLOW URINE. COLOSTOMY WITH SMALL AMOUNT OF SOFT STOOL. MAX ASSIST X 2 PERSON GAIT BELT. STAND AND PIVOT. ZGUARD CREAM TO BOTTOM REDNESS. PT TURNED THROUGHOUT THE NIGHT. SLEPT SOME OFF AND ON. CALL LIGHT IN REACH AND BED ALARM ON.
[2018-02-11 08:19] VITALS: BP 141/67
--- NOTE | 2018-02-11 13:22 | NUR ---
[facility] home with family. DAVID to continue to follow to assist with finalizing safe dc plan.
--- NOTE | 2018-02-11 17:51 | NUR ---
PT UP TO W/C MOST OF DAY AND IS ABLE TO BE MOBILE PER W/C ON UNIT. PT ABLE TO PUSH SELF UP IN CHAIR WITH FEET AND ARMS AND REPOSITION SELF. AREAS ON BUTTOX APPEAR HEALED WITH Z-CREAM APPLIED.ELLIS TO DD WITH CLEAR YELLOW URINE PRESENT. COLOSTOMY INTACT WITH FORMED BROWN STOOL NOTED. HAS EMPTIED BAG THIS AFTERNOON.PAIN HAS BEEN WELL CONTROLLED WITH SCHEDUALED TYLENOL AND TRAMADOL.PT ALERT AND ORIENTATED BUT FORGETFULL. PT GAINING STRENGTH. HOURLY ROUNDING CONTINUES.
[2018-02-11 18:58] VITALS: BP 170/72
[2018-02-11 20:16] VITALS: BP 170/79
--- NOTE | 2018-02-12 05:20 | NUR ---
ASSUMED PT CARE AT 1930. PT ALERT AND ORIENTED, POLITE AND COOPERATIVE WITH CARES. PT SITTING UP IN WHEELCHAIR, TRANSFERRED TO BED WITH MAX ASSIST OF TWO PERSONS, GAIT BELT, STAND AND PIVOT. PT TAKES PILLS WHOLE IN APPLESAUCE. PT DENIES PAIN. ELLIS CATHETER TO DD DRAINING YELLOW URINE. COLOSTOMY WITH SMALL AMOUNT OF SOFT STOOL. PT TURNED THROUGHOUT NIGHT. ZGUARD CREAM TO BOTTOM REDNESS. BED ALARM ON FOR SAFETY. CALL LIGHT AND FREQUENTLY USED ITEMS WTIHIN REACH. HOURLY ROUNDING IN PROGRESS, WILL CONTINUE TO MONITOR.
[2018-02-12 07:52] VITALS: BP 152/78
--- NOTE | 2018-02-12 12:49 | NUR ---
PER SPOUSE REQUEST (MYLA) PRESCRIPTIONS CALLED INTO [facility] [phone] ON [facility] IN [place]. LISINOPRIL, LASIX, METFORMIN, ELIQUIS, TRAZADONE, AND TRAMADOL ALL CALLED AT [phone]
[2018-02-12 16:59] VITALS: BP 152/78
--- NOTE | 2018-02-12 17:03 | NUR ---
DAVID prepared for pt to dc home on Thursday; DAVID completed form for pt to be transported home by ambulance and placed on chart; pt nurse to fax on Thursday to [phone] and then call [phone] when pt is ready to be picked up. Final orders and med list also to be faxed to [facility] at [phone]. 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 and [facility] to follow. Slideboard and low air loss mattress delivered to pt home by [facility]. No other dc needs expressed at this time.
--- NOTE | 2018-02-12 18:01 | NUR ---
ASSUMED CARE AT 0730 PATIENT ALERT/ORIENTED, NO COMPLAINTS OF PAIN THIS SHIFT, UP WITH MAX 1-2 WITH SLIDE BOARD TO W/C, ELLIS CATHETER PATENT DRAINING CLEAR YELLOW URINE, COLOSTOMY BAG INTACT WITH STOOL IN BAG, BAG HAS BEEN "BURPED" SEVERAL TIMES THIS SHIFT DUE TO GAS IN BAG. INSTRUCTED ON KEEPING AN EYE ON THE BAG AND RELEASING THE GAS NEEDED ONCE HE IS HOME. DID STATE THIS EVENING THAT SHE HAS PICKED UP ALL HIS PRESCRIPTIONS FROM THE PHARMACY. PATIENT DID PARTICIPATE IN ALL THERAPIES TODAY, TO DINING ROOM FOR MEALS, BED/CHAIR ALARMS IN PLACE CALL LIGHT IN REACH, HOURLY ROUNDING COMPLETED.
[2018-02-12 20:14] VITALS: BP 152/81
--- NOTE | 2018-02-13 05:10 | NUR ---
ASSUMED PT CARE AT 1930. PT ALERT AND ORIENTED, POLITE AND COOPERATIVE WITH CARES. PT SITTING UP IN WHEELCHAIR, TRANSFERRED TO BED WITH MAX ASSIST OF TWO PERSONS, GAIT BELT, STAND AND PIVOT. PT TAKES PILLS WHOLE IN APPLESAUCE. PT DENIES PAIN. ELLIS CATHETER TO DD DRAINING YELLOW URINE. COLOSTOMY WITH MODERATE AMOUNT OF SOFT STOOL. BAG NEEDED TO BE "BURPED" NUMEROUS TIMES THIS SHIFT. PT TURNED THROUGHOUT NIGHT. ZGUARD CREAM TO BOTTOM REDNESS. BED ALARM ON FOR SAFETY. CALL LIGHT AND FREQUENTLY USED ITEMS WITHIN REACH. HOURLY ROUNDING IN PROGRESS, WILL CONTINUE TO MONITOR.
[2018-02-13 07:30] VITALS: BP 140/69
[2018-02-13 08:00] VITALS: BP 140/69
--- NOTE | 2018-02-13 14:06 | NUR ---
ASSUMED CARE AT 0730. ALERT ORIENTED PLEASANT COOPERATIVE. HX OF COLON RESECTION WITH COLOSTOMY. PT. HAS ELLIS CATHETER TO DD BAG LEONA URINE. DENIES VERY LITTLE DISCOMFORT WHEN ASKED RE PAIN SCALES. TAKES MEDS WHOLE WITH APPLESAUCE WITHOUT DIFFICULTY. FEEDS SELF WITH SET UP APPETITE GOOD. MYLA HERE WITH PT. PT. DID SPONGE OF FACE HANDS NECK WHILE IN W/C THIS AFTERNOON. PROPELLS SELF IN W/C TO DR FOR MEALS FROM ROOM. PARTICIPATING IN THERAPIES THROUGHOUT THE DAY. DENIES NEED OR WISH TO LY DOWN AFTER THERAPIES COMPLETED.
[2018-02-13 17:52] VITALS: BP 170/80
[2018-02-13 19:24] VITALS: BP 148/77
--- NOTE | 2018-02-14 05:50 | NUR ---
ASSUMED PT CARE AT 1930. PT ALERT AND ORIENTED, POLITE AND COOPERATIVE WITH CARES, CAN BE FORGETFUL. PT SITTING UP IN WHEELCHAIR, TRANSFERRED TO BED WITH MAX ASSIST OF TWO PERSONS, GAIT BELT, STAND AND PIVOT. PT TAKES PILLS WHOLE IN APPLESAUCE. PT DENIES PAIN. LELIS CATHETER TO DD DRIANING YELLOW URINE. COLOSTOMY WITH MODERSATE AMOUNT OF SOFT STOOL. PT TURNED THROUGHOUT NIGHT. ZGUARD CREAM TO BOTTOM REDNESS. BED ALARM ON FOR SAFETY. CALL LIGHT AND FREQUENTLY USED ITEMS WITHIN REACH. HOURLY ROUNDING IN PROGRESS, WILL CONTINUE TO MONITOR.
[2018-02-14 07:58] VITALS: BP 145/77
[2018-02-14] MEDS ORDERED: COLACE100 MG PO (13:30)
[2018-02-14] MEDS ORDERED: GLYBURIDE 2.52.5 MG PO (13:32)
[2018-02-14] MEDS ORDERED: SYNTHROID75 MCG PO (13:34)
[2018-02-14] MEDS ORDERED: PRINIVIL20 MG PO (13:38)
[2018-02-14] MEDS ORDERED: METFORMIN HCL500 MG PO (13:39)
[2018-02-14] MEDS ORDERED: MIRALAX17 GM PO (13:42)
[2018-02-14] MEDS ORDERED: FUROSEMIDE 40 M40 MG PO (13:44)
[2018-02-14 13:47] VITALS: BP 152/78
--- NOTE | 2018-02-14 15:13 | NUR ---
ASSUMED CARE AT 0730. ALERT ORIENTED PLEASANT COOPERATIVE. HX OF COLON RESECTION WITH COLOSTOMY. COLOSTOMY FUNCTIONING WELL EMPTIED X 1 BY AND ENVIRONMENTAL SPECIALIST THIS SHIFT. ELLIS PATENT WITH YELLOW URINE TO DD BAG. TRANSFERS WITH 1-2 WITH SLIDING BOARD FROM BED TO W/C. HAS WAFFLE CUSHIONS IN W/C. FEEDS SELF WITH SET UP APPETITE GOOD TAKES MEDS WITH APPLESAUCE WITHOUT DIFFICULTY. DENIES PAIN WHEN TRAMADOL OFFERED PER SCHEDULE. ORDERS RECEIVED PER PHONE FROM DR. GUILLEN FOR D/C. ORDERS FAXED TO [facility] WITH MED LIST. AMBULANCE HERE AT 1510 FOR P/U TO TRANSPORT PT. HOME. DISCHARGE INSTRUCTIONS WITH VERBALIZED UNDERSTANDING ALLOWED TIME FOR QUESTIONS. SHE HAD RECEIVED [facility] IN THE WEEK FOR FILLING BEFORE D/C. ALL BELONGINGS SENT WITH MYLA. PER PHONE FROM DR. GUILLEN FOR D/C.
--- NOTE | 2018-02-24 13:57 | H ---
[place] [address] HISTORY AND PHYSICAL Name: DARIEL CARNEY Room: [address] M.R.#: [id number] Admission: 01/20/18 Attend Phys: Elionr Mojica, Discharge: 02/14/18 Date of : 34 Report #: [id number] THIS REPORT FOR: //name// CC: Isauro Mojica DATE OF SERVICE: 01/20/2018 HISTORY OF PRESENT ILLNESS: The patient is admitted to inpatient rehabilitation to facilitate safe discharge home, status post acute hospitalization for significant debility and prolonged hospitalization with multiple medical comorbidities. He is status post sigmoid colectomy and colostomy for colorectal cancer, acute GI bleed which is now stable, [id number] anemia with blood loss and transfused as needed, sepsis, DJD, spinal stenosis and lumbar compression. He has had a history of UTI, has a Orr in place, improved; kidney injury; protein-calorie malnutrition which is severe, encephalopathy which is improving, diabetes type 2, history of DVT new on left lower extremity, scrotal edema which is improved. He has been participating with physical and occupational therapy as well as speech and language pathology. He has had no significant changes since preadmission screening. Previous level of function was modified independent to moderate assistance of 1-2 depending on therapy, activity and time of day. Estimated length of stay is 12-14 days with discharge disposition to the home setting with supportive family and an accessible home. PAST MEDICAL HISTORY: Unchanged from previous except as mentioned in HPI. FAMILY HISTORY: Unchanged except as mentioned previously. SOCIAL HISTORY: Unchanged. MEDICATIONS: Have been reviewed, reconciled by myself and are available in the MAR. REVIEW OF SYSTEMS: A 14-point review of systems is done, is negative except as mentioned in HPI, specifically no fever, chest pain, shortness of breath, abdominal pain or distention. ALLERGIES: No known drug allergies. PHYSICAL EXAMINATION: GENERAL: Alert and oriented, no apparent distress. VITAL SIGNS: Reviewed and are stable. HEENT: Head atraumatic, normocephalic. Pupils equal, round, reactive. ABDOMEN: Soft, nontender, nondistended. NEUROLOGIC: Cranial nerves 2-12 are grossly intact. No focal neuro deficits, 5/5 strength in the bilateral upper [place] [address] HISTORY AND PHYSICAL Name: DARIEL CARNEY Room: [address] IN [facility].#: [id number] Admission: 01/20/18 Attend Phys: Elinor Mojica DO Discharge: 02/14/18 Date of : 32 Report #: [id number] SKIN: Warm and dry. No rashes or lesions noted. He does have a sacral wound, which is being attended to by Wound Care. ASSESSMENT: 1. Encephalopathy. 2. Severe debility status post acute hospitalization. 3. Status post colorectal cancer diagnosis, with obstruction, sigmoid colectomy and colostomy is in place. 4. Acute gastrointestinal bleed, which is stable. PLAN: 1. Admission to inpatient rehabilitation to facilitate safe discharge home. 2. PT, OT, speech, language, case management, nursing and HIMS to make evaluations and recommendations. 3. Plan of care is pending. 4. We will team him weekly. 5. Labs post-admission. 6. Low endurance protocol. 7. Dr. Gonzales and Dr. Garrison to both follow. <ELECTRONICALLY SIGNED> By: Elinor Mojica DO 02/24/18 1357 [id number] Mojica DO /nt
--- NOTE | 2018-02-24 13:57 | PLAN ---
[address] [address] REHAB UNIT PLAN OF CARE Name: DARIEL CARNEY Room: [address] IN [facility].#: [id number] Admission: 01/20/18 Attend Phys: Elinor Mojica, Discharge: 02/14/18 Date of : 32 Report #: [id number] THIS REPORT FOR: //name// CC: Isauro Mojica DATE OF SERVICE: 01/21/2018 This is an 87-year-old male admitted to inpatient rehabilitation to facilitate safe discharge home status post acute hospitalization and prolonged hospitalization for multiple medical problems and comorbidities, currently has encephalopathy, is status post diagnosis of colorectal cancer with obstruction, status post sigmoid colectomy and colostomy, acute GI bleed, which is stable, acute on chronic anemia, which is now stable, sepsis, history of a recent UTI with Orr in place, encephalopathy, which is improving, diabetes type 2. His previous level of function prior to initial hospitalization was modified independent to independent with activities of daily living. He has most recently been minimum to moderate assistance of 1-2 depending on therapy, activity and time of day. He is now moderate to dependent with 1-2 depending on therapy, activity and time of day. Estimated length of stay is 12-14 days with discharge disposition to the home setting with supportive family and accessible home. MEDICAL PROGNOSIS: Fair. REHABILITATION PROGNOSIS: Fair. Estimated length of stay has already been stated. Physical therapy will see the patient 60-90 minutes per day, 5 days per week, working on upper and lower body strength, balance, coordination, navigation. Occupational therapy will see the patient 60-90 minutes per day, 5 days per week, working on upper and lower body strength, balance, coordination, navigation, bathing, dressing and toileting 5 days per week. Speech and language pathology will work with the patient 30-90 minutes per day, 5 days per week on memory, cognition, social interaction and expression 5 days per [place] [address] REHAB UNIT PLAN OF CARE Name: DARIEL CARNEY Room: [address] M.R.#: [id number] Admission: 01/20/18 Attend Phys: Elinor Mojica DO Discharge: 02/14/18 Date of : 32 Report #: [id number] This is an overall plan of care, may change from time to time. We will team him weekly and make changes to plan of care as needed. <ELECTRONICALLY SIGNED> By: Elinor Mojica DO 02/24/18 1357 [id number] Mojica DO /nt
--- NOTE | 2018-03-17 14:14 | CON ---
[address] [address] CONSULTATION Name: DARIEL CARNEY Room: [address] IN M.R.#: [id number] Admission: 01/20/18 Attend Phys: Elinor MildredJerry Mojica, DO Discharge: 02/14/18 Date of : 32 Report #: [id number] THIS REPORT FOR: //name// CC: Isauro Mojica CHIEF COMPLAINT: Dystrophic toenails, complicated by type 2 diabetes mellitus. He has advanced diabetic peripheral sensory neuropathy. He denies pain to his feet, he states the feet are insensate. PHYSICAL EXAMINATION: EXTREMITIES: Toenails are thick, dystrophic with onycholysis and subungual debris. There is no paronychia, inflammation or cardinal signs of infection to the extremities, there is +3 pitting edema to both legs. I can faintly palpate the dorsalis pedis and posterior tibial pulses bilaterally. IMPRESSION: Type 2 diabetes mellitus, peripheral neuropathy and onychomycosis. PLAN: Toenails debrided x 10. No further care necessary. <ELECTRONICALLY SIGNED> By: Grayson Early DPM 03/17/18 1414 1920 1034Djaja Early DPM /nt
== END 2018-02-14 15:10 | disposition home health service (06) | DRG 70 ==
LOC: M.REH 09:49
PROVIDERS: Family Medicine; Internal Medicine; ADMIT Physical Medicine & Rehabilitation
PROC: 0HBRXZZ Excision of Toe Nail, External Approach (ICD-10-PCS; principal; 2018-02-05)
DX: G93.40 Encephalopathy, unspecified (principal); A41.9 Sepsis, unspecified organism; E43 Unspecified severe protein-calorie malnutrition; C19 Malignant neoplasm of rectosigmoid junction; N39.0 Urinary tract infection, site not specified; D62 Acute posthemorrhagic anemia; N17.9 Acute kidney failure, unspecified; K92.2 Gastrointestinal hemorrhage, unspecified; G95.29 Other cord compression; B96.20 Unspecified Escherichia coli [E. coli] as the cause of diseases classified elsewhere; R53.81 Other malaise; R53.1 Weakness; E86.0 Dehydration; Z96.1 Presence of intraocular lens; E11.42 Type 2 diabetes mellitus with diabetic polyneuropathy; B35.1 Tinea unguium; L60.3 Nail dystrophy; M19.90 Unspecified osteoarthritis, unspecified site; I12.9 Hypertensive chronic kidney disease with stage 1 through stage 4 chronic kidney disease, or unspecified chronic kidney disease; N18.3 Chronic kidney disease, stage 3 (moderate); E11.22 Type 2 diabetes mellitus with diabetic chronic kidney disease; M48.061 Spinal stenosis, lumbar region without neurogenic claudication; E83.42 Hypomagnesemia; Z90.49 Acquired absence of other specified parts of digestive tract; Z93.3 Colostomy status; Z98.41 Cataract extraction status, right eye; Z98.42 Cataract extraction status, left eye; Z89.421 Acquired absence of other right toe(s); Z87.440 Personal history of urinary (tract) infections; Z86.718 Personal history of other venous thrombosis and embolism; Z79.899 Other long term (current) drug therapy; Z79.4 Long term (current) use of insulin; Z68.28 Body mass index [BMI] 28.0-28.9, adult; Z79.01 Long term (current) use of anticoagulants

== ENCOUNTER → 2018-06-08 | Outpatient (CLI) | payer MEDICARE, OTHER ==
[~2018-06-08] MED LIST changes: +ELIQUIS5 MG PO; +FUROSEMIDE 40 M40 MG PO; +GLYBURIDE 2.52.5 MG PO; +LANTUS100 UNIT/M SUBQ; +MELATONIN5 M1 PO; +MIRALAX17 GM PO; +PRINIVIL20 MG PO; +TRAZODONE HCL50 MG PO
== END ==
LOC: M.ULTRA 16:00
DX: M79.604 Pain in right leg (principal)

== ENCOUNTER 2018-09-20 16:49 | Emergency (ER) | payer MEDICARE, OTHER ==
[2018-09-20 18:01] VITALS: BP 00/00
[2018-09-20] MEDS ORDERED: COZAAR 25 MG TA25 M1 PO (19:10)
[2018-09-20] MEDS ORDERED: TYLENOL EXTRA500 MG PO (19:11)
[2018-09-20] MEDS ORDERED: INVOKANA100 MG PO (23:39)
== END 2018-09-20 18:04 | disposition left against medical advice (07) ==
LOC: M.ERS 16:49
DX: Z53.21 Procedure and treatment not carried out due to patient leaving prior to being seen by health care provider (principal)

== ENCOUNTER 2018-09-20 17:56 | Inpatient (IN) | payer MEDICARE, OTHER ==
[~2018-09-20] VITALS: Ht 175.3 cm; Wt 94.3 kg
--- NOTE | ~2018-09-20 | CON ---
[address] [address] CONSULTATION Name: DARIEL CARNEY Room: [address] IN .R.#: [id number] Admission: 09/20/18 Attend Phys: Glenn Sutherland MD Discharge: Date of : 32 Report #: [id number] THIS REPORT FOR: //name// CC: Isauro Sutherland HISTORY OF PRESENT ILLNESS: This is a pleasant 88-year-old gentleman well known to our service from his previous admissions. 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 The GI service has been consulted for oozing of blood from his rectum. The patient's is at bedside and provides most of the history. She noticed increased discharge from the rectal area and yesterday, she noticed that the discharge turned pink in color. There were no lisa blood or blood clots. There is no pain in that region. The patient denies similar episodes since his surgery. The patient denies any episodes of bleeding from the colostomy. PAST MEDICAL HISTORY: As mentioned above. The patient has a history of sigmoid cancer status post resection and DVT, on chronic anticoagulation. PAST SURGICAL HISTORY: The patient has a history of sigmoid resection, remote history of abscess removed from his jaw, had implants in the second toe of the right foot, had bilateral cataract surgery. FAMILY HISTORY: There is no family history of colorectal cancer or Méndez-related neoplasia. SOCIAL HISTORY: The patient denies alcohol, smoking or recreational drug use. REVIEW OF SYSTEMS: A comprehensive 10-point review of systems is negative except for what is mentioned in the HPI. PHYSICAL EXAMINATION: GENERAL: The patient is alert, awake, oriented x 3. HEENT: Pupils are equal, round, reactive to light and accommodation. Mucous membranes are moist. There is no congestion. LUNGS: Clear to auscultation bilaterally. CARDIOVASCULAR: Rate and rhythm regular, S1, S2 present. ABDOMEN: Soft. There is no distention, guarding or rigidity. Ostomy is seen in place. No bleeding in the ostomy site. RECTAL: Shows skin breakdown and a pressure ulcer in the perirectal area with an overlying tape. No bleeding is seen at this point. External hemorrhoids are noted. Again, these hemorrhoids are nonbleeding. EXTREMITIES: 2+ pitting edema bilaterally. LABORATORY DATA: Hemoglobin 10.4, hematocrit 31.8, platelet count 154, WBC [facility] [address] [place] [address] CONSULTATION Name: DARIEL CARNEY Room: [address] IN [facility]#: [id number] Admission: 09/20/18 Attend Phys: Glenn Sutherland MD Discharge: Date of : 32 Report #: [id number] count 26.8. Sodium 138, potassium 4.0, chloride 108, bicarbonate 22, BUN 57, creatinine 1.8, total bilirubin 0.5, AST 17, ALT 28, alkaline phosphatase 129. ASSESSMENT AND PLAN: Pleasant 88-year-old gentleman with a past medical history of sigmoid cancer, status post resection and colostomy in place who is presenting with urinary tract infection. The patient was incidentally noted to have blood-tinged discharge from the rectum. 1. Hematochezia. There is no obvious lisa hematochezia at this time. There is some blood-tinged fluid collection on the underwear and I suspect this may be related to his pressure ulcer formation. The patient also appears to have small external hemorrhoids, which can potentially bleed. We will just monitor his hemoglobin for now and consider additional interventions if he continues to have large volume hematochezia or significant drop in his hemoglobin. Thank you for this consultation. By: 1348 [id number] Naik MD /nt
--- NOTE | ~2018-09-20 | CON ---
[address] [address] CONSULTATION Name: DARIEL CARNEY Room: [address] IN .R.#: [id number] Admission: 09/20/18 Attend Phys: Glenn Sutherland MD Discharge: Date of : 32 Report #: [id number] THIS REPORT FOR: //name// CC: Isauro Sutherland DATE OF SERVICE: 09/22/2018 HISTORY OF PRESENT ILLNESS: This 88-year-old male has a history of a nonhealing ulceration on the back of his left heel. He has previously been evaluated at [facility]. The patient has been treated there for a wound on the back of his left heel as well as on the sacrum. ALLERGIES: The patient has no known allergies to medications. The patient has diabetes mellitus. contact glucose this morning was 228. The patient has been admitted for possible sepsis. MEDICATIONS: Include losartan, enoxaparin, atorvastatin, ceftriaxone, tamsulosin, vancomycin, vitamins, finasteride, pregabalin, carvedilol and insulin. SOCIAL HISTORY: Unremarkable. PHYSICAL EXAMINATION: Examination of the posterior aspect of the left heel shows a full-thickness ulceration measuring approximately 2.0 cm x 1.5 cm x 0.2 cm. There is no exposed tendon or muscle. Moderate amount of serosanguineous drainage is present. The wound does not probe deep. No exposed bone. The wound does not probe. The DP and PT pulses are diminished. The patient is unable to feel a 10-gram monofilament. ASSESSMENT: 1. Full-thickness ulceration with fat layer exposure, posterior left calcaneus. 2. 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 PLAN: The wound on the posterior aspect of the left foot was excisionally debrided at the bedside. This was done with a blade. The debridement was down to and including subcutaneous tissue. Bleeding was controlled with compression. An Aquacel AG dressing was applied to the wound, followed by mildly compressive bandage. The patient has some offloading boots he is wearing. He should continue to wear these. A pillow should be placed under the calf to help offload the posterior aspect of the left calcaneus. Consult for wound care nurse to evaluate the patient while he is in-house. Otherwise, the patient should be followed up in [place] [address] CONSULTATION Name: DARIEL CARNEY Room: [address]#: [id number] Admission: 09/20/18 Attend Phys: Glenn Sutherland MD Discharge: Date of : 32 Report #: [id number] point after his discharge from the hospital. Thank you for asking me to participate in the care of this patient. By: 0824 0221Arthur Corby Ferguson DPM /tali
[2018-09-20 18:07] VITALS: BP 104/56
[2018-09-20 18:49] LABS: HEMATOCRIT 36.4 % (42.0-52.0); HEMOGLOBIN 11.7 gm/dL (14.0-18.0); MCH 29.3 pg (26.0-34.0); MCHC 32.1 g/dL (28.0-37.0); MCV 91.3 fL (80.0-100.0); MPV 10.7 fl. (7.2-11.1); NUCLEATED RBCS 0 /100WBC; PLATELET COUNT* 179 thou/uL (150-400); RBC 3.99 mil/uL (4.50-6.00); RDW-CV 17.5 % (10.5-14.5)
[2018-09-20 18:54] LABS: CALCIUM 9.8 mg/dL (8.5-10.1); CREATININE 1.8 mg/dL (0.6-1.3); POTASSIUM 4.2 mmol/L (3.5-5.1)
[2018-09-20 18:59] LABS: ALBUMIN 3.1 g/dL (3.4-5.0); TOTAL BILIRUBIN 0.5 mg/dL (<0.1-1.0); TOTAL PROTEIN 7.3 g/dL (6.4-8.2)
[2018-09-20] MEDS ORDERED: COZAAR 25 MG TA25 M1 PO (19:10)
[2018-09-20] MEDS ORDERED: TYLENOL EXTRA500 MG PO (19:11)
--- NOTE | 2018-09-20 19:12 | NUR ---
IS VERY PRECISE ABOUT MEDICATION TIMES, EXPECTS MEDS TO BE GIVEN AT EXACTLY HOME TIMES ON MEDICATION RECONCILIATION.
[2018-09-20 19:15] LABS: ABSOLUTE EOSINOPHILS 0.5 thou/uL (0.0-0.7); ABSOLUTE LYMPHOCYTES 8.8 thou/uL (0.8-5.3); ABSOLUTE MONOCYTES 1.3 thou/uL (0.0-1.2); ABSOLUTE NEUTROPHILS 15.3 thou/uL (1.6-8.1); ATYPICAL LYMPHS 8 %; PLATELET ESTIMATE ADEQUATE
[2018-09-20 19:32] LABS: URINE BILIRUBIN NEGATIVE (Negative); URINE BLOOD TRACE (Negative); URINE CLARITY CLEAR; URINE COLOR YELLOW; URINE GLUCOSE-RANDOM 3+ (Negative); URINE KETONES TRACE (Negative); URINE LEUKOCYTES-REFLEX NEGATIVE (Negative); URINE NITRITE-REFLEX NEGATIVE (Negative); URINE PROTEIN TRACE (Negative); URINE UROBILINOGEN 0.2 E.U./dl (0.2-1.0)
[2018-09-20 19:40] LABS: INR 1.1; PROTIME 11.5 Seconds (9.20-11.50)
[2018-09-20 20:58] VITALS: BP 114/58
[2018-09-20] MEDS ORDERED: INVOKANA100 MG PO (23:39)
[2018-09-21] VITALS (7 sets, daily range): BP systolic 102–169; BP diastolic 52–76
[2018-09-21 05:19] LABS: ANION GAP 8 mmol/L (7-16); BUN 57 mg/dL (7-18); CHLORIDE 108 mmol/L (98-107); CHOLESTEROL 80 mg/dL (<200); CO2 22 mmol/L (21-32); CREATININE 1.8 mg/dL (0.6-1.3); GLUCOSE 219 mg/dL (70-99); HDL CHOLESTEROL 14 mg/dL (>40); LDL CHOLESTEROL 36 mg/dL (<100); MAGNESIUM 2.1 mg/dL (1.8-2.4); POTASSIUM 4.2 mmol/L (3.5-5.1); SODIUM 138 mmol/L (136-145); TC:HDL 5.7 Ratio (Not establshd); TRIGLYCERIDE 150 mg/dL (<150); VLDL 30 mg/dL (<40)
--- NOTE | 2018-09-21 05:22 | NUR ---
ASSUMED PT CARE AROUND 2144 FROM ER. ASSESSMENT COMPLETED CHARTED. AT BEDSIDE IS VERY PARTICULAR ABOUT HUSBANDS CARE FROM HIS WOUND CARE TO MEDICATION TIMES TO BEING ABLE TO CLEAN HER OWN HUSBANDS BOTTOM WHEN SHE IS HERE. TOOK PICTURES OF HEEL WOUNDS AND PUT IN CHART. STARTED C7BVUAB R/T PT RED BOTTOM. BLE AND SCROTUM EDEMA NOTED. ELLIS DRAINING YELLOW URINE. COLOSTOMY BAG IN PLACE, REPLACED EARLIER THAT DAY. PER PT , ELLIS IS NOT TO BE CHANGED OUT EXCEPT BY HER UROLOGIST R/T ENLARGED PROSTATE AND IT WAS JUST CHANGED YESTERDAY. PT IS RESTING IN BED AT THIS TIME WITH FLUIDS INFUSING PER P.O. WILL CONTINUE TO MONITOR.
[2018-09-21 05:24] LABS: SERUM ASSESSMENT Clear
[2018-09-21 05:28] LABS: ABSOLUTE BASOPHILS 0.1 thou/uL (0.0-0.2); ABSOLUTE EOSINOPHILS 0.4 thou/uL (0.0-0.7); ABSOLUTE LYMPHOCYTES 12.3 thou/uL (0.8-5.3); ABSOLUTE MONOCYTES 3.4 thou/uL (0.0-1.2); ABSOLUTE NEUTROPHILS 10.6 thou/uL (1.6-8.1); BASOPHILS 0.5 %; EOSINOPHILS 1.3 %; HEMATOCRIT 31.8 % (42.0-52.0); HEMOGLOBIN 10.4 gm/dL (14.0-18.0); MCH 30.2 pg (26.0-34.0); MCHC 32.8 g/dL (28.0-37.0); MCV 92.2 fL (80.0-100.0); MONOCYTES 12.7 %; MPV 10.9 fl. (7.2-11.1); NUCLEATED RBCS 0 /100WBC; PLATELET COUNT* 154 thou/uL (150-400); POLYS 39.5 %; RBC 3.45 mil/uL (4.50-6.00); RDW-CV 17.3 % (10.5-14.5); WBC 26.8 thou/uL (4.0-11.0)
--- NOTE | 2018-09-21 10:13 | EKG ---
[place] [address] ELECTROCARDIOGRAM REPORT Name: DARIEL CARNEY Room: [address] ADM IN M.R.#: [id number] Admission: 09/20/18 Attend Phys: Glenn Sutherland MD Discharge: Date of : 32 Report #: [id number] THIS REPORT FOR: //name// [facility] ED Test Date: 2018-09-20 Test Time: 19:21:11 Pat Name: DARIEL CARNEY Department: Room: [facility] Gender: Cook Vacuum Kettle: Mildred SANDOVAL : 1930 Requested By: Opal Heller Order Number: [id number] MD: Wilfred Lubin Measurements Intervals [place] Rate: 89 P: 41 FL: 202 QRS: 32 QRSD: 92 T: 30 QT: 361 QTc: 440 Interpretive Statements Sinus rhythm Multiple ventricular premature complexes Baseline wander in lead(s) V4 Compared to ECG 01/03/2018 02:21:05 Ventricular premature complex(es) now present Sinus tachycardia no longer present Electronically Signed On 09-21-2018 10:13:40 CDT by Wilfred Lubin [email or web address] <ELECTRONICALLY SIGNED> By: Wilfred Lubin MD, FAC 09/21/18 1013 20 20 Wilfred Lubin MD, [facility] /EPI
--- NOTE | 2018-09-21 11:41 | NUR ---
CM spoke with Pt's , Pt having an ECHO. Pt resides at home with his , per , Pt has been doing really well at home. Pt uses a wc for mobility, also has a walker that he uses when doing his exercises. Pt transfers with a slide board. No home o2. Pt has in [facility]. Pt has 2hrs of care in the mornings and 1hr of care in the evenings x7days. Caregivers assist with bathing/grooming, exercise program and lite house keeping. Hx of [facility] which ended 2 weeks ago. wants HH at id, but wants to use [facility]. Hx of acute rehab. No hx of skiled. Goal is home at id with HH for Nursing, PT/ST. Following [facility] p:[phone] f:[phone]
--- NOTE | 2018-09-21 13:07 | NUR ---
WOUND CARE: CONSULT FOR LEFT HEEL WOUND/PRESSURE ULCER. PT SEEN AT BEDSIDE. PRESENT. ANSERS FOR PT. PT IS ALERT. DENIES PAIN IN LEFT HEEL. WHEN DISCUSSING WITH THAT THE PODIOTRIST IS GOING TO COME LOOK AT THE FOOT, THE STATES SHE DOES NOT WANT ME TO DO ANYTHING WITH IT AND JUST WANT THE DR TO DO IT. PT DOES HAVE BILAT PREVALON BOOTS ON IN THE BED. PT AND REPORT THE PT IS BED/WC BOUND AT HOME AND HE GOES TO [facility] ON[facility] W[facility] AND ALSO HAS HH. PTS BUTTOCK HAD A MEPILEX DRESSING IN PLACE ON COCCYX. IT WAS REMOVED AND THE PT HAS A HEALED PRESSURE SORE. THE STATES SHE TAKES CARE OF IT AT HOME. PT ALSO HAS 2 AREAS OF EXCORIATION TO THE UNDERSIDE OF THE SCROTUM. THE DISTAL OF THE 2 MEASURES 0.7X0.7X0.1. IT IS RED, NO DRAINAGE NOTED, FADIA WOUND IS RED, BLANCHABLE. THE PROXIMAL OF THE 2 MEASURES 1.5X1.0X0.1, THE WOUND BED IS PINK, MINIMAL DRAINAGE. FADIA WOUND IS RED, BLANCHABLE. PT WAS WEARING A BRIEF, STATES IT WAS ONLY TO GO TO A TEST EARLIER. THE BRIEF WAS REMOVED, BUTTOCK AND FADIA AREA WASHED WITH SOAP AND WATER, PATTED DRY, HELPING. SHE STATES SHE USES Z-GUARD ON THIS AREA AT HOME. THE COCCYX WAS COVERED WITH A 4X4 BOARDERED FOAM AND Z-GUARD APPLIED TO SCROTUM. AND PT EDUCATED TO KEEP THE BRIEF OFF UNLESS GOING TO A TEST, KEEP THE AREA DRY AND USE THE Z GUARD TO PROTECT IT. BOTH VERBALIZED UNDERSTANDING. PT ALSO HAS SMALL UNSTAGABLE WOUND TO THE RIGHT GREAT TOE MEASURING 0.5X05X0.0. THERE IS MINIMAL SCABBING PRESENT COVERING THE WOUND. EDGES ARE APPROXIMATED, NO DRAINAGE NOTED. FADIA WOUND APPROPRIATE SKIN COLOR, BLANCHABLE. LEFT OPEN TO AIR. RECCOMEND: PODIETRY TO MANAGE LEFT HEEL WOUND 4X4 BOARDERED FOAM FOR PROTECTION ON COCCYX ZGUARD TO SCROTUM BID AND PRN, TURN Q2 HRS, MINIMIZE USE OF BRIEF AREA WAS WASHED WITH SOAP AND WATER.
--- NOTE | 2018-09-21 15:07 | 2DMMODE ---
[place] [address] 2 D/M-MODE ECHOCARDIOGRAM Name: DARIEL CARNEY Room: [address] IN [facility]#: [id number] Admission: 09/20/18 Attend Phys: Glenn Sutherland MD Discharge: Date of : 32 Date of Service: 09/21/18 1507 Report #: [id number] THIS REPORT FOR: //name// APPROVED REPORT Study performed: 09/21/2018 11:06:16 EXAM: Comprehensive 2D, Doppler, and color-flow Echocardiogram Patient Location: In-Patient Room #: [facility] Status: routine BSA: 2.04 HR: 68 bpm BP: 121/63 mmHg Rhythm: NSR Other Information Study Quality: Good Indications Murmur Sepsis 2D Dimensions IVSd: 11.33 (7-11mm) LVOT Diam: 18.82 (18-24mm) LVDd: 39.12 mm PWd: 10.21 (7-11mm) Ascending Ao: 41.81 (22-36mm) LVDs: 28.18 (25-40mm) Aortic Root: 36.41 mm Volumes Left Atrial Volume (Systole) LA ESV Index: 39.20 mL/m2 Aortic Valve AoV Peak Mj.: 1.96 m/s AO Peak Gr.: 15.34 mmHg LVOT Max P.63 mmHg AO Mean Gr.: 8.74 mmHg LVOT Mean P.46 mmHg LVOT Max V: 1.29 m/s AO V2 VTI: 42.85 cm LVOT Mean V: 0.86 m/s JENY (VTI): 2.01 cm2 LVOT V1 VTI: 31.00 cm Mitral Valve MV Mean Gr.: 3.75 mmHg E/A Ratio: 1.00 MV Decel. Time: 293.16 [place] [address] 2 D/M-MODE ECHOCARDIOGRAM Name: DARIEL CARNEY Room: [address] IN ..#: [id number] Admission: 09/20/18 Attend Phys: Glenn Sutherland MD Discharge: Date of : 32 Date of Service: 09/21/18 1507 Report #: [id number] MV E Max Mj.: 1.31 m/s MV PHT: 85.02 ms MVA (PHT): 2.59 cm2 TDI E/Lateral E': 18.71 E/Medial E': 16.38 Medial E' Mj.: 0.08 m/s Lateral E' Mj.: 0.07 m/s Pulmonary Valve PV Peak Mj.: 0.88 m/s PV Peak Gr.: 3.10 mmHg Left Ventricle The left ventricle is normal size. There is normal LV segmental wall motion. There is normal left ventricular wall thickness. Left ventricular systolic function is normal. LVEF is 60-65%. Grade I - abnormal relaxation pattern. Right Ventricle The right ventricle is normal size. The right ventricular systolic function is normal. Atria Left atrium is moderately dilated. The right atrium size is normal. Aortic Valve Moderate aortic valve sclerosis. No aortic regurgitation is present. Mild aortic stenosis. Mitral Valve Moderate mitral annular calcification. There is no mitral valve regurgitation noted. Mild mitral stenosis. Tricuspid Valve The tricuspid valve is normal in structure. Unable to assess PA pressure. Trace tricuspid regurgitation. Pulmonic Valve Pulmonic valve is not well visualized. There is no pulmonic valvular regurgitation. Great Vessels The aortic root is normal in size. IVC is normal in size and collapses >50% [place] [address] 2 D/M-MODE ECHOCARDIOGRAM Name: DARIEL CARNEY Room: [address] IN [facility]#: [id number] Admission: 09/20/18 Attend Phys: Glenn Sutherland MD Discharge: Date of : 32 Date of Service: 09/21/18 1507 Report #: [id number] Pericardium There is no pericardial effusion. <Conclusion> The left ventricle is normal size. There is normal left ventricular wall thickness. Left ventricular systolic function is normal. LVEF is 60-65%. Grade I - abnormal relaxation pattern. Left atrium is moderately dilated. Moderate aortic valve sclerosis. Mild aortic stenosis. Moderate mitral annular calcification. Mild mitral stenosis. <ELECTRONICALLY SIGNED> By: Jack Claudio MD, [facility] 09/21/18 1507 1507 1507 Jack Claudio MD, FAC /INF
--- NOTE | 2018-09-21 15:26 | NUR ---
Nutrition: consult "per family". Pt with chronic heel wound and takes Chu BID, would like to receive while in hospital. Wt up from prior admit and UBW 180 lb. Albumin mildly low, RFT's elevated. Meds reviewed. Reports good appetite. Low-mild nutrition risk; f/u 09/27.
--- NOTE | 2018-09-21 16:53 | NUR ---
ASSUMED PT CARE THIS AM AT 0715 REPORT RECEIVED FROM NURSE. PT IS AOX4 SR 1ST AV BLOCK ON PARTY DIRECTOR. PT ON RA AND SATURATION IS 95%. PT IS BEDREST. PT WORKED WITH HIM AND GOT HIM OUT OF BED TO THE WHEELCHAIR. PT DID GOOD WITH PT HELP.PT IS VERY SPECIFIC ABOUT PT TREATMENT. ALL HER REQUESTS TAKNE CARE OF APPROPRIATELY. NEW CONSULTS IN. PT RECEIVED ALL HIS MEDICATIONS EXCEPT INSULIN WHICH HE REFUSED. WOUND CARE NURSE SAW PT. Q2TURN PERFORMED. COLOSTOMY BAG IS EMPTIED. ACCUCHECK AC/HS, SEE CHART. ELLIS IS INTACT. PT HAS NO COMPLAINT. WILL CONTINUE TO MONITOR
--- NOTE | 2018-09-21 18:22 | NUR ---
PT AND HAVE BEEN REFUSING INSULIN DURING THE WHOLE SHIFT. PT JUST CAME UP TO [facility] ST[facility] AND ASKED THAT INSULIN BE GIVEN TONIGHT SHE HAS SPOKEN TO TWO PHARMACIST OVER THE PHONE WHO CONFIRMED THAT THE INSULIN IS NOT VERY INVASIVE BUT SAFE. WILL COMMUNICATE WITH MATERIAL HAULER NURSE ABOUT NEXT INSULIN DOSE
[2018-09-22 02:08] LABS: GLYCOHEMOGLOBIN (HGB A1C) 8.8 % (4.8-5.6)
--- NOTE | 2018-09-22 03:14 | NUR ---
ASSUMED CARE OF PT AT 1900. PT IS ALERT AND ORIENTED. JUAN. PT HAD AN ELEVATED TEMP AT THE BEGINNING OF THIS SHIFT. PT RECIEVED TYLENOL AND IS GETTING FLUIDS. ICE BAGS PLACED ON PT TO COOL HIM DOWN. DR TALLEY NOTIFIED. BLOOD CULTURES DONE. LACTIC 1.8. PT IS IN SINUS RYTHM ON THE TELEMETRY. TEMP AT THIS TIME IS 99.2. PT IS SLEEPING QUIETLY IN BED. RESPIRATIONS ARE EVEN AND NONLABORED. WILL CONTINUE TO MONITOR PT.
[2018-09-22 04:00] VITALS: BP 114/60
[2018-09-22 07:09] VITALS: BP 126/62
--- NOTE | 2018-09-22 11:23 | NUR ---
WOUND/OSTOMY NURSE- PATIENT WELL KNOWN FROM PRIOR ADMISSIONS, PRIMARILY RELATED TO COLOSTOMY CARE. HAS CONTINUED TO CALL ME AT HOME FREQUENTLY, INCLUDING 09/19/18, REGARDING QUESTIONS AND CONCERNS WITH COLOSTOMY. CURRENTLY THE 2 PIECE [place] CLOSED POUCH THAT SHE APPLIED YESTERDAY REMAINS INTACT WITH NO STOOL. SHE HAS BEEN CONCERNED ABOUT HIS PATTERN OF NOT HAVING ANY OUTPUT, THEN PRODUCING LARGE AMOUNT THAT EXCEEDS CAPACITY OF SMALLER CLOSED POUCH. OTHERWISE, SHE DENIES ANY STOMAL OR PERISTOMAL COMPLICATIONS, AND HAS REQUESTED THAT I NOT REMOVE THE POUCH. HE DOES HAVE ANY APPARENT SMALL PERISTOMAL HERNIA - REASSURED HER THAT VERY COMMON AND NOT CAUSE FOR CONCERN. PLACED SUPPLIES AT BEDSIDE. NEW WOUND CARE CONSULT THIS MORNING FROM DR MARTINEZ. PER 'S REPORT, HE SAW PATIENT THIS AM (~ 0730), DEBRIDED WOUND SLIGHTLY, REPLACED DRESSING AND ADVISED PER PHONE THAT HE IS AGREEABLE WITH HER REQUEST THAT ONLY SHE CHANGE THE DRESSING. DID NOT WANT ME TO REMOVE DRESSING AT THIS TIME, WHICH REMAINS DRY & INTACT. SHE WAS AGREEABLE TO ME WRITING OUT HER EXACT WOUND CARE INSTRUCTIONS, IN THE EVENT THAT THE NURSES NEED TO CHANGE OR REAPPLY IN HER ABSENCE. SUPPLIES ALL PLACED AT BEDSIDE FOR HER. REVIEWED WOUND PHOTO TAKEN ON ADMISSION, AND WOUND DOES HAVE SOME NECROTIC TISSUE, SO WOULD BE CONSIDERED UNSTAGEABLE. IS ALSO CONCERNED ABOUT PROTECTING RIGHT HEEL, AND UPSET THAT 6 X 6 FOAM BORDER DRESSING NOT AVAILABLE. I CLEANSED FOOT WELL, AND SHE WAS AGREEABLE TO A 4X4 NON-BORDERED FOAM HELD IN PLACE WITH SLIPPER SOCK, AND BILATERAL HEEL BOOTS. LEGS ELEVATED ON PILLOW, WITH HEELS SUSPENDED OFF OF BED.
--- NOTE | 2018-09-22 11:57 | CON ---
[address] [address] CONSULTATION Name: DARIEL CARNEY Room: [address] IN M.R.#: [id number] Admission: 09/20/18 Attend Phys: Glenn Sutherland MD Discharge: Date of : 32 Report #: [id number] THIS REPORT FOR: //name// CC: Isauro Sutherland DATE OF SERVICE: 09/21/2018 ATTENDING PHYSICIAN: Dr. Sutherland. REASON FOR EVALUATION: Sepsis, suspected complicated urinary tract infection. HISTORY OF PRESENT ILLNESS: Chart reviewed, patient examined. This 88-year-old with known history of colon cancer has been hospitalized several times, although none since last fall, has longstanding issues with obstructive uropathy, is followed by Urology and seen for catheter change every 3 months and has been on Macrodantin for what appears to be a long-term prophylaxis. In addition has had ongoing issues with pressure related to left heel ulcer who was found to have fevers, chills. Urinalysis did show some marked pyuria due to concern about deteriorating clinical status. He was evaluated in the Emergency Room and subsequently admitted and placed on combination therapy of vancomycin as well as ceftriaxone to cover the sites including the left heel. He is better today. He does have a degree of dementia, so he typically minimizes any signs and symptoms. He is apparently weaker and has had bit of anorexia over recent days, although prior to that had been eating well. He denies any pulmonary or gastrointestinal-related complaints. ALLERGIES: None known. MEDICATIONS: Include losartan, enoxaparin, atorvastatin, ceftriaxone, tamsulosin, vancomycin, multivitamin, finasteride, pregabalin, carvedilol, insulin sliding scale, p.r.n. analgesics and antiemetics. 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 SOCIAL HISTORY: Nonsmoker, no ethanol. FAMILY HISTORY: Noncontributory. REVIEW OF SYSTEMS: Otherwise unremarkable with the exception of the above in the history [place] [address] CONSULTATION Name: DARIEL CARNEY Room: [address]#: [id number] Admission: 09/20/18 Attend Phys: Glenn Sutherland MD Discharge: Date of : 32 Report #: [id number] PHYSICAL EXAMINATION: GENERAL: He is pleasant, alert, cooperative. He does exhibit evidence of some dementia, appears to be reasonably well nourished. Some mild distress. VITAL SIGNS: Temperature 97.8, had a T-max 101.8 last evening, pulse 62, respirations 14, blood pressure 120/63. SKIN: Warm, dry, no rashes. HEENT: Normocephalic. Extraocular muscles intact. NECK: Supple. LUNGS: Diminished, otherwise clear breath sounds. HEART: Regular, occasional ectopy. Soft systolic murmur. ABDOMEN: Soft, nontender, nondistended. He does have a Orr catheter in place. GENITOURINARY AND RECTAL: Deferred. LABORATORY DATA: Blood cultures collected yesterday are sterile thus far. Most recent CBC: White count of 26.8. He does have notable absolute lymphocyte count of 12,300. Electrolytes: Sodium 138, potassium 4.2, chloride 108, bicarbonate is 22, anion gap of 8, BUN and creatinine 57 and 1.8. Lactic acid serially of 2.1 and 1.9. ProBNP of 2111. Initially urinalysis showed greater than 25 white cells, greater than 30 bacteria; however, repeat course in a couple of hours was otherwise unremarkable in terms of pyuria and 3+ glucose. ASSESSMENT AND PLAN: Febrile illness, likely secondary to complicated urinary tract infection. He is clinically much better today. We will continue current empiric approach with vancomycin and ceftriaxone. I had an extended conversation with Ms. Carney, who is very involved in his care ____ into his medical regimen. See how he does over the course of the next 24-36 hours. <ELECTRONICALLY SIGNED> By: Roberto Garrison MD 09/22/18 1157 [id number] Garrison MD /nt
[2018-09-22 12:37] VITALS: BP 118/62
--- NOTE | 2018-09-22 16:12 | NUR ---
ASSESSMENT COMPLETE. PT ALERT AND ORIENTED, FORGETFUL AT TIMES. PT UP IN CHAIR THIS AFTERNOON. FEVER STARTED AGAIN AROUND 1545, PRN TYLENOL GIVEN. PT IS ON ROOM AIR, VSS. IV FLUIDS INFUSING. VANC TROUGH DONE TODAY, PHARMACY DOSED. ELIQUIS STARTED, LOVENOX STOPPED. PT IS ACCU CHECK, SLIDING SCALE GIVEN. PT HAD BLOOD ON PAD, UNSURE IF FROM RECTUM OR HEMORRHOIDS, GI CONSULTED PER DR HAYDEN. DR MARTINEZ ROUNDED, NEW WOUND CARE ORDERS. BOOTS IN PLACE WHEN IN BED. TELE MONITOR SHOWS NSR WITH BBB AND 1ST DEGREE BLOCK. COLOSTOMY IN PLACE. ELLIS WITH ADEQAUTE OUTPUT. SEE ASSESSMENT AND VITALS FOR OTHER DETAILS. CALL LIGHT WITHIN REACH, WILL CONTINUE PLAN OF CARE
[2018-09-22 16:22] VITALS: BP 142/89
[2018-09-22 19:35] VITALS: BP 171/80
[2018-09-22 23:53] VITALS: BP 133/67
--- NOTE | 2018-09-23 03:25 | NUR ---
ASSUMED CARE OF PT AT 1900. PT IS ALERT AND ORIENTED. PERRLA. NO COMPLAINTS OF PAIN. PT HAD AN ELEVATED TEMP AT THE BEGINNING OF THIS SHIFT. AT ONE TIME TEMP WAS UP TO 103. ID DOCTOR NOTIFIED. PT WAS GIVEN TYLENOL AND FLUCANOZOLE. AT ABOUT 2300 TEMP STARTED GOING DOWN. PT IS IN SINUS RYTHM ON THE TELEMETRY. PT IS RESTING COMFORTABLY IN BED. RESPIRATIONS ARE EVEN AND NONLABORED. WILL CONTINUE TO MONITOR PT.
[2018-09-23 03:50] VITALS: BP 119/69
[2018-09-23 05:11] LABS: ALBUMIN 2.4 g/dL (3.4-5.0); CALCIUM 9.1 mg/dL (8.5-10.1); CREATININE 1.4 mg/dL (0.6-1.3); POTASSIUM 3.9 mmol/L (3.5-5.1); TOTAL BILIRUBIN 0.4 mg/dL (<0.1-1.0); TOTAL PROTEIN 6.1 g/dL (6.4-8.2)
[2018-09-23 06:25] LABS: ABSOLUTE BASOPHILS 0.1 thou/uL (0.0-0.2); ABSOLUTE EOSINOPHILS 0.2 thou/uL (0.0-0.7); ABSOLUTE LYMPHOCYTES 9.8 thou/uL (0.8-5.3); ABSOLUTE MONOCYTES 3.3 thou/uL (0.0-1.2); ABSOLUTE NEUTROPHILS 10.6 thou/uL (1.6-8.1); BASOPHILS 0.6 %; EOSINOPHILS 0.9 %; HEMATOCRIT 32.1 % (42.0-52.0); HEMOGLOBIN 10.2 gm/dL (14.0-18.0); LYMPHOCYTES 40.8 %; MCH 29.3 pg (26.0-34.0); MCHC 31.9 g/dL (28.0-37.0); MCV 91.9 fL (80.0-100.0); MONOCYTES 13.7 %; MPV 11.2 fl. (7.2-11.1); NUCLEATED RBCS 0 /100WBC; PLATELET COUNT* 184 thou/uL (150-400); RBC 3.49 mil/uL (4.50-6.00); WBC 24.1 thou/uL (4.0-11.0)
--- NOTE | 2018-09-23 07:45 | NUR ---
ASSUMED CARE OF PT ASSESSED AND DOCUMENTED. PT IS ON CARDIAC MONITER TRACING SR 1ST DEGREE HR 68. PT IS A&O WITH NO C/O PAIN. VSS WNL. PT IS AFEBRILE. HE HAS NOTED SCROTAL EDEMA. PT HAS ON PROFO BOOTS. THE L FT HAS A DRSG. PT HAS A ELLIS. HE IS ON Q2HR TURN&REPO. BED IS IN LOW POSITION CALL LIGHT IS IN REACH. WM.
[2018-09-23 08:00] VITALS: BP 142/74
[2018-09-23 11:30] VITALS: BP 120/65
--- NOTE | 2018-09-23 17:48 | NUR ---
PT HAD A CT OF PELVIC AND ABD. CALLED IN RESULTS TO DR CONSTANTINO. PT'S HAS BEEN AT BEDSIDE. SHE DEMANDED A DIFFERENT DR TODAY STATING PRIOR DOC WOULD NOT LISTEN. SPOKE WITH HOUSE SUPERVISER AND A DIFFERENT DR WAS ASSIGNED. PT HAS TAKEN CARE OF HER AT HOME FOR 61 YEARS AND SEEMS TO HAVE A HARD TIME TRUSTING STAFF TO DO THEIR JOB. SHE IS DEMANDING OF STAFF AND HAS A HARD TIME WITH BOUNDARIES HERE IN THE HOSPITAL. PT HAD 1900 OUT OF HIS ELLIS. URINE WAS CLEAR AND YELLOW. PT IS A MAX ASSIST. HIS SCROTUM IS EDEMATOUS AND HAS A SORE BELOW IT. DID LET ME CLEAN AND CREME WOUND. WHEN I ASKED PT IF HE WANTED TO GET BACK IN BED HE SAID HE HAD TO ASK HIS . PT HAS HAD A SLIGHT TEMP OF 99.4. WILL GIVE PT TYLENOL. PT HAS HAD NO S OR SX OF ADVERSE REACTION TO ABT. EDUCATION GIVEN ON DEMAND. HOURLY ROUNDING CONT.
[2018-09-23 20:00] VITALS: BP 146/64
--- NOTE | 2018-09-23 20:00 | NUR ---
RECEIVED REPORT AND ASSUMED CARE OF PT, ASSESSMENT COMPLETED. AT BEDSIDE AND EXPLAINED EXACT CARE SHE EXPECTS FOR . OTHER SUGGESTIONS MADE AND EXCEPTABLE OF THESE. PT HAVING OCC MOIST NON-PROD COUGH, HOB ELEVATED. COLOSTOMY AND ELLIS NOTED AND FUNCTIONING. PROFO BOOTS NOTED TO LAURI FEET. DRSG NOTED TO LT FOOT. CONCERNED ABOUT SCROTAL CARE, EXPLAINED WHAT CARE WAS TO BE GIVEN. TELEMETRY ON SHOWING SR WITH OCC PVC. WILL CONT TO MONITOR AND ASSIST NEEDED.
[2018-09-23 23:49] VITALS: BP 106/52
[2018-09-24 04:00] VITALS: BP 169/80
[2018-09-24 04:47] LABS: CALCIUM 9.3 mg/dL (8.5-10.1); CREATININE 1.3 mg/dL (0.6-1.3); POTASSIUM 3.7 mmol/L (3.5-5.1)
--- NOTE | 2018-09-24 06:22 | NUR ---
SLEPT WELL TONIGHT. ASSISTED WITH REPOSITIONING Q 2HR. NO CHANGE IN ASSESSMENT. TELEMETRY SHOWING SR. HS GOALS OF REST AND SAFETY ACHIEVED. HOURLY ROUNDING OBSERVED.
[2018-09-24 08:00] VITALS: BP 152/78
--- NOTE | 2018-09-24 10:17 | CON ---
[address] [address] CONSULTATION Name: DARIEL CARNEY Room: [address] IN .R.#: [id number] Admission: 09/20/18 Attend Phys: Glenn Sutherland MD Discharge: Date of : 32 Report #: [id number] THIS REPORT FOR: //name// CC: Isauro Sutherland CARDIOLOGY CONSULTATION INDICATION: Anticoagulation management. HISTORY OF PRESENT ILLNESS: The patient is a very pleasant 88-year-old gentleman who is well known to myself. From a cardiac standpoint, he has mild aortic stenosis. He has had history of DVT in the past, status post IVC filter placement. He also had an upper extremity DVT after a PICC line was placed. After these recurrent deep venous thromboses, the patient was placed on Eliquis 5 mg b.i.d. He has been tolerating this without significant bleeding problems. There is no history of coronary artery disease or myocardial infarction. The patient was admitted to the hospital with recurrent sepsis. He has been placed on IV antibiotics. His white blood cell count was significantly elevated on arrival. His illness does appear to be defervescing t on treatment. He denies any chest pain, tightness or pressure. He is not having significant shortness of breath. The patient's is his primary care provider and is in attendance today. PAST MEDICAL HISTORY: Significant for, 1. Mild aortic stenosis. 2. Essential hypertension. 3. Type 2 diabetes mellitus. 4. Hypothyroidism. 5. Peripheral vascular disease. 6. Recurrent DVTs. 7. Chronic anticoagulation. 8. Recent colon cancer, status post resection and ostomy placement. FAMILY HISTORY: Noncontributory. ALLERGIES: None documented. HOME MEDICATIONS: Tylenol 1000 mg p.o. t.i.d., Eliquis 5 mg p.o. b.i.d., carvedilol 12.5 mg p.o. b.i.d., Proscar 5 mg daily, furosemide 20 mg daily, losartan 25 mg at bedtime, metformin 1000 mg b.i.d., multivitamin 1 tablet at lunch, Lyrica 50 mg 2 tablets b.i.d., Flomax 0.4 mg at bedtime. PHYSICAL EXAMINATION: VITAL SIGNS: Blood pressure 156/76, pulse 78 [place] [address] CONSULTATION Name: DARIEL CARNEY Room: [address]#: [id number] Admission: 09/20/18 Attend Phys: Glenn Sutherland MD Discharge: Date of : 32 Report #: [id number] GENERAL: This is a pleasant elderly gentleman who is in no distress. Mood and affect appropriate. HEENT: Head is normocephalic, atraumatic. Extraocular muscles intact. Mucous membranes are moist. NECK: Shows no jugular venous distention. There is a cardiac murmur that radiates to the carotids bilaterally. CHEST: Reveals clear lung barron. CARDIOVASCULAR: Reveals a regular rhythm with a grade 2/6 systolic ejection murmur. I do not appreciate a gallop. ABDOMEN: Reveals normal bowel sounds. Colostomy bag in place. EXTREMITIES: Shows both lower extremities to be wrapped with pressure support devices in place. IMPRESSION AND RECOMMENDATIONS: 1. Non-rheumatic aortic valvular stenosis. Repeating echocardiogram at this time since further follow. 2. Hypertension. Continue current cardiac regimen and will make adjustments as needed. 3. Diabetes, treatment per primary physician. 4. Anticoagulation for recurrent deep venous thromboses. At this time, I would continue Eliquis 5 mg twice daily. 5. Sepsis, etiology not clear. Would consider ID consult. 6. Peripheral vascular disease, for which the patient follows with [facility]. <ELECTRONICALLY SIGNED> By: Wilfred Lubin MD, FACC 09/24/18 1017 [id number] Lubin MD, FACC /nt
[2018-09-24 12:45] VITALS: BP 127/60
--- NOTE | 2018-09-24 13:15 | NUR ---
CONTINUE TO FOLLOW, ANTICIPATE W/C DC IF PT REMAINS STABLE. PT AND AWARE, WANT TO USE [facility] AND CONTINUE WITH [facility]. BOTH AGENCIES WILL NEED CALLED AND ORDERS FAXED AT AL. CALLED AND FAXED INITIAL REFERRAL TO [facility]. PT AND DENY OTHER NEEDS [facility] [phone] FAX [phone] [facility] [phone] FAX [phone]
[2018-09-24 13:17] VITALS: BP 127/60
--- NOTE | 2018-09-24 14:21 | NUR ---
PATIENT ALERT AND ORIENTED X 4, UP IN RECLINER. TOLERATING WELL. CONT. IV ABX WITHOUT ADVERSE REACTION NOTED. DENIES PAIN OR DISCOMFORT. SR ON THE MONITOR. AT BEDSIDE. CONT. WITH CURRENT PLAN OF CARE AT THIS TIME.
[2018-09-24 17:06] VITALS: BP 132/80
[2018-09-24 20:00] VITALS: BP 141/76
--- NOTE | 2018-09-24 20:00 | NUR ---
RECEIVED REPORT AND ASSUMED CARE OF PT, ASSESSMENT COMPLETED. PT SITTING UP IN CHAIR VISITING WITH FAMILY. DRSG NOTED TO LT FOOT. TELEMETRY ON SHOWING SR. WILL CONT TO MONITOR AND ASSIST NEEDED.
[2018-09-25] VITALS: BP 131/63
[2018-09-25 04:00] VITALS: BP 138/73
[2018-09-25 06:09] LABS: CMV IgM Abs <30.0 AU/mL (0.0-29.9)
--- NOTE | 2018-09-25 06:16 | NUR ---
SLEPT WELL TONIGHT. ASSISTED WITH REPOSITIONING. PROFO BOOTS ON. TOOK HS MEDS WITHOUT COUGHING OR CHOKING. SCROTUM ELEVATED WITH TOWEL, OPEN AREA NOTED WITH LOTRIMIN OINTMENT APPLIED PER 'S REQUEST. TELEMETRY CONT TO SHOW SR. HS GOALS OF REST AND SAFETY ACHIEVED. HOURLY ROUNDING OBSERVED.
[2018-09-25 08:00] VITALS: BP 135/65
[2018-09-25 11:39] VITALS: BP 127/60
[2018-09-25] MEDS ORDERED: BACTRIM DS TAB1 EACH PO (12:28)
[2018-09-25 13:11] VITALS: BP 120/62
[2018-09-25] MEDS ORDERED: MELATONIN1 M1 PO (14:18)
[2018-09-25 14:19] VITALS: BP 127/60
--- NOTE | 2018-09-25 14:45 | NUR ---
PT DC HOME WITH AT APPROX 1445. PT SENT WITH OT'S SLIDE BOARD HIS WAS MISSING. PT AND VERBALIZE UNDERSTANDING OF ALL DC INSTRUCTIONS.
--- NOTE | 2018-09-25 15:38 | NUR ---
SW called and faxed [facility] and [facility] to provide info on pt dc home today and resumption of care orders.
[2018-09-28 16:07] LABS: EBV DNA log10 PCR 2.415 (())
== END 2018-09-25 14:41 | disposition home health service (06) | DRG 853 ==
LOC: M.ERS 17:56 → M.TBA-ER 20:10 → M.ERS 20:10 → M.2W 20:22 → M.TBA-ER 20:22 → M.2W 21:48
PROVIDERS: Internal Medicine Cardiovascular Disease; Internal Medicine Gastroenterology; Nurse Practitioner Family; Specialist; ADMIT Family Medicine
PROC: 0JBR0ZZ Excision of Left Foot Subcutaneous Tissue and Fascia, Open Approach (ICD-10-PCS; principal; 2018-09-22)
DX: A41.9 Sepsis, unspecified organism (principal); N17.0 Acute kidney failure with tubular necrosis; L03.115 Cellulitis of right lower limb; N39.0 Urinary tract infection, site not specified; K92.1 Melena; R65.20 Severe sepsis without septic shock; N18.3 Chronic kidney disease, stage 3 (moderate); E11.22 Type 2 diabetes mellitus with diabetic chronic kidney disease; L89.629 Pressure ulcer of left heel, unspecified stage; F03.90 Unspecified dementia, unspecified severity, without behavioral disturbance, psychotic disturbance, mood disturbance, and anxiety; E11.51 Type 2 diabetes mellitus with diabetic peripheral angiopathy without gangrene; E03.9 Hypothyroidism, unspecified; I35.0 Nonrheumatic aortic (valve) stenosis; I12.9 Hypertensive chronic kidney disease with stage 1 through stage 4 chronic kidney disease, or unspecified chronic kidney disease; E11.42 Type 2 diabetes mellitus with diabetic polyneuropathy; E11.621 Type 2 diabetes mellitus with foot ulcer; L97.522 Non-pressure chronic ulcer of other part of left foot with fat layer exposed; M48.061 Spinal stenosis, lumbar region without neurogenic claudication; L89.610 Pressure ulcer of right heel, unstageable; R33.9 Retention of urine, unspecified; B96.20 Unspecified Escherichia coli [E. coli] as the cause of diseases classified elsewhere; R59.1 Generalized enlarged lymph nodes; Z16.24 Resistance to multiple antibiotics; R59.9 Enlarged lymph nodes, unspecified; K43.5 Parastomal hernia without obstruction or gangrene; E87.70 Fluid overload, unspecified; Z87.440 Personal history of urinary (tract) infections; Z86.718 Personal history of other venous thrombosis and embolism; Z79.84 Long term (current) use of oral hypoglycemic drugs; Z79.899 Other long term (current) drug therapy; Z85.038 Personal history of other malignant neoplasm of large intestine; Z79.01 Long term (current) use of anticoagulants; Z90.49 Acquired absence of other specified parts of digestive tract; Z98.42 Cataract extraction status, left eye; Z98.41 Cataract extraction status, right eye; Z93.3 Colostomy status

== ENCOUNTER → 2019-05-30 | Outpatient (CLI) | payer MEDICARE, OTHER ==
[~2019-05-30] MED LIST changes: +COZAAR 25 MG TA25 M1 PO; +INVOKANA100 MG PO; +MELATONIN1 M1 PO; +TYLENOL EXTRA500 MG PO
[2019-05-30 13:11] LABS: HEMATOCRIT 31.8 % (42.0-52.0); HEMOGLOBIN 10.6 gm/dL (14.0-18.0); MCH 31.7 pg (26.0-34.0); MCHC 33.3 g/dL (28.0-37.0); MCV 95.2 fL (80.0-100.0); MPV 9.2 fl. (7.2-11.1); NUCLEATED RBCS 0 /100WBC; PLATELET COUNT* 174 thou/uL (150-400); RBC 3.34 mil/uL (4.50-6.00); RDW-CV 16.8 % (10.5-14.5); WBC 19.1 thou/uL (4.0-11.0)
[2019-05-30 13:57] LABS: ABSOLUTE EOSINOPHILS 0.8 thou/uL (0.0-0.7); ABSOLUTE LYMPHOCYTES 13.9 thou/uL (0.8-5.3); ABSOLUTE MONOCYTES 1.7 thou/uL (0.0-1.2); ABSOLUTE NEUTROPHILS 2.7 thou/uL (1.6-8.1); ATYPICAL LYMPHS 10 %; PLATELET ESTIMATE ADEQUATE
== END ==
LOC: M.RAD 12:53 → M.LAB 12:53
PROVIDERS: Internal Medicine
DX: I51.7 Cardiomegaly (principal); D72.829 Elevated white blood cell count, unspecified

== ENCOUNTER → 2019-10-10 | Outpatient (CLI) | payer MEDICARE, OTHER | LOC: M.RAD 13:57 | PROVIDERS: ATTEND Internal Medicine | DX: M84.48XA Pathological fracture, other site, initial encounter for fracture (principal); I70.0 Atherosclerosis of aorta; R05 Cough ==